=== PATIENT | female | born 1950 | race Caucasian/White ===

== ENCOUNTER 2017-06-26 09:34 | Inpatient (IN) ==
[2017-06-26] MEDS ORDERED: Albuterol 2.5 MG/3 ML NEBULIZER ONE ×2 (10:16→11:44)
[2017-06-26] MEDS ORDERED: Albuterol 2.5 MG/3 ML NEBULIZER IH ONE (10:18)
--- NOTE | 2017-06-26 10:18 | Anesthesia Evaluation PreOp ---
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: Other (spine cancer, chronic back pain) Other Medical History: Bleeding (coughing up blood), Diabetes Type II (per chart but patient denies), Other (bladder cancer; depression/anxiety) Anesthesia History: No Prior Anesthetic Complications (denies personal and family h/o GA complications) : No Test: Negative Alcohol Use: none Drug use: none Medications and Allergies DiphenhydraMINE [Benadryl] 1 tab PO HS PRN #30 capsule 03/12/16 [Rx] Magic Mouthwash [Magic Mouthwash BLM] 10 ml PO QID PRN #240 ml 01/12/17 [Rx] Prochlorperazine Maleate [Compazine] 10 mg PO Q6HR PRN #60 tablet 02/23/17 [Rx] Morphine Sulfate [Arymo ER] 60 mg PO Q8H 03/23/17 [History] Omeprazole [PriLOSEC] 20 mg PO DAILY #30 capsule. 03/23/17 [Rx] Budesonide/Formoterol 80/4.5 [Symbicort 80/4.5] 1 puff IH BID #1 unit 03/30/17 [Rx] Cetirizine HCl [Zyrtec] 10 mg PO DAILY #30 tablet 03/30/17 [Rx] Albuterol Sulfate [Ventolin Hfa] 2 puff IH Q4H PRN 04/14/17 [History] Fluticasone Propionate Nasal [Flonase] 50 mcg NS DAILY PRN 04/14/17 [History] Oxycodone HCl [Roxicodone 30 MG Immed Release] 30 mg PO Q3H PRN 04/14/17 [ History] Oxygen 1 l NS HS 04/14/17 [History] Loratadine [Claritin] 10 mg PO DAILY #30 capsule 05/01/17 [Rx] Gabapentin [Neurontin] 300 mg PO BID #60 capsule 05/20/17 [Rx] LORazepam [Ativan] 1 mg PO AD PRN #6 tablet 06/10/17 [Rx] 3 Allergy/AdvReac Type Severity Reaction Status Date / Time Iodinated Contrast- Oral and Allergy Intermediate Hives Verified 06/08/17 11:40 IV Dye Nickel Allergy Mild Hives Verified 06/08/17 11:40 METALS Allergy Hives Uncoded 06/08/17 11:40 - Meds/Allergy Pre-op Review Medications Reviewed: Yes Allergies Reviewed: Yes Beta Blockers on Current Med List: No Anesthesia Exam O2 Sat Height 1.6 m Weight 67.132 kg O2 Sat by Pulse Oximetry 95 Vital Signs Temp Pulse Resp BP Pulse Ox 97.0 F L 111 16 129/92 95 06/26/17 09:45 06/26/17 09:45 06/26/17 09:45 06/26/17 09:45 06/26/17 09:45 NPO (# of Hours): >8hrs Pain Scale: 9 (baseline chronic pain score) Pain Scale Used: Numeric (1 - 10) - HEENT Pupil (Motor): Pupils equal Mallampati: II Teeth: Edentulous, Prosthesis Denture Type: Upper: Complete Oral Opening: Greater than 3 - BANKING REPRESENTATIVE LOC: Oriented BANKING REPRESENTATIVE Motor: Normal RUE, Normal LUE, Normal RLE, Normal LLE, Normal Face BANKING REPRESENTATIVE Sensory: Normal: RUE, LUE, RLE, LLE, Face - Cardiac Rhythm: Regular Murmur: None - Pulmonary Breath Sounds: bilateral Clear Respiratory Effort: Symmetrical Anesthesia Assess/Plan ASA Score: 3 Modified Loco Scale for Level of Consciousness: Cooperative, oriented, and tranquil Anesthetic Plan: General Autologous Blood: No Monitoring Plan: Standard Monitors Recovery Plan: PACU
[2017-06-26] MEDS: Ringers Solution, Lactated 1,000 ML IVC SCH (10:21)
[2017-06-26] MEDS ORDERED: Ipratropium Neb 0.5 MG NEBULIZER IH PRN (10:22)
[2017-06-26] MEDS ORDERED: Albuterol 2.5 MG/3 ML NEBULIZER IH PRN (10:22)
[2017-06-26] MEDS ORDERED: Racepinephrine Neb 0.5 ML VIAL IH PRN (10:22)
[2017-06-26] MEDS ORDERED: *HR* HYDROmorphone (PF) 1 MG/ML SYRINGE IVP PRN (10:22)
--- NOTE | 2017-06-26 10:45 | History & Physical Report ---
Date of Encounter: 06/26/17 Time of Encounter: 10:15 24 Hour HP Update - Instructions Instructions: If the History and Physical is less than 30 days old and was completed prior to A.M. admission and or procedure and has NOT been updated on calendar day of procedure please complete this update prior to performing procedure. - Update Patient reports changes in Medical Condition: No Changes in examination, assessment, or condition: No Changes in Medication: No Preop tests/diagnostics Reviewed: Yes Surgery Remains Indicated: Yes Consent for Planned Operative Procedure(s) Verified: Yes
[2017-06-26] MEDS ORDERED: *HR* EPINEPHrine 1 MG/10 ML SYRINGE ONE (11:50)
--- NOTE | 2017-06-26 14:14 | Anesthesia Evaluation Post Op ---
Date of Encounter: 06/26/17 Time of Encounter: 13:40 - Vital Signs Vital Signs: Last Vital Signs Temp 98.1 F 06/26/17 14:11 Pulse 77 06/26/17 14:11 Resp 17 06/26/17 14:11 BP 119/75 06/26/17 14:11 Pulse Ox 93 06/26/17 14:11 - Lungs Lungs: Rhonchi (particularly LLL) - Airway Airway: Non-obstructed - Cardiovascular Regular Rate - Mental Status Mental Status: Alert & Oriented, Answers Appropriately - Pain Pain Scale: 4 (sternal soreness) - Nausea Vomiting Nausea Vomiting: Not Present - Hydration Hydration: Tolerates oral liquids - Discharge PostOp Status: Transfer Patient to floor (Due to patient substernal chest pain aggravated by respiration and dyspnea with periodic desaturations, patient will be admitted.)
[2017-06-26 15:41] LABS: Appearance of Body Fluid Cloudy (Clear); Volume of Body Fluid 10 mL
[2017-06-26] MEDS ORDERED: Ondansetron 4 MG/2 ML VIAL IVP PRN (16:26)
[2017-06-26] MEDS ORDERED: Naloxone 0.4 MG/ML INJ IVP PRN (16:26)
[2017-06-26] MEDS ORDERED: Ipratropium/Albuterol Neb 3 ML IH PRN (16:30)
--- NOTE | 2017-06-26 16:44 | Internal Med History&Physical ---
Date of Encounter: 06/26/17 Time of Encounter: 15:00 Assessment and Plan (1) Cough with hemoptysis Current visit: Yes Status: Acute Acute hemoptysis w/cough. Pt. had bronchoscopy today due to hemoptysis for 2 weeks. Patient was seen by Dr. Welsh yesterday in pulmonary clinic and was scheduled for bronchoscopy and endobronchial ultrasound. Bronchoscopy showed hemoptysis with abnormal CXR and blood present in the superior segment of the left lower lobe. Bronchoalveolar lavage was performed. Blood was present throughout the tracheobronchial tree. A lesion was found in the superior segment of the left lower lobe. Coagulation using argon plasma coagulation (APC ) was performed. Endobronchial ultrasound was also performed. A transbronchial needle aspiration was performed. Pt. has bright, quarter-sized hemoptysis w/ cough on examination. Supplemental O2 w/titration and SpO2 monitoring. Continuous cardiac telemetry. Bilateral SCDs on LEs for DVT prophylaxis d/t current bleeding. Pt. seen by Dr. Silva today for consult. Continue pts. pain medications for pain mgmt. Continue to monitor pt. for bleeding. Pt. discussed w/Dr. Swan who agrees w/plan of care. Pt. is at high risk for further morbidity, respiratory distress, and continued bleeding d/t current sx and hx. Observation. (2) Metastatic bone cancer Current visit: Yes Status: Chronic Hx of metastatic bone cancer to the spine. F/u w/oncology on OP basis. (3) Bladder cancer metastasized to intrapelvic lymph nodes Current visit: Yes Status: Chronic Hx of bladder cancer w/metastasis to the intrapelvic lymph nodes. F/u w/ oncology on OP basis. (4) COPD (chronic obstructive pulmonary disease) Current visit: Yes Status: Chronic Hx of chronic COPD. Continue pts. Spiriva. Supplemental O2 w/titration and SpO2 monitoring. Qualifiers: COPD type: chronic bronchitis Qualified Code(s): J42 - Unspecified chronic bronchitis (5) GERD (gastroesophageal reflux disease) Current visit: Yes Status: Chronic Hx of chronic GERD. IVP Zofran 4 mg Q8 for N/V. IVP Protonix 40 mg daily. Qualifiers: Esophagitis presence: esophagitis presence not specified Qualified Code(s) : K21.9 - Gastro-esophageal reflux disease without esophagitis (6) Anxiety Current visit: Yes Status: Chronic Hx of chronic anxiety. Continue patient's Ativan. (7) DVT prophylaxis Current visit: Yes Status: Acute Bilateral SCDs on LEs for DVT prophylaxis d/t pts. current hemoptysis. Continue to monitor pt. for increased bleeding. Internal Medicine - H&P: HPI Chief complaint: Hemoptysis/SOB Admitted From: Direct Admit Plans for Post Hospital Care: Home History of present illness: Ms. Siddiqui is a 67 year old female with medical history of bladder cancer with metastases to the lung, spine, axillary lymph nodes and inguinal lymph nodes; arthritis, COPD, and oxygen dependency at home presents post- bronchoscopic procedure for observation and pain management. Pt. presented today for bronchoscopy due to hemoptysis with abnormal CXR, known lung cancer, and abnormal CT of the chest. Pt. reports SOB, dyspnea, cough w/hemoptysis, and burning in the chest post-procedure. Pt. also reports that she is coughing up quarter-sized bloody sputum when she coughs. Pt. denies recent illness, fever, chills, nausea, vomiting, changes in vision, headache, chest pain, palpitations , abdominal pain, diarrhea, constipation, numbness, tingling, dizziness, lightheadedness, pre-syncope, or syncope. Past Med Surg Social Fam HX - Past Medical History Source: patient, old records reviewed Medical history: arthritis, cancer (Metastatic cancer from bladder to lung to spine to lymph nodes and now two new spots on lung.), CHF, COPD, hyperlipidemia , hypertension, peripheral artery disease Psychiatric history: anxiety, depression, panic disorder - Past Surgical History Surgical History: cancer surgery - Social History Smoking Status: Current every day smoker Packs per day: 1/2-1 PPD Smokeless Tobacco Status: No Alcohol use: none Drug use: none Current living situation: Home Activity Level: Independent ambulation Recent Out of Country Travel Within the Last 8 Weeks: No Exposure or Possible Exposure to Illness During Travel: No - Family History Father Race: Family Member Ethnicity: Non- Living Status: Age at : 97 Cause of : Old age Hx Family Respiratory Disorders: Yes (COPD/Emphysema) Mother Race: Family Member Ethnicity: Non- Living Status: Age at : 89 Cause of : Lung cancer Hx Family Cardiac Disorders: Yes ([place], CAD) Hx Family Cancer: Yes (Lung) Brother Race: Family Member Ethnicity: Non- Living Status: Still Living Hx Family Respiratory Disorders: Yes (COPD) Hx Family Psychosocial Disorders: Yes (Bipolar disorder) Sister Race: Family Member Ethnicity: Non- Living Status: Age at : 52 Cause of : Melanoma w/metastases Hx Family Cancer: Yes (Melanoma w/metastases) Internal Medicine - H&P: Meds Prochlorperazine Maleate [Compazine] 10 mg PO Q6HR PRN #60 tablet 02/23/17 [Rx] Omeprazole [PriLOSEC] 20 mg PO DAILY #30 capsule. 03/23/17 [Rx] Albuterol Sulfate [Ventolin Hfa] 2 puff IH Q4H PRN 04/14/17 [History] Oxycodone HCl [Roxicodone 30 MG Immed Release] 30 mg PO Q4H PRN 04/14/17 [ History] Oxygen 1 l NS HS 04/14/17 [History] Loratadine [Claritin] 10 mg PO DAILY #30 capsule 05/01/17 [Rx] Gabapentin [Neurontin] 300 mg PO BID #60 capsule 05/20/17 [Rx] Budesonide/Formoterol 160/4.5 [Symbicort 160/4.5] 2 puff IH BIDR 06/26/17 [ History] LORazepam [Ativan] 0.5 mg PO Q6H PRN 06/26/17 [History] Morphine Sulfate SR (12 HR) [MS Contin] 1 tab PO Q8HR PRN 06/26/17 [History] Tiotropium [place] [Spiriva Respimat] 2 puff IH DAILY 06/26/17 [History] 3 Allergy/AdvReac Type Severity Reaction Status Date / Time Iodinated Contrast- Oral and Allergy Intermediate Hives Verified 06/08/17 11:40 IV Dye Nickel Allergy Mild Hives Verified 06/08/17 11:40 METALS Allergy Hives Uncoded 06/08/17 11:40 All Systems PM: A 10-system review of systems was performed and is negative for pertinent findings except as documented above in the HPI. - Constitutional Constitutional: no chills, no fever(s), no night sweats - EENT Eyes: no change in vision, no discharge, no pain, no photophobia Ears: no ear discharge, no ear pain, no tinnitus Nose, mouth and throat: no dysphagia, no nasal discharge, no neck pain, no sore throat - Breasts Breasts: as per HPI - Cardiovascular Cardiovascular ROS IM: as per HPI, dyspnea, dyspnea on exertion, no chest pain, no diaphoresis, no lightheadedness, no palpitations, no syncope - Respiratory Respiratory: as per HPI, cough, dyspnea, hemoptysis, dyspnea on exertion, pain with cough - Gastrointestinal Gastrointestinal: no abdominal pain, no diarrhea, no hematemesis, no hematochezia, no melena, no nausea, no vomiting - Genitourinary Genitourinary: no change in urinary stream, no dysuria, no flank pain, no hematuria Menstruation: as per HPI - Musculoskeletal Musculoskeletal ROS IM: no numbness, no tingling - Integumentary Integumentary IM: no rash, no unusual bruising - Neurological Neurological ROS: no confusion, no convulsions, no focal weakness, no numbness, no tingling, no tremor(s) - Psychiatric Psychiatric: as per HPI - Endocrine Endocrine IM: as per HPI - Hematologic/Lymphatic Hematologic/Lymphatic: as per HPI, easy bleeding (Hemoptysis) - Allergic/Immunologic Allergic/Immunologic: as per HPI - Constitutional Vitals: Temp Pulse Resp BP Pulse Ox 98.1 F 77 17 119/75 93 06/26/17 14:11 06/26/17 14:11 06/26/17 14:11 06/26/17 14:11 06/26/17 14:11 General appearance: Present: cooperative, mild distress, A&O X 3, pleasant, answers questions appropriately - Eye Eye exam: Present: PERRL, conjuntiva pink, sclera anicteric Pupils: Present: PERRL - ENT ENT exam: Present: normal exam, normal external ear exam - Neck Neck exam general surgery: Present: normal inspection, supple, trachea midline. Absent: lymphadenopathy - Respiratory Respiratory exam: Present: accessory muscle use, rhonchi - Cardiovascular Cardiovascular exam: Present: RRR, +S1, +S2. Absent: diastolic murmur, gallop, rubs, systolic murmur - GI/Abdominal GI/Abdominal exam: Present: normal bowel sounds, soft, no peritoneal signs. Absent: distended, tenderness - Rectal Rectal exam: Present: deferred - Additional comments: exam deferred. - Extremities Exam Extremities exam: Present: warm, radial pulses palpable and symmetrical. Absent : calf tenderness, cyanotic, pedal edema - Back Exam Back exam: Present: normal inspection - Neurological Exam Neurological exam: Present: CN II-XII intact, oriented X3, no focal deficits. Absent: pronater drift, facial droop, speech deficit - Psychiatric Psychiatric exam: Present: normal affect, normal mood - Skin Skin exam: Present: dry, intact Internal Med - H&P Results - Labs CBC & Chem 7: 06/26/17 16:36 06/26/17 16:36 - Impressions ITS Impressions Chest X-Ray 06/26/17 12:00 IMPRESSION: 1. Unchanged 2 cm right upper lobe pulmonary nodule. D/ / London Salguero MD / London Salguero MD Interpreting Provider: London Salguero MD - Diagnostic Studies Chest x-ray Additional comments: Impressions cc: Christiana Starkey; Shahnaz Welsh; ~ EXAMINATION: SINGLE VIEW OF THE CHEST 06/26/2017 12:21 pm COMPARISON: 10/01/2015 HISTORY: ORDERING SYSTEM PROVIDED HISTORY: post bronch Additional tech notes: [facility] 1 FINDINGS: No change in the 2.1 cm right upper lobe pulmonary nodule. The left mid lung scarring has contracted with associated volume loss. The lungs are hyperexpanded. The cardiac silhouette is stable. There is no pneumothorax or pleural effusion. The right port terminates in the mid SVC. XR/XR chest 1V portable
--- NOTE | 2017-06-26 16:53 | Pulmonology Consult Note ---
Date of Encounter: 06/26/17 Time of Encounter: 16:30 Assessment and Plan (1) Cough with hemoptysis Current Visit: Yes Status: Acute Patient has known history of lung cancer now with PET CT scan most likely recurrence now with 2 weeks of hemoptysis , Bronchsocopy showed oozing from Left lower lobe superior segment , coagulated with APC bleeding stopped now when i saw her she started to have some hemoptysis will give her cup to measure , if the hemoptysis is getting worsen will need bronchial artery embolization will need to pre-medicate for allergy to IVP, will start he ella methyprednsione . If oxygenation is worsening will shift her to ICU for closer monitoring . (2) Non-small cell lung cancer Current Visit: No Status: Chronic PET CT scan showed recurrence now with 2 weeks of hemoptysis Qualifiers: Laterality: left Qualified Code(s): C34.92 - Malignant neoplasm of unspecified part of left bronchus or lung (3) Hemoptysis Current Visit: Yes Status: Acute Coming from left lower lobe superior segment did coagulatio APC , and the blood oozing is stopped will montor v/q mismatch (4) COPD (chronic obstructive pulmonary disease) Current Visit: Yes Status: Chronic To continue the current regimen of bronchodilators , will continue steroids . Qualifiers: COPD type: chronic bronchitis Qualified Code(s): J41.1 - Mucopurulent chronic bronchitis History of Present Illness Consult date: 06/26/17 Requesting physician: Enrrique Pineda Reason for consult: other (HEMOPTYSIS ) Chief complaint: Coughing up blood History of present illness: 67 year old female lung cancer coming with 2 weeks of hemoptysis was getting worse seen by yesterday in pulmonary clinic , had a scheduled Bronchoscopy with Endobronchial ultrasound under GA airway exam showed quite bit oozing , Argon photo coagulation was done the bleeding stopped , was extubated was admitted to the hospital for observation for hemoptysis . I spoke with IR since the patient has allergy to IVP will need premedication with steroids if he needs bronchial artery embolization. Past Med Surg Social Fam HX - Past Medical History Medical history: arthritis, cancer, CHF, COPD, hyperlipidemia, hypertension, peripheral artery disease Psychiatric history: anxiety, depression, panic disorder - Past Surgical History Surgical History: cancer surgery - Social History Smoking Status: Current every day smoker Packs per day: 1/2-1 Smokeless Tobacco Status: No Alcohol use: none Drug use: none Medications and Allergies Prochlorperazine Maleate [Compazine] 10 mg PO Q6HR PRN #60 tablet 02/23/17 [Rx] Omeprazole [PriLOSEC] 20 mg PO DAILY #30 capsule. 03/23/17 [Rx] Albuterol Sulfate [Ventolin Hfa] 2 puff IH Q4H PRN 04/14/17 [History] Oxycodone HCl [Roxicodone 30 MG Immed Release] 30 mg PO Q4H PRN 04/14/17 [ History] Oxygen 1 l NS HS 04/14/17 [History] Loratadine [Claritin] 10 mg PO DAILY #30 capsule 05/01/17 [Rx] Gabapentin [Neurontin] 300 mg PO BID #60 capsule 05/20/17 [Rx] Budesonide/Formoterol 160/4.5 [Symbicort 160/4.5] 2 puff IH BIDR 06/26/17 [ History] LORazepam [Ativan] 0.5 mg PO Q6H PRN 06/26/17 [History] Morphine Sulfate SR (12 HR) [MS Contin] 1 tab PO Q8HR PRN 06/26/17 [History] Tiotropium [place] [Spiriva Respimat] 2 puff IH DAILY 06/26/17 [History] 3 Allergy/AdvReac Type Severity Reaction Status Date / Time Iodinated Contrast- Oral and Allergy Intermediate Hives Verified 06/08/17 11:40 IV Dye Nickel Allergy Mild Hives Verified 06/08/17 11:40 METALS Allergy Hives Uncoded 06/08/17 11:40 All Systems: A 10-system review of systems was performed and is negative for pertinent findings except as documented above in the HPI. Physical Examination Vital Signs: Vital Signs, Last 4 Hours Temp Pulse Resp BP Pulse Ox 06/26/17 14:11 98.1 F 77 17 119/75 93 06/26/17 12:55 75 16 146/96 98 Auscultation: bilateral: wheezes Results - Laboratory Findings CBC and BMP: 06/26/17 16:36 06/26/17 16:36 Abnormal lab findings: Abnormal lab results Fluid Appearance Cloudy (Clear) A 06/26/17 11:35 - Microbiology Findings Microbiology Findings: Microbiology, Last 48 Hours 06/26/17 11:35 Gram Stain - Final Left Lower Lobe Lung - Clinical Findings Intake & Output: Intake & Output 06/26/17 06/26/17 06/26/17 07:59 15:59 23:59 Weight 67.132 kg Consult Discharge Plan - Plan Referrals: Christiana Starkey MD [Primary Care Provider] - Martina Lopez [Family Provider] -
--- NOTE | 2017-06-26 17:04 | Event Note ---
Date of Encounter: 06/26/17 Time of Encounter: 16:45 Patient was staffed with Enrrique Pineda CNP. Agree with his note as written. Patient will need to be monitored post bronch. Has h/o lung cancer with mets. Been dealing with hemoptysis. Hemodynamically stable. Will check basic labs including H/H. consult pulm.
[2017-06-26 17:18] LABS: Basophils % 0.1 %; Eosinophils % 0.3 %; Hematocrit 38.2 % (35.3-44.9); Hemoglobin 12.7 g/dL (11.5-15.4); Immature Granulocytes % 0.4 % (0-4); Immature Platelets 1.6 % (1.1-6.1); Lymphocytes # 0.6 K/mcL (0.6-4.6); Lymphocytes % 5.3 %; Mean Corpuscular HGB Conc 33.2 g/dL (31.6-35.5); Mean Corpuscular Hemoglobin 30.5 pg (28.0-33.3); Mean Corpuscular Volume 91.6 fL (83.0-100.0); Mean Platelet Volume 8.5 fL (9.4-12.4); Monocytes # 0.8 K/mcL (0.0-1.3); Monocytes % 6.9 %; Neutrophils # 9.6 K/mcL (1.6-8.9); Platelet Count 201 K/mcL (140-400); Red Blood Count 4.17 M/mcL (3.82-4.97); Red Cell Distribution Width 13.2 % (11.5-14.5)
[2017-06-26] MEDS: *HR* Morphine Sulfate SR (12 HR) 60 MG TABLET.ER PO PRN (17:33)
[2017-06-26 17:41] LABS: Alanine Aminotransferase 4 Units/L (7-52); Albumin 3.6 g/dL (3.5-5.7); Albumin/Globulin Ratio 1.6 (1.1-2.2); Alkaline Phosphatase 66 Units/L (34-104); Aspartate Amino Transferase 12 Units/L (13-39); BUN/Creatinine Ratio 23 (6-26); Bilirubin,Total 0.3 mg/dL (0.3-1.0); Blood Urea Nitrogen 13 mg/dL (8-23); Calcium 8.8 mg/dL (8.6-10.3); Carbon Dioxide 25 mEq/L (23-29); Chloride 108 mEq/L (98-107); Globulin 2.2 g/dL (2.4-3.5); Glucose 103 mg/dL (70-105); Osmolality,Calculated 284 (280-300); Potassium 4.1 mEq/L (3.5-5.1); Sodium 137 mEq/L (136-145); Total Protein 5.8 g/dL (6.4-8.9); eGFR For African Americans > 60 (> 60); eGFR For Non-African Americans > 60 (> 60)
--- NOTE | 2017-06-26 18:29 | Oncology Inp Consult Note ---
Date of Encounter: 06/26/17 Time of Encounter: 17:00 Assessment and Plan (1) Cough with hemoptysis Status: Acute Assessment and plan: Patient with hemoptysis with metastatic lung cancer with progressive disease in the lungs, history of urothelial malignancy, treated with no wall Alina status post a bronchoscopy and laser coagulation for hemostasis. Bleeding had patient is hospitalized for continued observation. She denies any pain or shortness of breath. Lab works reviewed stable hemoglobin hematocrit. Ct to monitor labs, posssible d/c once stable Outpatient f/u for change in chemotherapy per her oncologist recommendations ( alimta) at later date Patient is agreeable to above plan - Data of Consult Requesting Physician: Zhang Rees Primary Care Provider: Christiana Strickland Provider: Angelita Provider - Consult Narrative Reason for consult: Patient with bladder cancer and the lung cancer, bony metastatic disease History of present illness: Ms. Siddiqui is a 67 year old female medical history significant for bladder cancer status post transurethral resection in February 2018, completed definitive chemoradiation therapy, pulmonary adenocarcinoma with mediastinal lymph node recurrence after SBR T, patient underwent chemoradiation therapy to mediastinal disease, bony metastatic disease that was confirmed by needle biopsy patient underwent palliative radiation, started on the immunotherapy a CT scan in July 2016 showed progressive disease, currently maintained on nivolumab immunotherapy, patient is hospitalized after bronchoscopy procedure due to findings and concern for hemoptysis, bleeding. A bronchoscopy procedure performed today showed fresh blood. A segment of the left lower lobe medium-sized partially obstructing erythematous edema to his lesion noted 5 cm from bifurcation in the left lower lobe. Patient continues to have bloodstained phlegm on coughing. She denies any pain she denies any dizziness she is able to ambulate around the room without difficulty. Past Med Surg Social Fam HX - Past Medical History Medical history: arthritis, cancer (Metastatic cancer from bladder to lung to spine to lymph nodes and now two new spots on lung.), CHF, COPD, hyperlipidemia , hypertension, peripheral artery disease Psychiatric history: anxiety, depression, panic disorder - Past Surgical History Surgical History: cancer surgery - Social History Smoking Status: Current every day smoker Packs per day: 1/2-1 PPD Smokeless Tobacco Status: No Alcohol use: none Drug use: none - Family History Father Race: Family Member Ethnicity: Non- Living Status: Age at : 97 Cause of : Old age Hx Family Respiratory Disorders: Yes (COPD/Emphysema) Mother Race: Family Member Ethnicity: Non- Living Status: Age at : 89 Cause of : Lung cancer Hx Family Cardiac Disorders: Yes (PR, CAD) Hx Family Cancer: Yes (Lung) Brother Race: Family Member Ethnicity: Non- Living Status: Still Living Hx Family Respiratory Disorders: Yes (COPD) Hx Family Psychosocial Disorders: Yes (Bipolar disorder) Sister Race: Family Member Ethnicity: Non- Living Status: Age at : 52 Cause of : Melanoma w/metastases Hx Family Cancer: Yes (Melanoma w/metastases) Medications and Allergies Prochlorperazine Maleate [Compazine] 10 mg PO Q6HR PRN #60 tablet 02/23/17 [Rx] Omeprazole [PriLOSEC] 20 mg PO DAILY #30 capsule. 03/23/17 [Rx] Albuterol Sulfate [Ventolin Hfa] 2 puff IH Q4H PRN 04/14/17 [History] Oxycodone HCl [Roxicodone 30 MG Immed Release] 30 mg PO Q4H PRN 04/14/17 [ History] Oxygen 1 l NS HS 04/14/17 [History] Loratadine [Claritin] 10 mg PO DAILY #30 capsule 05/01/17 [Rx] Gabapentin [Neurontin] 300 mg PO BID #60 capsule 05/20/17 [Rx] Budesonide/Formoterol 160/4.5 [Symbicort 160/4.5] 2 puff IH BIDR 06/26/17 [ History] LORazepam [Ativan] 0.5 mg PO Q6H PRN 06/26/17 [History] Morphine Sulfate SR (12 HR) [MS Contin] 1 tab PO Q8HR PRN 06/26/17 [History] Tiotropium Grace [Spiriva Respimat] 2 puff IH DAILY 06/26/17 [History] 3 Allergy/AdvReac Type Severity Reaction Status Date / Time Iodinated Contrast- Oral and Allergy Intermediate Hives Verified 06/08/17 11:40 IV Dye Nickel Allergy Mild Hives Verified 06/08/17 11:40 METALS Allergy Hives Uncoded 06/08/17 11:40 Review of systems: as in HPI Oncology - Exam - Constitutional Vitals: Temp Pulse Resp BP Pulse Ox 98.2 F 77 18 139/75 96 06/26/17 17:00 06/26/17 17:00 06/26/17 17:00 06/26/17 17:00 06/26/17 17:00 General appearance: average body habitus - Head Head exam: Present: atraumatic, normal inspection - Eye Eye exam: Present: sclera anicteric - ENT ENT exam: Present: mucous membranes dry - Respiratory Respiratory exam: Present: CTAB, wheezes - Cardiovascular Cardiovascular exam: Present: +S1, +S2 - GI/Abdominal GI/Abdominal exam: Present: normal bowel sounds, soft - Extremities Exam Extremities exam: Present: normal inspection - Neurological Exam Neurological exam: Present: alert, CN II-XII intact, oriented X3, no focal deficits - Psychiatric Psychiatric exam: Present: normal mood Oncology - Results Labs: Short CBC 06/26/17 Range/Units 16:36 WBC 11.0 D (4.3-11.1) K/mcL Hgb 12.7 (11.5-15.4) g/dL Hct 38.2 (35.3-44.9) % Plt Count 201 (140-400) K/mcL Neutrophils # 9.6 H (1.6-8.9) K/mcL BMP 06/26/17 16:36 Sodium 137 Potassium 4.1 Chloride 108 H Carbon Dioxide 25 BUN 13 Creatinine 0.57 L Glucose 103 Calcium 8.8 Liver Function 06/26/17 Range/Units 16:36 Total Bilirubin 0.3 (0.3-1.0) mg/dL AST 12 L (13-39) Units/L ALT 4 L (7-52) Units/L Alkaline Phosphatase 66 (34-104) Units/L Albumin 3.6 (3.5-5.7) g/dL Consult Discharge Plan - Plan Referrals: Christiana Starkey MD [Primary Care Provider] - Martina Lopez [Family Provider] -
[2017-06-26] MEDS: MethylPREDNISolone 40 MG/ML VIAL IVP SCH (18:53)
[2017-06-26] MEDS: (Tiotropium Bromide [Spiriva Respimat] 2 PUFF) IH SCH (18:53)
[2017-06-26] MEDS: *HR* OxyCODONE Immed Rel 15 MG TABLET PO PRN ×2 (18:53→22:57)
[2017-06-26] MEDS: Pantoprazole 40 MG VIAL IVP SCH (18:53)
[2017-06-26] MEDS: Gabapentin 300 MG CAPSULE PO SCH (20:50)
[2017-06-26] MEDS: *HR* LORazepam 0.5 MG TABLET PO PRN (21:05)
[2017-06-26] MEDS: Budesonide/Formoterol 160/4.5 MDI IH SCH (21:33)
[2017-06-26] MEDS: Ipratropium/Albuterol Neb 3 ML IH SCH (21:33)
[2017-06-26 23:06] LABS: Hematocrit 39.8 % (35.3-44.9); Hemoglobin 13.3 g/dL (11.5-15.4)
[2017-06-27] MEDS: *HR* Morphine Sulfate SR (12 HR) 60 MG TABLET.ER PO PRN ×3 (01:08→23:01)
[2017-06-27] MEDS: *HR* OxyCODONE Immed Rel 15 MG TABLET PO PRN ×4 (02:27→19:22)
[2017-06-27] MEDS: MethylPREDNISolone 40 MG/ML VIAL IVP SCH ×2 (02:28→12:40)
[2017-06-27 03:22] LABS: Basophils % 0.1 %; Hematocrit 38.2 % (35.3-44.9); Hemoglobin 12.8 g/dL (11.5-15.4); Immature Granulocytes % 0.7 % (0-4); Lymphocytes # 0.4 K/mcL (0.6-4.6); Lymphocytes % 6.3 %; Mean Corpuscular HGB Conc 33.5 g/dL (31.6-35.5); Mean Corpuscular Hemoglobin 30.6 pg (28.0-33.3); Mean Corpuscular Volume 91.4 fL (83.0-100.0); Mean Platelet Volume 8.5 fL (9.4-12.4); Monocytes # 0.1 K/mcL (0.0-1.3); Monocytes % 1.6 %; Neutrophils # 6.4 K/mcL (1.6-8.9); Platelet Count 181 K/mcL (140-400); Red Blood Count 4.18 M/mcL (3.82-4.97); Red Cell Distribution Width 12.9 % (11.5-14.5); Segmented Neutrophils % 91.3 %
[2017-06-27 03:27] LABS: Prothrombin Time 10.9 Seconds (9.4-12.1)
[2017-06-27 03:30] LABS: Activated Partial Thrombo Time 27.4 Seconds (26.0-36.0)
[2017-06-27] MEDS: Ipratropium/Albuterol Neb 3 ML IH SCH ×4 (03:41→21:33)
[2017-06-27 03:42] LABS: Hemoglobin A1C 4.9 %
[2017-06-27 03:49] LABS: Alanine Aminotransferase 5 Units/L (7-52); Albumin 3.7 g/dL (3.5-5.7); Albumin/Globulin Ratio 1.5 (1.1-2.2); Alkaline Phosphatase 68 Units/L (34-104); Aspartate Amino Transferase 12 Units/L (13-39); BUN/Creatinine Ratio 19 (6-26); Bilirubin,Total 0.3 mg/dL (0.3-1.0); Blood Urea Nitrogen 12 mg/dL (8-23); Carbon Dioxide 23 mEq/L (23-29); Chloride 107 mEq/L (98-107); Chol/HDL Ratio 4.6 (0-4.9); Cholesterol 232 mg/dL (< 200); Globulin 2.4 g/dL (2.4-3.5); Glucose 161 mg/dL (70-105); HDL Cholesterol 50 mg/dL (40-59); LDL Cholesterol,Calculated 168 mg/dL (0-99); Magnesium 1.8 mg/dL (1.6-2.6); Osmolality,Calculated 285 (280-300); Potassium 4.3 mEq/L (3.5-5.1); Sodium 136 mEq/L (136-145); Total Protein 6.1 g/dL (6.4-8.9); Triglycerides 72 mg/dL (< 150); eGFR For African Americans > 60 (> 60); eGFR For Non-African Americans > 60 (> 60)
[2017-06-27] MEDS: Ringers Solution, Lactated 1,000 ML IVC SCH (06:10)
--- NOTE | 2017-06-27 06:49 | Pulmonology Progress Note ---
Date of Encounter: 06/27/17 Time of Encounter: 06:40 Assessment and Plan (1) Cough with hemoptysis Current Visit: Yes Status: Acute Patient hemoptysis is minimal overnight is way better what she had at home s/p Bronchoscopy with coagulation of the oozing area form the superior segment of left lower lobe . (2) Non-small cell lung cancer Current Visit: No Status: Chronic PET CT shows recurrence Qualifiers: Laterality: left Qualified Code(s): C34.92 - Malignant neoplasm of unspecified part of left bronchus or lung (3) Hemoptysis Current Visit: Yes Status: Acute Patient want to monitor for one more day gave option she can go home with instructions to come back to ER if the symptoms worsen if the symptoms worsen the next step will be bronchial artery embolization . (4) COPD (chronic obstructive pulmonary disease) Current Visit: Yes Status: Chronic To continue the current regimen of bronchodilators and will send home on 5 days of 40 mg PO prednisone. Qualifiers: COPD type: chronic bronchitis Qualified Code(s): J41.8 - Mixed simple and mucopurulent chronic bronchitis Subjective Principal diagnosis: hemoptysis Interval history: Patient hemoptysis over 16 hrs some 20-30 ml hemoptysis says the coughing of blood is lot better than what she had at home. Objective PUL Vital signs: Last Vital Signs Temp 97.9 F 06/27/17 04:07 Pulse 90 06/27/17 04:07 Resp 16 06/27/17 04:07 BP 101/61 06/27/17 04:07 Pulse Ox 92 06/27/17 04:07 Auscultation: bilateral: wheezes Results - Laboratory Findings CBC and BMP: 06/27/17 03:03 06/27/17 03:03 PT/INR, D-dimer PT 10.9 Seconds (9.4-12.1) 06/27/17 03:03 Abnormal lab findings: Abnormal lab results MPV 8.5 fL (9.4-12.4) L 06/27/17 03:03 Lymphocytes # 0.4 K/mcL (0.6-4.6) L 06/27/17 03:03 Glucose 161 mg/dL (70-105) H 06/27/17 03:03 AST 12 Units/L (13-39) L 06/27/17 03:03 ALT 5 Units/L (7-52) L 06/27/17 03:03 Serum Total Protein 6.1 g/dL (6.4-8.9) L 06/27/17 03:03 Cholesterol 232 mg/dL (< 200) H 06/27/17 03:03 LDL Cholesterol, Calc 168 mg/dL (0-99) H 06/27/17 03:03 Fluid Appearance Cloudy (Clear) A 06/26/17 11:35 - Microbiology Findings Microbiology Findings: Microbiology, Last 48 Hours 06/26/17 11:35 Gram Stain - Final Left Lower Lobe Lung - Clinical Findings Intake & Output: Intake & Output 06/26/17 06/26/17 06/27/17 15:59 23:59 07:59 Intake Total 300 / 300 250 / 250 Balance 300 / 300 250 / 250 Weight 67.132 kg 67.4 kg - VTE Documentation of Mechanical Device: Intermittent pneumatic compression device Consult Discharge Plan - Plan Referrals: Christiana Starkey MD [Primary Care Provider] - Martina Lopez [Family Provider] -
[2017-06-27] MEDS: Pantoprazole 40 MG VIAL IVP SCH ×2 (08:13→12:40)
[2017-06-27] MEDS: Loratadine 10 MG TABLET PO SCH ×2 (08:13→08:17)
[2017-06-27] MEDS: Gabapentin 300 MG CAPSULE PO SCH ×2 (08:13→20:19)
[2017-06-27] MEDS: (Tiotropium Bromide [Spiriva Respimat] 2 PUFF) IH SCH (08:14)
[2017-06-27] MEDS: Budesonide/Formoterol 160/4.5 MDI IH SCH ×2 (10:36→21:33)
--- NOTE | 2017-06-27 12:08 | Internal Med Progress Note ---
Date of Encounter: 06/27/17 Time of Encounter: 11:50 - Assessment and plan (1) Hemoptysis Current Visit: Yes Status: Acute Assessment and plan: Hemodynamically stable changes stable. Status post APC by pulmonary yesterday through bronchoscopy. We will keep an other day and monitor hemoptysis. Pulmonary is following. (2) Anxiety Current Visit: Yes Status: Chronic Assessment and plan: Continue patient's Ativan (3) Non-small cell lung cancer Current Visit: No Status: Chronic Assessment and plan: Follow-up with her oncologist outpatient for chemotherapy continuation. Qualifiers: Laterality: left Qualified Code(s): C34.92 - Malignant neoplasm of unspecified part of left bronchus or lung (4) COPD (chronic obstructive pulmonary disease) Current Visit: Yes Status: Chronic Assessment and plan: Not in exacerbation. Continue with nebulizers and inhalers. Qualifiers: COPD type: chronic bronchitis Qualified Code(s): J41.1 - Mucopurulent chronic bronchitis (5) DVT prophylaxis Current Visit: Yes Status: Acute Assessment and plan: SCDs - Subjective Interval history: Acute events. The patient still has some minimal hemoptysis develops fresh. She is hemodynamically stable. Denies any pain. - Constitutional Vitals: Temp Pulse Resp BP Pulse Ox 97.7 F 88 14 125/68 94 06/27/17 08:22 06/27/17 08:22 06/27/17 10:38 06/27/17 08:22 06/27/17 10:38 General appearance: Present: cooperative, mild distress, A&O X 3, pleasant, answers questions appropriately Exam: GEN: NAD CVS: RRR. S1, S2, No m/r/g RESP: CTAB ABD: Soft, NT, ND, +BS EXT: No edema. 2+ DP. No rashes NEURO: Nonfocal Internal Medicine: Result - Labs CBC & Chem 7: 06/27/17 03:03 06/27/17 03:03 Labs: Short CBC 06/26/17 06/26/17 06/27/17 Range/Units 16:36 22:47 03:03 WBC 11.0 D 7.0 (4.3-11.1) K/mcL Hgb 12.7 13.3 12.8 (11.5-15.4) g/dL Hct 38.2 39.8 38.2 (35.3-44.9) % Plt Count 201 181 (140-400) K/mcL Neutrophils # 9.6 H 6.4 (1.6-8.9) K/mcL BMP 06/26/17 06/27/17 16:36 03:03 Sodium 137 136 Potassium 4.1 4.3 Chloride 108 H 107 Carbon Dioxide 25 23 BUN 13 12 Creatinine 0.57 L 0.63 Glucose 103 161 H Calcium 8.8 9.0 Liver Function 06/26/17 06/27/17 Range/Units 16:36 03:03 Total Bilirubin 0.3 0.3 (0.3-1.0) mg/dL AST 12 L 12 L (13-39) Units/L ALT 4 L 5 L (7-52) Units/L Alkaline Phosphatase 66 68 (34-104) Units/L Albumin 3.6 3.7 (3.5-5.7) g/dL - ABG Interpretation ABG results: PT/INR, D-dimer PT 10.9 Seconds (9.4-12.1) 06/27/17 03:03 - Impressions Impressions Chest X-Ray 06/26/17 12:00 IMPRESSION: 1. Unchanged 2 cm right upper lobe pulmonary nodule. D/ / London Salguero MD / London Salguero MD Interpreting Provider: London Salguero MD - VTE Documentation of Mechanical Device: Intermittent pneumatic compression device Consult Discharge Plan - Plan Referrals: Christiana Starkey MD [Primary Care Provider] - Martina Lopez [Family Provider] -
[2017-06-27] MEDS: predniSONE 20 MG TABLET PO SCH (15:36)
[2017-06-27] MEDS ORDERED: MethylPREDNISolone 40 MG/ML VIAL IVP SCH (16:35)
[2017-06-27] MEDS ORDERED: Sennosides/Docusate Sodium TABLET PO PRN (21:02)
[2017-06-27] MEDS: *HR* LORazepam 0.5 MG TABLET PO PRN (23:01)
[2017-06-28] MEDS: *HR* LORazepam 0.5 MG TABLET PO PRN (02:08)
[2017-06-28] MEDS: Ipratropium/Albuterol Neb 3 ML IH SCH ×4 (03:43→21:59)
[2017-06-28 04:00] LABS: Basophils % 0.2 %; Hematocrit 36.5 % (35.3-44.9); Hemoglobin 12.2 g/dL (11.5-15.4); Lymphocytes # 0.4 K/mcL (0.6-4.6); Lymphocytes % 3.7 %; Mean Corpuscular HGB Conc 33.4 g/dL (31.6-35.5); Mean Corpuscular Hemoglobin 30.5 pg (28.0-33.3); Mean Corpuscular Volume 91.3 fL (83.0-100.0); Mean Platelet Volume 8.7 fL (9.4-12.4); Monocytes # 0.6 K/mcL (0.0-1.3); Monocytes % 5.5 %; Neutrophils # 10.5 K/mcL (1.6-8.9); Platelet Count 181 K/mcL (140-400); Red Cell Distribution Width 13.1 % (11.5-14.5); Segmented Neutrophils % 89.6 %
[2017-06-28 04:18] LABS: Alanine Aminotransferase 5 Units/L (7-52); Albumin 3.5 g/dL (3.5-5.7); Albumin/Globulin Ratio 1.5 (1.1-2.2); Alkaline Phosphatase 59 Units/L (34-104); Aspartate Amino Transferase 10 Units/L (13-39); BUN/Creatinine Ratio 23 (6-26); Bilirubin,Total 0.2 mg/dL (0.3-1.0); Blood Urea Nitrogen 16 mg/dL (8-23); Calcium 8.9 mg/dL (8.6-10.3); Carbon Dioxide 24 mEq/L (23-29); Chloride 108 mEq/L (98-107); Globulin 2.4 g/dL (2.4-3.5); Glucose 166 mg/dL (70-105); Osmolality,Calculated 291 (280-300); Potassium 4.4 mEq/L (3.5-5.1); Sodium 138 mEq/L (136-145); Total Protein 5.9 g/dL (6.4-8.9); eGFR For African Americans > 60 (> 60); eGFR For Non-African Americans > 60 (> 60)
[2017-06-28] MEDS: *HR* OxyCODONE Immed Rel 15 MG TABLET PO PRN ×4 (06:25→19:35)
[2017-06-28] MEDS: *HR* Morphine Sulfate SR (12 HR) 60 MG TABLET.ER PO PRN ×2 (09:59→18:55)
[2017-06-28] MEDS: predniSONE 20 MG TABLET PO SCH (09:59)
[2017-06-28] MEDS: (Tiotropium Bromide [Spiriva Respimat] 2 PUFF) IH SCH (09:59)
[2017-06-28] MEDS: Loratadine 10 MG TABLET PO SCH (09:59)
[2017-06-28] MEDS: Gabapentin 300 MG CAPSULE PO SCH ×2 (09:59→21:17)
[2017-06-28] MEDS: Budesonide/Formoterol 160/4.5 MDI IH SCH ×2 (10:58→21:59)
--- NOTE | 2017-06-28 12:43 | Pulmonology Progress Note ---
Date of Encounter: 06/28/17 Time of Encounter: 12:30 Assessment and Plan (1) Cough with hemoptysis Current Visit: Yes Status: Acute Patient hemoptysis is mild overnight is way better what she had at home s/p Bronchoscopy with coagulation of the oozing area form the superior segment of the left lower lobe. Because of a single clot she coughed up , she is anxious to go home today if tonight is well with not much coughing of blood she wanted to go home tomorrow . (2) Non-small cell lung cancer Current Visit: No Status: Chronic PET CT shows recurrence Qualifiers: Laterality: left Qualified Code(s): C34.92 - Malignant neoplasm of unspecified part of left bronchus or lung (3) Hemoptysis Current Visit: Yes Status: Acute Patient want to monitor for one more day gave option she can go home with instructions to come back to ER if the symptoms worsen, if the symptoms worsen the next step will be bronchial artery embolization by IR . (4) COPD (chronic obstructive pulmonary disease) Current Visit: Yes Status: Chronic To continue the current regimen of bronchodilators since the patient increased wheezing will treat as COPD exacerbation with steroids and antibiotics. Qualifiers: COPD type: chronic bronchitis Qualified Code(s): J41.8 - Mixed simple and mucopurulent chronic bronchitis Subjective Principal diagnosis: hemoptysis Interval history: Patient has mild amount of hemoptysis over 48 hrs , patient is concerned about the clot she coughed up today , has worsened wheezing today, denies any chest pain or tightness, patient says she is not back to baseline she is no ready to go home. Objective PUL Vital signs: Last Vital Signs Temp 98.4 F 06/28/17 11:27 Pulse 77 06/28/17 11:27 Resp 17 06/28/17 11:27 BP 126/74 06/28/17 11:27 Pulse Ox 94 06/28/17 11:27 Auscultation: bilateral: wheezes (scattered wheezes ) Results - Laboratory Findings CBC and BMP: 06/28/17 02:52 06/28/17 02:52 PT/INR, D-dimer PT 10.9 Seconds (9.4-12.1) 06/27/17 03:03 Abnormal lab findings: Abnormal lab results WBC 11.7 K/mcL (4.3-11.1) H D 06/28/17 02:52 MPV 8.7 fL (9.4-12.4) L 06/28/17 02:52 Neutrophils # 10.5 K/mcL (1.6-8.9) H 06/28/17 02:52 Lymphocytes # 0.4 K/mcL (0.6-4.6) L 06/28/17 02:52 Chloride 108 mEq/L (98-107) H 06/28/17 02:52 Glucose 166 mg/dL (70-105) H 06/28/17 02:52 Total Bilirubin 0.2 mg/dL (0.3-1.0) L 06/28/17 02:52 AST 10 Units/L (13-39) L 06/28/17 02:52 ALT 5 Units/L (7-52) L 06/28/17 02:52 Serum Total Protein 5.9 g/dL (6.4-8.9) L 06/28/17 02:52 Cholesterol 232 mg/dL (< 200) H 06/27/17 03:03 LDL Cholesterol, Calc 168 mg/dL (0-99) H 06/27/17 03:03 Fluid Appearance Cloudy (Clear) A 06/26/17 11:35 - Microbiology Findings Microbiology Findings: Microbiology, Last 48 Hours 06/26/17 11:35 Gram Stain - Final Left Lower Lobe Lung Respiratory Culture - Preliminary Normal upper respiratory tract jayesh. No apparent pathogens isolated. - Clinical Findings Intake & Output: Intake & Output 06/27/17 06/28/17 06/28/17 23:59 07:59 15:59 Intake Total 420 / 420 240 / 240 Output Total 0 / 0 Balance 420 / 420 240 / 240 Weight 74.2 kg - VTE Documentation of Mechanical Device: Intermittent pneumatic compression device Consult Discharge Plan - Plan Referrals: Christiana Starkey MD [Primary Care Provider] - Antonio Silva MD [Partnered Physician] - (1 week) Martina Lopez [Family Provider] -
--- NOTE | 2017-06-28 12:51 | Discharge Summary ---
Date of Encounter: 06/29/17 Time of Encounter: 12:55 - Discharge Diagnosis (1) Hemoptysis Priority: Primary Status: Acute (2) Anxiety Priority: Secondary Status: Chronic (3) Non-small cell lung cancer Priority: Secondary Status: Chronic Qualifiers: Laterality: left Qualified Code(s): C34.92 - Malignant neoplasm of unspecified part of left bronchus or lung (4) COPD (chronic obstructive pulmonary disease) Priority: Primary Status: Chronic Qualifiers: COPD type: COPD with acute exacerbation Qualified Code(s): J44.1 - Chronic obstructive pulmonary disease with (acute) exacerbation - Discharge Medications Prescriptions: levoFLOXacin [Levaquin] 750 mg PO DAILY #4 tablet predniSONE [PredniSONE] See Taper PO TAPER #39 tablet Home Medications: Prochlorperazine Maleate [Compazine] 10 mg PO Q6HR PRN #60 tablet 02/23/17 [Rx] Omeprazole [PriLOSEC] 20 mg PO DAILY #30 capsule. 03/23/17 [Rx] Albuterol Sulfate [Ventolin Hfa] 2 puff IH Q4H PRN 04/14/17 [History] Oxycodone HCl [Roxicodone 30 MG Immed Release] 30 mg PO Q4H PRN 04/14/17 [ History] Oxygen 1 l NS HS 04/14/17 [History] Gabapentin [Neurontin] 300 mg PO BID #60 capsule 05/20/17 [Rx] Budesonide/Formoterol 160/4.5 [Symbicort 160/4.5] 2 puff IH BIDR 06/26/17 [ History] LORazepam [Ativan] 0.5 mg PO Q6H PRN 06/26/17 [History] Morphine Sulfate SR (12 HR) [MS Contin] 1 tab PO Q8HR PRN 06/26/17 [History] Tiotropium [place] [Spiriva Respimat] 2 puff IH DAILY 06/26/17 [History] predniSONE [Prednisone] 50 mg PO DAILY #4 tablet 06/28/17 [Rx] levoFLOXacin [Levaquin] 750 mg PO DAILY #4 tablet 06/29/17 [Rx] predniSONE [PredniSONE] See Taper PO TAPER #39 tablet 06/29/17 [Rx] Allergies/Adverse Reactions: 3 Allergy/AdvReac Type Severity Reaction Status Date / Time Iodinated Contrast- Oral and Allergy Intermediate Hives Verified 06/08/17 11:40 IV Dye Nickel Allergy Mild Hives Verified 06/08/17 11:40 METALS Allergy Hives Uncoded 06/08/17 11:40 Date of admission: 06/26/17 13:39 Primary care physician: Christiana Starkey Consults: 06/26/17 16:28 Consult to Occupational Therapy [CONS] Routine Comment: Evaluate, develop and implement POC Reason for Consult: Patient reports leg weakness and pain when walking approximately 1 block or less. Please assess patient for ambulation strength, stability, safety, and possible home assistive needs for post-discharge planning. Consult to Assembling Inspector [CONS] Routine Reason for SW Consult: Please assess pt. for possible home needs for post- discharge planning. 06/26/17 16:29 Consult to Physical Therapy [CONS] Routine Comment: Evaluate, develop and implement POC Reason for Consult: Patient reports leg weakness and pain when walking approximately 1 block or less. Please assess patient for ambulation strength, stability, safety, and possible home assistive needs for post-discharge planning. 06/26/17 16:34 Consult to Pulmonology [CONS] Routine Consulting Provider: [facility] Reason for Consult: Post bronchoscopy. Call Completed: Yes - Patient Status Disposition: Home, Self-Care Condition: Fair Overall status at discharge: patient is progressing back to baseline - Discharge Instructions Instructions: Acute Hemoptysis (DC) Follow Up With: Christiana Starkey MD [Primary Care Provider] - (Please call to make follow up appointment ) Antonio Silva MD [Partnered Physician] - (1 week) Martina Lopez [Family Provider] - - Diet and Activity Activity: resume usual activities as tolerated Diet: regular diet Hospital course: Ms. Siddiqui is a 67 year old female with medical history of bladder cancer with metastases to the lung, spine, axillary lymph nodes and inguinal lymph nodes; arthritis, COPD, and oxygen dependency at home presented post- bronchoscopic procedure for observation and pain management. Patient has been dealing with hemoptysis and underwent a bronchoscopy by Dr. Welsh who performed APC to superior Segment of the left lower lobe. She was admitted to the hospitalist service after that. With consult to pulmonary and oncology. Oncology came by and said they will see the patient as outpatient. She continued to have minimal hemoptysis that looks fresh. Pulmonary was aware and they offered her bronchial artery embolization through IR if this continues. She was given the option of either staying to do that after the holidays or going home and if her symptoms worsen to come back. She elected to go home. She had hemoglobin remained stable. She was hemodynamically stable terms of vital signs and heart rate. She will follow-up with her oncologist as well as pulmonary. While hospitalized she was also treated for mild COPD exacerbation with oral steroids as well as Levaquin. Pulmonary recommended a taper as well as Levaquin at discharge. She was discharged on 06/29/2017 in a stable condition. Hemoglobin on day of discharge was 12.8 and the day prior to that was 12.2.. - Time Spent with Patient Total time spent providing and/or coordinating discharge services: Greater than 30 minutes - Constitutional Vitals: Temp Pulse Resp BP Pulse Ox 98.4 F 77 17 126/74 94 06/28/17 11:27 06/28/17 11:27 06/28/17 11:27 06/28/17 11:27 06/28/17 11:27 General appearance: Present: cooperative, mild distress, A&O X 3, pleasant, answers questions appropriately Exam: GEN: NAD CVS: RRR. S1, S2, No m/r/g RESP: Diminished. expiratory posterior wheezes ABD: Soft, NT, ND, +BS EXT: No edema. 2+ DP. No rashes NEURO: Nonfocal - VTE Documentation of Mechanical Device: Intermittent pneumatic compression device
--- NOTE | 2017-06-28 12:59 | Internal Med Progress Note ---
Date of Encounter: 06/28/17 Time of Encounter: 09:00 - Assessment and plan (1) Hemoptysis Current Visit: Yes Status: Acute Assessment and plan: Hemodynamically stable . Status post APC by pulmonary yesterday through bronchoscopy. Pulmonary was to keep her another day. Check labs in the morning. We will keep an other day and monitor hemoptysis. Pulmonary is following. (2) Anxiety Current Visit: Yes Status: Chronic Assessment and plan: Continue patient's Ativan (3) Non-small cell lung cancer Current Visit: No Status: Chronic Assessment and plan: Follow-up with her oncologist outpatient for chemotherapy continuation. Qualifiers: Laterality: left Qualified Code(s): C34.92 - Malignant neoplasm of unspecified part of left bronchus or lung (4) COPD (chronic obstructive pulmonary disease) Current Visit: Yes Status: Chronic Assessment and plan: Wheezing and seems to be in exacerbation. Ulnar started oral prednisone. Dr. Silav wants to switch this to IV. Continue with nebulizers and inhalers. Qualifiers: COPD type: chronic bronchitis Qualified Code(s): J41.8 - Mixed simple and mucopurulent chronic bronchitis (5) DVT prophylaxis Current Visit: Yes Status: Acute Assessment and plan: SCDs - Subjective Interval history: Still having some minimal hemoptysis. She threw up a clot this morning. On room air. Has been afebrile. - Constitutional Vitals: Temp Pulse Resp BP Pulse Ox 98.4 F 77 17 126/74 94 06/28/17 11:27 06/28/17 11:27 06/28/17 11:27 06/28/17 11:27 06/28/17 11:27 General appearance: Present: cooperative, mild distress, A&O X 3, pleasant, answers questions appropriately Exam: GEN: NAD CVS: RRR. S1, S2, No m/r/g RESP: diminished with expiratory wheezes ABD: Soft, NT, ND, +BS EXT: No edema. 2+ DP. No rashes NEURO: Nonfocal Internal Medicine: Result - Labs CBC & Chem 7: 06/28/17 02:52 06/28/17 02:52 Labs: Short CBC 06/28/17 Range/Units 02:52 WBC 11.7 H D (4.3-11.1) K/mcL Hgb 12.2 (11.5-15.4) g/dL Hct 36.5 (35.3-44.9) % Plt Count 181 (140-400) K/mcL Neutrophils # 10.5 H (1.6-8.9) K/mcL BMP 06/28/17 02:52 Sodium 138 Potassium 4.4 Chloride 108 H Carbon Dioxide 24 BUN 16 Creatinine 0.69 Glucose 166 H Calcium 8.9 Liver Function 06/28/17 Range/Units 02:52 Total Bilirubin 0.2 L (0.3-1.0) mg/dL AST 10 L (13-39) Units/L ALT 5 L (7-52) Units/L Alkaline Phosphatase 59 (34-104) Units/L Albumin 3.5 (3.5-5.7) g/dL - ABG Interpretation ABG results: PT/INR, D-dimer PT 10.9 Seconds (9.4-12.1) 06/27/17 03:03 - VTE Reasons for not Prescribing Prophylaxis: Medical contraindication Documentation of Mechanical Device: Intermittent pneumatic compression device Consult Discharge Plan - Plan Referrals: Christiana Starkey MD [Primary Care Provider] - Antonio Silva MD [Partnered Physician] - (1 week) Martina Lopez [Family Provider] - Prescriptions: predniSONE [Prednisone] 50 mg PO DAILY #4 tablet
[2017-06-28] MEDS ORDERED: MethylPREDNISolone 40 MG/ML VIAL IVP SCH (16:00)
[2017-06-28] MEDS ORDERED: methylPREDNISolone 125 MG/2 ML VIAL IVP SCH (18:00)
[2017-06-28] MEDS: levoFLOXacin 750 MG TABLET PO SCH (18:55)
[2017-06-29] MEDS: *HR* OxyCODONE Immed Rel 15 MG TABLET PO PRN ×3 (00:09→09:00)
[2017-06-29] MEDS: *HR* Morphine Sulfate SR (12 HR) 60 MG TABLET.ER PO PRN (03:10)
[2017-06-29] MEDS: Ipratropium/Albuterol Neb 3 ML IH SCH (03:52)
[2017-06-29 04:50] LABS: Basophils % 0.4 %; Hematocrit 38.4 % (35.3-44.9); Hemoglobin 12.8 g/dL (11.5-15.4); Immature Granulocytes % 1.4 % (0-4); Lymphocytes # 0.6 K/mcL (0.6-4.6); Lymphocytes % 6.1 %; Mean Corpuscular HGB Conc 33.3 g/dL (31.6-35.5); Mean Corpuscular Hemoglobin 30.8 pg (28.0-33.3); Mean Corpuscular Volume 92.3 fL (83.0-100.0); Mean Platelet Volume 8.6 fL (9.4-12.4); Monocytes % 11.1 %; Neutrophils # 7.6 K/mcL (1.6-8.9); Platelet Count 200 K/mcL (140-400); Red Blood Count 4.16 M/mcL (3.82-4.97); Red Cell Distribution Width 13.2 % (11.5-14.5)
[2017-06-29 05:09] LABS: Alanine Aminotransferase 5 Units/L (7-52); Albumin 3.6 g/dL (3.5-5.7); Albumin/Globulin Ratio 1.6 (1.1-2.2); Alkaline Phosphatase 54 Units/L (34-104); Aspartate Amino Transferase 10 Units/L (13-39); BUN/Creatinine Ratio 22 (6-26); Bilirubin,Total 0.2 mg/dL (0.3-1.0); Blood Urea Nitrogen 17 mg/dL (8-23); Carbon Dioxide 25 mEq/L (23-29); Chloride 106 mEq/L (98-107); Globulin 2.3 g/dL (2.4-3.5); Glucose 100 mg/dL (70-105); Osmolality,Calculated 286 (280-300); Potassium 4.1 mEq/L (3.5-5.1); Sodium 137 mEq/L (136-145); Total Protein 5.9 g/dL (6.4-8.9); eGFR For African Americans > 60 (> 60); eGFR For Non-African Americans > 60 (> 60)
[2017-06-29 06:45] VITALS: BP 113/68
[2017-06-29] MEDS: (Tiotropium Bromide [Spiriva Respimat] 2 PUFF) IH SCH (07:53)
[2017-06-29] MEDS: levoFLOXacin 750 MG TABLET PO SCH (08:02)
[2017-06-29] MEDS: Gabapentin 300 MG CAPSULE PO SCH (08:02)
[2017-06-29] MEDS: Loratadine 10 MG TABLET PO SCH (08:02)
[2017-06-29] MEDS ORDERED: predniSONE 20 MG TABLET PO SCH ×2 (09:00)
--- NOTE | 2017-06-29 09:22 | Pulmonology Progress Note ---
Date of Encounter: 06/29/17 Time of Encounter: 08:45 Assessment and Plan (1) Cough with hemoptysis Current Visit: Yes Status: Acute Overall there is improvement and patient's hemoglobin staying stable. I have explained to the patient at this time the main treatment would be monitoring and offered her discharged home on taper steroid and empiric antibiotic and if her symptoms worsen then she needs to come to emergency room versus continue monitoring can the hospital and this was done in the presence of the attending physician. Patient deferred to go home and follow-up as outpatient with the oncologist as well as our office as needed. If symptoms worsen she understand the intervention needs to be done his by interventional radiologist with attempting bronchial artery embolization. (2) Non-small cell lung cancer Current Visit: No Status: Chronic Patient to follow-up with oncologist. Qualifiers: Laterality: left Qualified Code(s): C34.92 - Malignant neoplasm of unspecified part of left bronchus or lung (3) COPD (chronic obstructive pulmonary disease) Current Visit: Yes Status: Chronic Continue bronchodilators and avoid smoking tobacco. Qualifiers: COPD type: COPD with acute exacerbation Qualified Code(s): J44.1 - Chronic obstructive pulmonary disease with (acute) exacerbation Subjective Principal diagnosis: hemoptysis Interval history: There is some improvement in the hemoptysis, but not completely resolved Objective PUL Vital signs: Last Vital Signs Temp 98.4 F 06/29/17 06:43 Pulse 85 06/29/17 06:43 Resp 16 06/29/17 06:43 BP 113/68 06/29/17 06:43 Pulse Ox 94 06/29/17 06:43 General appearance: no acute distress Eyes: nonicteric ENT: oropharynx moist Neck: supple Effort: normal Auscultation: bilateral: wheezes Percussion: bilateral: not dull Cardiovascular: regular rate and rhythm Gastrointestinal: normoactive bowel sounds, non-distended Extremities: no cyanosis normal mental status, non-focal exam depressed Results - Laboratory Findings CBC and BMP: 06/29/17 04:27 06/29/17 04:27 PT/INR, D-dimer PT 10.9 Seconds (9.4-12.1) 06/27/17 03:03 Abnormal lab findings: Abnormal lab results MPV 8.6 fL (9.4-12.4) L 06/29/17 04:27 Total Bilirubin 0.2 mg/dL (0.3-1.0) L 06/29/17 04:27 AST 10 Units/L (13-39) L 06/29/17 04:27 ALT 5 Units/L (7-52) L 06/29/17 04:27 Serum Total Protein 5.9 g/dL (6.4-8.9) L 06/29/17 04:27 Globulin 2.3 g/dL (2.4-3.5) L 06/29/17 04:27 Cholesterol 232 mg/dL (< 200) H 06/27/17 03:03 LDL Cholesterol, Calc 168 mg/dL (0-99) H 06/27/17 03:03 Fluid Appearance Cloudy (Clear) A 06/26/17 11:35 - Microbiology Findings Microbiology Findings: Microbiology, Last 48 Hours 06/26/17 11:35 Gram Stain - Final Left Lower Lobe Lung Respiratory Culture - Final Normal upper respiratory tract jayesh. No apparent pathogens isolated. - Clinical Findings Intake & Output: Intake & Output 06/28/17 06/29/17 06/29/17 23:59 07:59 15:59 Weight 68.152 kg - VTE Reasons for not Prescribing Prophylaxis: Medical contraindication Documentation of Mechanical Device: Intermittent pneumatic compression device Consult Discharge Plan - Plan Referrals: Christiana Starkey MD [Primary Care Provider] - Antonio Silva MD [Partnered Physician] - (1 week) Martina Lopez [Family Provider] - Prescriptions: levoFLOXacin [Levaquin] 750 mg PO DAILY #4 tablet predniSONE [PredniSONE] See Taper PO TAPER #39 tablet
== END 2017-06-29 10:36 | disposition home or self-care (01) | DRG 181 ==
LOC: ENDPAV 09:34 → 2ANU 09:34 → ENDPAV 13:32
PROVIDERS: ADMIT Hospitalist; ATTEND Hospitalist

== ENCOUNTER 2017-09-10 11:23 | Inpatient (IN) ==
--- NOTE | 2017-09-10 12:28 | Emergency Department Note ---
Disposition Clinical Impression: Cough with hemoptysis, Metastatic bone cancer Primary lung adenocarcinoma Qualifiers: Laterality: left Qualified Code(s): C34.92 - Malignant neoplasm of unspecified part of left bronchus or lung Disposition: Admitted As Inpatient Condition: Fair General Adult HPI - General Chief complaint: ED Shortness of Breath/Dyspnea Stated complaint: coughing up blood Time Seen by Provider: 09/10/17 11:33 Source: patient Limitations: no limitations Nursing Notes Reviewed: Yes Vital Signs Reviewed: Yes - History of Present Illness HPI Narrative: 67-year-old female with past medical history CHF, COPD, PVD, bladder cancer, and stage 4 pulmonary adenocarcinoma with metastasis to the bone, presents the emergency department after seeing her flight engineer, Dr. Joaquin, with hemoptysis. Hemoptysis has been there for approximately 2-[address] Joaquin recommended she come to the emergency department for admission to the hospital, so that he can do a bronchoscopy on her in the morning. She reports that she has had to have 2 prior bronchoscopies for cauterization in the past. Per oncology chart review it appears that the patient is currently taking Nivolumab. She denies having any other symptoms or concerns. She denies fevers , chills, lightheadedness, syncope, dyspnea, chest pain, abdominal pain, nausea , vomiting, constipation, diarrhea, melena, hematochezia, dysuria, hematuria, or leg swelling. Pain Scale: 0 - Related Data Home Medications Medication Instructions Recorded Confirmed Albuterol Sulfate [Ventolin Hfa] 2 puff IH Q4H PRN 04/14/17 09/10/17 Oxycodone HCl [Roxicodone 30] 30 mg PO Q4H PRN 04/14/17 09/10/17 Oxygen 2 l NS HS 04/14/17 09/10/17 Budesonide/Formoterol 160/4.5 2 puff IH BIDR 06/26/17 09/10/17 [Symbicort 160/4.5] LORazepam [Ativan] 0.5 mg PO Q6H PRN 06/26/17 09/10/17 Tiotropium [place] [Spiriva 2 puff IH DAILY 06/26/17 09/10/17 Respimat] Morphine Sulfate SR (12 HR) [MS 100 mg PO Q8HR 08/18/17 09/10/17 Contin] Previous Rx's Medication Instructions Recorded Prochlorperazine Maleate 10 mg PO Q6HR PRN #60 tablet 02/23/17 [Compazine] Omeprazole [PriLOSEC] 20 mg PO DAILY #30 capsule. 03/23/17 BuPROPion SR (12 HR) [Wellbutrin 150 mg PO BID #60 tablet.er 07/21/17 SR] Gabapentin [Neurontin] 300 mg PO BID #60 capsule 09/04/17 predniSONE [Prednisone] 50 mg PO AD #3 tablet 09/07/17 Allergies Allergy/AdvReac Type Severity Reaction Status Date / Time Iodinated Contrast- Oral and Allergy Intermediate Hives Verified 09/07/17 14:03 IV Dye Nickel Allergy Mild Hives Verified 09/07/17 14:03 METALS Allergy Hives Uncoded 09/07/17 14:03 All systems ED: reviewed and negative except as stated. Review of Systems: As Per HPI Past Medical History - Past Medical History Attestation: Yes The following information was validated with the patient. Medical history: Reports: arthritis, cancer, CHF, COPD, peripheral artery disease Surgical history: Reports: cancer surgery Psychiatric history: Reports: anxiety, depression, panic disorder - Social History Smoking Status: Current every day smoker Smokeless Tobacco Status: No Alcohol use: Reports: none Drug use: Reports: none Physical Exam - General Limitations: no limitations General appearance: alert, in no apparent distress - Head Head exam: atraumatic, normocephalic, normal inspection - Eye Eye exam: Present: normal appearance, EOMI. Absent: scleral icterus, conjunctival injection - ENT ENT exam: mucous membranes moist - Chest Chest inspection: Present: symmetric chest wall rise - Respiratory Respiratory exam: Present: wheezes. Absent: respiratory distress, accessory muscle use - Expanded Respiratory Exam Location: wheezes: Left, Upper, Lower, decreased breath sounds: Right, Upper, Lower, Left - Cardiovascular Cardiovascular exam: Present: regular rate, normal rhythm, +S1, +S2 - Abdominal Exam Abdominal exam: Present: soft, Non-Tender, normal bowel sounds - Extremities Exam Extremities exam: Present: normal inspection, full ROM, normal capillary refill. Absent: tenderness, pedal edema, calf tenderness - Neurological Exam Neurological exam: Present: alert, oriented X3 - Skin Skin exam: Present: warm, dry, intact, normal color Course Vital Signs Temperature 98.3 F 09/10/17 11:25 Pulse Rate 90 09/10/17 11:25 Respiratory Rate 18 09/10/17 11:25 Blood Pressure 126/79 09/10/17 11:25 O2 Sat by Pulse Oximetry 96 09/10/17 11:25 Temperature 97.7 F 09/10/17 15:07 Pulse Rate 73 09/10/17 15:07 Respiratory Rate 17 09/10/17 15:07 Blood Pressure 135/70 09/10/17 15:07 O2 Sat by Pulse Oximetry 97 09/10/17 15:07 Oxygen Delivery Oxygen Delivery Room Air Medical Decision Making - MDM Narrative Medical decision making narrative: Patient is coming from pulmonology office for admission to the hospital for hemoptysis and bronchoscopy in the morning. She denies any acute concerns or symptoms at this time. Will order CBC, BMP, coags, and chest x-ray in preparation for admission and bronchoscopy tomorrow. Case was discussed with the admitting hospitalist Dr. Hastings, who accepts the patient for admission. - Lab Data Lab results reviewed: Yes I reviewed the patient's lab results. Result diagrams: 09/10/17 12:21 09/10/17 12:21 Lab Results 09/10/17 09/10/17 09/10/17 Range/Units 12:21 12:21 12:21 WBC 4.9 (4.3-11.1) K/mcL RBC 4.07 (3.82-4.97) M/mcL Hgb 12.3 (11.5-15.4) g/dL Hct 36.2 (35.3-44.9) % MCV 88.9 (83.0-100.0) fL MCH 30.2 (28.0-33.3) pg MCHC 34.0 (31.6-35.5) g/dL RDW 13.0 (11.5-14.5) % Plt Count 165 (140-400) K/mcL MPV 8.6 L (9.4-12.4) fL Immature Gran % 0.6 (0-4) % Seg Neutrophils % 76.0 % Lymphocytes % 9.0 % Monocytes % 13.8 % Eosinophils % 0.4 % Basophils % 0.2 % Neutrophils # 3.7 (1.6-8.9) K/mcL Lymphocytes # 0.4 L (0.6-4.6) K/mcL Monocytes # 0.7 (0.0-1.3) K/mcL Eosinophils # 0.0 (0.0-0.6) K/mcL Basophils # 0.0 (0.0-0.2) K/mcL PT 11.6 (9.4-12.1) Seconds INR 1.1 APTT 28.5 (26.0-36.0) Seconds Sodium 136 (136-145) mEq/L Potassium 3.9 (3.5-5.1) mEq/L Chloride 107 (98-107) mEq/L Carbon Dioxide 23 (23-29) mEq/L BUN 12 (8-23) mg/dL Creatinine 0.57 L (0.60-1.20) mg/dL Est GFR ( Amer) > 60 (> 60) Est GFR (Non-Af Amer) > 60 (> 60) BUN/Creatinine Ratio 21 (6-26) Glucose 104 (70-105) mg/dL Calculated Osmolality 282 (280-300) Calcium 8.7 (8.6-10.3) mg/dL - Radiology Data Radiology results reviewed: Yes I reviewed the patient's radiology results. Chest x-ray shows no changes from prior evaluations. Stable noncalcified nodule involving the right mid lung measuring 1.8 cm. Stable scarring and atelectasis involving the left parahilar region. Overall, no significant interval change compared to 07/01/2017. Attestation Statement - Attestation Attestation: I examined this patient and my medical decision-making was reviewed with the Resident Physician. I agree with the documented findings, disposition and treatment plan as described except to the extent set forth below. 67-year-old female with a history of adenocarcinoma of the lung with metastases to the bone. She had recent escalation of hemoptysis leading to an evaluation per Dr. Joaquin. He saw her in the office today and sent her to the emergency department for admission. She denies any new pain. Does have chronic chest discomfort. No vomiting no diarrhea. Patient is in no apparent distress. Oropharynx clear. Mucous membranes members moist. Neck supple. Chest is clear with diminished breath sounds symmetrically. No wheezes or rhonchi. Cardiac exam regular. Chest wall nontender. Abdomen soft and nontender. Extremities warm and dry without asymmetric edema. Case was discussed with the hospitalist for admission
[2017-09-10 13:08] LABS: Basophils % 0.2 %; Eosinophils % 0.4 %; Hematocrit 36.2 % (35.3-44.9); Hemoglobin 12.3 g/dL (11.5-15.4); Immature Granulocytes % 0.6 % (0-4); Lymphocytes # 0.4 K/mcL (0.6-4.6); Mean Corpuscular Hemoglobin 30.2 pg (28.0-33.3); Mean Corpuscular Volume 88.9 fL (83.0-100.0); Mean Platelet Volume 8.6 fL (9.4-12.4); Monocytes # 0.7 K/mcL (0.0-1.3); Monocytes % 13.8 %; Neutrophils # 3.7 K/mcL (1.6-8.9); Platelet Count 165 K/mcL (140-400); Red Blood Count 4.07 M/mcL (3.82-4.97)
[2017-09-10 13:10] LABS: INR 1.1; Prothrombin Time 11.6 Seconds (9.4-12.1)
[2017-09-10 13:13] LABS: Activated Partial Thrombo Time 28.5 Seconds (26.0-36.0)
[2017-09-10 13:27] LABS: BUN/Creatinine Ratio 21 (6-26); Blood Urea Nitrogen 12 mg/dL (8-23); Calcium 8.7 mg/dL (8.6-10.3); Carbon Dioxide 23 mEq/L (23-29); Chloride 107 mEq/L (98-107); Glucose 104 mg/dL (70-105); Osmolality,Calculated 282 (280-300); Potassium 3.9 mEq/L (3.5-5.1); Sodium 136 mEq/L (136-145); eGFR For African Americans > 60 (> 60); eGFR For Non-African Americans > 60 (> 60)
[2017-09-10] MEDS ORDERED: *HR* OxyCODONE/APAP 5/325 TABLET PO ONE (13:36)
[2017-09-10] MEDS ORDERED: *HR* Promethazine 25 MG/ML VIAL IVP PRN (15:27)
[2017-09-10] MEDS ORDERED: Ondansetron 4 MG/2 ML VIAL IVP PRN (15:27)
[2017-09-10] MEDS ORDERED: Naloxone 0.4 MG/ML INJ IVP PRN (15:27)
[2017-09-10] MEDS ORDERED: Acetaminophen 325 MG TABLET PO PRN (15:27)
[2017-09-10] MEDS ORDERED: *HR* HYDROcodone/Acet 5/325 mg TABLET PO PRN (15:27)
[2017-09-10] MEDS ORDERED: *HR* LORazepam 0.5 MG TABLET PO PRN (15:31)
--- NOTE | 2017-09-10 15:40 | Internal Med History&Physical ---
Date of Encounter: 09/10/17 Time of Encounter: 14:20 Assessment and Plan (1) Cough with hemoptysis Current visit: Yes Status: Acute Place the pt into Tele for observation Reviewed CXR by myself - no acute infiltrates , no pleural effusion noticed Reviewed CT of Chest from 09/01/17 showed Left hilar mass, Mediastinal adenopathy, metastatic disease to skeleton Talked to Dr. Joaquin, suggested to start her on prophylactic abx and IV steroids NPO after mid night placed her on Levaquin IV solumderol O2 PRN So far stable Hb cont close monitoring of Hb (2) COPD exacerbation Current visit: Yes Status: Acute (3) Acute bronchitis Current visit: No Status: Acute Qualifiers: Bronchitis organism: unspecified organism Qualified Code(s): J20.9 - Acute bronchitis, unspecified (4) Primary lung adenocarcinoma Current visit: Yes Status: Chronic With the mets to the bones resumed home narcotic doses Qualifiers: Laterality: left Qualified Code(s): C34.92 - Malignant neoplasm of unspecified part of left bronchus or lung (5) Bladder cancer metastasized to intrapelvic lymph nodes Current visit: No Status: Chronic (6) Anxiety Current visit: No Status: Chronic resumed home meds (7) Tobacco dependence Current visit: Yes Status: Acute Counseled to quit smoking placed on nicotine patch Internal Medicine - H&P: HPI Chief complaint: Hemoptysis Admitted From: Emergency Dept Plans for Post Hospital Care: Home History of present illness: Ms. Siddiqui is a 67 year old female with a known past medical history of Muscle invasive Bladder cancer, Lung adenocarcinoma with bone metastasis, chronic tobacco dependence, COPD not on home O2, recurrent hemoptysis currently going on active radiation therapy pt is following with Pathology Laboratory Aides Teacher Dr. Dolan who suggested to do bronchoscope . He referred her to go to ER for further evaluation and possible bronchoscope in AM. Pt denied any CP . She does have mild SOB and WU. Still coughing up blood. Past Med Surg Social Fam HX - Past Medical History Medical history: arthritis, cancer, CHF, COPD, peripheral artery disease Psychiatric history: anxiety, depression, panic disorder - Past Surgical History Surgical History: cancer surgery - Social History Smoking Status: Current every day smoker Smokeless Tobacco Status: No Alcohol use: none Drug use: none - Family History Father Family Member Ethnicity: Non- Living Status: Hx Family Respiratory Disorders: Yes (COPD/Emphysema) Mother Family Member Ethnicity: Non- Living Status: Hx Family Cardiac Disorders: Yes ([place], CAD) Hx Family Cancer: Yes (Lung) Brother Family Member Ethnicity: Non- Living Status: Still Living Hx Family Respiratory Disorders: Yes (COPD) Sister Family Member Ethnicity: Non- Living Status: Hx Family Cancer: Yes (Melanoma w/metastases) Internal Medicine - H&P: Meds Prochlorperazine Maleate [Compazine] 10 mg PO Q6HR PRN #60 tablet 02/23/17 [Rx] Omeprazole [PriLOSEC] 20 mg PO DAILY #30 capsule. 03/23/17 [Rx] Albuterol Sulfate [Ventolin Hfa] 2 puff IH Q4H PRN 04/14/17 [History] Oxycodone HCl [Roxicodone 30] 30 mg PO Q4H PRN 04/14/17 [History] Oxygen 2 l NS HS 04/14/17 [History] Budesonide/Formoterol 160/4.5 [Symbicort 160/4.5] 2 puff IH BIDR 06/26/17 [ History] LORazepam [Ativan] 0.5 mg PO Q6H PRN 06/26/17 [History] Tiotropium [place] [Spiriva Respimat] 2 puff IH DAILY 06/26/17 [History] BuPROPion SR (12 HR) [Wellbutrin SR] 150 mg PO BID #60 tablet.er 07/21/17 [Rx] Morphine Sulfate SR (12 HR) [MS Contin] 100 mg PO Q8HR 08/18/17 [History] Gabapentin [Neurontin] 300 mg PO BID #60 capsule 09/04/17 [Rx] predniSONE [Prednisone] 50 mg PO AD #3 tablet 09/07/17 [Rx] 3 Allergy/AdvReac Type Severity Reaction Status Date / Time Iodinated Contrast- Oral and Allergy Intermediate Hives Verified 09/07/17 14:03 IV Dye Nickel Allergy Mild Hives Verified 09/07/17 14:03 METALS Allergy Hives Uncoded 09/07/17 14:03 All Systems PM: A 10-system review of systems was performed and is negative for pertinent findings except as documented above in the HPI. Review of systems: All the systems are reviewed everything is benign except the systems and symptoms I mentioned in the history of present illness - Constitutional Vitals: Temp Pulse Resp BP Pulse Ox 97.7 F 73 17 135/70 97 09/10/17 15:07 09/10/17 15:07 09/10/17 15:07 09/10/17 15:07 09/10/17 15:07 General appearance: Present: cooperative, A&O X 3, answers questions appropriately - Head Head exam: Present: atraumatic, normal inspection - Neck Neck exam general surgery: Present: supple - Respiratory Respiratory exam: Present: decreased breath sounds, wheezes (moderate). Absent : rales, respiratory distress, rhonchi - Cardiovascular Cardiovascular exam: Present: RRR, +S1, +S2. Absent: tachycardia - GI/Abdominal GI/Abdominal exam: Present: normal bowel sounds, soft. Absent: rebound, rigid, tenderness - Extremities Exam Extremities exam: Absent: calf tenderness, pedal edema, tenderness - Back Exam Back exam: Absent: CVA tenderness (L), CVA tenderness (R) - Neurological Exam Neurological exam: Present: alert, oriented X3 - Psychiatric Psychiatric exam: Present: normal affect, normal mood Internal Med - H&P Results - Labs CBC & Chem 7: 09/10/17 12:21 09/10/17 12:21
[2017-09-10] MEDS ORDERED: PREDNISONE 50 MG PO SCH (15:45)
[2017-09-10] MEDS: MethylPREDNISolone 40 MG/ML VIAL IVP SCH (16:07)
[2017-09-10] MEDS: Levofloxacin 500 MG/100 ML 500 MG/100 ML BAG IVPB SCH (16:07)
[2017-09-10] MEDS: Nicotine 21 MG PATCH.TD24 TD SCH (16:14)
[2017-09-10] MEDS: *HR* Morphine Sulfate SR (12 HR) 100 MG TABLET.ER PO SCH (16:34)
--- NOTE | 2017-09-10 17:31 | Pulmonology Consult Note ---
Date of Encounter: 09/10/17 Time of Encounter: 16:30 Assessment and Plan (1) Hemoptysis Current Visit: Yes Status: Acute Most likely bleeding from tumour will keep her NPO for tomorrow's bronchoscopy. (2) Non-small cell cancer of left lung Current Visit: Yes Status: Acute (3) COPD exacerbation Current Visit: Yes Status: Acute Patient has mild COPD exacerbation will give a short course of steroids for 5 days and short course of antibiotics for 5 days unless there is bronchoscopic evidence of some infection will give a longer course History of Present Illness Consult date: 09/10/17 Requesting physician: Yvonne Hastings Reason for consult: cough (cough with hemoptysis ) Chief complaint: Coughing up blood History of present illness: 67 year old female with past medical history significant for Muscle invasive bladder cancer , recurrent adenocarcinoma of lung now on radiotherapy comes with recurrent hemoptysis during the previous admission she had the same presentation where she needed bronchoscopy which showed some oozing from left lower lobe. Now she presented with same symptoms with cough and some sputum production mostly blood mixed called he advised to get admitted in ER for tomorrow bronchoscopy , denies any fever or chills , denies any chest pain or tightness . Patient is here for bronchoscopy Past Med Surg Social Fam HX - Past Medical History Medical history: arthritis, cancer, CHF, COPD, peripheral artery disease Psychiatric history: anxiety, depression, panic disorder - Past Surgical History Surgical History: cancer surgery - Social History Smoking Status: Current every day smoker Smokeless Tobacco Status: No Alcohol use: none Drug use: none - Family History Father Family Member Ethnicity: Non- Living Status: Hx Family Respiratory Disorders: Yes (COPD/Emphysema) Mother Family Member Ethnicity: Non- Living Status: Hx Family Cardiac Disorders: Yes ([place], CAD) Hx Family Cancer: Yes (Lung) Brother Family Member Ethnicity: Non- Living Status: Still Living Hx Family Respiratory Disorders: Yes (COPD) Sister Family Member Ethnicity: Non- Living Status: Hx Family Cancer: Yes (Melanoma w/metastases) Medications and Allergies Prochlorperazine Maleate [Compazine] 10 mg PO Q6HR PRN #60 tablet 02/23/17 [Rx] Omeprazole [PriLOSEC] 20 mg PO DAILY #30 capsule. 03/23/17 [Rx] Albuterol Sulfate [Ventolin Hfa] 2 puff IH Q4H PRN 04/14/17 [History] Oxycodone HCl [Roxicodone 30] 30 mg PO Q4H PRN 04/14/17 [History] Oxygen 2 l NS HS 04/14/17 [History] Budesonide/Formoterol 160/4.5 [Symbicort 160/4.5] 2 puff IH BIDR 06/26/17 [ History] LORazepam [Ativan] 0.5 mg PO Q6H PRN 06/26/17 [History] Tiotropium [place] [Spiriva Respimat] 2 puff IH DAILY 06/26/17 [History] BuPROPion SR (12 HR) [Wellbutrin SR] 150 mg PO BID #60 tablet.er 07/21/17 [Rx] Morphine Sulfate SR (12 HR) [MS Contin] 100 mg PO Q8HR 08/18/17 [History] Gabapentin [Neurontin] 300 mg PO BID #60 capsule 09/04/17 [Rx] predniSONE [Prednisone] 50 mg PO AD #3 tablet 09/07/17 [Rx] 3 Allergy/AdvReac Type Severity Reaction Status Date / Time Iodinated Contrast- Oral and Allergy Intermediate Hives Verified 09/07/17 14:03 IV Dye Nickel Allergy Mild Hives Verified 09/07/17 14:03 METALS Allergy Hives Uncoded 09/07/17 14:03 All Systems: The remainder of the systems were reviewed and are negative Physical Examination Vital Signs: Vital Signs, Last 4 Hours Temp Pulse Resp BP Pulse Ox 09/10/17 15:07 97.7 F 73 17 135/70 97 09/10/17 14:40 16 141/101 Auscultation: bilateral: wheezes Results - Laboratory Findings CBC and BMP: 09/10/17 12:21 09/10/17 12:21 PT/INR, D-dimer PT 11.6 Seconds (9.4-12.1) 09/10/17 12:21 Abnormal lab findings: Abnormal lab results MPV 8.6 fL (9.4-12.4) L 09/10/17 12:21 Lymphocytes # 0.4 K/mcL (0.6-4.6) L 09/10/17 12:21 Creatinine 0.57 mg/dL (0.60-1.20) L 09/10/17 12:21 - Clinical Findings Intake & Output: Intake & Output 09/10/17 09/10/17 09/10/17 07:59 15:59 23:59 Output Total 0 / 0 Balance 0 / 0 Weight 30.708 kg Consult Discharge Plan - Plan Referrals: Christiana Starkey MD [Primary Care Provider] - Martina Lopez [Family Provider] -
[2017-09-10] MEDS: Budesonide/Formoterol 160/4.5 MDI IH SCH (20:01)
[2017-09-10] MEDS ORDERED: NON-FORMULARY MEDICATION 1 EACH EACH (Oxygen [Oxygen] 2 L) NS SCH (21:00)
[2017-09-10] MEDS: BuPROPion SR (12 HR) 150 MG TABLET PO SCH (22:28)
[2017-09-10] MEDS: Gabapentin 300 MG CAPSULE PO SCH (22:28)
[2017-09-10] MEDS: *HR* OxyCODONE Immed Rel 15 MG TABLET PO PRN (22:28)
[2017-09-11] MEDS: *HR* Morphine Sulfate SR (12 HR) 100 MG TABLET.ER PO SCH ×4 (01:16→23:46)
[2017-09-11] MEDS: MethylPREDNISolone 40 MG/ML VIAL IVP SCH ×4 (01:16→23:46)
[2017-09-11 01:38] LABS: Basophils % 0.4 %; Hematocrit 36.5 % (35.3-44.9); Hemoglobin 12.5 g/dL (11.5-15.4); Immature Granulocytes % 0.7 % (0-4); Lymphocytes # 0.3 K/mcL (0.6-4.6); Mean Corpuscular HGB Conc 34.2 g/dL (31.6-35.5); Mean Corpuscular Hemoglobin 30.4 pg (28.0-33.3); Mean Corpuscular Volume 88.8 fL (83.0-100.0); Mean Platelet Volume 8.7 fL (9.4-12.4); Monocytes # 0.2 K/mcL (0.0-1.3); Monocytes % 5.3 %; Neutrophils # 2.3 K/mcL (1.6-8.9); Platelet Count 185 K/mcL (140-400); Red Blood Count 4.11 M/mcL (3.82-4.97); Red Cell Distribution Width 13.1 % (11.5-14.5); Segmented Neutrophils % 82.6 %
[2017-09-11] MEDS: *HR* OxyCODONE Immed Rel 15 MG TABLET PO PRN ×3 (06:05→20:50)
[2017-09-11] MEDS: Gabapentin 300 MG CAPSULE PO SCH ×2 (09:08→20:50)
[2017-09-11] MEDS: BuPROPion SR (12 HR) 150 MG TABLET PO SCH ×2 (09:08→20:50)
[2017-09-11] MEDS: Budesonide/Formoterol 160/4.5 MDI IH SCH ×2 (10:03→21:48)
[2017-09-11] MEDS: Tiotropium 18 MCG inhalation IH SCH (10:04)
--- NOTE | 2017-09-11 11:15 | Internal Med Progress Note ---
<Cody Montgomery - Last Filed: 09/11/17 13:56> Date of Encounter: 09/11/17 Time of Encounter: 11:14 - Assessment and plan (1) Cough with hemoptysis Current Visit: Yes Status: Acute Assessment and plan: Patient has had hemoptysis likely secondary to her primary pulmonary adenocarcinoma. Pulmonology has been consult and feels like this is likely secondary to tumor Patient was to remain nothing by mouth and will have a bronchoscopy done today to evaluate hemoptysis. We will await the results of the bronchoscopy and pulmonology's recommendations. (2) Primary lung adenocarcinoma Current Visit: Yes Status: Chronic Assessment and plan: Patient has known history of primary pulmonary adenocarcinoma This could be the cause of the patient's hemoptysis Patient is scheduled for bronchoscopy today. Qualifiers: Laterality: left Qualified Code(s): C34.92 - Malignant neoplasm of unspecified part of left bronchus or lung (3) COPD exacerbation Current Visit: Yes Status: Acute Assessment and plan: Patient has mild COPD exacerbation patient will be started on steroids and antibiotics. Patient is scheduled to have a bronchoscopy today. (4) Tobacco dependence Current Visit: Yes Status: Acute (5) DVT prophylaxis Current Visit: No Status: Acute Assessment and plan: Patient has intermittent pneumatic compression (calf pumps) ordered for DVT prophylaxis. - Subjective Interval history: Patient states that she has been feeling better today and has had minimal hemoptysis. Patient has any chest pain, shortness of breath, abdominal pain or any other symptoms at this time. She was in understanding that pulmonology plans to do a bronchoscopy today to evaluate the patient's hemoptysis. - Constitutional Vitals: Temp Pulse Resp BP Pulse Ox 97.8 F 77 18 120/74 92 09/11/17 07:00 09/11/17 07:00 09/11/17 09:55 09/11/17 07:00 09/11/17 09:55 General appearance: Present: cooperative, A&O X 3, answers questions appropriately - Head Head exam: Present: atraumatic, normocephalic - Neck Neck exam general surgery: Present: full ROM, normal inspection, trachea midline - Respiratory Respiratory exam: Present: rhonchi (Bilaterally), wheezes (Bilaterally) - Cardiovascular Cardiovascular exam: Present: RRR, +S1, +S2. Absent: diastolic murmur, gallop, rubs, systolic murmur - GI/Abdominal GI/Abdominal exam: Present: normal bowel sounds, soft, no peritoneal signs. Absent: distended, tenderness - Extremities Exam Extremities exam: Present: warm. Absent: pedal edema, tenderness - Neurological Exam Neurological exam: Present: alert, oriented X3, no focal deficits. Absent: facial droop, speech deficit - Psychiatric Psychiatric exam: Present: normal affect, normal mood - Skin Skin exam: Present: dry, intact, warm Internal Medicine: Result - Labs CBC & Chem 7: 09/11/17 01:21 09/10/17 12:21 - ABG Interpretation ABG results: PT/INR, D-dimer PT 11.6 Seconds (9.4-12.1) 09/10/17 12:21 Consult Discharge Plan - Plan Referrals: Christiana Starkey MD [Primary Care Provider] - Martina Lopez [Family Provider] - <Terry Callahan - Last Filed: 09/11/17 19:03> Date of Encounter: 09/11/17 - Assessment and plan (1) COPD exacerbation Current Visit: Yes Status: Acute (2) Cough with hemoptysis Current Visit: Yes Status: Acute (3) Non-small cell cancer of left lung Current Visit: Yes Status: Chronic (4) Acute bronchitis Current Visit: No Status: Acute Qualifiers: Bronchitis organism: unspecified organism Qualified Code(s): J20.9 - Acute bronchitis, unspecified (5) Tobacco abuse Current Visit: Yes Status: Chronic - Constitutional Vitals: Temp Pulse Resp BP Pulse Ox 97.7 F 81 18 136/69 94 09/11/17 16:54 09/11/17 18:29 09/11/17 18:29 09/11/17 18:29 09/11/17 18:29 Internal Medicine: Result - Labs CBC & Chem 7: 09/11/17 01:21 09/10/17 12:21 - ABG Interpretation ABG results: PT/INR, D-dimer PT 11.6 Seconds (9.4-12.1) 09/10/17 12:21 - Attending Attestation I examined this patient and my medical decision-making was reviewed with the Resident Physician on 09/11/17. I agree with the documented findings, disposition and treatment plan as described except to the extent set forth below. Ms Siddiqui is currently admitted for acute hemoptysis and lung cancer. She is to have bronch. She remains moderate to high risk due to potential for worsening clinical status. Ms Siddiqui is done with bronch. She feels OK at this time. No fever. No further bleeding. No GI issues. Exam alert Comfortable Mucus membranes dry Heart reg Lungs diminished I/P 1. Hemoptysis 2. Lungs cancer Further diagnoses and plan as above.
[2017-09-11] MEDS ORDERED: *HR* Propofol 200 MG/20 ML VIAL IVP ONE (12:28)
[2017-09-11] MEDS ORDERED: *HR* FentaNYL (PF) 100 MCG/2 ML VIAL ONE (12:28)
[2017-09-11] MEDS ORDERED: Lidocaine -MPF 4% 5 ML AMPUL ONE (12:30)
--- NOTE | 2017-09-11 12:35 | Anesthesia Evaluation PreOp ---
Date of Encounter: 09/11/17 Time of Encounter: 12:33 - Past History Planned Operation: Bronchoscopy Cardiac History: Denies any Significant Hx (bronchoscopy, poss EBUS Cardiac History: Angina (stable angina), HTN (per chart but patient denies), Hyperlipidemia Pulmonary History: Smoker, Pack/yr (45 years), COPD (wears 2LPM O2 at night), Other (lung cancer) FASHION MODEL History: Other (spine cancer, chronic back pain) Other Medical History: Bleeding (coughing up blood), Diabetes Type II (per chart but patient denies), Other (bladder cancer; depression/anxiety) Anesthesia History: No Prior Anesthetic Complications (denies personal and family h/o GA complications) : No Test: Negative Alcohol Use: none Drug use: none), Angina (Stable), HTN, Hyperlipidemia Pulmonary History: Smoker, COPD, Other (Lung CA, coughing up blood) FASHION MODEL History: Other (Spinal CA, a/d) Other Medical History: Diabetes Type II, Other (Bladder CA) Anesthesia History: Past Anesthesia (Bronchoscopy) : No Alcohol Use: none Drug use: none Medications and Allergies Prochlorperazine Maleate [Compazine] 10 mg PO Q6HR PRN #60 tablet 02/23/17 [Rx] Omeprazole [PriLOSEC] 20 mg PO DAILY #30 capsule.dr 03/23/17 [Rx] Albuterol Sulfate [Ventolin Hfa] 2 puff IH Q4H PRN 04/14/17 [History] Oxycodone HCl [Roxicodone 30] 30 mg PO Q4H PRN 04/14/17 [History] Oxygen 2 l NS HS 04/14/17 [History] Budesonide/Formoterol 160/4.5 [Symbicort 160/4.5] 2 puff IH BIDR 06/26/17 [ History] LORazepam [Ativan] 0.5 mg PO Q6H PRN 06/26/17 [History] Tiotropium [place] [Spiriva Respimat] 2 puff IH DAILY 06/26/17 [History] BuPROPion SR (12 HR) [Wellbutrin SR] 150 mg PO BID #60 tablet.er 07/21/17 [Rx] Morphine Sulfate SR (12 HR) [MS Contin] 100 mg PO Q8HR 08/18/17 [History] Gabapentin [Neurontin] 300 mg PO BID #60 capsule 09/04/17 [Rx] predniSONE [Prednisone] 50 mg PO AD #3 tablet 09/07/17 [Rx] 3 Allergy/AdvReac Type Severity Reaction Status Date / Time Iodinated Contrast- Oral and Allergy Intermediate Hives Verified 09/07/17 14:03 IV Dye Nickel Allergy Mild Hives Verified 09/07/17 14:03 METALS Allergy Hives Uncoded 09/07/17 14:03 - Meds/Allergy Pre-op Review Medications Reviewed: Yes Allergies Reviewed: Yes Beta Blockers on Current Med List: No Anesthesia Results - Labs 09/11/17 01:21 09/10/17 12:21 - Imaging EKG: report reviewed (SR) Anesthesia Exam Vital Signs/O2 Sat, Most Current Temp Pulse Resp BP Pulse Ox 97.8 F 77 18 120/74 92 09/11/17 07:00 09/11/17 07:00 09/11/17 09:55 09/11/17 07:00 09/11/17 09:55 NPO (# of Hours): > 8 hrs - HEENT Pupil (Motor): Pupils equal, EOMI Mallampati: II Teeth: Edentulous Oral Opening: Greater than 3 - FASHION MODEL LOC: Oriented FASHION MODEL Motor: Normal RUE, Normal LUE, Normal RLE, Normal LLE, Normal Face FASHION MODEL Sensory: Normal: RUE, LUE, RLE, LLE, Face - Cardiac Rhythm: Regular Murmur: None JVD: No Carotid Bruit: No - Pulmonary Breath Sounds: bilateral Clear Respiratory Effort: Symmetrical Anesthesia Assess/Plan Modified [place] Scale for Level of Consciousness: Cooperative, oriented, and tranquil Anesthetic Plan: General Autologous Blood: Yes Monitoring Plan: Standard Monitors Recovery Plan: PACU
[2017-09-11] MEDS ORDERED: Ondansetron 4 MG/2 ML VIAL ONE (13:36)
[2017-09-11] MEDS ORDERED: Dexamethasone 4 MG/ML VIAL ONE (13:36)
[2017-09-11] MEDS ORDERED: *HR* EPINEPHrine 1 MG/10 ML SYRINGE INTRATRACH ONE (13:39)
[2017-09-11] MEDS ORDERED: *HR* EPINEPHrine 1 MG/10 ML SYRINGE ONE (13:44)
--- NOTE | 2017-09-11 14:02 | Anesthesia Evaluation Post Op ---
Date of Encounter: 09/11/17 Time of Encounter: 14:01 - Vital Signs Vital Signs: Vital Signs/O2 Sat, Most Current Temp Pulse Resp BP Pulse Ox 98.2 F 85 15 136/97 95 09/11/17 13:40 09/11/17 13:50 09/11/17 13:50 09/11/17 13:50 09/11/17 13:50 - Lungs Lungs: Clear Ascult./Percussion - Airway Airway: Non-obstructed - Cardiovascular Regular Rate - Mental Status Mental Status: Alert & Oriented, Answers Appropriately - Pain Pain Scale: 0 Pain Scale used: Numeric (1 - 10) - Nausea Vomiting Nausea Vomiting: Not Present - Hydration Hydration: NPO, Has not voided Notes: 09/11/17 14:02 pt resting comfortably without complaints - Discharge PostOp Status: Transfer Patient to floor
[2017-09-11] MEDS: Levofloxacin 500 MG/100 ML 500 MG/100 ML BAG IVPB SCH (15:51)
[2017-09-11] MEDS: Nicotine 21 MG PATCH.TD24 TD SCH (15:52)
[2017-09-11] MEDS: Ampicillin/Sulbactam 1,500 MG in 0.9 % Sodium Chloride Mini Bag 100 ML IVPB SCH ×2 (18:22→23:45)
--- NOTE | 2017-09-11 20:08 | Pulmonology Progress Note ---
Date of Encounter: 09/11/17 Time of Encounter: 14:00 Assessment and Plan (1) Hemoptysis Current Visit: Yes Status: Acute Patient has cough with hemoptysis bronchoscopy showed bleeding from superior segment of lingular lobe and also superior segment of left lower lobe , the bleeding lesion was cauterized with APC , bleeding was contained BAL was obtained which was sent to micro and cytology . Will monitor overnight for the amount of hemoptysis if it is minimal will send her home tomorrow morning (2) Non-small cell cancer of left lung Current Visit: Yes Status: Chronic Patient has recurrence undergoing radiation therapy . (3) COPD exacerbation Current Visit: Yes Status: Acute To send her home on her home bronchodilators will send her home on 5 days course of steroids and 5 days of antibiotics no obvious signs of infection in bronchoscopy Subjective Principal diagnosis: Non small cell Lung ca Interval history: 67 year old female with recurrent non small cell ca of the left lung comes with cough and hemoptysis , did bronchoscopy today patient is doing well after the bronchoscopy has some minimal hemoptysis , has cough and some sputum production , BAL was sent for micro and cytology . Objective PUL Vital signs: Last Vital Signs Temp 97.7 F 09/11/17 16:54 Pulse 81 09/11/17 18:29 Resp 18 09/11/17 18:29 BP 136/69 09/11/17 18:29 Pulse Ox 94 09/11/17 18:29 Auscultation: bilateral: wheezes Results - Laboratory Findings CBC and BMP: 09/11/17 01:21 09/10/17 12:21 PT/INR, D-dimer PT 11.6 Seconds (9.4-12.1) 09/10/17 12:21 Abnormal lab findings: Abnormal lab results WBC 2.8 K/mcL (4.3-11.1) L 09/11/17 01:21 MPV 8.7 fL (9.4-12.4) L 09/11/17 01:21 Lymphocytes # 0.3 K/mcL (0.6-4.6) L 09/11/17 01:21 Creatinine 0.57 mg/dL (0.60-1.20) L 09/10/17 12:21 - Clinical Findings Intake & Output: Intake & Output 09/11/17 09/11/17 09/11/17 07:59 15:59 23:59 Output Total 600 / 600 Balance -600 / -600 Consult Discharge Plan - Plan Referrals: Christiana Starkey MD [Primary Care Provider] - Martina Lopez [Family Provider] -
[2017-09-11 22:45] LABS: Appearance of Body Fluid Clear (Clear)
[2017-09-11 22:46] LABS: Volume of Body Fluid 15 mL
[2017-09-12 01:04] LABS: Basophils % 0.1 %; Hematocrit 36.9 % (35.3-44.9); Hemoglobin 12.3 g/dL (11.5-15.4); Immature Granulocytes % 0.9 % (0-4); Lymphocytes # 0.4 K/mcL (0.6-4.6); Lymphocytes % 2.9 %; Mean Corpuscular HGB Conc 33.3 g/dL (31.6-35.5); Mean Corpuscular Hemoglobin 29.9 pg (28.0-33.3); Mean Corpuscular Volume 89.8 fL (83.0-100.0); Mean Platelet Volume 8.8 fL (9.4-12.4); Monocytes # 0.6 K/mcL (0.0-1.3); Monocytes % 4.7 %; Neutrophils # 11.8 K/mcL (1.6-8.9); Platelet Count 213 K/mcL (140-400); Red Blood Count 4.11 M/mcL (3.82-4.97); Red Cell Distribution Width 13.2 % (11.5-14.5); Segmented Neutrophils % 91.4 %
[2017-09-12] MEDS: *HR* OxyCODONE Immed Rel 15 MG TABLET PO PRN (04:22)
[2017-09-12] MEDS: Ampicillin/Sulbactam 1,500 MG in 0.9 % Sodium Chloride Mini Bag 100 ML IVPB SCH (05:57)
[2017-09-12] MEDS: Budesonide/Formoterol 160/4.5 MDI IH SCH (08:14)
[2017-09-12] MEDS: Tiotropium 18 MCG inhalation IH SCH (08:14)
--- NOTE | 2017-09-12 08:42 | Discharge Summary ---
<Cody Montgomery - Last Filed: 09/12/17 08:39> - NOTES TO OUTPATIENT PROVIDER Notes to Outpatient Provider: Patient was admitted to the hospital for hemoptysis. This is found to be likely secondary to her lung cancer. There was a blood clot that was found in her airway which is successfully removed during bronchoscopy. BAL was performed and sent for pathology. There was some minimal bleeding on bronchoscopy and there are was argon plasma coagulation that was performed and the bleeding then stopped. Patient will be discharged home with a burst of steroids and antibiotics. Orders not resulted at time of discharge: Pending orders 09/11/17 13:26 Culture,Respiratory [RM] Routine Gram Stain [RM] Routine 09/11/17 13:42 Cytology [PTH] Routine Date of Encounter: 09/12/17 Time of Encounter: 08:39 - Discharge Diagnosis (1) Cough with hemoptysis Priority: Primary Status: Acute (2) Primary lung adenocarcinoma Priority: Secondary Status: Chronic Qualifiers: Laterality: left Qualified Code(s): C34.92 - Malignant neoplasm of unspecified part of left bronchus or lung (3) COPD exacerbation Priority: Primary Status: Acute (4) Tobacco dependence Priority: Secondary Status: Acute (5) DVT prophylaxis Priority: Primary Status: Acute Hospital course: Ms. Siddiqui is a 67 year old female is admitted to the hospital for hemoptysis. Patient has a known history of lung cancer. The patient was taken for a bronchoscopy which found that there is a small area of bleeding as well as a blood clot. Coagulation was performed and the bleeding has stopped. The blood clot was removed without issue. The patient states that she is feeling good at this time. Patient has had very minimal hemoptysis over the last 24 hours. The patient is stable and appropriate for discharge and we discharged home on a 5 day course of steroids and a seven-day course of Augmentin. The patient will be discharged home with recommendation to follow-up with her oncologist as well as pulmonology. Discharge discussed with: patient - Time Spent with Patient Total time spent providing and/or coordinating discharge services: Greater than 30 minutes (35) - Discharge Medications Prescriptions: Amoxicillin/Clavulanate [Augmentin] 875 mg PO BIDWM #14 tablet predniSONE [PredniSONE] 40 mg PO DAILY 5 Days #10 tablet Home Medications: Prochlorperazine Maleate [Compazine] 10 mg PO Q6HR PRN #60 tablet 02/23/17 [Rx] Omeprazole [PriLOSEC] 20 mg PO DAILY #30 capsule. 03/23/17 [Rx] Albuterol Sulfate [Ventolin Hfa] 2 puff IH Q4H PRN 04/14/17 [History] Oxycodone HCl [Roxicodone 30] 30 mg PO Q4H PRN 04/14/17 [History] Oxygen 2 l NS HS 04/14/17 [History] Budesonide/Formoterol 160/4.5 [Symbicort 160/4.5] 2 puff IH BIDR 06/26/17 [ History] LORazepam [Ativan] 0.5 mg PO Q6H PRN 06/26/17 [History] Tiotropium [facility] [Spiriva Respimat] 2 puff IH DAILY 06/26/17 [History] BuPROPion SR (12 HR) [Wellbutrin SR] 150 mg PO BID #60 tablet.er 07/21/17 [Rx] Morphine Sulfate SR (12 HR) [MS Contin] 100 mg PO Q8HR 08/18/17 [History] Gabapentin [Neurontin] 300 mg PO BID #60 capsule 09/04/17 [Rx] predniSONE [Prednisone] 50 mg PO AD #3 tablet 09/07/17 [Rx] Amoxicillin/Clavulanate [Augmentin] 875 mg PO BIDWM #14 tablet 09/12/17 [Rx] predniSONE [PredniSONE] 40 mg PO DAILY 5 Days #10 tablet 09/12/17 [Rx] Allergies/Adverse Reactions: 3 Allergy/AdvReac Type Severity Reaction Status Date / Time Iodinated Contrast- Oral and Allergy Intermediate Hives Verified 09/07/17 14:03 IV Dye Nickel Allergy Mild Hives Verified 09/07/17 14:03 METALS Allergy Hives Uncoded 09/07/17 14:03 Date of admission: 09/11/17 10:41 Primary care physician: Christiana Starkey Discharging clinician: Cody Montgomery Anticipated date of discharge: 09/12/17 - Constitutional Vitals: Temp Pulse Resp BP Pulse Ox 98.3 F 79 16 112/55 94 09/12/17 08:23 09/12/17 08:23 09/12/17 08:23 09/12/17 08:23 09/12/17 08:23 General appearance: Present: cooperative, A&O X 3, answers questions appropriately - Head Head exam: Present: atraumatic, normocephalic - Neck Neck exam general surgery: Present: full ROM, normal inspection, trachea midline - Respiratory Respiratory exam: Present: rhonchi (Bilaterally), wheezes (Bilaterally) - Cardiovascular Cardiovascular exam: Present: RRR, +S1, +S2. Absent: diastolic murmur, gallop, rubs, systolic murmur - GI/Abdominal GI/Abdominal exam: Present: normal bowel sounds, soft, no peritoneal signs. Absent: distended, tenderness - Extremities Exam Extremities exam: Present: warm. Absent: pedal edema, tenderness - Neurological Exam Neurological exam: Present: alert, oriented X3, no focal deficits. Absent: facial droop, speech deficit - Psychiatric Psychiatric exam: Present: normal affect, normal mood - Skin Skin exam: Present: dry, intact, warm - Patient Status Disposition: Home, Self-Care Condition: Fair Overall status at discharge: patient is progressing back to baseline - Discharge Instructions Follow Up With: Christiana Starkey MD [Primary Care Provider] - Martina Lopez [Family Provider] - [facility] [Provider Group] [facility] [Provider Group] Additional Instructions: Please follow up with her primary care provider at next available appointment Please follow up with pulmonology Please follow up with your oncologist regarding her lung cancer Please take all medications as prescribed Please contact your primary care provider or return to the emergency department if you have any worsening of your symptoms or any further concerns regarding your health. - Diet and Activity Activity: increase activity as tolerated Diet: advance to your usual diet <Terry Callahan - Last Filed: 09/12/17 12:13> Orders not resulted at time of discharge: Pending orders 09/11/17 13:26 Culture,Respiratory [RM] Routine Gram Stain [RM] Routine 09/11/17 13:42 Cytology [PTH] Routine Date of Encounter: 09/12/17 - Discharge Diagnosis (1) COPD exacerbation Status: Resolved (2) Cough with hemoptysis Status: Resolved (3) Non-small cell cancer of left lung Priority: Secondary Status: Chronic (4) Acute bronchitis Priority: Secondary Status: Resolved Qualifiers: Bronchitis organism: unspecified organism Qualified Code(s): J20.9 - Acute bronchitis, unspecified (5) Tobacco abuse Status: Chronic Hospital course: Ms. Siddiqui is a 67 year old female - Time Spent with Patient Total time spent providing and/or coordinating discharge services: 39min Date of admission: 09/11/17 10:41 Primary care physician: Christiana Starkey - Constitutional Vitals: Temp Pulse Resp BP Pulse Ox 98.3 F 85 16 123/66 93 09/12/17 11:54 09/12/17 11:54 09/12/17 11:54 09/12/17 11:54 09/12/17 11:54 - Attending Attestation I examined this patient and my medical decision-making was reviewed with the Resident Physician on 09/12/17. I agree with the documented findings, disposition and treatment plan as described except to the extent set forth below. Ms Siddiqui has been admitted for hemoptysis and lung cancer. She had bronchoscopy yesterday and studies are pending. She is feeling well this AM and hemoptysis has markedly decreased. No fever or chills. She feels ready for discharge home. Exam alert Comfortable Mucus membranes dry Heart reg Lungs diminished Abd soft Plan D/C home today.
[2017-09-12] MEDS: BuPROPion SR (12 HR) 150 MG TABLET PO SCH (10:01)
[2017-09-12] MEDS: *HR* Morphine Sulfate SR (12 HR) 100 MG TABLET.ER PO SCH (10:01)
[2017-09-12] MEDS: MethylPREDNISolone 40 MG/ML VIAL IVP SCH (10:01)
[2017-09-12] MEDS: Gabapentin 300 MG CAPSULE PO SCH (10:01)
--- NOTE | 2017-09-12 10:13 | Pulmonology Progress Note ---
Date of Encounter: 09/12/17 Time of Encounter: 09:30 Assessment and Plan (1) Hemoptysis Status: Acute Patient has cough with hemoptysis bronchoscopy showed bleeding from superior segment of lingular lobe and also superior segment of left lower lobe , the bleeding lesion was cauterized with APC , bleeding was contained BAL was obtained which was sent to micro and cytology . Will monitor overnight for the amount of hemoptysis if it is minimal will send her home tomorrow morning 3/10 Minimal hemoptysis counseled to call office if the symptoms worsens if it is too severe she can come to the ER. (2) Non-small cell cancer of left lung Status: Chronic Patient has recurrence undergoing radiation therapy . (3) COPD exacerbation Status: Resolved To send her home on her home bronchodilators will send her home on total 5 days course of steroids and 5 days of antibiotics no obvious signs of infection in bronchoscopy Subjective Principal diagnosis: Non small cell Lung ca Interval history: 67 year old female with recurrent non small cell ca of the left lung comes with cough and hemoptysis , did bronchoscopy today patient is doing well after the bronchoscopy has some minimal hemoptysis , has cough and some sputum production , BAL was sent for micro and cytology . 3/ Patient is coughing miminal amount of blood lot reduced , patient says she is ready to go home Objective PUL Vital signs: Last Vital Signs Temp 98.3 F 09/12/17 08:23 Pulse 79 09/12/17 08:23 Resp 16 09/12/17 08:23 BP 112/55 09/12/17 08:23 Pulse Ox 94 09/12/17 08:23 Auscultation: bilateral: wheezes Results - Laboratory Findings CBC and BMP: 09/12/17 00:42 09/10/17 12:21 PT/INR, D-dimer PT 11.6 Seconds (9.4-12.1) 09/10/17 12:21 Abnormal lab findings: Abnormal lab results WBC 12.9 K/mcL (4.3-11.1) H D 09/12/17 00:42 MPV 8.8 fL (9.4-12.4) L 09/12/17 00:42 Neutrophils # 11.8 K/mcL (1.6-8.9) H 09/12/17 00:42 Lymphocytes # 0.4 K/mcL (0.6-4.6) L 09/12/17 00:42 Creatinine 0.57 mg/dL (0.60-1.20) L 09/10/17 12:21 - Microbiology Findings Microbiology Findings: Microbiology, Last 48 Hours 09/11/17 13:26 Gram Stain - Preliminary Left Lower Lobe Lung - Clinical Findings Intake & Output: Intake & Output 09/11/17 09/12/17 09/12/17 23:59 07:59 15:59 Intake Total 100 / 100 100 / 100 240 / 240 Balance 100 / 100 100 / 100 240 / 240 Weight 70.1 kg Consult Discharge Plan - Plan Additional Instructions: Please follow up with her primary care provider at next available appointment Please follow up with pulmonology Please follow up with your oncologist regarding her lung cancer Please take all medications as prescribed Please contact your primary care provider or return to the emergency department if you have any worsening of your symptoms or any further concerns regarding your health. Referrals: [facility] [Provider Group] [facility] [Provider Group] Christiana Starkey MD [Primary Care Provider] - Martina Lopez [Family Provider] - Prescriptions: Amoxicillin/Clavulanate [Augmentin] 875 mg PO BIDWM #14 tablet predniSONE [PredniSONE] 40 mg PO DAILY 5 Days #10 tablet
[2017-09-12 11:57] VITALS: BP 123/66
== END 2017-09-12 12:45 | disposition home or self-care (01) | DRG 164 ==
LOC: 2NENU 11:23 → EMEROO 11:23 → SUATTDRO 14:29 → 2NENU 15:00
PROVIDERS: ADMIT Internal Medicine; ATTEND Internal Medicine
PROC: ENDOBRF (2017-09-11 13:00)

== ENCOUNTER 2017-10-08 21:00 | Inpatient (IN) ==
[2017-10-08] MEDS ORDERED: 0.9 % Sodium Chloride 1,000 ML IVC ONE (21:26)
[2017-10-08] MEDS ORDERED: Ipratropium/Albuterol Neb 3 ML IH ONE (21:27)
--- NOTE | 2017-10-08 21:30 | Emergency Department Note ---
Disposition Clinical Impression: Metastatic cancer to brain, Intraparenchymal hemorrhage of brain, Confusion Fall Qualifiers: Encounter type: initial encounter Qualified Code(s): W19.XXXA - Unspecified fall, initial encounter Contusion of upper limb, right Qualifiers: Encounter type: initial encounter Qualified Code(s): S40.021A - Contusion of right upper arm, initial encounter Skin tear of right forearm without complication Qualifiers: Encounter type: initial encounter Qualified Code(s): S51.811A - Laceration without foreign body of right forearm, initial encounter Disposition: Admitted As Inpatient Condition: Undetermined Time of Disposition: 06:45 Fall HPI - General Chief Complaint: ED Fall Stated Complaint: Fall Time Seen by Provider: 10/08/17 21:16 Source: patient, EMS Nursing Notes Reviewed: Yes Vital Signs Reviewed: Yes - History of Present Illness HPI Narrative: 67-year-old female brought in by EMS secondary to ground-level mechanical fall without loss of consciousness within the past hour. EMS states that patient was unable to give any information because of confusion. Patient received a right forearm skin tear and was bandaged by EMS. Patient does not complain of any pain. Patient complains of lightheadedness and dizziness and difficulty walking 3 weeks. EMS states the patient received MRI sometime today. - Related Data Home Medications Medication Instructions Recorded Confirmed Albuterol Sulfate [Ventolin Hfa] 2 puff IH Q4H PRN 04/14/17 09/28/17 Oxycodone HCl [Roxicodone 30] 30 mg PO Q4H PRN 04/14/17 09/28/17 Oxygen 2 l NS HS 04/14/17 09/28/17 Budesonide/Formoterol 160/4.5 2 puff IH BIDR 06/26/17 09/28/17 [Symbicort 160/4.5] LORazepam [Ativan] 0.5 mg PO Q6H PRN 06/26/17 09/28/17 Tiotropium [place] [Spiriva 2 puff IH DAILY 06/26/17 09/28/17 Respimat] Morphine Sulfate SR (12 HR) [MS 100 mg PO Q8HR 08/18/17 09/28/17 Contin] Previous Rx's Medication Instructions Recorded Prochlorperazine Maleate 10 mg PO Q6HR PRN #60 tablet 02/23/17 [Compazine] Omeprazole [PriLOSEC] 20 mg PO DAILY #30 capsule. 03/23/17 BuPROPion SR (12 HR) [Wellbutrin 150 mg PO BID #60 tablet.er 07/21/17 SR] Gabapentin [Neurontin] 300 mg PO BID #60 capsule 09/04/17 LORazepam [Ativan] 1 - 2 tab PO AD 3 Days #6 tablet 10/08/17 Allergies Allergy/AdvReac Type Severity Reaction Status Date / Time Iodinated Contrast- Oral and Allergy Intermediate Hives Verified 09/28/17 10:52 IV Dye Nickel Allergy Mild Hives Verified 09/28/17 10:52 METALS Allergy Hives Uncoded 09/28/17 10:52 All systems ED: reviewed and negative except as stated. Review of Systems: As Per HPI Constitutional: Denies: fever Fall PMH - Past Medical History Medical history: Reports: arthritis, cancer, CHF, COPD, peripheral artery disease Surgical history: Reports: cancer surgery Psychiatric history: Reports: anxiety, depression, panic disorder - Social History Smoking Status: Current every day smoker Alcohol use: Reports: none Drug use: Reports: none Physical Exam Vital Signs Temperature 98.0 F 10/08/17 21:05 Pulse Rate 107 10/08/17 21:05 Respiratory Rate 16 10/08/17 21:05 Blood Pressure 121/80 10/08/17 21:05 O2 Sat by Pulse Oximetry 95 10/08/17 21:05 Temperature 98.4 F 10/09/17 04:49 Pulse Rate 77 10/09/17 04:00 Respiratory Rate 20 10/09/17 04:00 Blood Pressure 124/70 10/09/17 04:00 O2 Sat by Pulse Oximetry 92 10/09/17 04:00 Oxygen Delivery Oxygen Delivery Room Air CONSTITUTIONAL: Well-appearing; well-nourished; A&O X 1 to herself, in no apparent distress. GCS 15, patient's NIH score of 12 HEAD: Normocephalic; atraumatic EYES: PERRL, no scleral icterus NOSE: The nose is normal in appearance without rhinorrhea NECK: No JVD or distended neck veins RESP: Normal chest excursion with respiration; breath sounds clear and equal bilaterally; no wheezes, rhonchi, or rales CARD: Regular rhythm, without murmurs, rub or gallop ABD: Non-distended; non-tender, soft, without rigidity, rebound or guarding,no pulsatile mass CHEST: No pain with palpation SKIN: Normal for age and race; warm and dry without diaphoresis ; no apparent lesions EXTREMITIES: Pulses are 2 plus and equal times 4 extremities, no peripheral edema or calf muscle pain. Patient has tenderness to palpation along complete right upper extremity from shoulder down to the wrist. There is skin tears along the lateral right forearm with large area of ecchymosis but not actively bleeding. Patient has ecchymosis to the right humerus and right shoulder. Pulses intact, function of right hand intact no loss of sensation. Patient's tenderness and bilateral hip with no signs of ecchymosis. NEUROLOGICAL: Cranial nerves III-XII are intact. Sensory and motor functions are intact. Strength is 5/5 for flexion and extension in bilateral upper extremities. . Finger to nose testing is unequal patient can perform with left upper extremity but not with right upper extremity. - General Limitations: no limitations General appearance: alert Course - Reevaluation(s) Reevaluation #1: Labs and advanced imaging ordered. Patient currently has no pain complaints. Time: 21:30 Reevaluation #2: Nurse notified me that patient who could previously state her name currently is now unable to remember what her name is. Time: 21:50 - Consultations Consultation #1: Dr. Garcia of radiology [place] [facility]: 5-6 foci of intraparenchymal hemorrhage within the left hemisphere as well as some concerns on cervical CT for which she Recommend F/u chest CT Time: 23:17 Consultation #2: Dr. Coley of oncology was updated on patient's current condition. Recommended starting patient on bolus of 20 mg IV Decadron followed by 8 mg Decadron 3 times a day. They will see the patient in consultation. Time: 23:40 Consultation #3: Dr. Shoemaker the hospitalist as accepted patient for admission. He did have some concerns about the patient's being placed here versus transfer elsewhere but discussed case with oncology and decided the patient needed to go to the ICU. Time: 23:50 Vital Signs Temperature 98.0 F 10/08/17 21:05 Pulse Rate 107 10/08/17 21:05 Respiratory Rate 16 10/08/17 21:05 Blood Pressure 121/80 10/08/17 21:05 O2 Sat by Pulse Oximetry 95 10/08/17 21:05 Temperature 98.4 F 10/09/17 04:49 Pulse Rate 77 10/09/17 04:00 Respiratory Rate 20 10/09/17 04:00 Blood Pressure 124/70 10/09/17 04:00 O2 Sat by Pulse Oximetry 92 10/09/17 04:00 Oxygen Delivery Oxygen Delivery Room Air Fall - MDM Narrative Medical decision making narrative: Patient is brought in for what seemed to be a mechanical fall without loss of consciousness, but patient was found to have neurologic deficits of severe right lower extremity weakness. MRI taken earlier shows: Per radiology MR/MR head/brain wo/w con IMPRESSION: Multiple new hemorrhagic intraparenchymal metastases probably involving the left cerebral hemisphere with surrounding vasogenic edema mildly narrowing the left lateral ventricle without midline shift or basal cistern effacement. CT head and cervical were taken to rule out fractures and acute intracranial hemorrhage. CT scans are negative for any new findings, but agree with previous findings on MRI. Patient's confusion is worsening. Most likely, this is due to increasing ICP secondary to multiple hemorrhagic intraparenchymal metastases. Oncology has been notified and recommend treatment with Decadron 20 mg bolus followed by 8 mg doses 3 times a day. Current plan is for the patient goes to ICU. Patient' s condition is very serious with currently very high mortality. Patient's has been notified. He states that there is no paperwork concerning patient's DNR status. They were in the process of getting things initiated today but was not able to complete. He states that the patient wished not to have any resuscitation efforts performed. Unable to verify his secondary to patient's mental status. Patient's labs were clinically unremarkable. No UTI on urinalysis. Patient is currently still awake and tries answers questions but most she is unable to answer because of poor recollection and difficulty enunciating. Patient's imaging of her extremities concerning the areas that were injured today showed no sign of fracture. Current plan is for patient to be admitted to the ICU and was accepted to the ICU by Dr. Villa the hospitalist. Patient's needed to go home but left contact information for Clarence Yantic: Follow him or [phone]. He states if he does not answer the phone to leave a message and he will return the call. - Medical Records Medical records reviewed: Yes I reviewed the patient's medical records. EXAMINATION: MRI OF THE BRAIN WITHOUT AND WITH CONTRAST 10/08/2017 6:57 pm TECHNIQUE: Multiplanar multisequence MRI of the head/brain was performed without and with the administration of intravenous contrast. COMPARISON: 09/18/2016 HISTORY: ORDERING SYSTEM PROVIDED HISTORY: CONFUSION Initial encounter. Acute illness. Sudden onset confusion. Multiple known primary malignancies including bladder, bone, and lung. FINDINGS: INTRACRANIAL STRUCTURES/VENTRICLES: There are multiple new heterogeneous enhancing lesions in the cerebral hemispheres with internal intrinsically T1 hyperintense blood products and hemosiderin staining. Largest lesion is in the left frontal lobe measuring 3.4 x 3.8 x 2.9 cm with surrounding vasogenic edema causing mild mass effect on the anterior horn left lateral ventricle and narrowing of overlying sulci. Left parieto-occipital lesion measures at 3.2 x 2.5 x 2.7 cm with surrounding vasogenic edema causing local sulcal effacement and narrowing of the occipital horn left lateral ventricle. High posterior paramedian left frontal lesion measures 1.1 x 1 x 0.8 cm with mild surrounding vasogenic edema. 5 mm paramedian parietal lesion measures 5 mm in diameter. Punctate lesion is noted in the peripheral right parietal lobe. Midline is maintained and the basal cisterns are patent. There is no hydrocephalus or extra-axial fluid collection. Major intracranial vascular flow voids are present. ORBITS: Orbital structures are normal. SINUSES: Right sphenoid sinus mucoperiosteal thickening is noted with frothy secretions. The maxillary sinuses are atelectatic. No mastoid effusion is seen. BONES/SOFT TISSUES: Marrow signal is within normal limits. MR/MR head/brain wo/w con IMPRESSION: Multiple new hemorrhagic intraparenchymal metastases probably involving the left cerebral hemisphere with surrounding vasogenic edema mildly narrowing the left lateral ventricle without midline shift or basal cistern effacement. Findings were discussed with Dr. Olea at 7:20 pm on 10/08/2017. D/ / Henry Smiley / Henry Smiley - Lab Data Lab results reviewed: Yes I reviewed the patient's lab results. Lab results narrative: Short CBC 10/09/17 10/08/17 Range/Units 03:54 21:26 WBC 6.0 7.1 (4.3-11.1) K/mcL Hgb 11.6 D 14.2 (11.5-15.4) g/dL Hct 34.6 L 40.9 (35.3-44.9) % Plt Count 196 205 (140-400) K/mcL Neutrophils # 5.4 5.8 (1.6-8.9) K/mcL BMP 10/09/17 10/08/17 Range/Units 03:54 21:26 Sodium 136 133 L (136-145) mEq/L Potassium 3.7 3.7 (3.5-5.1) mEq/L Chloride 107 100 (98-107) mEq/L Carbon Dioxide 23 22 L (23-29) mEq/L BUN 7 L 10 (8-23) mg/dL Creatinine 0.50 L 0.64 (0.60-1.20) mg/dL Glucose 115 H 95 (70-105) mg/dL Calcium 8.6 9.6 (8.6-10.3) mg/dL Cardiac Enzymes 10/08/17 Range/Units 21:26 Troponin I < 0.03 (< 0.04) ng/mL Liver Function 10/08/17 Range/Units 21:26 Total Bilirubin 0.7 (0.3-1.0) mg/dL AST 16 (13-39) Units/L ALT 4 L (7-52) Units/L Alkaline Phosphatase 82 (34-104) Units/L Albumin 4.3 (3.5-5.7) g/dL Urine 10/08/17 Range/Units 22:20 Urine Color Yellow (Yellow) Urine Clarity Clear (Clear) Urine pH 7.0 (5.0-8.0) pH Units Ur Specific [place] 1.010 (1.010-1.025) Urine Protein Negative (Neg-Trace) mg/dL Urine Glucose (UA) Normal (Normal) mg/dL Result diagrams: 10/09/17 03:54 10/09/17 03:54 Lab Results 10/08/17 10/08/17 10/08/17 Range/Units 21:26 21:26 21:26 WBC 7.1 (4.3-11.1) K/mcL RBC 4.64 (3.82-4.97) M/mcL Hgb 14.2 (11.5-15.4) g/dL Hct 40.9 (35.3-44.9) % MCV 88.1 (83.0-100.0) fL MCH 30.6 (28.0-33.3) pg MCHC 34.7 (31.6-35.5) g/dL RDW 13.4 (11.5-14.5) % Plt Count 205 (140-400) K/mcL MPV 8.8 L (9.4-12.4) fL Immature Gran % 0.3 (0-4) % Seg Neutrophils % 82.0 % Lymphocytes % 6.4 % Monocytes % 9.9 % Eosinophils % 1.1 % Basophils % 0.3 % Neutrophils # 5.8 (1.6-8.9) K/mcL Lymphocytes # 0.5 L (0.6-4.6) K/mcL Monocytes # 0.7 (0.0-1.3) K/mcL Eosinophils # 0.1 (0.0-0.6) K/mcL Basophils # 0.0 (0.0-0.2) K/mcL PT 12.5 H (9.4-12.1) Seconds INR 1.2 Sodium 133 L (136-145) mEq/L Potassium 3.7 (3.5-5.1) mEq/L Chloride 100 (98-107) mEq/L Carbon Dioxide 22 L (23-29) mEq/L BUN 10 (8-23) mg/dL Creatinine 0.64 (0.60-1.20) mg/dL Est GFR ( Amer) > 60 (> 60) Est GFR (Non-Af Amer) > 60 (> 60) BUN/Creatinine Ratio 16 (6-26) Glucose 95 (70-105) mg/dL Calculated Osmolality 275 L (280-300) Calcium 9.6 (8.6-10.3) mg/dL Magnesium 1.9 (1.6-2.6) mg/dL Total Bilirubin 0.7 (0.3-1.0) mg/dL AST 16 (13-39) Units/L ALT 4 L (7-52) Units/L Alkaline Phosphatase 82 (34-104) Units/L Troponin I < 0.03 (< 0.04) ng/mL Serum Total Protein 6.9 (6.4-8.9) g/dL Albumin 4.3 (3.5-5.7) g/dL Globulin 2.6 (2.4-3.5) g/dL Albumin/Globulin Ratio 1.7 (1.1-2.2) Urine Color (Yellow) Urine Clarity (Clear) Urine pH (5.0-8.0) pH Units Ur Specific [place] (1.010-1.025) Urine Protein (Neg-Trace) mg/dL Urine Glucose (UA) (Normal) mg/dL Urine Ketones (Negative) mg/dL Urine Blood (Negative) Urine Nitrite (Negative) Urine Bilirubin (Negative) Urine Urobilinogen (Normal) mg/dL Ur Leukocyte Esterase (Negative) Urine Microscopic RBC (0-3) per hpf Urine Microscopic WBC (0-3) per hpf Ur Squamous Epith Cells (None-Few) per lpf Urine Bacteria (None-Few) per hpf Blood Type Antibody Screen 10/08/17 10/08/17 Range/Units 21:28 22:20 WBC (4.3-11.1) K/mcL RBC (3.82-4.97) M/mcL Hgb (11.5-15.4) g/dL Hct (35.3-44.9) % MCV (83.0-100.0) fL MCH (28.0-33.3) pg MCHC (31.6-35.5) g/dL RDW (11.5-14.5) % Plt Count (140-400) K/mcL MPV (9.4-12.4) fL Immature Gran % (0-4) % Seg Neutrophils % % Lymphocytes % % Monocytes % % Eosinophils % % Basophils % % Neutrophils # (1.6-8.9) K/mcL Lymphocytes # (0.6-4.6) K/mcL Monocytes # (0.0-1.3) K/mcL Eosinophils # (0.0-0.6) K/mcL Basophils # (0.0-0.2) K/mcL PT (9.4-12.1) Seconds INR Sodium (136-145) mEq/L Potassium (3.5-5.1) mEq/L Chloride (98-107) mEq/L Carbon Dioxide (23-29) mEq/L BUN (8-23) mg/dL Creatinine (0.60-1.20) mg/dL Est GFR ( Amer) (> 60) Est GFR (Non-Af Amer) (> 60) BUN/Creatinine Ratio (6-26) Glucose (70-105) mg/dL Calculated Osmolality (280-300) Calcium (8.6-10.3) mg/dL Magnesium (1.6-2.6) mg/dL Total Bilirubin (0.3-1.0) mg/dL AST (13-39) Units/L ALT (7-52) Units/L Alkaline Phosphatase (34-104) Units/L Troponin I (< 0.04) ng/mL Serum Total Protein (6.4-8.9) g/dL Albumin (3.5-5.7) g/dL Globulin (2.4-3.5) g/dL Albumin/Globulin Ratio (1.1-2.2) Urine Color Yellow (Yellow) Urine Clarity Clear (Clear) Urine pH 7.0 (5.0-8.0) pH Units Ur Specific [place] 1.010 (1.010-1.025) Urine Protein Negative (Neg-Trace) mg/dL Urine Glucose (UA) Normal (Normal) mg/dL Urine Ketones Negative (Negative) mg/dL Urine Blood Large H (Negative) Urine Nitrite Negative (Negative) Urine Bilirubin Negative (Negative) Urine Urobilinogen Normal (Normal) mg/dL Ur Leukocyte Esterase Small H (Negative) Urine Microscopic RBC 0-3 (0-3) per hpf Urine Microscopic WBC 3-5 H (0-3) per hpf Ur Squamous Epith Cells Few (None-Few) per lpf Urine Bacteria Few (None-Few) per hpf Blood Type A NEGATIVE Antibody Screen NEGATIVE - Radiology Data Radiology results reviewed: Yes I reviewed the patient's radiology results. Chest X-Ray 10/08/17 21:23 IMPRESSION: Possible foreign bodies within the soft tissues of the right forearm and right wrist. Bilateral perihilar infiltrates with bandlike airspace opacity within the left mid lung. Also, thickening of the right peritracheal stripe which may reflect adenopathy. D/ / Forrest Rodriguez MD / Forrest Rodriguez MD Interpreting Provider: Forrest Rodriguez MD Cervical Spine CT 10/08/17 21:29 IMPRESSION: No acute abnormality of the cervical spine. Amorphous soft tissue attenuation within the right superior mediastinum, possibly adenopathy hematoma is not excluded given history of trauma. . Dedicated postcontrast CT of the chest is recommended. 6 mm hypodense right lobe thyroid nodule, not definitely changed since prior study given differences in technique. No follow-up is necessary as below. RECOMMENDATIONS: Managing Incidental Thyroid Nodule Detected at CT or MRI or US 1. Further evaluation by thyroid Ultrasound recommended for these incidental nodules: Patient Age 18 years or less - Any nodule. Patient Age 19-34 years old - Nodule 1 cm in size or greater Patient Age 35 years or more - Nodule 1.5 cm in size or greater 2. Follow up thyroid ultrasound also recommend in these scenarios -Solitary nodule with high risk imaging features (locally invasive nodule or suspicious lymph nodes) -Any nodule in a heterogeneous enlarged thyroid gland 3. NO further imaging is recommended in the following scenarios -No f/u imaging is recommended for ITNs not meeting the above criteria. -No US or f/u recommended for ITNs without high risk features in pts. with limited life expectancy or significant co-morbidities, unless clinically warranted. Note: These recommendations do not apply to pts. w/ increased risk for thyroid cancer or pts. with symptomatic thyroid disease. Recommendations for f/u of Incidental Thyroid Nodules (ITN) found on CT, MR, NM and Extrathyroidal US are based upon the ACR white paper and [place] 3-tiered system for managing ITNs: J Am Violette Radiol. 2015 Aug;12(2): 143-50 D/ / Sophie Meléndez Cha, MD / Sophie Meléndez Cha, MD Interpreting Provider: Sophie Meléndez Cha, MD Head CT 10/08/17 21:29 IMPRESSION: Several left hemispheric parenchymal hemorrhages with associated moderate white matter edema and mild 2-3 mm rightward midline shift. Although the findings could represent hemorrhagic contusions, parenchymal hemorrhage associated with neoplasm is also possible given history of brain cancer. MRI would be helpful to further evaluate. Findings were called to the ordering service at 11:06 pm on 10/08/2017. D/ / Sophie Meléndez Cha, MD / Sophie Meléndez Cha, MD Interpreting Provider: Sophie Meléndez Cha, MD Forearm X-Ray 10/08/17 21:30 IMPRESSION: Possible foreign bodies within the soft tissues of the right forearm and right wrist. Bilateral perihilar infiltrates with bandlike airspace opacity within the left mid lung. Also, thickening of the right peritracheal stripe which may reflect adenopathy. D/ / Forrest Rodriguez MD / Forrest Rodriguez MD Interpreting Provider: Forrest Rodriguez MD Shoulder X-Ray 10/08/17 22:00 IMPRESSION: Possible foreign bodies within the soft tissues of the right forearm and right wrist. Bilateral perihilar infiltrates with bandlike airspace opacity within the left mid lung. Also, thickening of the right peritracheal stripe which may reflect adenopathy. D/ / Forrest Rodriguez MD / Forrest Rodriguez MD Interpreting Provider: Forrest Rodriguez MD Wrist X-Ray 10/08/17 22:01 IMPRESSION: Possible foreign bodies within the soft tissues of the right forearm and right wrist. Bilateral perihilar infiltrates with bandlike airspace opacity within the left mid lung. Also, thickening of the right peritracheal stripe which may reflect adenopathy. D/ / Forrest Rodriguez MD / Forrest Rodriguez MD Interpreting Provider: Forrest Rdoriguez MD Elbow X-Ray 10/08/17 22:02 IMPRESSION: Possible foreign bodies within the soft tissues of the right forearm and right wrist. Bilateral perihilar infiltrates with bandlike airspace opacity within the left mid lung. Also, thickening of the right peritracheal stripe which may reflect adenopathy. D/ / Forrest Rodriguez MD / Forrest Rodriguez MD Interpreting Provider: Forrest Rodriguez MD - EKG Data EKG attestation: Yes I reviewed and interpreted this EKG. EKG results narrative: EKG taken 10/08/2017 at 2141 hrs. shows sinus rhythm at a rate of 95 bpm with no acute ST elevations or depressions any leads, no QRS widening or QT prolongation no change from previous EKG taken 07/01/2017. NIH Stroke Scale - Level of Consciousness LOC: Alert - LOC Questions LOC Questions: Answers one correctly - LOC Commands LOC Commands: Performs one correctly - Best Gaze Best Gaze: Normal - Visual Visual: No visual loss - Facial Palsy Facial Palsy: Normal - Motor Arms Motor Arm-Left: No drift for 10 seconds Motor Arm-Right: No drift for 10 seconds - Motor Legs Motor Leg-Left: No movement Motor Leg-Right: No movement - Limb Ataxia Limb Ataxia: Present in TWO limbs - Sensory Sensory: Normal - Best Language Best Language: No aphasia - Dysarthria Dysarthria: Normal - Extinction and Inattention Extinction and Inattention: Normal - NIHSS Total Score NIHSS Total Score: 12
[2017-10-08 21:37] LABS: Basophils % 0.3 %; Eosinophils # 0.1 K/mcL (0.0-0.6); Eosinophils % 1.1 %; Hematocrit 40.9 % (35.3-44.9); Hemoglobin 14.2 g/dL (11.5-15.4); Immature Granulocytes % 0.3 % (0-4); Lymphocytes # 0.5 K/mcL (0.6-4.6); Lymphocytes % 6.4 %; Mean Corpuscular HGB Conc 34.7 g/dL (31.6-35.5); Mean Corpuscular Hemoglobin 30.6 pg (28.0-33.3); Mean Corpuscular Volume 88.1 fL (83.0-100.0); Mean Platelet Volume 8.8 fL (9.4-12.4); Monocytes # 0.7 K/mcL (0.0-1.3); Monocytes % 9.9 %; Neutrophils # 5.8 K/mcL (1.6-8.9); Platelet Count 205 K/mcL (140-400); Red Blood Count 4.64 M/mcL (3.82-4.97); Red Cell Distribution Width 13.4 % (11.5-14.5)
[2017-10-08 21:48] LABS: INR 1.2; Prothrombin Time 12.5 Seconds (9.4-12.1)
--- NOTE | 2017-10-08 21:58 | Emergency Department Note ---
Disposition Clinical Impression: Fall Qualifiers: Encounter type: initial encounter Qualified Code(s): W19.XXXA - Unspecified fall, initial encounter Disposition: Admitted As Inpatient Condition: Fair General Adult HPI - General Chief complaint: ED Fall Stated complaint: Fall Time Seen by Provider: 10/08/17 21:16 Source: patient, EMS Limitations: no limitations Nursing Notes Reviewed: Yes Vital Signs Reviewed: Yes - History of Present Illness Pain Scale: 0 - Related Data Home Medications Medication Instructions Recorded Confirmed Albuterol Sulfate [Ventolin Hfa] 2 puff IH Q4H PRN 04/14/17 09/28/17 Oxycodone HCl [Roxicodone 30] 30 mg PO Q4H PRN 04/14/17 09/28/17 Oxygen 2 l NS HS 04/14/17 09/28/17 Budesonide/Formoterol 160/4.5 2 puff IH BIDR 06/26/17 09/28/17 [Symbicort 160/4.5] LORazepam [Ativan] 0.5 mg PO Q6H PRN 06/26/17 09/28/17 Tiotropium [place] [Spiriva 2 puff IH DAILY 06/26/17 09/28/17 Respimat] Morphine Sulfate SR (12 HR) [MS 100 mg PO Q8HR 08/18/17 09/28/17 Contin] Previous Rx's Medication Instructions Recorded Prochlorperazine Maleate 10 mg PO Q6HR PRN #60 tablet 02/23/17 [Compazine] Omeprazole [PriLOSEC] 20 mg PO DAILY #30 capsule. 03/23/17 BuPROPion SR (12 HR) [Wellbutrin 150 mg PO BID #60 tablet.er 07/21/17 SR] Gabapentin [Neurontin] 300 mg PO BID #60 capsule 09/04/17 LORazepam [Ativan] 1 - 2 tab PO AD 3 Days #6 tablet 10/08/17 Allergies Allergy/AdvReac Type Severity Reaction Status Date / Time Iodinated Contrast- Oral and Allergy Intermediate Hives Verified 09/28/17 10:52 IV Dye Nickel Allergy Mild Hives Verified 09/28/17 10:52 METALS Allergy Hives Uncoded 09/28/17 10:52 Past Medical History - Past Medical History Medical history: Reports: arthritis, cancer, CHF, COPD, peripheral artery disease Surgical history: Reports: cancer surgery Psychiatric history: Reports: anxiety, depression, panic disorder - Social History Smoking Status: Current every day smoker Smokeless Tobacco Status: No Alcohol use: Reports: none Drug use: Reports: none Physical Exam - General Limitations: no limitations General appearance: alert Course - Reevaluation(s) Reevaluation #1: Saw patient with Dr. Yegaer. This is a 67 year-old female with history of COPD, CHF, and metastatic lung cancer who presented to the ED after falling in her driveway. She sustained a skin tear and pain to the right upper extremity. Patient is disoriented, but states that her mental status is unchanged since the fall. Patient has been dizzy lately, and a brain MRI ordered by her oncologist and performed earlier this evening showed hemorrhagic metastases. On my exam, patient is mildly tachycardic, alert but disoriented. Patient has extremity weakness, but this is not clearly focal on my exam. Plan CT head & neck, XR right shoulder. We will discuss the case with oncology for likely admit. Time: 21:53 Vital Signs Temperature 98.0 F 10/08/17 21:05 Pulse Rate 107 10/08/17 21:05 Respiratory Rate 16 10/08/17 21:05 Blood Pressure 121/80 10/08/17 21:05 O2 Sat by Pulse Oximetry 95 10/08/17 21:05 Temperature 98.4 F 10/09/17 04:49 Pulse Rate 77 10/09/17 04:00 Respiratory Rate 20 10/09/17 04:00 Blood Pressure 124/70 10/09/17 04:00 O2 Sat by Pulse Oximetry 92 10/09/17 04:00 Oxygen Delivery Oxygen Delivery Room Air Medical Decision Making - Lab Data Lab results reviewed: Yes I reviewed the patient's lab results. Result diagrams: 10/09/17 03:54 10/09/17 03:54 Lab Results 10/08/17 10/08/17 10/08/17 Range/Units 21:26 21:26 21:26 WBC 7.1 (4.3-11.1) K/mcL RBC 4.64 (3.82-4.97) M/mcL Hgb 14.2 (11.5-15.4) g/dL Hct 40.9 (35.3-44.9) % MCV 88.1 (83.0-100.0) fL MCH 30.6 (28.0-33.3) pg MCHC 34.7 (31.6-35.5) g/dL RDW 13.4 (11.5-14.5) % Plt Count 205 (140-400) K/mcL MPV 8.8 L (9.4-12.4) fL Immature Gran % 0.3 (0-4) % Seg Neutrophils % 82.0 % Lymphocytes % 6.4 % Monocytes % 9.9 % Eosinophils % 1.1 % Basophils % 0.3 % Neutrophils # 5.8 (1.6-8.9) K/mcL Lymphocytes # 0.5 L (0.6-4.6) K/mcL Monocytes # 0.7 (0.0-1.3) K/mcL Eosinophils # 0.1 (0.0-0.6) K/mcL Basophils # 0.0 (0.0-0.2) K/mcL PT 12.5 H (9.4-12.1) Seconds INR 1.2 Sodium 133 L (136-145) mEq/L Potassium 3.7 (3.5-5.1) mEq/L Chloride 100 (98-107) mEq/L Carbon Dioxide 22 L (23-29) mEq/L BUN 10 (8-23) mg/dL Creatinine 0.64 (0.60-1.20) mg/dL Est GFR ( Amer) > 60 (> 60) Est GFR (Non-Af Amer) > 60 (> 60) BUN/Creatinine Ratio 16 (6-26) Glucose 95 (70-105) mg/dL Calculated Osmolality 275 L (280-300) Calcium 9.6 (8.6-10.3) mg/dL Magnesium 1.9 (1.6-2.6) mg/dL Total Bilirubin 0.7 (0.3-1.0) mg/dL AST 16 (13-39) Units/L ALT 4 L (7-52) Units/L Alkaline Phosphatase 82 (34-104) Units/L Troponin I < 0.03 (< 0.04) ng/mL Serum Total Protein 6.9 (6.4-8.9) g/dL Albumin 4.3 (3.5-5.7) g/dL Globulin 2.6 (2.4-3.5) g/dL Albumin/Globulin Ratio 1.7 (1.1-2.2) Urine Color (Yellow) Urine Clarity (Clear) Urine pH (5.0-8.0) pH Units Ur Specific [place] (1.010-1.025) Urine Protein (Neg-Trace) mg/dL Urine Glucose (UA) (Normal) mg/dL Urine Ketones (Negative) mg/dL Urine Blood (Negative) Urine Nitrite (Negative) Urine Bilirubin (Negative) Urine Urobilinogen (Normal) mg/dL Ur Leukocyte Esterase (Negative) Urine Microscopic RBC (0-3) per hpf Urine Microscopic WBC (0-3) per hpf Ur Squamous Epith Cells (None-Few) per lpf Urine Bacteria (None-Few) per hpf Blood Type Antibody Screen 10/08/17 10/08/17 Range/Units 21:28 22:20 WBC (4.3-11.1) K/mcL RBC (3.82-4.97) M/mcL Hgb (11.5-15.4) g/dL Hct (35.3-44.9) % MCV (83.0-100.0) fL MCH (28.0-33.3) pg MCHC (31.6-35.5) g/dL RDW (11.5-14.5) % Plt Count (140-400) K/mcL MPV (9.4-12.4) fL Immature Gran % (0-4) % Seg Neutrophils % % Lymphocytes % % Monocytes % % Eosinophils % % Basophils % % Neutrophils # (1.6-8.9) K/mcL Lymphocytes # (0.6-4.6) K/mcL Monocytes # (0.0-1.3) K/mcL Eosinophils # (0.0-0.6) K/mcL Basophils # (0.0-0.2) K/mcL PT (9.4-12.1) Seconds INR Sodium (136-145) mEq/L Potassium (3.5-5.1) mEq/L Chloride (98-107) mEq/L Carbon Dioxide (23-29) mEq/L BUN (8-23) mg/dL Creatinine (0.60-1.20) mg/dL Est GFR ( Amer) (> 60) Est GFR (Non-Af Amer) (> 60) BUN/Creatinine Ratio (6-26) Glucose (70-105) mg/dL Calculated Osmolality (280-300) Calcium (8.6-10.3) mg/dL Magnesium (1.6-2.6) mg/dL Total Bilirubin (0.3-1.0) mg/dL AST (13-39) Units/L ALT (7-52) Units/L Alkaline Phosphatase (34-104) Units/L Troponin I (< 0.04) ng/mL Serum Total Protein (6.4-8.9) g/dL Albumin (3.5-5.7) g/dL Globulin (2.4-3.5) g/dL Albumin/Globulin Ratio (1.1-2.2) Urine Color Yellow (Yellow) Urine Clarity Clear (Clear) Urine pH 7.0 (5.0-8.0) pH Units Ur Specific [place] 1.010 (1.010-1.025) Urine Protein Negative (Neg-Trace) mg/dL Urine Glucose (UA) Normal (Normal) mg/dL Urine Ketones Negative (Negative) mg/dL Urine Blood Large H (Negative) Urine Nitrite Negative (Negative) Urine Bilirubin Negative (Negative) Urine Urobilinogen Normal (Normal) mg/dL Ur Leukocyte Esterase Small H (Negative) Urine Microscopic RBC 0-3 (0-3) per hpf Urine Microscopic WBC 3-5 H (0-3) per hpf Ur Squamous Epith Cells Few (None-Few) per lpf Urine Bacteria Few (None-Few) per hpf Blood Type A NEGATIVE Antibody Screen NEGATIVE
[2017-10-08 22:05] LABS: BUN/Creatinine Ratio 16 (6-26); Blood Urea Nitrogen 10 mg/dL (8-23); Carbon Dioxide 22 mEq/L (23-29); Chloride 100 mEq/L (98-107); Potassium 3.7 mEq/L (3.5-5.1); Sodium 133 mEq/L (136-145); Troponin I < 0.03 ng/mL (< 0.04)
[2017-10-08 22:06] LABS: Alanine Aminotransferase 4 Units/L (7-52); Albumin 4.3 g/dL (3.5-5.7); Albumin/Globulin Ratio 1.7 (1.1-2.2); Alkaline Phosphatase 82 Units/L (34-104); Aspartate Amino Transferase 16 Units/L (13-39); Bilirubin,Total 0.7 mg/dL (0.3-1.0); Calcium 9.6 mg/dL (8.6-10.3); Globulin 2.6 g/dL (2.4-3.5); Glucose 95 mg/dL (70-105); Magnesium 1.9 mg/dL (1.6-2.6); Osmolality,Calculated 275 (280-300); Total Protein 6.9 g/dL (6.4-8.9); eGFR For African Americans > 60 (> 60); eGFR For Non-African Americans > 60 (> 60)
[2017-10-08 22:32] LABS: Bilirubin,Urine Negative (Negative); Blood,Urine Large (Negative); Clarity,Urine Clear (Clear); Color,Urine Yellow (Yellow); Glucose,Urine (UA) Normal (Normal); Ketones,Urine Negative (Negative); Leukocyte Esterase,Urine Small (Negative); Nitrite,Urine Negative (Negative); Protein,Urine Negative (Neg-Trace); Urobilinogen,Urine Normal (Normal)
[2017-10-08 22:46] LABS: Bacteria,Urine Few per hpf (None-Few); RBC,Urine 0-3 per hpf (0-3); Squamous Epithelial Cell,Urine Few per lpf (None-Few)
[2017-10-08] MEDS ORDERED: Dexamethasone 10 MG/ML VIAL IVP SCH (23:45)
[2017-10-09] MEDS ORDERED: Naloxone 0.4 MG/ML INJ IVP PRN ×2 (00:47→11:30)
--- NOTE | 2017-10-09 00:47 | Internal Med History&Physical ---
<Ray Clark - Last Filed: 10/09/17 01:26> Date of Encounter: 10/09/17 Time of Encounter: 00:46 Assessment and Plan (1) Brain metastasis Current visit: Yes Status: Acute - Evidence of brain metastasis from known lung and or bladder cancer - MRI performed 10/08/17 does demonstrate this in the left cerebral hemisphere with surrounding vasogenic edema - CT scan performed at emergency room also demonstrated metastatic disease with evidence of 2-3 mm midline shift - She follows with [facility], Dr. Ann and . 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 (see most recent oncology note for full list.) - Oncology consulted in ED Plan - Did discuss with patient and that [facility] would likely not perform invasive procedures given poor prognosis and they requested to be admitted here - Oncology suggested Decadron 20 mg IV followed by 4mg q4 hours for increased cerebral pressures - Oncology will follow, appreciate recommendations - Palliative consult. (2) Goals of care, counseling/discussion Current visit: Yes Status: Acute - Palliative care consulted for metastatic disease as above - Family and patient aware of poor prognosis, however they are waiting for life insurance policy to take effect and would like FULL CODE status at this time. 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 - Most recent cystoscopy on 05/05/16 showed bladder wall thickening without lesions suggesting malignancy - Supportive care, oncology consult. (4) Primary lung adenocarcinoma Current visit: Yes Status: Chronic - s/p radiation, chemotherapy with most recent radiation on 10/01/16 - Metastasis to axillary LN, Lumbar spine, likely source of brain mets - Oncology as above. Supportive care. Qualifiers: Laterality: left Qualified Code(s): C34.92 - Malignant neoplasm of unspecified part of left bronchus or lung (5) Anxiety Current visit: Yes Status: Chronic - Regarding chronic medical problems as above - Continue home Ativan PRN (6) COPD (chronic obstructive pulmonary disease) Current visit: No Status: Chronic No active exacerbation - Continue home inhalers. Qualifiers: COPD type: COPD with acute exacerbation Qualified Code(s): J44.1 - Chronic obstructive pulmonary disease with (acute) exacerbation (7) Cancer related pain Current visit: Yes Status: Chronic - Significant cancer related pain related to bony mets as well as primary cancers - Continue home regimen - Oral morphine for mcc pain control with oxycodone 30mg PRN breakthrough pain - Palliative consulted. (8) Fall Current visit: Yes Status: Acute - Pt reports tripping however also likely related to her dizziness which is likely related to her brain mets. - Xrays and CT scans negative for acute pathology aside from known cancers. No evidence of fracture Plan - Supportive treatment with pain control, compezine, antivert Qualifiers: Encounter type: initial encounter Qualified Code(s): W19.XXXA - Unspecified fall, initial encounter (9) GERD (gastroesophageal reflux disease) Current visit: Yes Status: Chronic - Continue home meds. Qualifiers: Esophagitis presence: esophagitis presence not specified Qualified Code(s) : K21.9 - Gastro-esophageal reflux disease without esophagitis (10) Tobacco abuse Current visit: Yes Status: Chronic Encouraged smoking cessation (11) DVT prophylaxis Current visit: Yes Status: Acute Lovenox 40 mg subcutaneous daily Internal Medicine - H&P: HPI Chief complaint: fall Admitted From: Home History of present illness: Ms. Siddiqui is a 67 year old female with a past medical history of hypertension , COPD, CHF, known lung adenocarcinoma with mets to spine, axillary LN, urothelial cell carcinoma, DMII presented to ED after sustaining fall as afternoon. Patient states that she tripped over something and is also experiencing intermittent dizziness. She does follow with [facility] and has been getting palliative radiation. Most recent treatment 10/01/16. She did have a recent MRI today which showed evidence of metastatic disease to the brain. Patient does admit to pain in her right arm secondary to the fall. Emergency room did obtain chest x-ray, head CT and cervical spine CT, x-rays of forearm, shoulder, wrist, elbow, hip/pelvis. These findings were significant for head CT showing several left hemispheric parenchymal hemorrhages with moderate edema and mild 2-3 mm rightward midline shift. Chest x-ray did show bilateral perihilar infiltrates with bandlike airspace opacity in the left lung. Vital signs on presentation significant for mild tachycardia at 107, otherwise within normal limits. Lab results significant for sodium of 133 was unremarkable. Oncology was consult in the emergency room who recommended echo drawn 20 mg IV push followed by 4 mg every 4 hours for increased cerebral pressure. We did discuss patient's poor prognosis given her metastatic cancer and evidence of increased intracranial pressure with patient and her . We informed them that [facility] does have capabilities of neurosurgery, however given patient's poor prognosis and advanced age that they would likely not perform any additional treatments. We did have a discussion regarding patient's CODE STATUS and explains that a recent change in life insurance policy does not take in effect until November 06. The do request a full CODE STATUS at this time. Past Med Surg Social Fam HX - Past Medical History Medical history: arthritis, cancer, CHF, COPD, peripheral artery disease Psychiatric history: anxiety, depression, panic disorder - Past Surgical History Surgical History: cancer surgery - Social History Smoking Status: Current every day smoker Smokeless Tobacco Status: No Alcohol use: none Drug use: none - Family History Father Family Member Ethnicity: Non- Living Status: Hx Family Respiratory Disorders: Yes (COPD/Emphysema) Mother Family Member Ethnicity: Non- Living Status: Hx Family Cardiac Disorders: Yes (HI, CAD) Hx Family Cancer: Yes (Lung) Brother Family Member Ethnicity: Non- Living Status: Still Living Hx Family Respiratory Disorders: Yes (COPD) Sister Family Member Ethnicity: Non- Living Status: Hx Family Cancer: Yes (Melanoma w/metastases) Internal Medicine - H&P: Meds Prochlorperazine Maleate [Compazine] 10 mg PO Q6HR PRN #60 tablet 02/23/17 [Rx] Omeprazole [PriLOSEC] 20 mg PO DAILY #30 capsule. 03/23/17 [Rx] Albuterol Sulfate [Ventolin Hfa] 2 puff IH Q4H PRN 04/14/17 [History] Oxycodone HCl [Roxicodone 30] 30 mg PO Q4H PRN 04/14/17 [History] Oxygen 2 l NS HS 04/14/17 [History] Budesonide/Formoterol 160/4.5 [Symbicort 160/4.5] 2 puff IH BIDR 06/26/17 [ History] LORazepam [Ativan] 0.5 mg PO Q6H PRN 06/26/17 [History] Tiotropium [place] [Spiriva Respimat] 2 puff IH DAILY 06/26/17 [History] BuPROPion SR (12 HR) [Wellbutrin SR] 150 mg PO BID #60 tablet.er 07/21/17 [Rx] Morphine Sulfate SR (12 HR) [MS Contin] 100 mg PO Q8HR 08/18/17 [History] Gabapentin [Neurontin] 300 mg PO BID #60 capsule 09/04/17 [Rx] LORazepam [Ativan] 1 - 2 tab PO AD 3 Days #6 tablet 10/08/17 [Rx] 3 Allergy/AdvReac Type Severity Reaction Status Date / Time Iodinated Contrast- Oral and Allergy Intermediate Hives Verified 09/28/17 10:52 IV Dye Nickel Allergy Mild Hives Verified 09/28/17 10:52 METALS Allergy Hives Uncoded 09/28/17 10:52 All Systems PM: A 10-system review of systems was performed and is negative for pertinent findings except as documented above in the HPI. Review of systems: - Constitutional: Denies fevers, chills, weight loss, generalized fatigue - Head/Neck: Denies GONZALEZ, neck stiffness - CVS: Denies chest pain, palpitations, WU, orthopnea, edema, PND, - Pulm: Denies SOB, cough, sputum, wheezing - GI: Denies abdominal pain, anorexia, nausea, vomiting, diarrhea, constipation , melena - : Denies dysuria, increased frequency, urgency, hematuria, - Skin: Admits to skin tear on right forearm secondary to fall. Denies rashes, ulcers, color changes, - Neuro: Admits to dizziness. Denies GONZALEZ, paresthesias, focal deficits, ataxia, numbness, tingling. - Constitutional Vitals: Temp Pulse Resp BP Pulse Ox 98.0 F 94 18 123/75 98 10/08/17 21:05 10/09/17 00:28 10/09/17 00:28 10/09/17 00:28 10/09/17 00:28 Exam: Gen.: Vitals noted. No acute distress. AAOx1. Answers questions after encouragement HEENT: PERRL/EOMI, oropharynx clear, Normocephalic Cardiac: RRR, no murmur, +S1/S2 Pulmonary: CTA bilaterally, no wheezes, rales or rhonchi, equal chest expansion Abdomen: soft, nontender, BS noted, no guarding Skin: Skin tear on right forearm, not actively bleeding. Extremities: no BLE edema, nontender calf, no cyanosis or clubbing MSK: Diffuse weakness without focal deficit. Neuro: A&Ox1, moves all extremities, no focal deficits appreciated. Psych: Blunted range of emotions. Quiet and reserved. Internal Med - H&P Results - Labs CBC & Chem 7: 10/08/17 21:26 10/08/17 21:26 Labs: Short CBC 10/08/17 Range/Units 21:26 WBC 7.1 (4.3-11.1) K/mcL Hgb 14.2 (11.5-15.4) g/dL Hct 40.9 (35.3-44.9) % Plt Count 205 (140-400) K/mcL Neutrophils # 5.8 (1.6-8.9) K/mcL BMP 10/08/17 21:26 Sodium 133 L Potassium 3.7 Chloride 100 Carbon Dioxide 22 L BUN 10 Creatinine 0.64 Glucose 95 Calcium 9.6 Cardiac Enzymes 10/08/17 Range/Units 21:26 Troponin I < 0.03 (< 0.04) ng/mL Liver Function 10/08/17 Range/Units 21:26 Total Bilirubin 0.7 (0.3-1.0) mg/dL AST 16 (13-39) Units/L ALT 4 L (7-52) Units/L Alkaline Phosphatase 82 (34-104) Units/L Albumin 4.3 (3.5-5.7) g/dL Urine 10/08/17 Range/Units 22:20 Urine Color Yellow (Yellow) Urine Clarity Clear (Clear) Urine pH 7.0 (5.0-8.0) pH Units Ur Specific [place] 1.010 (1.010-1.025) Urine Protein Negative (Neg-Trace) mg/dL Urine Glucose (UA) Normal (Normal) mg/dL - Impressions ITS Impressions Chest X-Ray 10/08/17 21:23 IMPRESSION: Possible foreign bodies within the soft tissues of the right forearm and right wrist. Bilateral perihilar infiltrates with bandlike airspace opacity within the left mid lung. Also, thickening of the right peritracheal stripe which may reflect adenopathy. D/ / Forrest Rodriguez MD / Forrest Rodriguez MD Interpreting Provider: Forrest Rodriguez MD Cervical Spine CT 10/08/17 21:29 IMPRESSION: No acute abnormality of the cervical spine. Amorphous soft tissue attenuation within the right superior mediastinum, possibly adenopathy hematoma is not excluded given history of trauma. . Dedicated postcontrast CT of the chest is recommended. 6 mm hypodense right lobe thyroid nodule, not definitely changed since prior study given differences in technique. No follow-up is necessary as below. RECOMMENDATIONS: Managing Incidental Thyroid Nodule Detected at CT or MRI or US 1. Further evaluation by thyroid Ultrasound recommended for these incidental nodules: Patient Age 18 years or less - Any nodule. Patient Age 19-34 years old - Nodule 1 cm in size or greater Patient Age 35 years or more - Nodule 1.5 cm in size or greater 2. Follow up thyroid ultrasound also recommend in these scenarios -Solitary nodule with high risk imaging features (locally invasive nodule or suspicious lymph nodes) -Any nodule in a heterogeneous enlarged thyroid gland 3. NO further imaging is recommended in the following scenarios -No f/u imaging is recommended for ITNs not meeting the above criteria. -No US or f/u recommended for ITNs without high risk features in pts. with limited life expectancy or significant co-morbidities, unless clinically warranted. Note: These recommendations do not apply to pts. w/ increased risk for thyroid cancer or pts. with symptomatic thyroid disease. Recommendations for f/u of Incidental Thyroid Nodules (ITN) found on CT, MR, NM and Extrathyroidal US are based upon the ACR white paper and [place] 3-tiered system for managing ITNs: J Am Violette Radiol. 2015 Aug;12(2): 143-50 D/ / Sophie Meléndez Cha, MD / Sophie Meléndez Cha, MD Interpreting Provider: Sophie Meléndez Cha, MD Head CT 10/08/17 21:29 IMPRESSION: Several left hemispheric parenchymal hemorrhages with associated moderate white matter edema and mild 2-3 mm rightward midline shift. Although the findings could represent hemorrhagic contusions, parenchymal hemorrhage associated with neoplasm is also possible given history of brain cancer. MRI would be helpful to further evaluate. Findings were called to the ordering service at 11:06 pm on 10/08/2017. D/ / Sophie Meléndez Cha, MD / Sophie Meléndez Cha, MD Interpreting Provider: Sophie Meléndez Cha, MD Forearm X-Ray 10/08/17 21:30 IMPRESSION: Possible foreign bodies within the soft tissues of the right forearm and right wrist. Bilateral perihilar infiltrates with bandlike airspace opacity within the left mid lung. Also, thickening of the right peritracheal stripe which may reflect adenopathy. D/ / Forrest Rodriguez MD / Forrest Rodriguez MD Interpreting Provider: Forrest Rodriguez MD Shoulder X-Ray 10/08/17 22:00 IMPRESSION: Possible foreign bodies within the soft tissues of the right forearm and right wrist. Bilateral perihilar infiltrates with bandlike airspace opacity within the left mid lung. Also, thickening of the right peritracheal stripe which may reflect adenopathy. D/ / Forrest Rodriguez MD / Forrest Rodriguez MD Interpreting Provider: oFrrest Rodriguez MD Wrist X-Ray 10/08/17 22:01 IMPRESSION: Possible foreign bodies within the soft tissues of the right forearm and right wrist. Bilateral perihilar infiltrates with bandlike airspace opacity within the left mid lung. Also, thickening of the right peritracheal stripe which may reflect adenopathy. D/ / Forrest Rodriguez MD / Forrest Rodriguez MD Interpreting Provider: Forrest Rodriguez MD Elbow X-Ray 10/08/17 22:02 IMPRESSION: Possible foreign bodies within the soft tissues of the right forearm and right wrist. Bilateral perihilar infiltrates with bandlike airspace opacity within the left mid lung. Also, thickening of the right peritracheal stripe which may reflect adenopathy. D/ / Forrest Rodriguez MD / Forrest Rodriguez MD Interpreting Provider: Forrest Rodriguez MD Hip/Pelvis X-Ray 10/08/17 23:30 IMPRESSION: No acute bony abnormality. D/ / Sophie Meléndez Cha, MD / Sophie Meléndez Cha, MD Interpreting Provider: Sophie Meléndez Cha, MD <Yvonne Hastings - Last Filed: 10/09/17 04:43> Date of Encounter: 10/09/17 Internal Medicine - H&P: HPI History of present illness: Ms. Siddiqui is a 67 year old female All Systems PM: A 10-system review of systems was performed and is negative for pertinent findings except as documented above in the HPI. - Constitutional Vitals: Temp Pulse Resp BP Pulse Ox 98.1 F 80 20 119/65 93 10/09/17 02:00 10/09/17 03:00 10/09/17 03:00 10/09/17 03:00 10/09/17 03:00 Internal Med - H&P Results - Labs CBC & Chem 7: 10/08/17 21:26 10/08/17 21:26 - Attending Attestation I examined this patient and my medical decision-making was reviewed with the Resident Physician . I agree with the documented findings, disposition and treatment plan as described except to the extent set forth below. Ms. Siddiqui is a 67 year old female with a past medical history of hypertension , COPD, CHF, known lung adenocarcinoma with mets to spine, axillary LN, urothelial cell carcinoma, DMII presented to ED after sustaining fall this afternoon. Pt had an MRI done this after as an out pt through Heme Onc office since there was concern for mets in the brain. Her MRI of Brain showed multiple new hemorrhagic intra parenchymal lesions involving left cerebral hemisphere with surrounding vasogenic edema. Pt is alert, awake and disoriented, not oriented to self. Gen: A, A, O x 0 Chest: Diminsihed BS b/l Heart: S1S2+ RRR No murmurs Neur: Confused, disoriented.. Not following any commands a/p 1. Acute delirium - Due to Metastatic brain lesions 2. Acute hemorrhagic intra parenchymal lesions 3. cerebral edema 4. Lung cancer 5. Urothelial bladder cancer Talked to Heme Onc Dr. Ramos who suggested to start her on aggressive IV steroid therapy Also Heme Onc going to talk to pt's about over all poor prognosis, and possible palliative care treatment options Talked to pt's at bed side, who requested for full code. However he would like to talk to Heme Onc and Palliative care team in AM So will admit the pt into ICU cont close monitoring strict fall precautions
[2017-10-09] MEDS ORDERED: *HR* OxyCODONE Immed Rel 15 MG TABLET PO PRN (01:23)
[2017-10-09] MEDS ORDERED: *HR* LORazepam 0.5 MG TABLET PO PRN ×2 (01:23→11:30)
[2017-10-09 04:34] LABS: Basophils % 0.2 %; Eosinophils % 0.2 %; Hematocrit 34.6 % (35.3-44.9); Immature Granulocytes % 0.7 % (0-4); Lymphocytes # 0.3 K/mcL (0.6-4.6); Lymphocytes % 4.4 %; Mean Corpuscular HGB Conc 33.5 g/dL (31.6-35.5); Mean Corpuscular Volume 89.4 fL (83.0-100.0); Mean Platelet Volume 8.8 fL (9.4-12.4); Monocytes # 0.3 K/mcL (0.0-1.3); Monocytes % 4.7 %; Neutrophils # 5.4 K/mcL (1.6-8.9); Platelet Count 196 K/mcL (140-400); Red Blood Count 3.87 M/mcL (3.82-4.97); Red Cell Distribution Width 13.2 % (11.5-14.5); Segmented Neutrophils % 89.8 %
[2017-10-09 04:41] LABS: Hemoglobin 11.6 g/dL (11.5-15.4)
[2017-10-09] MEDS: Dexamethasone 4 MG/ML VIAL IVP SCH ×5 (04:41→21:31)
[2017-10-09 04:58] LABS: BUN/Creatinine Ratio 14 (6-26); Blood Urea Nitrogen 7 mg/dL (8-23); Calcium 8.6 mg/dL (8.6-10.3); Carbon Dioxide 23 mEq/L (23-29); Chloride 107 mEq/L (98-107); Glucose 115 mg/dL (70-105); Osmolality,Calculated 281 (280-300); Potassium 3.7 mEq/L (3.5-5.1); Sodium 136 mEq/L (136-145); eGFR For African Americans > 60 (> 60); eGFR For Non-African Americans > 60 (> 60)
[2017-10-09] MEDS ORDERED: *HR* Morphine Sulfate SR (12 HR) 100 MG TABLET.ER PO SCH (06:00)
[2017-10-09] MEDS ORDERED: *HR* Enoxaparin 40 MG/0.4 ML SYRINGE SQ SCH (06:00)
[2017-10-09] MEDS ORDERED: Gabapentin 300 MG CAPSULE PO SCH (09:00)
[2017-10-09] MEDS ORDERED: BuPROPion SR (12 HR) 150 MG TABLET PO SCH (09:00)
[2017-10-09] MEDS ORDERED: Tiotropium 18 MCG inhalation IH SCH (09:00)
[2017-10-09] MEDS ORDERED: Budesonide/Formoterol 160/4.5 MDI IH SCH (10:00)
[2017-10-09] MEDS ORDERED: Ondansetron 4 MG/2 ML VIAL IVP PRN (11:33)
--- NOTE | 2017-10-09 11:40 | Palliative - Consult Note ---
Date of Encounter: 10/09/17 Time of Encounter: 11:25 - Assessment and Plan (1) Cancer related pain Current Visit: Yes Status: Chronic Assessment and plan: Patient continues with home pain regimen - shakes head yes that she is currently comfortable. S/O states most pain is usually r/t spine lesions. Receiving MS Contin 100mg every 8 hours as well as Oxycodone 30mg for breakthrough pain. Does not appear she was on a bowel regimen prior to admission. Will D/W significant other and add if needed. Continue and monitor (2) Goals of care, counseling/discussion Current Visit: Yes Status: Acute Assessment and plan: Long discussion with pt significant other (Clarence) at bedside. Patient is unable to stay awake long for conversation. Patient had appt today at [facility] to for advanced care planning/POA discussions. Clarence states they have been togther 171/2 yrs, but not . She has 4 children that "only come around every couple of years". He states that last night he desired full code r /t the fact that pt insurance does not include coverage unless she has been enrolled for 2 years, which will be the first week of November. Clarence states her desire was to live until the first of November to ensure the financial burden of her burial would be taken care of. He states however, that patient had expressed to him many times that she did not want heroic measures or sustained on life support machine if her disease progressed. He stated that he hope she is able to make it another month, but very realistic that this may not happen. States "I told her cats that she may not be coming home this time". Clarence was tearfull and emotional. Informed Clarence that although no POA in place, we should abide by pt previously known wishes, and that performing heroic measure with her terminal progressing cancer, would most likely extend her dying process and cause suffering. Clarence verbalized understanding, and states "she doesn't want on any kind of life support". Based on her previous known wishes, code status transitioned to DNR/DNI. Hopefully with continue treatment of cerebral edema, her mental status can improve and advanced directives could be completed. Will f/u in am. (3) Brain metastasis Current Visit: Yes Status: Acute Assessment and plan: Radiation oncology to see today at [facility]. (4) Fall Current Visit: Yes Status: Acute Qualifiers: Encounter type: initial encounter Qualified Code(s): W19.XXXA - Unspecified fall, initial encounter (5) Intraparenchymal hemorrhage of brain Current Visit: Yes Status: Acute (6) Primary lung adenocarcinoma Current Visit: Yes Status: Chronic Qualifiers: Laterality: left Qualified Code(s): C34.92 - Malignant neoplasm of unspecified part of left bronchus or lung (7) Bladder cancer metastasized to intrapelvic lymph nodes Current Visit: Yes Status: Chronic Palliative-CN HPI - Data of Consult Consult date: 10/09/17 Requesting Physician: Branden Ramos Primary Care Provider: PCP LAVINIA Family Provider: ZConversion Provider - Consult Narrative History of present illness: Ms. Siddiqui is a 67 year old female with a history of invasive bladder cancer ( 2012) and Left lung primary pulmonary adenacarcinoma with bony metastasis. She has had multiple rounds of chemotherapy and most recently had several months of immunotherapy with nivolumab. Other medical conditions include COPD, Diabetes, HTN, AL, Arthritis. Presented to ER after fell at home and was complaining of intermittent dizziness. Boyfriend at bedside states she has had some periods of confusion and lethargy, and they attributed this to medications and she refused to go to physician. She had MRI yesterday which revealed multiple area of metastasis and hemorrhagic lesions involving the left hemisphere with vasogenic edema. She was given bolus of dexamethasone upon admission, and currently 4mg every 4 hours. Her mental status has improved since admission, although she remains somewhat confused, and does not answer all questions appropriately. [facility] providers have already seen her this am, and she will be taken to radiation oncology early this afternoon. Dr. Anderson in and pt will stepdown out of ICU. Upon my visit, she awakens with name calling. Can tell me her name and date of , but not her location. Answers some questions inappropriately still. Follows simple commands. Emesis x 1 while I was in room. Boyfriend Clarence at bedside. CC: Branden Ramos Past Med Surg Social Fam HX - Past Medical History Medical history: arthritis, cancer, CHF, COPD, peripheral artery disease Psychiatric history: anxiety, depression, panic disorder - Past Surgical History Surgical History: cancer surgery - Social History Smoking Status: Current every day smoker Smokeless Tobacco Status: No Alcohol use: none Drug use: none - Family History Father Family Member Ethnicity: Non- Living Status: Hx Family Respiratory Disorders: Yes (COPD/Emphysema) Mother Family Member Ethnicity: Non- Living Status: Hx Family Cardiac Disorders: Yes (AL, CAD) Hx Family Cancer: Yes (Lung) Brother Family Member Ethnicity: Non- Living Status: Still Living Hx Family Respiratory Disorders: Yes (COPD) Sister Family Member Ethnicity: Non- Living Status: Hx Family Cancer: Yes (Melanoma w/metastases) Medications and Allergies Prochlorperazine Maleate [Compazine] 10 mg PO Q6HR PRN #60 tablet 02/23/17 [Rx] Omeprazole [PriLOSEC] 20 mg PO DAILY #30 capsule.dr 03/23/17 [Rx] Albuterol Sulfate [Ventolin Hfa] 2 puff IH Q4H PRN 04/14/17 [History] Oxycodone HCl [Roxicodone 30] 30 mg PO Q4H PRN 04/14/17 [History] Oxygen 2 l NS HS 04/14/17 [History] Budesonide/Formoterol 160/4.5 [Symbicort 160/4.5] 2 puff IH BIDR 06/26/17 [ History] LORazepam [Ativan] 0.5 mg PO Q6H PRN 06/26/17 [History] Tiotropium [place] [Spiriva Respimat] 2 puff IH DAILY 06/26/17 [History] BuPROPion SR (12 HR) [Wellbutrin SR] 150 mg PO BID #60 tablet.er 07/21/17 [Rx] Morphine Sulfate SR (12 HR) [MS Contin] 100 mg PO Q8HR 08/18/17 [History] Gabapentin [Neurontin] 300 mg PO BID #60 capsule 10/09/17 [Rx] 3 Allergy/AdvReac Type Severity Reaction Status Date / Time Iodinated Contrast- Oral and Allergy Intermediate Hives Verified 09/28/17 10:52 IV Dye Nickel Allergy Mild Hives Verified 09/28/17 10:52 METALS Allergy Hives Uncoded 09/28/17 10:52 ROS unobtainable: due to mental status Palliative Care-Exam - Constitutional Vitals: Temp Pulse Resp BP Pulse Ox 98.0 F 64 20 154/83 94 10/09/17 08:00 10/09/17 11:00 10/09/17 11:00 10/09/17 11:00 10/09/17 11:00 General appearance: Present: no acute distress - Head Head Exam: Present: normal inspection, normocephalic - Respiratory Additional comments: Rales noted to anterior chest. - Cardiovascular Cardiovascular exam: Present: +S1, +S2 - GI/Abdominal Exam GI/Abdominal exam: Present: distended, normal bowel sounds, soft - Catheter Type: Urethral ([place]) Additional comments: Urine clear yellow - Extremities Exam Extremities exam: Present: normal capillary refill, normal inspection - Neurological Exam Neurological exam: Present: alert Additional comments: Patient is alert and oriented to name and can give me date of , but cannot tell me where she is. Is able to tell me she lives with Clarence, boyfriend and tell me she has 4 children, cannot tell me their names at this time. Can follow simple one step commands - Psychiatric Psychiatric exam: Present: normal affect - Skin Skin exam: Present: dry, pallor, warm Internal Medicine - CN: Reslt - Labs CBC & Chem 7: 10/09/17 03:54 10/09/17 03:54 Labs: Short CBC 10/09/17 Range/Units 03:54 WBC 6.0 (4.3-11.1) K/mcL Hgb 11.6 D (11.5-15.4) g/dL Hct 34.6 L (35.3-44.9) % Plt Count 196 (140-400) K/mcL Neutrophils # 5.4 (1.6-8.9) K/mcL BMP 10/09/17 03:54 Sodium 136 Potassium 3.7 Chloride 107 Carbon Dioxide 23 BUN 7 L Creatinine 0.50 L Glucose 115 H Calcium 8.6 - ABG Interpretation ABG results: PT/INR, D-dimer PT 12.5 Seconds (9.4-12.1) H 10/08/17 21:26 Consult Discharge Plan - Plan Referrals: NONE,PCP [Primary Care Provider] - Martina Lopez [Family Provider] - Palliative Quality Palliative Quality: Screen for Code Status: Yes, Screen for Goals of Care: Yes, Screen for Pain: Yes, If Pain Regimen Started, Initiate Bowel Regimen: Yes, Screen for Nausea/Vomitting: Yes Code Status: 10/09/17 11:37 DNR [Resuscitation Status: Active] [RES] Routine Comment: Resuscitation Status: [id number]
--- NOTE | 2017-10-09 13:20 | Oncology Inp Consult Note ---
Date of Encounter: 10/09/17 Time of Encounter: 13:16 Assessment and Plan (1) Brain metastasis Status: Acute Assessment and plan: Multiple hemorrhagic brain metastasis left side of the brain with 2-3 mm midline shift decreased level of consciousness. Diagnosis 10/08/2017. She also has some generalized weakness Currently on Decadron 4 mg every 6 hours and will continue that. We will start taper after 2-3 days She is meeting with Dr. Mackay today and the plan is to do whole brain radiation starting 10/12/2017 Given multiple brain metastasis she is not a neurosurgical candidate Discussed with her significant other in detail. Overall prognosis guarded to poor. But short-term I do expect some meaningful recovery from her brain metastasis symptoms We will hold further nivolumab till she gets better Discussed home visiting nurses versus hospice. We will continue to discuss these options as an outpatient. Will give her some time to see how much recovery she will have from the current episode Her significant other understands the poor prognosis Avoid any anticoagulation or aspirin Follow-up note patient in about a week or so - Data of Consult Consult date: 10/09/17 Requesting Physician: Branden Ramos Primary Care Provider: BRIAN KATE Family Provider: MargaretConversion Provider - Consult Narrative Reason for consult: Hemorrhagic brain metastasis History of present illness: Ms. Siddiqui is a 67 year old female admitted with confusion and altered mental status lower extremity weakness and fall. MRI brain History of present illness MRI 10/08/2017 showed hemorrhagic multiple brain metastases mostly on the left side. Largest left frontal area about 3 cm another one left occipital area about 2-2.5 cm in few small ones. Mild midline shift 3 mm Increased level of consciousness Cervical spine x-ray x-ray of the hip and wrist negative for fractures She is unconscious admitted to ICU. She does respond to verbal commands. She does have some generalized weakness Oncological history Please refer to my office notes 09/28/2017 for details Metastatic adenocarcinoma from lung. Also muscle invasive bladder cancer A PET scan on 06/10/2017 showed metabolic activity SUV 17.6 at the left hilar area size 1.9 x 1.7 cm Also small lymph nodes per I esophageal 1.3 x 1.2 cm SUV 8.1 and right paratracheal lymph node 1.5 x 1.1 cm SUV 8.3 and some activity right supraclavicular area. Some of this lymph nodes has shown slight increase. No uptake in the bones. No uptake in abdomen There is a hypodense mass right medial thigh 3 x 3 cm increased from 2.5 x 2.7 cm in 2015. SUV borderline at 2.9 She had multiple chemotherapy treatments and also palliative radiation to the lumbar spine, left axilla and mediastinum and left chest. She had recurrent hemoptysis and had APC through bronchoscopy twice. Hemoptysis stable now. Her hemoglobin has been stable She continued to smoke She has been on nivolumab 240 mg IV since 09/03/2015. She had an excellent response to immunotherapy but had slow progression lately. Past Med Surg Social Fam HX - Past Medical History Medical history: arthritis, cancer, CHF, COPD, peripheral artery disease Psychiatric history: anxiety, depression, panic disorder - Past Surgical History Surgical History: cancer surgery - Social History Smoking Status: Current every day smoker Smokeless Tobacco Status: No Alcohol use: none Drug use: none - Family History Father Family Member Ethnicity: Non- Living Status: Hx Family Respiratory Disorders: Yes (COPD/Emphysema) Mother Family Member Ethnicity: Non- Living Status: Hx Family Cardiac Disorders: Yes (SD, CAD) Hx Family Cancer: Yes (Lung) Brother Family Member Ethnicity: Non- Living Status: Still Living Hx Family Respiratory Disorders: Yes (COPD) Sister Family Member Ethnicity: Non- Living Status: Hx Family Cancer: Yes (Melanoma w/metastases) Medications and Allergies Prochlorperazine Maleate [Compazine] 10 mg PO Q6HR PRN #60 tablet 02/23/17 [Rx] Omeprazole [PriLOSEC] 20 mg PO DAILY #30 capsule. 03/23/17 [Rx] Albuterol Sulfate [Ventolin Hfa] 2 puff IH Q4H PRN 04/14/17 [History] Oxycodone HCl [Roxicodone 30] 30 mg PO Q4H PRN 04/14/17 [History] Oxygen 2 l NS HS 04/14/17 [History] Budesonide/Formoterol 160/4.5 [Symbicort 160/4.5] 2 puff IH BIDR 06/26/17 [ History] LORazepam [Ativan] 0.5 mg PO Q6H PRN 06/26/17 [History] Tiotropium [place] [Spiriva Respimat] 2 puff IH DAILY 06/26/17 [History] BuPROPion SR (12 HR) [Wellbutrin SR] 150 mg PO BID #60 tablet.er 07/21/17 [Rx] Morphine Sulfate SR (12 HR) [MS Contin] 100 mg PO Q8HR 08/18/17 [History] Gabapentin [Neurontin] 300 mg PO BID #60 capsule 10/09/17 [Rx] 3 Allergy/AdvReac Type Severity Reaction Status Date / Time Iodinated Contrast- Oral and Allergy Intermediate Hives Verified 09/28/17 10:52 IV Dye Nickel Allergy Mild Hives Verified 09/28/17 10:52 METALS Allergy Hives Uncoded 09/28/17 10:52 Review of systems: Patient has decreased level of consciousness and cannot obtain review of systems Oncology - Exam - Constitutional Vitals: Temp Pulse Resp BP Pulse Ox 98.0 F 66 18 158/85 94 10/09/17 08:00 10/09/17 12:00 10/09/17 12:00 10/09/17 12:00 10/09/17 12:00 Oncology - Results Labs: Short CBC 10/09/17 Range/Units 03:54 WBC 6.0 (4.3-11.1) K/mcL Hgb 11.6 D (11.5-15.4) g/dL Hct 34.6 L (35.3-44.9) % Plt Count 196 (140-400) K/mcL Neutrophils # 5.4 (1.6-8.9) K/mcL BMP 10/09/17 03:54 Sodium 136 Potassium 3.7 Chloride 107 Carbon Dioxide 23 BUN 7 L Creatinine 0.50 L Glucose 115 H Calcium 8.6 Consult Discharge Plan - Plan Referrals: NONE,PCP [Primary Care Provider] - Martina Lopez [Family Provider] -
--- NOTE | 2017-10-09 13:29 | Event Note ---
Date of Encounter: 10/09/17 Time of Encounter: 13:28 Patient is awake and alert. Disoriented but answering questions appropriately. Denies any headache. No nausea or vomiting. No focal weakness. No seizure- like activity. Stable to be transferred out of ICU at this time to 2N/2NE. As patient has not had any seizures, no indication for antiepileptic medications. Oncology input and palliative care consult appreciated. We will follow recommendations
[2017-10-09] MEDS: *HR* Morphine Sulfate SR (12 HR) 100 MG TABLET.ER PO SCH ×2 (14:14→21:30)
--- NOTE | 2017-10-09 14:15 | Rad Onc Dictation ---
Radiation Oncology Dictation Date of Service: 10/09/17 - Oncology History Comments: 1. Urothelial cell carcinoma, [id number] multiple superficial recurrences 2. Adenocarcinoma left upper lobe, [id number] with subsequent mediastinal/hilar relapse followed by metastatic recurrence with bony and left axillary metastases and now 10/08/17 MRI of the brain shows multiple brain metastases Previous Treatment: 02/21/2013: TURBT 03/15/2013 - 05/27/2013: Cisplatin/gemcitabine x4 cycles 08/08/2013: Right obturator node dissection (aborted radical cystectomy) 09/30/2013: Stereotactic body radiotherapy to left upper lobe 6000 cGy in 3 fractions 11/23/13 Chemoradiation for muscle invasive bladder cancer, 6600 cGy in 33 fractions with weekly cisplatin 08/17/2014: Intercostal nerve block for intercostal neuritis 08/22/2014: TURBT 11/01/2014: TURBT 12/21/2014: Fluoroscopic guided left T4, T5, T6 intercostal nerve block. 12/26/2014: Bronchoscopy and Endobronchial ultrasound 01/16/2015 - 03/08/2015: Radiation therapy to mediastinum and left hilum, 6000 cGy in 30 fractions with weekly carbotaxol stopped due to thrombocytopenia 08/21/2015-09/03/2015: Palliative Radiotherapy L4-S1, 3000 cGy in 10 fractions 09/03/2015 - present: Nivolumab 09/25/2016 - 10/01/2016: Palliative radiotherapy to the left axilla, 2000 cGy in 5 fractions - Procedure Note Comments: CT Simulation and Treatment Planning Note Ms. Siddiqui was brought into the CT Simulation suite and placed in the supine position. A thermoplastic head-only mask was created. 3D CT Simulation was required secondary to irregular shape of the target volume , close proximity to critical normal structures Critical normal structures adjacent to the target volume include the following: optic and facial structures. [employer] TumorLOC software will be utilized to place an isocenter for treatment planning. This will be transferred to the lasers in the treatment room and will be used to tanya the patient for daily positioning. A 3DCRT plan will be utilized to deliver 3000 cGy in 10 fractions of 300 cGy each. This patient will require weekly monitoring in the form of on-treatment visits to assess for progression through treatment, ability to tolerate further treatment, and to assess for treatment-related side effects in order to manage them. Consent will be deferred until Thursday at time of treatment. Patient may become more lucid on steroids. We are also looking into her next of kin information should contact with them be necessary. Thank you again for allowing us to participate in the care of this pleasant patient. Sincerely, Rigo Mackay MD Radiation Oncologist [facility] [address] [facility] [address] [place] [address]
--- NOTE | 2017-10-09 14:24 | Rad Onc Consult Note ---
Radiation Oncology HPI - Oncology history Comments: 1. Urothelial cell carcinoma, [id number] multiple superficial recurrences 2. Adenocarcinoma left upper lobe, [id number] with subsequent mediastinal/hilar relapse followed by metastatic recurrence with bony and left axillary metastases and now 10/08/17 MRI of the brain shows multiple brain metastases Previous Treatment: 02/21/2013: TURBT 03/15/2013 - 05/27/2013: Cisplatin/gemcitabine x4 cycles 08/08/2013: Right obturator node dissection (aborted radical cystectomy) 09/30/2013: Stereotactic body radiotherapy to left upper lobe 6000 cGy in 3 fractions 11/23/13 Chemoradiation for muscle invasive bladder cancer, 6600 cGy in 33 fractions with weekly cisplatin 08/17/2014: Intercostal nerve block for intercostal neuritis 08/22/2014: TURBT 11/01/2014: TURBT 12/21/2014: Fluoroscopic guided left T4, T5, T6 intercostal nerve block. 12/26/2014: Bronchoscopy and Endobronchial ultrasound 01/16/2015 - 03/08/2015: Radiation therapy to mediastinum and left hilum, 6000 cGy in 30 fractions with weekly carbotaxol stopped due to thrombocytopenia 08/21/2015-09/03/2015: Palliative Radiotherapy L4-S1, 3000 cGy in 10 fractions 09/03/2015 - present: Nivolumab 09/25/2016 - 10/01/2016: Palliative radiotherapy to the left axilla, 2000 cGy in 5 fractions Date: 10/09/17 Primary Care Provider: PCP NONE History of present illness: Ms. Siddiqui presented to the ER after fall with oncologic history as above. She was subsequently found to have hemorrhage and multiple brain metastases on CT and this was confirmed with MRI scanning of the brain. She has now been placed on IV steroids on which she has mild clinical improvement. She is alert with verbal stimulation, but is not oriented. She is conversant. She reports that she is "sore all over" after her fall. X-rays have been negative for fracture. History is predominantly given by her partner. Past Medical History: arthritis, COPD, diabetes, hyperlipidemia, hypertension, malignancy, myocardial infarction Other History: chronic pain d/t cancer Surgical History: Adenoidectomy, Tonsillectomy, other Hospitalization facilities, dates and reasons: Surgery. 07/23- Coughing up blood. Pt. states was in ER all weekend Smoking Status: Current every day smoker Smokeless Tobacco Status: No Alcohol use: none Drug use: none Family History -Oncology: cancer Oncology - Medications Prochlorperazine Maleate [Compazine] 10 mg PO Q6HR PRN #60 tablet 02/23/17 [Rx] Omeprazole [PriLOSEC] 20 mg PO DAILY #30 capsule. 03/23/17 [Rx] Albuterol Sulfate [Ventolin Hfa] 2 puff IH Q4H PRN 04/14/17 [History] Oxycodone HCl [Roxicodone 30] 30 mg PO Q4H PRN 04/14/17 [History] Oxygen 2 l NS HS 04/14/17 [History] Budesonide/Formoterol 160/4.5 [Symbicort 160/4.5] 2 puff IH BIDR 06/26/17 [ History] LORazepam [Ativan] 0.5 mg PO Q6H PRN 06/26/17 [History] Tiotropium [place] [Spiriva Respimat] 2 puff IH DAILY 06/26/17 [History] BuPROPion SR (12 HR) [Wellbutrin SR] 150 mg PO BID #60 tablet.er 07/21/17 [Rx] Morphine Sulfate SR (12 HR) [MS Contin] 100 mg PO Q8HR 08/18/17 [History] Gabapentin [Neurontin] 300 mg PO BID #60 capsule 10/09/17 [Rx] 3 Allergy/AdvReac Type Severity Reaction Status Date / Time Iodinated Contrast- Oral and Allergy Intermediate Hives Verified 09/28/17 10:52 IV Dye Nickel Allergy Mild Hives Verified 09/28/17 10:52 METALS Allergy Hives Uncoded 09/28/17 10:52 Review of Systems Provider Comments: A 12 point review of systems was performed. Pertinent positives and negatives are listed below and in the history of present illness. All other systems negative. Musculoskeletal: Joint Pain/Swelling, Muscle Pain/Weakness, Bone Pain, Difficulty Walking Neurological/Emotional: Headaches, Confusion Physical Exam - Vitals Vital Signs: Last Vital Signs Temp 98.0 F 10/09/17 08:00 Pulse 73 10/09/17 14:05 Resp 18 10/09/17 14:05 BP 147/97 10/09/17 14:05 Pulse Ox 92 10/09/17 14:05 Height: 1.57 m Weight: 63.503 kg ECO - Consciousness/Orientation Level Of Consciousness: Awake, Alert, Appropriate, Follows Commands Patient Orientation: Person Physical Exam: General: Alert, confused as to place, time. Mental Status: Affect appropriate for circumstances HEENT: Sclerae anicteric. No mucositis or thrush. No other oral lesions or erythema. Skin: No rashes or petechiae. Lymph nodes: No cervical, supraclavicular, axillary, or inguinal adenopathy. Abdomen: Soft, nontender; no organomegaly or masses palpable. Extremities: No edema. No calf swelling or tenderness. No joint deformity. Neurologic: Alert, cranial nerves II-XII intact; strength not assessed secondary to soreness of patient. Oncology- Results - Labs Labs: Short CBC 10/09/17 Range/Units 03:54 WBC 6.0 (4.3-11.1) K/mcL Hgb 11.6 D (11.5-15.4) g/dL Hct 34.6 L (35.3-44.9) % Plt Count 196 (140-400) K/mcL Neutrophils # 5.4 (1.6-8.9) K/mcL BMP 10/09/17 03:54 Sodium 136 Potassium 3.7 Chloride 107 Carbon Dioxide 23 BUN 7 L Creatinine 0.50 L Glucose 115 H Calcium 8.6 - Diagnostic Studies MRI of the brain and CT of the head images were personally reviewed. - Assessment Assessment: Ms. Siddiqui presents with brain metastases, hemorrhagic. She is improving on steroids slowly. She requires whole brain radiotherapy due to the size, distribution, and hemorrhagic nature of these metastases. Radiotherapy simulation will occur today. Consent cannot be performed with patient in her current mental state. We will await steroid treatment to see if this improves her mentation to the point of being consentable over the next few days. Hold any blood thinners and continue steroids. Steroids will address any edema from the hemorrhagic reaction as well as edema from the brain metastases, which is significant on MRI brain. Radiotherapy to the brain will be better tolerated once the swelling is under control. We will plan her whole brain radiotherapy for commencement on Thursday. We will plan 3000 cGy in 10 fractions. Patient is accompanied by her partner who is not her healthcare power of admitted attorneys. If patient not lucid on Thursday, we will contact her next of kin for consent. Thank you for allowing me to participate in the care of this delightful lady. Case was discussed with her primary radiation oncologist, Dr. Hank Ann. Sincerely, Rigo Mackay MD Radiation Oncology [facility] - Patient Problem List (1) Brain metastasis Status: Acute Code(s): C79.31 - Secondary malignant neoplasm of brain SNOMED Code(s): 05221329 (2) Primary lung adenocarcinoma Status: Chronic Code(s): C34.90 - Malignant neoplasm of unspecified part of unspecified bronchus or lung Qualifiers: Laterality: left Qualified Code(s): C34.92 - Malignant neoplasm of unspecified part of left bronchus or lung SNOMED Code(s): 758309031 (3) Bladder cancer metastasized to intrapelvic lymph nodes Status: Chronic Code(s): C67.9 - Malignant neoplasm of bladder, unspecified; C77.5 - Secondary and unspecified malignant neoplasm of intrapelvic lymph nodes SNOMED Code(s): 81407626
[2017-10-09] MEDS: *HR* OxyCODONE Immed Rel 15 MG TABLET PO PRN (18:20)
[2017-10-09] MEDS: Gabapentin 300 MG CAPSULE PO SCH (21:29)
[2017-10-09] MEDS: BuPROPion SR (12 HR) 150 MG TABLET PO SCH (21:30)
[2017-10-09] MEDS: Budesonide/Formoterol 160/4.5 MDI IH SCH (22:19)
[2017-10-10] MEDS: Dexamethasone 4 MG/ML VIAL IVP SCH ×6 (00:11→22:04)
[2017-10-10] MEDS: *HR* Morphine Sulfate SR (12 HR) 100 MG TABLET.ER PO SCH ×2 (04:36→15:24)
[2017-10-10] MEDS: BuPROPion SR (12 HR) 150 MG TABLET PO SCH ×2 (08:08→22:05)
[2017-10-10] MEDS: Gabapentin 300 MG CAPSULE PO SCH ×2 (08:09→22:05)
--- NOTE | 2017-10-10 08:13 | Palliative Progress Note ---
Date of Encounter: 10/10/17 Time of Encounter: 07:30 - Assessment and plan (1) Constipation by delayed colonic transit Current Visit: Yes Status: Acute Assessment and plan: Patient states her bowels are not running correctly, going to start a bowel regimen and watch. (2) Anxiety Current Visit: Yes Status: Chronic Assessment and plan: Under control at this time, continue to watch no changes to meds anticipated today. (3) Cancer related pain Current Visit: Yes Status: Chronic Assessment and plan: Under control at this time no changes. (4) COPD exacerbation Current Visit: No Status: Resolved Assessment and plan: Breathing is better, no changes. (5) Goals of care, counseling/discussion Current Visit: Yes Status: Acute Assessment and plan: CODE STATUS DNR CCA DNI. On the Héctor had a tendency to talk with patient yesterday about CODE STATUS. 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 But she does wish to have full aggressive therapy at least through the end of the month due to insurance purposes. The day she is able to speak for herself and she says the above conversation. He does not wish to be on machines, and when I discussed with her about the fact that her to be resuscitated after a cardiac arrest will be on machines she fully endorse DNR CCA DNI status. He does however, to continue full aggressive care or at least of the end of the month again for insurance purposes. Therefore at this time hospice is not a consideration for her. Obviously, hospice is available to her whenever she wishes. - Time Spent With Patient Total time spent is greater than 50% in coordination of care (as documented) at patient's floor/unit and/or counseling patient: - Subjective Interval history: Patient is awake and alert this morning able to converse with me and tell me that she has having no pain, breathing is fine, brain still feels a little bit foggy. Bits that compared to yesterday she is doing much better but overall she does not feel that she is a lot better. She is happy to be have a conversation. Please see the assessment and plan for full details. - Constitutional Vitals: Abnormal lab results Hct 34.6 % (35.3-44.9) L 10/09/17 03:54 MPV 8.8 fL (9.4-12.4) L 10/09/17 03:54 Lymphocytes # 0.3 K/mcL (0.6-4.6) L 10/09/17 03:54 PT 12.5 Seconds (9.4-12.1) H 10/08/17 21:26 BUN 7 mg/dL (8-23) L 10/09/17 03:54 Creatinine 0.50 mg/dL (0.60-1.20) L 10/09/17 03:54 Glucose 115 mg/dL (70-105) H 10/09/17 03:54 POC Glucose 112 mg/dL (70-99) H 10/09/17 01:31 ALT 4 Units/L (7-52) L 10/08/17 21:26 Urine Blood Large (Negative) H 10/08/17 22:20 Ur Leukocyte Esterase Small (Negative) H 10/08/17 22:20 Urine Microscopic WBC 3-5 per hpf (0-3) H 10/08/17 22:20 General appearance: Present: no acute distress - Eye Eye exam: Present: normal appearance - Respiratory Respiratory exam: Present: decreased breath sounds - Cardiovascular Cardiovascular exam: Present: RRR - GI/Abdominal GI/Abdominal exam: Present: normal bowel sounds, soft. Absent: tenderness - Extremities Exam Extremities exam: Absent: pedal edema, tenderness - Neurological Exam Neurological exam: Present: alert, oriented X3 - Psychiatric Psychiatric exam: Absent: agitated, anxious - Skin Skin exam: Present: dry, warm Palliative Quality Palliative Quality: Screen for Code Status: Yes, Screen for Goals of Care: Yes, Screen for Pain: Yes, If Pain Regimen Started, Initiate Bowel Regimen: Yes, Screen for Nausea/Vomitting: Yes Code Status: 10/09/17 11:37 DNR [Resuscitation Status: Active] [RES] Routine Comment: Resuscitation Status: [id number] - Labs CBC & Chem 7: 10/09/17 03:54 10/09/17 03:54 - ABG Interpretation ABG results: PT/INR, D-dimer PT 12.5 Seconds (9.4-12.1) H 10/08/17 21:26 Consult Discharge Plan - Plan Referrals: NONE,PCP [Primary Care Provider] - Martina Lopez [Family Provider] -
[2017-10-10] MEDS: Sennosides/Docusate Sodium TABLET PO SCH ×2 (08:19→22:04)
[2017-10-10] MEDS: Budesonide/Formoterol 160/4.5 MDI IH SCH ×2 (09:30→21:18)
[2017-10-10] MEDS: Tiotropium 18 MCG inhalation IH SCH (09:30)
--- NOTE | 2017-10-10 13:11 | Electrocardiograph Report ---
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
--- NOTE | 2017-10-10 14:10 | Internal Med Progress Note ---
Date of Encounter: 10/10/17 Time of Encounter: 14:08 - Assessment and plan (1) Fall Current Visit: Yes Status: Acute Assessment and plan: Likely related to brain metastasis. We will consult physical therapy for evaluation. Fall precautions. Qualifiers: Encounter type: initial encounter Qualified Code(s): W19.XXXA - Unspecified fall, initial encounter (2) Brain metastasis Current Visit: Yes Status: Acute Assessment and plan: Oncology following. Radiation oncology recommends radiation treatment on Thursday. Currently receiving Decadron. Will continue. (3) Bladder cancer metastasized to intrapelvic lymph nodes Current Visit: Yes Status: Chronic Assessment and plan: Follow-up with oncology. Consult appreciated. (4) Anxiety Current Visit: Yes Status: Chronic Assessment and plan: Continue Ativan as needed. (5) Cancer related pain Current Visit: Yes Status: Chronic Assessment and plan: On oxycodone. Well-controlled at this time (6) COPD (chronic obstructive pulmonary disease) Current Visit: Yes Status: Chronic Assessment and plan: Not in acute exacerbation. We will use bronchodilators as needed. Qualifiers: COPD type: COPD with acute exacerbation Qualified Code(s): J44.1 - Chronic obstructive pulmonary disease with (acute) exacerbation (7) DVT prophylaxis Current Visit: Yes Status: Acute Assessment and plan: With SCDs alone given patient's hemorrhagic metastatic lesions in the brain. (8) GERD (gastroesophageal reflux disease) Current Visit: Yes Status: Chronic Assessment and plan: On omeprazole Qualifiers: Esophagitis presence: esophagitis presence not specified Qualified Code(s) : K21.9 - Gastro-esophageal reflux disease without esophagitis (9) Primary lung adenocarcinoma Current Visit: Yes Status: Chronic Assessment and plan: Follow-up with oncology. Qualifiers: Laterality: left Qualified Code(s): C34.92 - Malignant neoplasm of unspecified part of left bronchus or lung (10) Tobacco abuse Current Visit: Yes Status: Chronic - Time Spent With Patient Total time spent is greater than 50% in coordination of care (as documented) at patient's floor/unit and/or counseling patient: - Subjective Interval history: Patient is sitting up in chair. Feeling better overall. Denies any headaches at this time. Breathing well. No vision changes. No nausea or vomiting. - Constitutional Vitals: Temp Pulse Resp BP Pulse Ox 98.4 F 93 14 126/74 96 10/10/17 11:03 10/10/17 13:00 10/10/17 13:00 10/10/17 13:00 10/10/17 13:00 General appearance: Present: cooperative, A&O X 3, pleasant, answers questions appropriately - Neck Neck exam general surgery: Present: supple, trachea midline. Absent: lymphadenopathy - Respiratory Respiratory exam: Present: CTAB. Absent: accessory muscle use, rales, rhonchi, wheezes - Cardiovascular Cardiovascular exam: Present: RRR, +S1, +S2. Absent: diastolic murmur, gallop, rubs, systolic murmur - GI/Abdominal GI/Abdominal exam: Present: normal bowel sounds, soft, no peritoneal signs. Absent: distended, tenderness - Extremities Exam Extremities exam: Present: warm, radial pulses palpable and symmetrical. Absent : calf tenderness, cyanotic, pedal edema - Neurological Exam Neurological exam: Present: alert, no focal deficits. Absent: facial droop, speech deficit - Skin Skin exam: Present: dry, intact Internal Medicine: Result - Labs CBC & Chem 7: 10/09/17 03:54 10/09/17 03:54 - ABG Interpretation ABG results: PT/INR, D-dimer PT 12.5 Seconds (9.4-12.1) H 10/08/17 21:26 Consult Discharge Plan - Plan Referrals: NONE,PCP [Primary Care Provider] - Martina Lopez [Family Provider] -
[2017-10-11] MEDS: *HR* Morphine Sulfate SR (12 HR) 100 MG TABLET.ER PO SCH ×4 (00:03→23:42)
[2017-10-11] MEDS: Dexamethasone 4 MG/ML VIAL IVP SCH ×7 (01:01→23:42)
[2017-10-11] MEDS: Budesonide/Formoterol 160/4.5 MDI IH SCH ×2 (07:19→22:05)
[2017-10-11] MEDS: Tiotropium 18 MCG inhalation IH SCH (07:20)
--- NOTE | 2017-10-11 07:38 | Palliative Progress Note ---
Date of Encounter: 10/11/17 Time of Encounter: 07:15 - Assessment and plan (1) Constipation by delayed colonic transit Current Visit: Yes Status: Acute Assessment and plan: Patient states her bowels are not moving yet, continue bowel regimen patient discussed started on this yesterday. There is a bowel movement now recorded, she may be confused. Change in bowel regimen. (2) Anxiety Current Visit: Yes Status: Chronic Assessment and plan: Under control at this time, continue to watch no changes to meds anticipated today. (3) Cancer related pain Current Visit: Yes Status: Chronic Assessment and plan: Under control at this time no changes. Changes today. She continues to endorse that the medications are working well. (4) Goals of care, counseling/discussion Current Visit: Yes Status: Acute Assessment and plan: CODE STATUS DNR CCA DNI. I was able to reconfirm the discussion that the patient had had with the family day before yesterday. Yesterday the patient stated she would not want to be on machines. She endorses DNR CCA DNI, insurance issues still are a great concern to her and therefore she wishes to have aggressive care at least through the end of the month. However if she arrests, does not wish to be maintained. Low she may be having some confusion today she states her brain is still a little bit foggy although better than yesterday I believe that this is assisted with her previously known intent, her current wishes. Since the patient does wish to have aggressive care for the end of the month hospice is still not an option, it will be once the patient's goals are met. (5) Nausea Current Visit: Yes Status: Acute Assessment and plan: I have encouraged patient to use her Zofran. It was only used a before yesterday. She did state that yesterday she had some nausea, and dry heaves but no actual vomiting. I have assured her that we have medication written for that. Encouraged her to ask for it. Continue to watch - Time Spent With Patient Total time spent is greater than 50% in coordination of care (as documented) at patient's floor/unit and/or counseling patient: - Subjective Interval history: Patient is awake and alert this morning able to converse with me and tell me that she has having no pain, breathing is fine, brain is a little bit less foggy than yesterday. She does report having had some nausea yesterday with dry heaves. No actual vomiting. - Constitutional Vitals: Abnormal lab results Hct 34.6 % (35.3-44.9) L 10/09/17 03:54 MPV 8.8 fL (9.4-12.4) L 10/09/17 03:54 Lymphocytes # 0.3 K/mcL (0.6-4.6) L 10/09/17 03:54 PT 12.5 Seconds (9.4-12.1) H 10/08/17 21:26 BUN 7 mg/dL (8-23) L 10/09/17 03:54 Creatinine 0.50 mg/dL (0.60-1.20) L 10/09/17 03:54 Glucose 115 mg/dL (70-105) H 10/09/17 03:54 POC Glucose 167 mg/dL (70-99) H 10/10/17 15:21 ALT 4 Units/L (7-52) L 10/08/17 21:26 Urine Blood Large (Negative) H 10/08/17 22:20 Ur Leukocyte Esterase Small (Negative) H 10/08/17 22:20 Urine Microscopic WBC 3-5 per hpf (0-3) H 10/08/17 22:20 General appearance: Present: no acute distress - Respiratory Respiratory exam: Present: decreased breath sounds, wheezes - Cardiovascular Cardiovascular exam: Present: RRR - GI/Abdominal GI/Abdominal exam: Present: normal bowel sounds, soft. Absent: tenderness - Extremities Exam Extremities exam: Absent: pedal edema, tenderness - Neurological Exam Neurological exam: Present: alert - Psychiatric Psychiatric exam: Absent: agitated, anxious - Skin Skin exam: Present: dry, warm Palliative Quality Palliative Quality: Screen for Code Status: Yes, Screen for Goals of Care: Yes, Screen for Pain: Yes, If Pain Regimen Started, Initiate Bowel Regimen: Yes, Screen for Nausea/Vomitting: Yes Code Status: 10/09/17 11:37 DNR [Resuscitation Status: Active] [RES] Routine Comment: Resuscitation Status: [id number] - Labs CBC & Chem 7: 10/09/17 03:54 10/09/17 03:54 Labs: Laboratory Results - last 24 hr 10/10/17 10/10/17 11:25 15:21 POC Glucose 154 H 167 H - ABG Interpretation ABG results: PT/INR, D-dimer PT 12.5 Seconds (9.4-12.1) H 10/08/17 21:26 Consult Discharge Plan - Plan Referrals: NONE,PCP [Primary Care Provider] - Martina Lopez [Family Provider] -
[2017-10-11] MEDS: Gabapentin 300 MG CAPSULE PO SCH ×2 (08:35→20:00)
[2017-10-11] MEDS: BuPROPion SR (12 HR) 150 MG TABLET PO SCH ×2 (08:35→20:00)
[2017-10-11] MEDS: Sennosides/Docusate Sodium TABLET PO SCH ×2 (08:35→20:00)
--- NOTE | 2017-10-11 10:05 | Internal Med Progress Note ---
Date of Encounter: 10/11/17 Time of Encounter: 09:15 - Assessment and plan (1) Fall Current Visit: Yes Status: Acute Assessment and plan: Due to metastatic lesions in the brain. Doing better overall. Continue fall precautions. Consulted physical therapy for evaluation. Qualifiers: Encounter type: initial encounter Qualified Code(s): W19.XXXA - Unspecified fall, initial encounter (2) Brain metastasis Current Visit: Yes Status: Acute Assessment and plan: Hemorrhagic metastatic lesions. On Decadron. Plan for radiation therapy tomorrow. (3) Bladder cancer metastasized to intrapelvic lymph nodes Current Visit: Yes Status: Chronic Assessment and plan: Follow-up with oncology for further management (4) Anxiety Current Visit: Yes Status: Chronic (5) Cancer related pain Current Visit: Yes Status: Chronic Assessment and plan: Palliative care following and managing pain. Well controlled at this time (6) COPD (chronic obstructive pulmonary disease) Current Visit: Yes Status: Chronic Assessment and plan: Not in acute exacerbation. On bronchodilators as needed Qualifiers: COPD type: COPD with acute exacerbation Qualified Code(s): J44.1 - Chronic obstructive pulmonary disease with (acute) exacerbation (7) DVT prophylaxis Current Visit: Yes Status: Acute (8) GERD (gastroesophageal reflux disease) Current Visit: Yes Status: Chronic Assessment and plan: Continue Prilosec. Qualifiers: Esophagitis presence: esophagitis presence not specified Qualified Code(s) : K21.9 - Gastro-esophageal reflux disease without esophagitis (9) Primary lung adenocarcinoma Current Visit: Yes Status: Chronic Assessment and plan: Follow-up with oncology Qualifiers: Laterality: left Qualified Code(s): C34.92 - Malignant neoplasm of unspecified part of left bronchus or lung (10) Tobacco abuse Current Visit: Yes Status: Chronic - Time Spent With Patient Total time spent is greater than 50% in coordination of care (as documented) at patient's floor/unit and/or counseling patient: - Subjective Interval history: Patient continues to do well. Denies any headaches at this time. Remains somewhat disoriented and continues to have some memory issues. Denies any chest pain, no shortness of breath. Does have nausea which is responding to Zofran. - Constitutional Vitals: Temp Pulse Resp BP Pulse Ox 97.7 F 78 15 105/57 92 10/11/17 09:48 10/11/17 09:48 04/08/18 09:48 10/11/17 09:48 10/11/17 09:48 General appearance: Present: cooperative, A&O X 3, pleasant, answers questions appropriately - Neck Neck exam general surgery: Present: supple, trachea midline. Absent: lymphadenopathy - Respiratory Respiratory exam: Present: CTAB. Absent: accessory muscle use, rales, rhonchi, wheezes - Cardiovascular Cardiovascular exam: Present: RRR, +S1, +S2. Absent: diastolic murmur, gallop, rubs, systolic murmur - GI/Abdominal GI/Abdominal exam: Present: normal bowel sounds, soft, no peritoneal signs. Absent: distended, tenderness - Extremities Exam Extremities exam: Present: warm, radial pulses palpable and symmetrical. Absent : calf tenderness, cyanotic, pedal edema - Neurological Exam Neurological exam: Present: alert, no focal deficits. Absent: facial droop, speech deficit Internal Medicine: Result - Labs CBC & Chem 7: 10/09/17 03:54 10/09/17 03:54 - ABG Interpretation ABG results: PT/INR, D-dimer PT 12.5 Seconds (9.4-12.1) H 10/08/17 21:26 Consult Discharge Plan - Plan Referrals: NONE,PCP [Primary Care Provider] - Martina Lopez [Family Provider] -
--- NOTE | 2017-10-11 10:39 | Oncology Inp Progress Note ---
Date of Encounter: 10/11/17 Time of Encounter: 10:25 (1) Brain metastasis Current Visit: Yes Status: Acute Assessment and plan: Clinically stable. Continue on decadron at current dosing. Radiation to start Thursday. (2) Primary lung adenocarcinoma Current Visit: Yes Status: Chronic Assessment and plan: CT imaging in August essentially stable. Will continue with Dr. Starkey as an outpatient. No urgent need for change in systemic therapy. Qualifiers: Laterality: left Qualified Code(s): C34.92 - Malignant neoplasm of unspecified part of left bronchus or lung Oncology: Subj Interval history: No acute events overnight. Still has pain about her right knee secondary to her fall. She remains confused. She cannot recall where she is or the month or year. However, her aches and pains have improved. She is eating better. She states she still has constipation although nursing has recorded bowel movement. Radiation planned to start on Thursday. - Constitutional Vitals: Vital Signs Temp Pulse Resp BP Pulse Ox 10/11/17 09:48 97.7 F 78 15 105/57 92 10/11/17 07:20 16 97 10/11/17 06:37 98.0 F 69 15 105/57 92 10/11/17 04:14 98.1 F 63 16 117/67 92 10/10/17 23:20 98.7 F 102 19 112/63 94 10/10/17 22:10 94 10/10/17 21:20 18 94 10/10/17 18:53 97.8 F 87 16 141/85 94 10/10/17 17:00 92 14 150/78 96 10/10/17 15:25 98.0 F 10/10/17 15:00 85 14 117/80 96 10/10/17 13:00 93 14 126/74 96 10/10/17 12:00 101 14 127/93 96 10/10/17 11:03 98.4 F Intake and Output 10/11/17 10/11/17 10/11/17 00:59 08:59 16:59 Intake Total 240 / 240 Output Total 600 / 600 1400 / 1400 Balance -600 / -600 -1400 / -1400 240 / 240 Intake: Oral 240 / 240 Output: Straight Cath 600 / 600 Catheter 600 / 600 800 / 800 Other: Meal Breakfast Percent of Meal Consumed 100% Stool Size Moderate Stool Consistency soft Weight 68.4 kg Blood Glucose* 134 148 135 General appearance: average body habitus, cooperative, no acute distress - Head Head exam: Present: atraumatic, normal inspection, normocephalic - Eye Eye exam: Present: normal appearance, conjuntiva pink, sclera anicteric - ENT ENT exam: Present: mucous membranes moist, normal external ear exam, normal oropharynx - Neck Neck exam: Present: full ROM, normal inspection - Respiratory Respiratory exam: Present: CTAB - Cardiovascular Cardiovascular exam: Present: RRR - GI/Abdominal GI/Abdominal exam: Present: normal bowel sounds, soft - Extremities Exam Extremities exam: Present: normal inspection - Neurological Exam Neurological exam: Present: alert, altered, no focal deficits Oncology: Obj Data - Labs CBC & Chem 7: 10/09/17 03:54 10/09/17 03:54 Labs: Laboratory Results - last 24 hr 10/10/17 10/10/17 11:25 15:21 POC Glucose 154 H 167 H - ABG Interpretation ABG results: PT/INR, D-dimer PT 12.5 Seconds (9.4-12.1) H 10/08/17 21:26 Consult Discharge Plan - Plan Referrals: NONE,PCP [Primary Care Provider] - Martina Lopez [Family Provider] -
[2017-10-12 05:17] LABS: Basophils % 0.3 %; Hematocrit 37.3 % (35.3-44.9); Hemoglobin 12.6 g/dL (11.5-15.4); Immature Granulocytes % 1.8 % (0-4); Lymphocytes # 0.3 K/mcL (0.6-4.6); Lymphocytes % 2.6 %; Mean Corpuscular HGB Conc 33.8 g/dL (31.6-35.5); Mean Corpuscular Hemoglobin 30.1 pg (28.0-33.3); Mean Corpuscular Volume 89.2 fL (83.0-100.0); Mean Platelet Volume 8.7 fL (9.4-12.4); Monocytes # 0.8 K/mcL (0.0-1.3); Monocytes % 6.9 %; Neutrophils # 10.5 K/mcL (1.6-8.9); Platelet Count 199 K/mcL (140-400); Red Blood Count 4.18 M/mcL (3.82-4.97); Red Cell Distribution Width 13.3 % (11.5-14.5); Segmented Neutrophils % 88.4 %
[2017-10-12 05:32] LABS: BUN/Creatinine Ratio 30 (6-26); Blood Urea Nitrogen 18 mg/dL (8-23); Calcium 8.7 mg/dL (8.6-10.3); Carbon Dioxide 26 mEq/L (23-29); Chloride 105 mEq/L (98-107); Glucose 178 mg/dL (70-105); Osmolality,Calculated 284 (280-300); Potassium 3.9 mEq/L (3.5-5.1); Sodium 134 mEq/L (136-145); eGFR For African Americans > 60 (> 60); eGFR For Non-African Americans > 60 (> 60)
[2017-10-12] MEDS: Dexamethasone 4 MG/ML VIAL IVP SCH ×5 (05:47→21:23)
[2017-10-12] MEDS: Tiotropium 18 MCG inhalation IH SCH (07:24)
[2017-10-12] MEDS: Budesonide/Formoterol 160/4.5 MDI IH SCH ×2 (07:25→19:23)
[2017-10-12] MEDS: *HR* Morphine Sulfate SR (12 HR) 100 MG TABLET.ER PO SCH ×2 (08:13→17:43)
[2017-10-12] MEDS: BuPROPion SR (12 HR) 150 MG TABLET PO SCH ×2 (08:13→21:22)
[2017-10-12] MEDS: Sennosides/Docusate Sodium TABLET PO SCH ×2 (08:13→21:22)
[2017-10-12] MEDS: Gabapentin 300 MG CAPSULE PO SCH ×2 (08:13→21:22)
--- NOTE | 2017-10-12 09:35 | Palliative Progress Note ---
Date of Encounter: 10/12/17 Time of Encounter: 09:25 - Assessment and plan (1) Cancer related pain Current Visit: Yes Status: Chronic Assessment and plan: Continues with scheduled MS Jc and Oxycodone for breakthrough pain. She has not received any Oxycodonen for breakthrough pain since Thursday. Patient is anxious for this and wants to know when it will be started. Educated that it is available, but she needs to ask for it. D/W Primary nurse Rox who will administer to pt. MOnitor (2) Goals of care, counseling/discussion Current Visit: Yes Status: Acute Assessment and plan: Patient with no visitors at present. Discussed completion of power of sales representative meats as she has significant other of over 17 years but they are not . She has 3 children as well. Discussed with pt who she would want to make medical decisions for her if she were unable to make them for herself, and she stated that she would want Clarence to make decisions. Discussed that POA needs completed to ensure legally her wishes are followed. States she does not think she wants to do paperwork today as she is focused on radiation. Will Re- discuss once Clarence arrives. Code status remains DNR/DNI. D/W Vikash Oneil human services worker. I suspect she will likely need rehab. PT/OT have already been ordered. (3) Brain metastasis Current Visit: Yes Status: Acute Assessment and plan: To begin brain radiation this afternoon. 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 Oriented to name/place/situation, still having difficulty with speech at times, tearful at times. Anxious and asking for boyfriend Clarence. C/o increased pain "sharp and shooting" in right arm and right leg. States nausea/vomiting have resolved. Had good BM. No visitors present. - Constitutional Vitals: Abnormal lab results WBC 11.9 K/mcL (4.3-11.1) H D 10/12/17 05:02 MPV 8.7 fL (9.4-12.4) L 10/12/17 05:02 Neutrophils # 10.5 K/mcL (1.6-8.9) H 10/12/17 05:02 Lymphocytes # 0.3 K/mcL (0.6-4.6) L 10/12/17 05:02 PT 12.5 Seconds (9.4-12.1) H 10/08/17 21:26 Sodium 134 mEq/L (136-145) L 10/12/17 05:02 BUN/Creatinine Ratio 30 (6-26) H 10/12/17 05:02 Glucose 178 mg/dL (70-105) H 10/12/17 05:02 POC Glucose 135 mg/dL (70-99) H 10/11/17 09:53 ALT 4 Units/L (7-52) L 10/08/17 21:26 Urine Blood Large (Negative) H 10/08/17 22:20 Ur Leukocyte Esterase Small (Negative) H 10/08/17 22:20 Urine Microscopic WBC 3-5 per hpf (0-3) H 10/08/17 22:20 General appearance: Present: no acute distress - Respiratory Respiratory exam: Present: decreased breath sounds, CTAB - Cardiovascular Cardiovascular exam: Present: +S1, +S2 - GI/Abdominal GI/Abdominal exam: Present: normal bowel sounds, soft - Extremities Exam Extremities exam: Present: normal capillary refill, normal inspection - Neurological Exam Additional comments: Patient alert and oriented x3 and to situation, however, does have some noticeable expressive aphasia. Right arm and right leg weakness noted, leg is weaker than arm. Follows all commands. - Psychiatric Psychiatric exam: Present: anxious - Skin Skin exam: Present: dry, pallor, warm Palliative Quality Palliative Quality: Screen for Code Status: Yes, Screen for Goals of Care: Yes, Screen for Pain: Yes, If Pain Regimen Started, Initiate Bowel Regimen: Yes, Screen for Nausea/Vomitting: Yes Code Status: 10/09/17 11:37 DNR [Resuscitation Status: Active] [RES] Routine Comment: Resuscitation Status: [id number] - Labs CBC & Chem 7: 10/12/17 05:02 10/12/17 05:02 Labs: Laboratory Results - last 24 hr 10/10/17 10/10/17 10/11/17 18:47 21:10 06:40 WBC RBC Hgb Hct MCV MCH MCHC RDW Plt Count MPV Immature Gran % Seg Neutrophils % Lymphocytes % Monocytes % Eosinophils % Basophils % Neutrophils # Lymphocytes # Monocytes # Eosinophils # Basophils # Sodium Potassium Chloride Carbon Dioxide BUN Creatinine Est GFR ( Amer) Est GFR (Non-Af Amer) BUN/Creatinine Ratio Glucose POC Glucose 151 H 143 H 148 H Calculated Osmolality Calcium 10/11/17 10/12/17 10/12/17 09:53 05:02 05:02 WBC 11.9 H D RBC 4.18 Hgb 12.6 Hct 37.3 MCV 89.2 MCH 30.1 MCHC 33.8 RDW 13.3 Plt Count 199 MPV 8.7 L Immature Gran % 1.8 Seg Neutrophils % 88.4 Lymphocytes % 2.6 Monocytes % 6.9 Eosinophils % 0.0 Basophils % 0.3 Neutrophils # 10.5 H Lymphocytes # 0.3 L Monocytes # 0.8 Eosinophils # 0.0 Basophils # 0.0 Sodium 134 L Potassium 3.9 Chloride 105 Carbon Dioxide 26 BUN 18 Creatinine 0.61 Est GFR ( Amer) > 60 Est GFR (Non-Af Amer) > 60 BUN/Creatinine Ratio 30 H Glucose 178 H POC Glucose 135 H Calculated Osmolality 284 Calcium 8.7 - ABG Interpretation ABG results: PT/INR, D-dimer PT 12.5 Seconds (9.4-12.1) H 10/08/17 21:26 Consult Discharge Plan - Plan Referrals: NONE,PCP [Primary Care Provider] - Martina Lopez [Family Provider] -
[2017-10-12] MEDS: *HR* OxyCODONE Immed Rel 15 MG TABLET PO PRN (09:42)
--- NOTE | 2017-10-12 10:02 | Internal Med Progress Note ---
Date of Encounter: 10/12/17 Time of Encounter: 09:35 - Assessment and plan (1) Fall Current Visit: Yes Status: Acute Assessment and plan: With generalized weakness. Pending evaluation by physical therapy today. We will follow recommendations. high worker consult for discharge planning. Qualifiers: Encounter type: initial encounter Qualified Code(s): W19.XXXA - Unspecified fall, initial encounter (2) Brain metastasis Current Visit: Yes Status: Acute Assessment and plan: On Decadron. Radiation therapy today. Oncology following. 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 Palliative care following in helping manage this. (6) COPD (chronic obstructive pulmonary disease) Current Visit: Yes Status: Chronic Assessment and plan: On bronchodilators as needed. Qualifiers: COPD type: COPD with acute exacerbation Qualified Code(s): J44.1 - Chronic obstructive pulmonary disease with (acute) exacerbation (7) DVT prophylaxis Current Visit: Yes Status: Acute Assessment and plan: With SCDs alone due to hemorrhagic metastasis to the brain. (8) GERD (gastroesophageal reflux disease) Current Visit: Yes Status: Chronic Assessment and plan: On omeprazole Qualifiers: Esophagitis presence: esophagitis presence not specified Qualified Code(s) : K21.9 - Gastro-esophageal reflux disease without esophagitis (9) Primary lung adenocarcinoma Current Visit: Yes Status: Chronic Assessment and plan: Follow-up with cancer Center after discharge. Qualifiers: Laterality: left Qualified Code(s): C34.92 - Malignant neoplasm of unspecified part of left bronchus or lung (10) Tobacco abuse Current Visit: Yes Status: Chronic - Time Spent With Patient Total time spent is greater than 50% in coordination of care (as documented) at patient's floor/unit and/or counseling patient: - Subjective Interval history: Patient is awake and alert. Sitting up in bed. Denies any headaches or blurred vision. Does complain of some pain and weakness in her right leg and knee. Remains disoriented and continues to have memory issues. No nausea or vomiting. Awaiting radiation therapy today. - Constitutional Vitals: Temp Pulse Resp BP Pulse Ox 97.7 F 70 16 146/86 94 10/12/17 06:13 10/12/17 06:13 10/12/17 07:26 10/12/17 06:13 10/12/17 07:26 General appearance: Present: cooperative, A&O X 2, pleasant, answers questions appropriately - Neck Neck exam general surgery: Present: supple, trachea midline. Absent: lymphadenopathy - Respiratory Respiratory exam: Present: prolonged expiratory phase, wheezes. Absent: accessory muscle use, rales, rhonchi - Cardiovascular Cardiovascular exam: Present: RRR, +S1, +S2. Absent: diastolic murmur, gallop, rubs, systolic murmur - GI/Abdominal GI/Abdominal exam: Present: normal bowel sounds, soft, no peritoneal signs. Absent: distended, tenderness - Extremities Exam Extremities exam: Present: warm, radial pulses palpable and symmetrical. Absent : calf tenderness, cyanotic, pedal edema - Neurological Exam Neurological exam: Present: CN II-XII intact, oriented X3, no focal deficits, strengths equal and symetr throughout. Absent: facial droop, speech deficit Internal Medicine: Result - Labs CBC & Chem 7: 10/12/17 05:02 10/12/17 05:02 Labs: Short CBC 10/12/17 Range/Units 05:02 WBC 11.9 H D (4.3-11.1) K/mcL Hgb 12.6 (11.5-15.4) g/dL Hct 37.3 (35.3-44.9) % Plt Count 199 (140-400) K/mcL Neutrophils # 10.5 H (1.6-8.9) K/mcL BMP 10/12/17 05:02 Sodium 134 L Potassium 3.9 Chloride 105 Carbon Dioxide 26 BUN 18 Creatinine 0.61 Glucose 178 H Calcium 8.7 - ABG Interpretation ABG results: PT/INR, D-dimer PT 12.5 Seconds (9.4-12.1) H 10/08/17 21:26 - VTE Documentation of Mechanical Device: Intermittent pneumatic compression device Consult Discharge Plan - Plan Referrals: NONE,PCP [Primary Care Provider] - Martina Lopez [Family Provider] -
--- NOTE | 2017-10-12 12:39 | Oncology Inp Progress Note ---
Date of Encounter: 10/12/17 Time of Encounter: 12:39 (1) Brain metastasis Current Visit: Yes Status: Acute Assessment and plan: Mentation has improved since assessment 3 days ago. She is alert and oriented to person, place and time, although the extent to which she understands instruction/abstract thinking is questionable. She continues to experience expressive dysphasia (she had difficulty stating her year of , but knew she was not giving me the correct year, this took time for her to state correctly.) Continue Decadron. She is planned to begin brain radiotherapy today. She is planned to receive radiotherapy in 10 fractions of 300 cGy each. Consent is to be obtained today prior to stating therapy, if not obtained by patient her next of kin is to be contacted. Hold/do not administer blood thinners. She will have a follow up arranged with Dr. Starkey, treating oncologist, on an outpatient basis to continue to discuss systemic chemotherapy options following radiation therapy. She is now experiencing right sided hemiparesis with associated numbness/ tingling and sharp shooting pain. Oxycodone given just a few hours ago helped to relieve her pain. Palliative care working to schedule pain medication as patient takes on a regular basis at home and her mentation is not clear enough to understand to press call light to ask for pain medication. She is working with palliative care team to establish POA. Oncology: Subj Interval history: Ms. Siddiqui is sitting up in bed, eating lunch, Her boyfriend, Claernce, is at bedside. She reports she has started having sharp, shooting pain down her right upper and lower extremity for which she just took oxycodone for. The oxycodone has helped to relieve her pain. She is planned for [facility]. She is requesting ativan prior to her transport. - Constitutional Vitals: Vital Signs Temp Pulse Resp BP Pulse Ox 10/12/17 10:43 97.8 F 79 15 135/95 93 10/12/17 07:26 16 94 10/12/17 06:13 97.7 F 70 15 146/86 95 10/12/17 04:40 98.1 F 76 19 129/9 95 10/11/17 22:07 18 95 10/11/17 20:05 95 10/11/17 19:45 98.6 F 73 19 143/80 95 10/11/17 14:35 97.7 F 85 15 124/71 97 Intake and Output 10/11/17 10/12/17 10/12/17 23:59 07:59 15:59 Intake Total 240 / 240 240 / 240 Output Total 400 / 400 500 / 500 300 / 300 Balance -160 / -160 -500 / -500 -60 / -60 Intake: Oral 240 / 240 240 / 240 Output: Urine 300 / 300 Catheter 400 / 400 200 / 200 300 / 300 Other: Meal Dinner Breakfast Percent of Meal Consumed 70% 20% Stool Size Copious Stool Consistency soft Stool Color Brown Blood Glucose* 145 121 142 General appearance: cooperative, no acute distress, no febrile - Head Head exam: Present: atraumatic - ENT ENT exam: Present: mucous membranes moist - Respiratory Respiratory exam: Present: wheezes. Absent: respiratory distress - Cardiovascular Cardiovascular exam: Present: RRR, +S1, +S2 - GI/Abdominal GI/Abdominal exam: Present: normal bowel sounds, soft. Absent: tenderness - Extremities Exam Extremities exam: Absent: calf tenderness Additional comments: RLE weakness - Neurological Exam Neurological exam: Present: alert, oriented X3 Additional comments: RUE and RLE weakness. Expressive aphasia. Inattentive at times. - Psychiatric Psychiatric exam: Present: anxious - Skin Skin exam: Present: dry, intact, pallor, warm Oncology: Obj Data - Labs CBC & Chem 7: 10/12/17 05:02 10/12/17 05:02 Labs: Laboratory Results - last 24 hr 10/12/17 10/12/17 05:02 05:02 WBC 11.9 H D RBC 4.18 Hgb 12.6 Hct 37.3 MCV 89.2 MCH 30.1 MCHC 33.8 RDW 13.3 Plt Count 199 MPV 8.7 L Immature Gran % 1.8 Seg Neutrophils % 88.4 Lymphocytes % 2.6 Monocytes % 6.9 Eosinophils % 0.0 Basophils % 0.3 Neutrophils # 10.5 H Lymphocytes # 0.3 L Monocytes # 0.8 Eosinophils # 0.0 Basophils # 0.0 Sodium 134 L Potassium 3.9 Chloride 105 Carbon Dioxide 26 BUN 18 Creatinine 0.61 Est GFR ( Amer) > 60 Est GFR (Non-Af Amer) > 60 BUN/Creatinine Ratio 30 H Glucose 178 H Calculated Osmolality 284 Calcium 8.7 - ABG Interpretation ABG results: PT/INR, D-dimer PT 12.5 Seconds (9.4-12.1) H 10/08/17 21:26 Consult Discharge Plan - Plan Referrals: NONE,PCP [Primary Care Provider] - Martina Lopez [Family Provider] -
--- NOTE | 2017-10-12 14:41 | Event Note ---
Date of Encounter: 10/12/17 Time of Encounter: 14:30 balancing machine set up worker and I met with pt and significant other. She is agitated and anxious at this time. Did not have radiation today. She is refusing to complete power of immigration attorney today prior to speaking with her daughter Renuka. Attempted to call Renuka, had to leave message on voicemail. Patient is upset that she is not getting "enough Oxycodone". Clarence at bedside states she takes the Oxycodone 30mg around the clock at home. She has only had one dose this am , and prior to that last Thursday evening was last dose. She also is a smoker and is open to Nicotine patch. Will make these adjustments today and re- evaluate tomorrow am.
--- NOTE | 2017-10-12 14:43 | Rad Onc Dictation ---
Radiation Oncology Dictation Date of Service: 10/12/17 - Oncology History Comments: 1. Urothelial cell carcinoma, [id number]+, multiple superficial recurrences 2. Adenocarcinoma left upper lobe, [id number] with subsequent mediastinal/hilar relapse followed by metastatic recurrence with bony and left axillary metastases and now 10/08/17 MRI of the brain shows multiple brain metastases Previous Treatment: 02/21/2013: TURBT 03/15/2013 - 05/27/2013: Cisplatin/gemcitabine x4 cycles 08/08/2013: Right obturator node dissection (aborted radical cystectomy) 09/30/2013: Stereotactic body radiotherapy to left upper lobe 6000 cGy in 3 fractions 11/23/13 Chemoradiation for muscle invasive bladder cancer, 6600 cGy in 33 fractions with weekly cisplatin 08/17/2014: Intercostal nerve block for intercostal neuritis 08/22/2014: TURBT 11/01/2014: TURBT 12/21/2014: Fluoroscopic guided left T4, T5, T6 intercostal nerve block. 12/26/2014: Bronchoscopy and Endobronchial ultrasound 01/16/2015 - 03/08/2015: Radiation therapy to mediastinum and left hilum, 6000 cGy in 30 fractions with weekly carbotaxol stopped due to thrombocytopenia 08/21/2015-09/03/2015: Palliative Radiotherapy L4-S1, 3000 cGy in 10 fractions 09/03/2015 - present: Nivolumab 09/25/2016 - 10/01/2016: Palliative radiotherapy to the left axilla, 2000 cGy in 5 fractions - Progress Note Comments: Aurora was seen in her hospital room today. She remains conversational with confusion and word finding difficulties. We discussed the need for consent for whole brain radiotherapy in order to proceed. She has an awareness to report that she does not understand the treatment nor the options at this point. We did discuss that next of kin would need to be contacted which she has okayed. I was given contact information for her daughter Renuka at [phone]. My initial phone call was met with voicemail. Apparently she works until 5-6 PM. We will work to contact her regarding consent. Hold off on whole brain radiotherapy for now. Hank Ann MD This report was generated using [employer].
[2017-10-12] MEDS: Nicotine 21 MG PATCH.TD24 TD SCH (15:01)
[2017-10-12] MEDS: *HR* OxyCODONE Immed Rel 15 MG TABLET PO SCH ×2 (17:43→21:22)
[2017-10-13] MEDS: *HR* Morphine Sulfate SR (12 HR) 100 MG TABLET.ER PO SCH ×3 (00:29→16:37)
[2017-10-13] MEDS: Dexamethasone 4 MG/ML VIAL IVP SCH ×6 (00:29→21:20)
[2017-10-13] MEDS: *HR* OxyCODONE Immed Rel 15 MG TABLET PO SCH ×6 (00:30→21:20)
[2017-10-13] MEDS: Nicotine 21 MG PATCH.TD24 TD SCH (08:11)
[2017-10-13] MEDS: Sennosides/Docusate Sodium TABLET PO SCH ×2 (08:14→21:19)
[2017-10-13] MEDS: BuPROPion SR (12 HR) 150 MG TABLET PO SCH ×2 (08:14→21:20)
[2017-10-13] MEDS: Gabapentin 300 MG CAPSULE PO SCH ×2 (08:14→21:20)
--- NOTE | 2017-10-13 09:47 | Palliative Progress Note ---
Date of Encounter: 10/13/17 Time of Encounter: 09:45 - Assessment and plan (1) Cancer related pain Current Visit: Yes Status: Chronic Assessment and plan: States pain is better. Continue with MS Jc and Oxycodone every 4 hours as she takes at home. (2) Goals of care, counseling/discussion Current Visit: Yes Status: Acute Assessment and plan: No visitors in room - pt becomes increasingly anxious when plan of care/goals of care are discussed without her significant other here. She is still asking for daughter Renuka - I did speak with Renuka by phone - she is in [facility] and may not be able to visit until Thursday, but does plan on calling and speaking with her mother after Clarence arrives and speaking with Dr. Ann today. Patient needs to complete POA, but has not been willing/able to understand this process and the importance of designating a surrogate healthcare decision maker. Continue to follow closely and visit again today after Clarence arrives. 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 No visitors at bedside. States "having bad day", but cannot provide details. States pain well controlled at present. Concerned that Clarence has not yet arrived. + BM's. Assisted her to fill out menu - Constitutional Vitals: Abnormal lab results WBC 11.9 K/mcL (4.3-11.1) H D 10/12/17 05:02 MPV 8.7 fL (9.4-12.4) L 10/12/17 05:02 Neutrophils # 10.5 K/mcL (1.6-8.9) H 10/12/17 05:02 Lymphocytes # 0.3 K/mcL (0.6-4.6) L 10/12/17 05:02 PT 12.5 Seconds (9.4-12.1) H 10/08/17 21:26 Sodium 134 mEq/L (136-145) L 10/12/17 05:02 BUN/Creatinine Ratio 30 (6-26) H 10/12/17 05:02 Glucose 178 mg/dL (70-105) H 10/12/17 05:02 POC Glucose 142 mg/dL (70-99) H 10/12/17 10:44 ALT 4 Units/L (7-52) L 10/08/17 21:26 Urine Blood Large (Negative) H 10/08/17 22:20 Ur Leukocyte Esterase Small (Negative) H 10/08/17 22:20 Urine Microscopic WBC 3-5 per hpf (0-3) H 10/08/17 22:20 General appearance: Present: mild distress - Respiratory Respiratory exam: Present: decreased breath sounds, CTAB - Cardiovascular Cardiovascular exam: Present: +S1, +S2 - GI/Abdominal GI/Abdominal exam: Present: normal bowel sounds, soft - Extremities Exam Extremities exam: Present: normal capillary refill, normal inspection - Neurological Exam Neurological exam: Present: alert Additional comments: Oriented to name and place. Still occasional expressive aphasia. Follow commands. RLE weakness noted. Right arm slightly weaker than left - Psychiatric Psychiatric exam: Present: anxious - Skin Skin exam: Present: dry, warm Palliative Quality Palliative Quality: Screen for Code Status: Yes, Screen for Goals of Care: Yes, Screen for Pain: Yes, If Pain Regimen Started, Initiate Bowel Regimen: Yes, Screen for Nausea/Vomitting: Yes Code Status: 10/09/17 11:37 DNR [Resuscitation Status: Active] [RES] Routine Comment: Resuscitation Status: [id number] - Labs CBC & Chem 7: 10/12/17 05:02 10/12/17 05:02 Labs: Laboratory Results - last 24 hr 10/11/17 10/11/17 10/12/17 16:10 20:05 06:18 POC Glucose 176 H 145 H 121 H 10/12/17 10:44 POC Glucose 142 H - ABG Interpretation ABG results: PT/INR, D-dimer PT 12.5 Seconds (9.4-12.1) H 10/08/17 21:26 Consult Discharge Plan - Plan Referrals: NONE,PCP [Primary Care Provider] - Martina Lopez [Family Provider] -
--- NOTE | 2017-10-13 09:54 | Internal Med Progress Note ---
Date of Encounter: 10/13/17 Time of Encounter: 09:54 - Assessment and plan (1) Brain metastasis Current Visit: Yes Status: Acute Assessment and plan: Pt with multiple hemorrhagic mets in brain. Awaiting start of radiation when arranged. Continue Decadron at this time. Supportive care (2) Intraparenchymal hemorrhage of brain Current Visit: Yes Status: Acute Assessment and plan: See above. (3) Bladder cancer metastasized to intrapelvic lymph nodes Current Visit: Yes Status: Chronic Assessment and plan: Chronic issue. (4) Primary lung adenocarcinoma Current Visit: Yes Status: Chronic Assessment and plan: Chronic issue. Qualifiers: Laterality: left Qualified Code(s): C34.92 - Malignant neoplasm of unspecified part of left bronchus or lung (5) COPD (chronic obstructive pulmonary disease) Current Visit: Yes Status: Chronic Assessment and plan: Seems to be doing better. No wheeze heard at this time. Continue oxygen and supportive care for now. Qualifiers: COPD type: COPD with acute exacerbation Qualified Code(s): J44.1 - Chronic obstructive pulmonary disease with (acute) exacerbation (6) DVT prophylaxis Current Visit: Yes Status: Acute (7) GERD (gastroesophageal reflux disease) Current Visit: Yes Status: Chronic Assessment and plan: Chronic issue. Qualifiers: Esophagitis presence: esophagitis presence not specified Qualified Code(s) : K21.9 - Gastro-esophageal reflux disease without esophagitis (8) Anxiety Current Visit: Yes Status: Chronic Assessment and plan: Pt is very anxious and is worse due to difficulty conveying her wishes. (9) Cancer related pain Current Visit: Yes Status: Chronic Assessment and plan: Per palliative. (10) Tobacco abuse Current Visit: Yes Status: Chronic Assessment and plan: Chronic issue. Cessation counselling. (11) Fall Current Visit: Yes Status: Acute Assessment and plan: No issues at this time. Qualifiers: Encounter type: subsequent encounter Qualified Code(s): W19.XXXD - Unspecified fall, subsequent encounter - Time Spent With Patient Total time spent is greater than 50% in coordination of care (as documented) at patient's floor/unit and/or counseling patient: - Subjective Interval history: Ms Siddiqui is currently admitted for multiple hemorrhagic cerebral mets. She remains moderate to high risk due to potential for worsening clinical and neuro status. Ms Siddiqui is frustrated. She is having a lot of difficulty conveying her words. No fever. No CP or SOB. Awaiting start of radiation. - Constitutional Vitals: Temp Pulse Resp BP Pulse Ox 97.8 F 73 15 128/71 95 10/13/17 06:17 10/13/17 06:17 10/13/17 06:17 10/13/17 06:17 10/13/17 06:17 General appearance: Present: cooperative, A&O X 2, pleasant - Head Head exam: Present: normocephalic - Eye Eye exam: Present: conjuntiva pink - ENT ENT exam: Present: mucous membranes moist - Respiratory Respiratory exam: Present: CTAB. Absent: rales, rhonchi, wheezes - Cardiovascular Cardiovascular exam: Present: RRR. Absent: tachycardia - GI/Abdominal GI/Abdominal exam: Present: soft. Absent: tenderness - Extremities Exam Extremities exam: Present: warm. Absent: tenderness - Neurological Exam Neurological exam: Present: alert, speech deficit - Skin Skin exam: Present: dry, warm Internal Medicine: Result - Labs CBC & Chem 7: 10/12/17 05:02 10/12/17 05:02 - ABG Interpretation ABG results: PT/INR, D-dimer PT 12.5 Seconds (9.4-12.1) H 10/08/17 21:26 - VTE Documentation of Mechanical Device: Intermittent pneumatic compression device Consult Discharge Plan - Plan Referrals: NONE,PCP [Primary Care Provider] - Martina Lopez [Family Provider] -
[2017-10-13] MEDS: Budesonide/Formoterol 160/4.5 MDI IH SCH ×2 (10:40→22:15)
[2017-10-13] MEDS: Tiotropium 18 MCG inhalation IH SCH (10:41)
[2017-10-13] MEDS: *HR* LORazepam 1 MG TABLET PO PRN (12:36)
--- NOTE | 2017-10-13 12:55 | Rad Onc Dictation ---
Radiation Oncology Dictation Date of Service: 10/13/17 - Oncology History Comments: 1. Urothelial cell carcinoma, [id number]+, multiple superficial recurrences 2. Adenocarcinoma left upper lobe, [id number] with subsequent mediastinal/hilar relapse followed by metastatic recurrence with bony and left axillary metastases and now 10/08/17 MRI of the brain shows multiple brain metastases Previous Treatment: 02/21/2013: TURBT 03/15/2013 - 05/27/2013: Cisplatin/gemcitabine x4 cycles 08/08/2013: Right obturator node dissection (aborted radical cystectomy) 09/30/2013: Stereotactic body radiotherapy to left upper lobe 6000 cGy in 3 fractions 11/23/13 Chemoradiation for muscle invasive bladder cancer, 6600 cGy in 33 fractions with weekly cisplatin 08/17/2014: Intercostal nerve block for intercostal neuritis 08/22/2014: TURBT 11/01/2014: TURBT 12/21/2014: Fluoroscopic guided left T4, T5, T6 intercostal nerve block. 12/26/2014: Bronchoscopy and Endobronchial ultrasound 01/16/2015 - 03/08/2015: Radiation therapy to mediastinum and left hilum, 6000 cGy in 30 fractions with weekly carbotaxol stopped due to thrombocytopenia 08/21/2015-09/03/2015: Palliative Radiotherapy L4-S1, 3000 cGy in 10 fractions 09/03/2015 - present: Nivolumab 09/25/2016 - 10/01/2016: Palliative radiotherapy to the left axilla, 2000 cGy in 5 fractions - Progress Note Comments: Aurora is less anxious today. She seems to be a little bit more clear with her mentation. She continues to have expressive aphasia. I did have the opportunity to speak with her daughter Renuka last night. We discussed the recommendation for whole brain radiotherapy. She was in agreement that she thought Aurora would like to proceed with this treatment. However, she wanted to speak with her sister before making a final decision. She had planned to speak with her last night. We had arranged to speak this morning. I have called her 3 times today and left to voicemails. I have not yet been able to speak with her directly today for confirmation of consent for whole brain radiotherapy. As such, I have canceled transportation of the patient to the cancer center for treatment this afternoon. We will try again tomorrow. Hank Ann MD This report was generated using [employer]
[2017-10-14] MEDS: Dexamethasone 4 MG/ML VIAL IVP SCH ×3 (00:28→08:10)
[2017-10-14] MEDS: *HR* OxyCODONE Immed Rel 15 MG TABLET PO SCH ×7 (00:29→23:28)
[2017-10-14] MEDS: *HR* Morphine Sulfate SR (12 HR) 100 MG TABLET.ER PO SCH ×4 (00:29→23:30)
[2017-10-14] MEDS: Sennosides/Docusate Sodium TABLET PO SCH ×2 (08:04→21:02)
[2017-10-14] MEDS: BuPROPion SR (12 HR) 150 MG TABLET PO SCH ×2 (08:04→21:02)
[2017-10-14] MEDS: Gabapentin 300 MG CAPSULE PO SCH ×2 (08:04→21:01)
[2017-10-14] MEDS: Nicotine 21 MG PATCH.TD24 TD SCH (08:05)
[2017-10-14] MEDS: *HR* LORazepam 1 MG TABLET PO PRN ×2 (08:15→17:01)
--- NOTE | 2017-10-14 09:47 | Rad Onc Dictation ---
Radiation Oncology Dictation Date of Service: 10/14/17 - Oncology History Comments: 1. Urothelial cell carcinoma, [id number]+, multiple superficial recurrences 2. Adenocarcinoma left upper lobe, [id number] with subsequent mediastinal/hilar relapse followed by metastatic recurrence with bony and left axillary metastases and now 10/08/17 MRI of the brain shows multiple brain metastases Previous Treatment: 02/21/2013: TURBT 03/15/2013 - 05/27/2013: Cisplatin/gemcitabine x4 cycles 08/08/2013: Right obturator node dissection (aborted radical cystectomy) 09/30/2013: Stereotactic body radiotherapy to left upper lobe 6000 cGy in 3 fractions 11/23/13 Chemoradiation for muscle invasive bladder cancer, 6600 cGy in 33 fractions with weekly cisplatin 08/17/2014: Intercostal nerve block for intercostal neuritis 08/22/2014: TURBT 11/01/2014: TURBT 12/21/2014: Fluoroscopic guided left T4, T5, T6 intercostal nerve block. 12/26/2014: Bronchoscopy and Endobronchial ultrasound 01/16/2015 - 03/08/2015: Radiation therapy to mediastinum and left hilum, 6000 cGy in 30 fractions with weekly carbotaxol stopped due to thrombocytopenia 08/21/2015-09/03/2015: Palliative Radiotherapy L4-S1, 3000 cGy in 10 fractions 09/03/2015 - present: Nivolumab 09/25/2016 - 10/01/2016: Palliative radiotherapy to the left axilla, 2000 cGy in 5 fractions - Procedure Note Comments: Aurora tolerated first fraction of whole brain radiotherapy well. Plan for 10 fractions in total. Can be done as inpatient or outpatient. Hank Ann MD Radiation Oncology Department [id number]
[2017-10-14] MEDS: Budesonide/Formoterol 160/4.5 MDI IH SCH ×2 (10:28→22:02)
[2017-10-14] MEDS: Tiotropium 18 MCG inhalation IH SCH (10:30)
--- NOTE | 2017-10-14 10:31 | Palliative Progress Note ---
Date of Encounter: 10/14/17 Time of Encounter: 10:00 - Assessment and plan (1) Cancer related pain Current Visit: Yes Status: Chronic Assessment and plan: Continue current regimen. She appears comfortable at rest. (2) Goals of care, counseling/discussion Current Visit: Yes Status: Acute Assessment and plan: Significant other not present. Most likely d/c to short term rehabilitation within 1-2 days. Will D/W ANTONELLA Irizarry. (3) Brain metastasis Current Visit: Yes Status: Acute Assessment and plan: D/W Dr. Callahan. She will be changing decadron to po and beginning taper. (4) Fall Current Visit: Yes Status: Acute Assessment and plan: Continues with PT/OT. Qualifiers: Encounter type: subsequent encounter Qualified Code(s): W19.XXXD - Unspecified fall, subsequent encounter (5) Intraparenchymal hemorrhage of brain Current Visit: Yes Status: Acute (6) Primary lung adenocarcinoma Current Visit: Yes Status: Chronic Assessment and plan: Has started palliative brain radiation. Qualifiers: Laterality: left Qualified Code(s): C34.92 - Malignant neoplasm of unspecified part of left bronchus or lung (7) Bladder cancer metastasized to intrapelvic lymph nodes Current Visit: Yes Status: Chronic - Time Spent With Patient Total time spent is greater than 50% in coordination of care (as documented) at patient's floor/unit and/or counseling patient: - Subjective Interval history: Patient returned from radiation treatment, drinking coffee, does state radiation went "fine" when asked. She remains anxious and easily agitated. Kept repeating statement, "I'm done for today, nothing else today". Would not answer questions related to her symptoms today. No visitors present. - Constitutional Vitals: Abnormal lab results WBC 11.9 K/mcL (4.3-11.1) H D 10/12/17 05:02 MPV 8.7 fL (9.4-12.4) L 10/12/17 05:02 Neutrophils # 10.5 K/mcL (1.6-8.9) H 10/12/17 05:02 Lymphocytes # 0.3 K/mcL (0.6-4.6) L 10/12/17 05:02 PT 12.5 Seconds (9.4-12.1) H 10/08/17 21:26 Sodium 134 mEq/L (136-145) L 10/12/17 05:02 BUN/Creatinine Ratio 30 (6-26) H 10/12/17 05:02 Glucose 178 mg/dL (70-105) H 10/12/17 05:02 POC Glucose 157 mg/dL (70-99) H 10/14/17 06:38 ALT 4 Units/L (7-52) L 10/08/17 21:26 Urine Blood Large (Negative) H 10/08/17 22:20 Ur Leukocyte Esterase Small (Negative) H 10/08/17 22:20 Urine Microscopic WBC 3-5 per hpf (0-3) H 10/08/17 22:20 General appearance: Present: no acute distress - Respiratory Respiratory exam: Present: decreased breath sounds, CTAB - Cardiovascular Cardiovascular exam: Present: +S1, +S2 - GI/Abdominal GI/Abdominal exam: Present: normal bowel sounds, soft - Extremities Exam Additional comments: Right lower extremity weakness continues. Abrasion to knee - Neurological Exam Additional comments: Patient is agitated, moving all extremities. Refusing to answer some questions. Still with expressive aphasia. - Psychiatric Psychiatric exam: Present: agitated, anxious Palliative Quality Palliative Quality: Screen for Code Status: Yes, Screen for Goals of Care: Yes, Screen for Pain: Yes, If Pain Regimen Started, Initiate Bowel Regimen: Yes, Screen for Nausea/Vomitting: Yes Code Status: 10/09/17 11:37 DNR [Resuscitation Status: Active] [RES] Routine Comment: Resuscitation Status: [id number] - Labs CBC & Chem 7: 10/12/17 05:02 10/12/17 05:02 Labs: Laboratory Results - last 24 hr 10/12/17 10/12/17 10/13/17 16:05 19:41 06:23 POC Glucose 97 111 H 132 H 10/13/17 10/13/17 10/13/17 09:59 16:23 19:25 POC Glucose 146 H 112 H 124 H 10/14/17 06:38 POC Glucose 157 H - ABG Interpretation ABG results: PT/INR, D-dimer PT 12.5 Seconds (9.4-12.1) H 10/08/17 21:26 Consult Discharge Plan - Plan Referrals: NONE,PCP [Primary Care Provider] - Martina Lopez [Family Provider] -
--- NOTE | 2017-10-14 10:59 | Internal Med Progress Note ---
Date of Encounter: 10/14/17 Time of Encounter: 10:30 - Assessment and plan (1) Brain metastasis Current Visit: Yes Status: Acute Assessment and plan: Began radiation today. Will begin to taper Decadron. Working on d/c to SNF Will ask speech therapy to eval regarding speech deficit. (2) Intraparenchymal hemorrhage of brain Current Visit: Yes Status: Acute Assessment and plan: As above (3) Bladder cancer metastasized to intrapelvic lymph nodes Current Visit: Yes Status: Chronic Assessment and plan: Continuing treatment. Has begun radiation treatment. (4) Primary lung adenocarcinoma Current Visit: Yes Status: Chronic Assessment and plan: No new acute issues at this time. Qualifiers: Laterality: left Qualified Code(s): C34.92 - Malignant neoplasm of unspecified part of left bronchus or lung (5) COPD (chronic obstructive pulmonary disease) Current Visit: Yes Status: Chronic Assessment and plan: Improving. No wheezing at this time. Qualifiers: COPD type: COPD with acute exacerbation Qualified Code(s): J44.1 - Chronic obstructive pulmonary disease with (acute) exacerbation (6) GERD (gastroesophageal reflux disease) Current Visit: Yes Status: Chronic Assessment and plan: Chronic issue. No symptoms at this time. Qualifiers: Esophagitis presence: esophagitis presence not specified Qualified Code(s) : K21.9 - Gastro-esophageal reflux disease without esophagitis (7) Anxiety Current Visit: Yes Status: Chronic Assessment and plan: PRN meds. (8) Cancer related pain Current Visit: Yes Status: Chronic Assessment and plan: Per palliative (9) Tobacco abuse Current Visit: Yes Status: Chronic Assessment and plan: Cessation counselling. (10) Fall Current Visit: Yes Status: Acute Assessment and plan: SNF being arranged at discharge. Qualifiers: Encounter type: subsequent encounter Qualified Code(s): W19.XXXD - Unspecified fall, subsequent encounter (11) DVT prophylaxis Current Visit: Yes Status: Acute - Time Spent With Patient Total time spent is greater than 50% in coordination of care (as documented) at patient's floor/unit and/or counseling patient: - Subjective Interval history: Ms Siddiqui is currently admitted for multiple hemorrhagic cerebral mets. She remains moderate to high risk due to potential for worsening clinical and neuro status. Ms Siddiqui just returned from radiation therapy. No fever or chills. Appears to be agitated and frustrated over her speech. No GI issues. No CP or SOB. - Constitutional Vitals: Temp Pulse Resp BP Pulse Ox 97.9 F 81 16 147/88 90 10/14/17 10:47 10/14/17 10:47 10/14/17 10:47 10/14/17 10:47 10/14/17 10:47 General appearance: Present: cooperative, A&O X 3, pleasant Exam: Difficulty with speech - Head Head exam: Present: normocephalic - Eye Eye exam: Present: conjuntiva pink - ENT ENT exam: Present: mucous membranes moist - Respiratory Respiratory exam: Present: rhonchi. Absent: rales, wheezes - Cardiovascular Cardiovascular exam: Present: RRR. Absent: tachycardia - GI/Abdominal GI/Abdominal exam: Present: soft. Absent: tenderness - Extremities Exam Extremities exam: Present: warm. Absent: pedal edema, tenderness - Neurological Exam Neurological exam: Present: alert, speech deficit - Skin Skin exam: Present: dry, warm Internal Medicine: Result - Labs CBC & Chem 7: 10/12/17 05:02 10/12/17 05:02 - ABG Interpretation ABG results: PT/INR, D-dimer PT 12.5 Seconds (9.4-12.1) H 10/08/17 21:26 - VTE Documentation of Mechanical Device: Intermittent pneumatic compression device Consult Discharge Plan - Plan Referrals: NONE,PCP [Primary Care Provider] - Martina Lopez [Family Provider] -
[2017-10-15] MEDS: *HR* OxyCODONE Immed Rel 15 MG TABLET PO SCH ×2 (03:08→07:59)
[2017-10-15 06:30] VITALS: BP 148/77
[2017-10-15] MEDS: Tiotropium 18 MCG inhalation IH SCH (07:47)
[2017-10-15] MEDS: Budesonide/Formoterol 160/4.5 MDI IH SCH (07:48)
[2017-10-15] MEDS: Nicotine 21 MG PATCH.TD24 TD SCH (07:58)
[2017-10-15] MEDS: Sennosides/Docusate Sodium TABLET PO SCH (07:59)
[2017-10-15] MEDS: *HR* Morphine Sulfate SR (12 HR) 100 MG TABLET.ER PO SCH (07:59)
[2017-10-15] MEDS: BuPROPion SR (12 HR) 150 MG TABLET PO SCH (07:59)
[2017-10-15] MEDS: Gabapentin 300 MG CAPSULE PO SCH (07:59)
[2017-10-15] MEDS: *HR* LORazepam 1 MG TABLET PO PRN (09:13)
--- NOTE | 2017-10-15 09:37 | Discharge Summary ---
- NOTES TO OUTPATIENT PROVIDER Notes to Outpatient Provider: Pt has multiple cerebral mets. Has started radiation and going to rehab. Date of Encounter: 10/15/17 Time of Encounter: 09:15 - Discharge Diagnosis (1) Brain metastasis Priority: Primary Status: Acute (2) Intraparenchymal hemorrhage of brain Priority: Primary Status: Acute (3) Bladder cancer metastasized to intrapelvic lymph nodes Priority: Secondary Status: Chronic (4) Primary lung adenocarcinoma Priority: Secondary Status: Chronic Qualifiers: Laterality: left Qualified Code(s): C34.92 - Malignant neoplasm of unspecified part of left bronchus or lung (5) COPD (chronic obstructive pulmonary disease) Priority: Secondary Status: Chronic Qualifiers: COPD type: chronic bronchitis Chronic bronchitis type: simple Qualified Code(s): J41.0 - Simple chronic bronchitis (6) GERD (gastroesophageal reflux disease) Priority: Secondary Status: Chronic Qualifiers: Esophagitis presence: esophagitis presence not specified Qualified Code(s) : K21.9 - Gastro-esophageal reflux disease without esophagitis (7) Anxiety Priority: Secondary Status: Chronic (8) Cancer related pain Priority: Secondary Status: Chronic (9) Tobacco abuse Priority: Secondary Status: Chronic (10) Fall Priority: Secondary Status: Resolved Qualifiers: Encounter type: subsequent encounter Qualified Code(s): W19.XXXD - Unspecified fall, subsequent encounter Hospital course: Ms. Siddiqui is a 67 year old female with hx of urothelial cancer and lung cancer presented to ED after a fall. CT found multiple cerebral mets and she was admitted for further treatment. Ms Siddiqui was admitted to [facility]. She was started on IV Decadron and seen by oncology and radiation oncology. She was seen by palliative and pain medications were adjusted. Decision was made for radiation but patient unable to give consent. Ultimately daughter reached and radiation was begun. Today she is doing a little better. Her speech has improved. She is afebrile and ready for discharge to SNF and complete radiation. Decadron to be tapered. Discharge discussed with: patient - Time Spent with Patient Total time spent providing and/or coordinating discharge services:40min - Discharge Medications Prescriptions: Morphine Sulfate SR (12 HR) [MS Contin] 1 tab PO Q8HR 7 Days #21 tab LORazepam [Lorazepam] 1 mg PO BID PRN 7 Days #14 tablet PRN Reason: Anxiety OxyCODONE Immed Rel [Roxicodone 15 MG] 30 mg PO Q4H 7 Days #42 tablet Home Medications: Prochlorperazine Maleate [Compazine] 10 mg PO Q6HR PRN #60 tablet 02/23/17 [Rx] Omeprazole [PriLOSEC] 20 mg PO DAILY #30 capsule. 03/23/17 [Rx] Albuterol Sulfate [Ventolin Hfa] 2 puff IH Q4H PRN 04/14/17 [History] Oxycodone HCl [Roxicodone 30] 30 mg PO Q4H PRN 04/14/17 [History] Oxygen 2 l NS HS 04/14/17 [History] Budesonide/Formoterol 160/4.5 [Symbicort 160/4.5] 2 puff IH BIDR 06/26/17 [ History] LORazepam [Ativan] 0.5 mg PO Q6H PRN 06/26/17 [History] Tiotropium Moore [Spiriva Respimat] 2 puff IH DAILY 06/26/17 [History] BuPROPion SR (12 HR) [Wellbutrin SR] 150 mg PO BID #60 tablet.er 07/21/17 [Rx] Morphine Sulfate SR (12 HR) [MS Contin] 100 mg PO Q8HR 08/18/17 [History] Gabapentin [Neurontin] 300 mg PO BID #60 capsule 10/09/17 [Rx] Dexamethasone [Decadron] 4 mg PO Q6H tablet 10/15/17 [Rx] LORazepam [Lorazepam] 1 mg PO BID PRN 7 Days #14 tablet 10/15/17 [Rx] Morphine Sulfate SR (12 HR) [MS Contin] 1 tab PO Q8HR 7 Days #21 tab 10/15/17 [ Rx] Nicotine Patch [Nicoderm] 21 mg TD DAILY patch.[id number] 10/15/17 [Rx] OxyCODONE Immed Rel [Roxicodone 15 MG] 30 mg PO Q4H 7 Days #42 tablet 10/15/17 [ Rx] Sennosides/Docusate Sodium [Senna Plus] 2 each PO BID tablet 10/15/17 [Rx] Allergies/Adverse Reactions: 3 Allergy/AdvReac Type Severity Reaction Status Date / Time Iodinated Contrast- Oral and Allergy Intermediate Hives Verified 09/28/17 10:52 IV Dye Nickel Allergy Mild Hives Verified 09/28/17 10:52 METALS Allergy Hives Uncoded 09/28/17 10:52 Date of admission: 10/09/17 01:00 Primary care physician: PCP NONE Consults: 10/09/17 01:26 Consult to Palliative Care [CONS] Routine Comment: Consulting Provider: Palliative Care Eads Reason for Consult: Metastatic cancer Call Completed: No 10/09/17 10:10 Consult to Oncology Radiation [CONS] Routine Consulting Provider: Oncology Radiation Lilo Reason for Consult: brain mets Time Notified: 10:12 Call Completed: Yes 10/10/17 14:12 Consult to Occupational Therapy [CONS] Routine Comment: Evaluate, develop and implement POC Reason for Consult: Falls at home Does patient have active BEDREST order?: No Is patient medically & hemodynamically stable?: Yes Consult to Physical Therapy [CONS] Routine Comment: Evaluate, develop and implement POC Reason for Consult: Falls at home Does patient have active BEDREST order?: No Is patient medically & hemodynamically stable?: Yes 10/14/17 12:31 Consult to Speech Therapy [CONS] Routine Comment: Evaluate, develop and implement POC Reason for Consult: Brain mets. Speech deficit Call Completed: No Discharging clinician: Terry Callahan Anticipated date of discharge: 10/15/17 - Constitutional Vitals: Temp Pulse Resp BP Pulse Ox 98.1 F 84 18 148/77 96 10/15/17 06:31 10/15/17 06:27 10/15/17 07:50 10/15/17 06:27 10/15/17 08:03 General appearance: Present: cooperative, A&O X 3, pleasant - Head Head exam: Present: normocephalic - Eye Eye exam: Present: conjuntiva pink - ENT ENT exam: Present: mucous membranes dry - Respiratory Respiratory exam: Present: decreased breath sounds. Absent: rales, rhonchi, wheezes - Cardiovascular Cardiovascular exam: Present: RRR. Absent: tachycardia - GI/Abdominal GI/Abdominal exam: Present: soft. Absent: tenderness - Extremities Exam Extremities exam: Present: warm. Absent: tenderness - Neurological Exam Neurological exam: Present: alert, speech deficit - Skin Skin exam: Present: dry, warm - Patient Status Disposition: Transfer SNF Condition: Fair Functional capacity at discharge: independent ambulation Overall status at discharge: patient is progressing back to baseline - Discharge Instructions Follow Up With: NONE,PCP [Primary Care Provider] - Martina Lopez [Family Provider] - Additional Instructions: Decadron taper: 4mg PO q6h through 10/15 then 4mg PO q8h through 10/17 then 4mg PO q12h through 10/19 then 4mg PO daily through 10/21 then stop - Diet and Activity Activity: as per physical therapy, increase activity as tolerated Diet: regular diet - VTE Documentation of Mechanical Device: Intermittent pneumatic compression device
--- NOTE | 2017-10-15 09:41 | Physician Discharge Referral ---
ExtendedCare Referral Info Transfer To: [place] Provider in Charge after Transfer: PCP Institutional Level of Care: Skilled - Diagnosis (1) Brain metastasis Priority: Primary Status: Acute (2) Intraparenchymal hemorrhage of brain Priority: Primary Status: Acute (3) Bladder cancer metastasized to intrapelvic lymph nodes Priority: Secondary Status: Chronic (4) Primary lung adenocarcinoma Priority: Secondary Status: Chronic (5) COPD (chronic obstructive pulmonary disease) Priority: Secondary Status: Chronic (6) GERD (gastroesophageal reflux disease) Priority: Secondary Status: Chronic (7) Anxiety Priority: Secondary Status: Chronic (8) Cancer related pain Priority: Secondary Status: Chronic (9) Tobacco abuse Priority: Secondary Status: Chronic (10) Fall Priority: Secondary Status: Resolved Expected Duration of Placement: Less than 30 days Prognosis: Fair Aware of Diagnosis: Patient, Family Aware of Prognosis: Patient, Family - Transfer Medications Prescriptions: Morphine Sulfate SR (12 HR) [MS Contin] 1 tab PO Q8HR 7 Days #21 tab LORazepam [Lorazepam] 1 mg PO BID PRN 7 Days #14 tablet PRN Reason: Anxiety OxyCODONE Immed Rel [Roxicodone 15 MG] 30 mg PO Q4H 7 Days #42 tablet Home Medications: Prochlorperazine Maleate [Compazine] 10 mg PO Q6HR PRN #60 tablet 02/23/17 [Rx] Omeprazole [PriLOSEC] 20 mg PO DAILY #30 capsule. 03/23/17 [Rx] Albuterol Sulfate [Ventolin Hfa] 2 puff IH Q4H PRN 04/14/17 [History] Oxycodone HCl [Roxicodone 30] 30 mg PO Q4H PRN 04/14/17 [History] Oxygen 2 l NS HS 04/14/17 [History] Budesonide/Formoterol 160/4.5 [Symbicort 160/4.5] 2 puff IH BIDR 06/26/17 [ History] LORazepam [Ativan] 0.5 mg PO Q6H PRN 06/26/17 [History] Tiotropium [facility] [Spiriva Respimat] 2 puff IH DAILY 06/26/17 [History] BuPROPion SR (12 HR) [Wellbutrin SR] 150 mg PO BID #60 tablet.er 07/21/17 [Rx] Morphine Sulfate SR (12 HR) [MS Contin] 100 mg PO Q8HR 08/18/17 [History] Gabapentin [Neurontin] 300 mg PO BID #60 capsule 10/09/17 [Rx] Dexamethasone [Decadron] 4 mg PO Q6H tablet 10/15/17 [Rx] LORazepam [Lorazepam] 1 mg PO BID PRN 7 Days #14 tablet 10/15/17 [Rx] Morphine Sulfate SR (12 HR) [MS Contin] 1 tab PO Q8HR 7 Days #21 tab 10/15/17 [ Rx] Nicotine Patch [Nicoderm] 21 mg TD DAILY patch.td24 10/15/17 [Rx] OxyCODONE Immed Rel [Roxicodone 15 MG] 30 mg PO Q4H 7 Days #42 tablet 10/15/17 [ Rx] Sennosides/Docusate Sodium [Senna Plus] 2 each PO BID tablet 10/15/17 [Rx] Allergies/Adverse Reactions: 3 Allergy/AdvReac Type Severity Reaction Status Date / Time Iodinated Contrast- Oral and Allergy Intermediate Hives Verified 09/28/17 10:52 IV Dye Nickel Allergy Mild Hives Verified 09/28/17 10:52 METALS Allergy Hives Uncoded 09/28/17 10:52 - Respiratory Orders Oxygen / L per min (3.5 liters or maintain saturation greater than 90%) Smoking Cessation: Smoking cessation has been advised. For more information, call the [place] Tobacco Quit Line at 1-886-MCTQ-NOW. - Lab Orders Lab Orders: 2 Step Mantoux Test per State regulation - Ancillary Orders May use pressure relief devices daily prn, May consult with Dentist, Gravity Flow Irrigator, Shaft Sinker PRN - Advance Directives Code Status: DNR-Arrest/Don't Intubate - History and Physical History/Physical reviewed & approved w/add comments: More alert and speech improving - Mobility Orders Ambulate - Rehabiliation Orders Rehab Potential: Fair Rehab Orders: Evaluation for Physical Therapy, Evaluation for Occupational Therapy, Evaluation for Speech Therapy Other: Radiation treatments as per schedule - Treatments Skin tear care topically daily PRN per policy, May check for fecal impaction rectally daily PRN, Fleet enema rectally every other day PRN cleansing purposes - Diet Orders Regular CERTIFICATION: I certify that the transfer of the above named patient to an Extended Care Facility is necessary for the continuing treatment of the diagnosis listed. The above information is true and accurate reflection of patient's current condition. Confidential - Redisclosure prohibited without a patient's written consent.
--- NOTE | 2017-10-15 09:47 | Palliative Progress Note ---
Date of Encounter: 10/15/17 Time of Encounter: 09:45 - Assessment and plan (1) Cancer related pain Current Visit: Yes Status: Chronic Assessment and plan: Continues with current regimen of MS Contin and Oxycodone. (2) Goals of care, counseling/discussion Current Visit: Yes Status: Acute Assessment and plan: To go to radiation this am and then will be discharged to [facility] for rehabilitation. (3) Brain metastasis Current Visit: Yes Status: Acute (4) Fall Current Visit: Yes Status: Resolved Qualifiers: Encounter type: subsequent encounter Qualified Code(s): W19.XXXD - Unspecified fall, subsequent encounter (5) Intraparenchymal hemorrhage of brain Current Visit: Yes Status: Acute (6) Primary lung adenocarcinoma Current Visit: Yes Status: Chronic Qualifiers: Laterality: left Qualified Code(s): C34.92 - Malignant neoplasm of unspecified part of left bronchus or lung (7) Bladder cancer metastasized to intrapelvic lymph nodes Current Visit: Yes Status: Chronic - Time Spent With Patient Total time spent is greater than 50% in coordination of care (as documented) at patient's floor/unit and/or counseling patient: - Subjective Interval history: Patient awake and alert, still with expressive aphasia, does appear more calm than yesterday, but does not like to be questioned. She is being discharged this am and going to radiation. From there will go to [facility] for short term rehab. - Constitutional Vitals: Abnormal lab results WBC 11.9 K/mcL (4.3-11.1) H D 10/12/17 05:02 MPV 8.7 fL (9.4-12.4) L 10/12/17 05:02 Neutrophils # 10.5 K/mcL (1.6-8.9) H 10/12/17 05:02 Lymphocytes # 0.3 K/mcL (0.6-4.6) L 10/12/17 05:02 PT 12.5 Seconds (9.4-12.1) H 10/08/17 21:26 Sodium 134 mEq/L (136-145) L 10/12/17 05:02 BUN/Creatinine Ratio 30 (6-26) H 10/12/17 05:02 Glucose 178 mg/dL (70-105) H 10/12/17 05:02 POC Glucose 176 mg/dL (70-99) H 10/15/17 06:29 ALT 4 Units/L (7-52) L 10/08/17 21:26 Urine Blood Large (Negative) H 10/08/17 22:20 Ur Leukocyte Esterase Small (Negative) H 10/08/17 22:20 Urine Microscopic WBC 3-5 per hpf (0-3) H 10/08/17 22:20 General appearance: Present: no acute distress - Respiratory Respiratory exam: Present: decreased breath sounds, CTAB - Cardiovascular Cardiovascular exam: Present: +S1, +S2 - GI/Abdominal GI/Abdominal exam: Present: normal bowel sounds, soft - Extremities Exam Extremities exam: Present: normal capillary refill, normal inspection - Neurological Exam Neurological exam: Present: alert (Oriented to name and place. Remains agitated with expressive aphasia. LABOY ) - Skin Skin exam: Present: dry, pallor, warm Palliative Quality Palliative Quality: Screen for Code Status: Yes, Screen for Goals of Care: Yes, Screen for Pain: Yes, If Pain Regimen Started, Initiate Bowel Regimen: Yes, Screen for Nausea/Vomitting: Yes Code Status: 10/09/17 11:37 DNR [Resuscitation Status: Active] [RES] Routine Comment: Resuscitation Status: [id number] - Labs CBC & Chem 7: 10/12/17 05:02 10/12/17 05:02 Labs: Laboratory Results - last 24 hr 10/14/17 10/14/17 10/14/17 10:52 16:10 19:05 POC Glucose 166 H 120 H 118 H 10/15/17 06:29 POC Glucose 176 H - ABG Interpretation ABG results: PT/INR, D-dimer PT 12.5 Seconds (9.4-12.1) H 10/08/17 21:26 Consult Discharge Plan - Plan Additional Instructions: Decadron taper: 4mg PO q6h through 10/15 then 4mg PO q8h through 10/17 then 4mg PO q12h through 10/19 then 4mg PO daily through 10/21 then stop Referrals: NONE,PCP [Primary Care Provider] - Martina Lopez [Family Provider] - Prescriptions: Morphine Sulfate SR (12 HR) [MS Contin] 1 tab PO Q8HR 7 Days #21 tab LORazepam [Lorazepam] 1 mg PO BID PRN 7 Days #14 tablet PRN Reason: Anxiety OxyCODONE Immed Rel [Roxicodone 15 MG] 30 mg PO Q4H 7 Days #42 tablet
== END 2017-10-15 10:03 | DRG 25 ==
LOC: EMEROO 21:00 → ICNU 10-09 01:00 → SUATTDRO 10-09 01:00 → ICNU 10-09 01:29 → 2NENU 10-10 18:28
PROVIDERS: ADMIT Family Medicine; ATTEND Internal Medicine

== ENCOUNTER 2017-12-15 04:16 | Inpatient (IN) ==
[2017-12-15] MEDS ORDERED: Pantoprazole 80 MG in 0.9 % Sodium Chloride 50 ML IVPB ONE (04:20)
[2017-12-15] MEDS ORDERED: 0.9 % Sodium Chloride 1,000 ML IVC ONE (04:20)
[2017-12-15 05:39] LABS: Basophils % 0.2 %; Eosinophils % 0.2 %; Hematocrit 27.7 % (35.3-44.9); Immature Granulocytes % 1.6 % (0-4); Lymphocytes # 0.4 K/mcL (0.6-4.6); Lymphocytes % 4.1 %; Mean Corpuscular HGB Conc 32.5 g/dL (31.6-35.5); Mean Corpuscular Hemoglobin 28.1 pg (28.0-33.3); Mean Corpuscular Volume 86.6 fL (83.0-100.0); Mean Platelet Volume 8.7 fL (9.4-12.4); Monocytes # 0.7 K/mcL (0.0-1.3); Monocytes % 7.8 %; Neutrophils # 7.5 K/mcL (1.6-8.9); Platelet Count 172 K/mcL (140-400); Red Cell Distribution Width 15.9 % (11.5-14.5); Segmented Neutrophils % 86.1 %
--- NOTE | 2017-12-15 05:48 | Emergency Department Note ---
START Narrative - START START: I have personally performed a face to face evaluation on this patient. I have reviewed and agree with the care plan. History and Exam by me shows: Findings consistent with anemia and possible hematemesis as well as hemoptysis. We will obtain a CT scan of the chest as well as her Protonix. It is possible this is related to recent chemotherapeutic use. Patient be admitted for further management and evaluation of anemia in the setting of bleeding from bladder, lung, stomach
[2017-12-15 05:49] LABS: INR 1.1; Prothrombin Time 12.2 Seconds (9.4-12.1)
[2017-12-15 05:59] LABS: Troponin I < 0.03 ng/mL (< 0.04)
--- NOTE | 2017-12-15 06:00 | Emergency Department Note ---
Disposition Clinical Impression: Hemoptysis Hematemesis Qualifiers: Nausea presence: with nausea Qualified Code(s): K92.0 - Hematemesis Disposition: Still a Patient Condition: Undetermined Referrals: Christiana Starkey MD [Primary Care Provider] - Martina Lopez [Family Provider] - GI Bleed HPI - General Chief complaint: ED Nausea/Vomiting/Diarrhea Stated complaint: vomiting blood, urinating blood Time Seen by Provider: 12/15/17 04:20 Source: patient, family, EMS Mode of arrival: EMS Limitations: no limitations Nursing Notes Reviewed: Yes Vital Signs Reviewed: Yes - History of Present Illness Pt Subjective Complaint: blood streaked emesis, other (also coughing up blood and urinating blood, but the hematemesis is worse today c/w previous.) Onset (ago): day(s) Consistency: constant, Worsening Severity: mild Improves with: nothing Worsens with: nothing Context: history of GI bleed, other (Metastatic bladder CA - lung, bone) Associated symptoms: Reports: nausea, vomiting, malaise. Denies: abdominal pain , epistaxis, fever, chills, headaches, loss of appetite, easy bruising, rash, syncope/near-syncope, weakness - Related Data Home Medications Medication Instructions Recorded Confirmed Oxycodone HCl [Roxicodone 30] 30 mg PO Q4H PRN 04/14/17 11/09/17 Oxygen 2 l NS HS 04/14/17 10/20/17 Tiotropium [place] [Spiriva 2 puff IH DAILY 06/26/17 10/20/17 Respimat] Morphine Sulfate SR (12 HR) [MS 100 mg PO Q8HR 08/18/17 11/09/17 Contin] Dexamethasone [Decadron] 4 mg PO DAILY 10/20/17 10/20/17 Previous Rx's Medication Instructions Recorded Omeprazole [PriLOSEC] 20 mg PO DAILY #30 capsule. 03/23/17 LORazepam [Lorazepam] 1 mg PO BID PRN 7 Days #14 tablet 10/15/17 Nicotine Patch [Nicoderm] 21 mg TD DAILY patch.td24 10/15/17 Dexamethasone [Decadron] 4 mg PO BID #40 tab 10/21/17 Albuterol Sulfate [Ventolin Hfa] 2 puff IH Q4H PRN #1 hfa.aer.ad 11/09/17 BuPROPion SR (12 HR) [Wellbutrin 150 mg PO BID #60 tablet.er 11/09/17 SR] Budesonide/Formoterol 160/4.5 2 puff IH BIDR #1 inhaler 11/09/17 [Symbicort 160/4.5] Commode - Three In One [THREE IN 1 each .ROUTE PRN #1 each 11/09/17 ONE COMMODE] Diaper,Brief,Adult, Disposable 1 each MC TID #90 each 11/09/17 [Depend Fit-Flex] Ipratropium/Albuterol Neb [Duoneb] 3 ml IH Q4HR PRN #30 vial.neb 11/09/17 Oxygen 1 each .ROUTE AD #1 each 11/09/17 Prochlorperazine Maleate 10 mg PO Q6HR PRN #60 tablet 11/09/17 [Compazine] Sennosides/Docusate Sodium [Senna 2 each PO DAILY #60 tablet 11/09/17 Plus] Tiotropium [place] [Spiriva 2 puff IH DAILY #1 mist.inhal 11/09/17 Respimat] Gabapentin [Neurontin] 300 mg PO BID #60 capsule 11/16/17 Allergies Allergy/AdvReac Type Severity Reaction Status Date / Time Iodinated Contrast- Oral and Allergy Intermediate Hives Verified 11/09/17 11:40 IV Dye Nickel Allergy Mild Hives Verified 11/09/17 11:40 METALS Allergy Hives Uncoded 11/09/17 11:40 All systems ED: reviewed and negative except as stated. Review of Systems: As Per HPI Constitutional: Reports: weakness. Denies: fever, chills Eyes: Denies: eye pain, eye discharge, vision change ENT ED: Denies: ear pain, throat pain, congestion, dysphagia Cardiovascular: Reports: dyspnea on exertion. Denies: chest pain, palpitations , orthopnea, syncope, paroxysmal nocturnal dyspnea Respiratory: Reports: cough, hemoptysis. Denies: dyspnea, wheezes, stridor Gastrointestinal: Reports: nausea. Denies: abdominal pain, vomiting, diarrhea, constipation, hematemesis, melena, hematochezia Genitourinary: Reports: hematuria. Denies: urgency, dysuria, frequency Musculoskeletal: Denies: back pain, neck pain, joint swelling, arthralgia, myalgia Integumentary: Denies: rash Neurological: Denies: headache, weakness, numbness, paresthesias Hematological/Lymphatic: Denies: easy bleeding, easy bruising Past Medical History - Past Medical History Attestation: Yes The following information was validated with the patient. Source: patient, old records reviewed, obtained from family Medical history: Reports: arthritis, cancer, CHF, COPD, peripheral artery disease Surgical history: Reports: cancer surgery Psychiatric history: Reports: anxiety, depression, panic disorder - Social History Smoking Status: Current every day smoker Smokeless Tobacco Status: No Alcohol use: Reports: none Drug use: Reports: none Physical Exam - General Limitations: no limitations General appearance: alert, in no apparent distress, cachectic - Head Head exam: atraumatic, normocephalic, normal inspection - Eye Eye exam: Present: normal appearance, PERRL. Absent: scleral icterus, conjunctival injection, periorbital swelling - ENT ENT exam: mucous membranes dry - Neck Neck exam: Present: normal inspection, full ROM, trachea midline. Absent: tenderness, meningismus, lymphadenopathy - Chest Chest inspection: Present: normal inspection, symmetric chest wall rise - Respiratory Respiratory exam: Absent: respiratory distress, wheezes, stridor, accessory muscle use - Expanded Respiratory Exam Location: wheezes: Left, Right, Upper (mild), rales: Left, Right, Lower - Cardiovascular Cardiovascular exam: Present: regular rate, normal rhythm - Abdominal Exam Abdominal exam: Present: soft, Non-Tender, normal bowel sounds. Absent: distention, guarding, rebound, rigidity, mass - Extremities Exam Extremities exam: Present: full ROM, normal capillary refill. Absent: pedal edema - Back Exam Back exam: Present: normal inspection, full ROM. Absent: tenderness, CVA tenderness (R), CVA tenderness (L) - Neurological Exam Neurological exam: Present: alert, oriented X3, CN II-XII intact, normal gait - Psychiatric Psychiatric exam: Present: normal affect, normal mood - Skin Skin exam: Present: warm, dry, intact, pallor Course Course Narrative: +Patient with hx of metastatic bladder CA and intermittent hemoptysis, hematuria and hematemesis presents from home for evaluation of worsening hematemesis. She denies fever / chills/ diarrhea, dyspnea, chest pain, syncope. She had chemotherapy last week. She sees [facility] oncologists. Patient was mildly tachycardic on arrival. Remainder of vitals are normal. EKG is essentially normal - unchanged. Concern for DIC, med reaction, bleeding lesion. Labs and CT (Non-con due to allergy) ordered. Case discussed with Dr. Pimentel. He has seen the patient and added some labs. Care of this patient is being transferred to Norman Clement CNP at shift change. Vital Signs Temperature 98.5 F 12/15/17 04:22 Pulse Rate 108 12/15/17 04:22 Respiratory Rate 16 12/15/17 04:22 Blood Pressure 143/89 12/15/17 04:22 O2 Sat by Pulse Oximetry 96 12/15/17 04:22 Temperature 98.5 F 12/15/17 04:22 Pulse Rate 94 12/15/17 05:12 Respiratory Rate 18 12/15/17 05:12 Blood Pressure 121/81 12/15/17 05:12 O2 Sat by Pulse Oximetry 97 12/15/17 05:12 Oxygen Delivery Oxygen Delivery Room Air GI Bleed - Lab Data Result diagrams: 12/15/17 05:17 Lab Results 12/15/17 12/15/17 12/15/17 Range/Units 05:17 05:17 05:17 WBC 8.7 (4.3-11.1) K/mcL RBC 3.20 L (3.82-4.97) M/mcL Hgb 9.0 L (11.5-15.4) g/dL Hct 27.7 L (35.3-44.9) % MCV 86.6 (83.0-100.0) fL MCH 28.1 (28.0-33.3) pg MCHC 32.5 (31.6-35.5) g/dL RDW 15.9 H (11.5-14.5) % Plt Count 172 (140-400) K/mcL MPV 8.7 L (9.4-12.4) fL Immature Gran % 1.6 (0-4) % Seg Neutrophils % 86.1 % Lymphocytes % 4.1 % Monocytes % 7.8 % Eosinophils % 0.2 % Basophils % 0.2 % Neutrophils # 7.5 (1.6-8.9) K/mcL Lymphocytes # 0.4 L (0.6-4.6) K/mcL Monocytes # 0.7 (0.0-1.3) K/mcL Eosinophils # 0.0 (0.0-0.6) K/mcL Basophils # 0.0 (0.0-0.2) K/mcL PT 12.2 H (9.4-12.1) Seconds INR 1.1 APTT 29.0 (26.0-36.0) Seconds Fibrinogen 348 (169-393) mg/dL D-Dimer 5663 H (0-500) ng/mLFEU Lactic Acid 1.1 (0.5-2.2) mmol/L
[2017-12-15 06:01] LABS: Alanine Aminotransferase 4 Units/L (7-52); Albumin 2.6 g/dL (3.5-5.7); Alkaline Phosphatase 171 Units/L (34-104); Aspartate Amino Transferase 13 Units/L (13-39); BUN/Creatinine Ratio 18 (6-26); Bilirubin,Total 0.5 mg/dL (0.3-1.0); Blood Urea Nitrogen 9 mg/dL (8-23); Calcium 8.4 mg/dL (8.6-10.3); Carbon Dioxide 26 mEq/L (23-29); Chloride 100 mEq/L (98-107); Globulin 2.7 g/dL (2.4-3.5); Glucose 117 mg/dL (70-105); Lipase < 3 Units/L (11-82); Magnesium 1.9 mg/dL (1.6-2.6); Osmolality,Calculated 280 (280-300); Potassium 2.9 mEq/L (3.5-5.1); Sodium 135 mEq/L (136-145); Total Protein 5.3 g/dL (6.4-8.9); eGFR For African Americans > 60 (> 60); eGFR For Non-African Americans > 60 (> 60)
--- NOTE | 2017-12-15 06:33 | Emergency Department Note ---
Disposition Clinical Impression: Hemoptysis, Postobstructive pneumonia Hematemesis Qualifiers: Nausea presence: with nausea Qualified Code(s): K92.0 - Hematemesis Hematuria Qualifiers: Hematuria type: unspecified type Qualified Code(s): R31.9 - Hematuria, unspecified Disposition: Admitted As Inpatient Condition: Undetermined Referrals: Christiana Starkey MD [Primary Care Provider] - Martina Lopez [Family Provider] - Forms: ED Satisfaction Letter Time of Disposition: 07:43 GI Bleed HPI - General Chief complaint: ED Nausea/Vomiting/Diarrhea Stated complaint: vomiting blood, urinating blood Time Seen by Provider: 12/15/17 04:20 Source: patient, family, EMS Mode of arrival: EMS Limitations: no limitations - History of Present Illness Pt Subjective Complaint: blood streaked emesis, other (also coughing up blood and urinating blood, but the hematemesis is worse today c/w previous.) Improves with: nothing Worsens with: nothing Context: history of GI bleed, other (Metastatic bladder CA - lung, bone) Associated symptoms: Reports: nausea, vomiting, malaise. Denies: abdominal pain , epistaxis, fever, chills, headaches, loss of appetite, easy bruising, rash, syncope/near-syncope, weakness - Related Data Home Medications Medication Instructions Recorded Confirmed Oxycodone HCl [Roxicodone 30] 30 mg PO Q4H PRN 04/14/17 12/15/17 Oxygen 1 l NS HS 04/14/17 12/15/17 Morphine Sulfate SR (12 HR) [MS 100 mg PO Q8HR 08/18/17 12/15/17 Contin] Previous Rx's Medication Instructions Recorded Omeprazole [PriLOSEC] 20 mg PO DAILY #30 capsule. 03/23/17 LORazepam [Lorazepam] 1 mg PO BID PRN 7 Days #14 tablet 10/15/17 Nicotine Patch [Nicoderm] 21 mg TD DAILY patch.td24 10/15/17 Albuterol Sulfate [Ventolin Hfa] 2 puff IH Q4H PRN #1 hfa.aer.ad 11/09/17 BuPROPion SR (12 HR) [Wellbutrin 150 mg PO BID #60 tablet.er 11/09/17 SR] Budesonide/Formoterol 160/4.5 2 puff IH BIDR #1 inhaler 11/09/17 [Symbicort 160/4.5] Ipratropium/Albuterol Neb [Duoneb] 3 ml IH Q4HR PRN #30 vial.neb 11/09/17 Prochlorperazine Maleate 10 mg PO Q6HR PRN #60 tablet 11/09/17 [Compazine] Tiotropium [place] [Spiriva 2 puff IH DAILY #1 mist.inhal 11/09/17 Respimat] Gabapentin [Neurontin] 300 mg PO BID #60 capsule 11/16/17 Allergies Allergy/AdvReac Type Severity Reaction Status Date / Time Iodinated Contrast- Oral and Allergy Intermediate Hives Verified 11/09/17 11:40 IV Dye Nickel Allergy Mild Hives Verified 11/09/17 11:40 METALS Allergy Hives Uncoded 11/09/17 11:40 Constitutional: Reports: weakness. Denies: fever, chills Eyes: Denies: eye pain, eye discharge, vision change ENT ED: Denies: ear pain, throat pain, congestion, dysphagia Cardiovascular: Reports: dyspnea on exertion. Denies: chest pain, palpitations , orthopnea, syncope, paroxysmal nocturnal dyspnea Respiratory: Reports: cough, hemoptysis. Denies: dyspnea, wheezes, stridor Gastrointestinal: Reports: nausea. Denies: abdominal pain, vomiting, diarrhea, constipation, hematemesis, melena, hematochezia Genitourinary: Reports: hematuria. Denies: urgency, dysuria, frequency Musculoskeletal: Denies: back pain, neck pain, joint swelling, arthralgia, myalgia Integumentary: Denies: rash Neurological: Denies: headache, weakness, numbness, paresthesias Hematological/Lymphatic: Denies: easy bleeding, easy bruising Past Medical History - Past Medical History Medical history: Reports: arthritis, cancer, CHF, COPD, peripheral artery disease Surgical history: Reports: cancer surgery Psychiatric history: Reports: anxiety, depression, panic disorder - Social History Smoking Status: Current every day smoker Smokeless Tobacco Status: No Alcohol use: Reports: none Drug use: Reports: none Physical Exam - General Limitations: no limitations General appearance: alert, in no apparent distress, cachectic Course Course Narrative: 0600: I have assumed care of this patient from Dalia Deshpande, PA-C due to mid- level shift change. Please see Dalia's documentation for care performed prior to my arrival. Briefly, this 67-year-old alert and oriented female presents for evaluation of hematemesis, hematuria, hemoptysis. She has a history of metastatic bladder cancer with metastases to the brain, lung, and plan. Laboratory and CT workup pending at this time. This case has been discussed with Dr. Pimentel, ED attending. Dr. Pimentel has had a [id number] evaluation with patient as well. 0730: I spoke with Dr. Gallegos, hospitalist lubrication worker who has agreed to accept the patient for admission. He is in agreement with the administration of vancomycin, Levaquin, and Zosyn, due to CT findings of a postobstructive opacity in the lungs. I have informed Dr. Gallegos of the patient's elevated d- dimer level and our inability to obtain a CTA of the chest due to the patient's allergy to IV dye. I have also discussed today's hemoglobin findings of a level of 9.0. This is significantly decreased from the patient's baseline when labs are trended. H&H will be trended in-house. The patient has requested that I inform her oncologist, Dr. Starkey of her impending hospitalization. 0748: I spoke with Dr. Olea, oncologist lubrication worker. I have informed him of the patient's presentation, CT results, and hemoglobin levels. He is in agreement with hemoglobin and hematocrit trending. He states that he will be more than willing to consult should the hospitalist group require it. Vital Signs Temperature 98.5 F 12/15/17 04:22 Pulse Rate 108 12/15/17 04:22 Respiratory Rate 16 12/15/17 04:22 Blood Pressure 143/89 12/15/17 04:22 O2 Sat by Pulse Oximetry 96 12/15/17 04:22 Temperature 98.5 F 12/15/17 04:22 Pulse Rate 89 12/15/17 07:23 Respiratory Rate 12 12/15/17 07:23 Blood Pressure 127/83 12/15/17 07:23 O2 Sat by Pulse Oximetry 98 12/15/17 07:23 Oxygen Delivery Oxygen Delivery Nasal Cannula GI Bleed - Medical Records Medical records reviewed: Yes I reviewed the patient's medical records. - Lab Data Lab results reviewed: Yes I reviewed the patient's lab results. Lab results narrative: Laboratory Last Values WBC 8.7 K/mcL (4.3-11.1) 12/15/17 05:17 RBC 3.20 M/mcL (3.82-4.97) L 12/15/17 05:17 Hgb 9.0 g/dL (11.5-15.4) L 12/15/17 05:17 Hct 27.7 % (35.3-44.9) L 12/15/17 05:17 MCV 86.6 fL (83.0-100.0) 12/15/17 05:17 MCH 28.1 pg (28.0-33.3) 12/15/17 05:17 MCHC 32.5 g/dL (31.6-35.5) 12/15/17 05:17 RDW 15.9 % (11.5-14.5) H 12/15/17 05:17 Plt Count 172 K/mcL (140-400) 12/15/17 05:17 MPV 8.7 fL (9.4-12.4) L 12/15/17 05:17 Immature Gran % 1.6 % (0-4) 12/15/17 05:17 Seg Neutrophils % 86.1 % 12/15/17 05:17 Lymphocytes % 4.1 % 12/15/17 05:17 Monocytes % 7.8 % 12/15/17 05:17 Eosinophils % 0.2 % 12/15/17 05:17 Basophils % 0.2 % 12/15/17 05:17 Neutrophils # 7.5 K/mcL (1.6-8.9) 12/15/17 05:17 Lymphocytes # 0.4 K/mcL (0.6-4.6) L 12/15/17 05:17 Monocytes # 0.7 K/mcL (0.0-1.3) 12/15/17 05:17 Eosinophils # 0.0 K/mcL (0.0-0.6) 12/15/17 05:17 Basophils # 0.0 K/mcL (0.0-0.2) 12/15/17 05:17 PT 12.2 Seconds (9.4-12.1) H 12/15/17 05:17 INR 1.1 12/15/17 05:17 APTT 29.0 Seconds (26.0-36.0) 12/15/17 05:17 Fibrinogen 348 mg/dL (169-393) 12/15/17 05:17 D-Dimer 5663 ng/mLFEU (0-500) H 12/15/17 05:17 Sodium 135 mEq/L (136-145) L 12/15/17 05:17 Potassium 2.9 mEq/L (3.5-5.1) L 12/15/17 05:17 Chloride 100 mEq/L (98-107) 12/15/17 05:17 Carbon Dioxide 26 mEq/L (23-29) 12/15/17 05:17 BUN 9 mg/dL (8-23) 12/15/17 05:17 Creatinine 0.51 mg/dL (0.60-1.20) L 12/15/17 05:17 Est GFR ( Amer) > 60 (> 60) 12/15/17 05:17 Est GFR (Non-Af Amer) > 60 (> 60) 12/15/17 05:17 BUN/Creatinine Ratio 18 (6-26) 12/15/17 05:17 Glucose 117 mg/dL (70-105) H 12/15/17 05:17 Calculated Osmolality 280 (280-300) 12/15/17 05:17 Lactic Acid 1.1 mmol/L (0.5-2.2) 12/15/17 05:17 Calcium 8.4 mg/dL (8.6-10.3) L 12/15/17 05:17 Magnesium 1.9 mg/dL (1.6-2.6) 12/15/17 05:17 Total Bilirubin 0.5 mg/dL (0.3-1.0) 12/15/17 05:17 AST 13 Units/L (13-39) 12/15/17 05:17 ALT 4 Units/L (7-52) L 12/15/17 05:17 Alkaline Phosphatase 171 Units/L (34-104) H 12/15/17 05:17 Troponin I < 0.03 ng/mL (< 0.04) 12/15/17 05:17 Serum Total Protein 5.3 g/dL (6.4-8.9) L 12/15/17 05:17 Albumin 2.6 g/dL (3.5-5.7) L 12/15/17 05:17 Globulin 2.7 g/dL (2.4-3.5) 12/15/17 05:17 Albumin/Globulin Ratio 1.0 (1.1-2.2) L 12/15/17 05:17 Lipase < 3 Units/L (11-82) L 12/15/17 05:17 Ur Specimen Adequacy See below A 12/15/17 06:15 Urine Color Red (Yellow) A 12/15/17 06:15 Urine Clarity TNP 12/15/17 06:15 Urine pH TNP 12/15/17 06:15 Ur Specific [place] TNP 12/15/17 06:15 Urine Protein TNP 12/15/17 06:15 Urine Glucose (UA) TNP 12/15/17 06:15 Urine Ketones TNP 12/15/17 06:15 Urine Blood TNP 12/15/17 06:15 Urine Nitrite TNP 12/15/17 06:15 Urine Bilirubin TNP 12/15/17 06:15 Urine Urobilinogen TNP 12/15/17 06:15 Ur Leukocyte Esterase TNP 12/15/17 06:15 Ur Culture Indicated? NO (NO) 12/15/17 06:15 Blood Type A NEGATIVE 12/15/17 05:17 Antibody Screen NEGATIVE 12/15/17 05:17 Result diagrams: 12/15/17 05:17 12/15/17 05:17 Lab Results 12/15/17 12/15/17 12/15/17 Range/Units 05:17 05:17 05:17 WBC 8.7 (4.3-11.1) K/mcL RBC 3.20 L (3.82-4.97) M/mcL Hgb 9.0 L (11.5-15.4) g/dL Hct 27.7 L (35.3-44.9) % MCV 86.6 (83.0-100.0) fL MCH 28.1 (28.0-33.3) pg MCHC 32.5 (31.6-35.5) g/dL RDW 15.9 H (11.5-14.5) % Plt Count 172 (140-400) K/mcL MPV 8.7 L (9.4-12.4) fL Immature Gran % 1.6 (0-4) % Seg Neutrophils % 86.1 % Lymphocytes % 4.1 % Monocytes % 7.8 % Eosinophils % 0.2 % Basophils % 0.2 % Neutrophils # 7.5 (1.6-8.9) K/mcL Lymphocytes # 0.4 L (0.6-4.6) K/mcL Monocytes # 0.7 (0.0-1.3) K/mcL Eosinophils # 0.0 (0.0-0.6) K/mcL Basophils # 0.0 (0.0-0.2) K/mcL PT 12.2 H (9.4-12.1) Seconds INR 1.1 APTT 29.0 (26.0-36.0) Seconds Fibrinogen 348 (169-393) mg/dL D-Dimer 5663 H (0-500) ng/mLFEU Sodium 135 L (136-145) mEq/L Potassium 2.9 L (3.5-5.1) mEq/L Chloride 100 (98-107) mEq/L Carbon Dioxide 26 (23-29) mEq/L BUN 9 (8-23) mg/dL Creatinine 0.51 L (0.60-1.20) mg/dL Est GFR ( Amer) > 60 (> 60) Est GFR (Non-Af Amer) > 60 (> 60) BUN/Creatinine Ratio 18 (6-26) Glucose 117 H (70-105) mg/dL Calculated Osmolality 280 (280-300) Lactic Acid (0.5-2.2) mmol/L Calcium 8.4 L (8.6-10.3) mg/dL Magnesium 1.9 (1.6-2.6) mg/dL Total Bilirubin 0.5 (0.3-1.0) mg/dL AST 13 (13-39) Units/L ALT 4 L (7-52) Units/L Alkaline Phosphatase 171 H (34-104) Units/L Troponin I < 0.03 (< 0.04) ng/mL Serum Total Protein 5.3 L (6.4-8.9) g/dL Albumin 2.6 L (3.5-5.7) g/dL Globulin 2.7 (2.4-3.5) g/dL Albumin/Globulin Ratio 1.0 L (1.1-2.2) Lipase < 3 L (11-82) Units/L Ur Specimen Adequacy Urine Color (Yellow) Urine Clarity Urine pH Ur Specific [place] Urine Protein Urine Glucose (UA) Urine Ketones Urine Blood Urine Nitrite Urine Bilirubin Urine Urobilinogen Ur Leukocyte Esterase Ur Culture Indicated? (NO) Blood Type Antibody Screen 12/15/17 12/15/17 12/15/17 Range/Units 05:17 05:17 06:15 WBC (4.3-11.1) K/mcL RBC (3.82-4.97) M/mcL Hgb (11.5-15.4) g/dL Hct (35.3-44.9) % MCV (83.0-100.0) fL MCH (28.0-33.3) pg MCHC (31.6-35.5) g/dL RDW (11.5-14.5) % Plt Count (140-400) K/mcL MPV (9.4-12.4) fL Immature Gran % (0-4) % Seg Neutrophils % % Lymphocytes % % Monocytes % % Eosinophils % % Basophils % % Neutrophils # (1.6-8.9) K/mcL Lymphocytes # (0.6-4.6) K/mcL Monocytes # (0.0-1.3) K/mcL Eosinophils # (0.0-0.6) K/mcL Basophils # (0.0-0.2) K/mcL PT (9.4-12.1) Seconds INR APTT (26.0-36.0) Seconds Fibrinogen (169-393) mg/dL D-Dimer (0-500) ng/mLFEU Sodium (136-145) mEq/L Potassium (3.5-5.1) mEq/L Chloride (98-107) mEq/L Carbon Dioxide (23-29) mEq/L BUN (8-23) mg/dL Creatinine (0.60-1.20) mg/dL Est GFR ( Amer) (> 60) Est GFR (Non-Af Amer) (> 60) BUN/Creatinine Ratio (6-26) Glucose (70-105) mg/dL Calculated Osmolality (280-300) Lactic Acid 1.1 (0.5-2.2) mmol/L Calcium (8.6-10.3) mg/dL Magnesium (1.6-2.6) mg/dL Total Bilirubin (0.3-1.0) mg/dL AST (13-39) Units/L ALT (7-52) Units/L Alkaline Phosphatase (34-104) Units/L Troponin I (< 0.04) ng/mL Serum Total Protein (6.4-8.9) g/dL Albumin (3.5-5.7) g/dL Globulin (2.4-3.5) g/dL Albumin/Globulin Ratio (1.1-2.2) Lipase (11-82) Units/L Ur Specimen Adequacy See below A Urine Color Red A (Yellow) Urine Clarity TNP Urine pH TNP Ur Specific [place] TNP Urine Protein TNP Urine Glucose (UA) TNP Urine Ketones TNP Urine Blood TNP Urine Nitrite TNP Urine Bilirubin TNP Urine Urobilinogen TNP Ur Leukocyte Esterase TNP Ur Culture Indicated? NO (NO) Blood Type A NEGATIVE Antibody Screen NEGATIVE - Radiology Data Radiology results reviewed: Yes I reviewed the patient's radiology results. Abdomen/Pelvis CT 12/15/17 04:22 IMPRESSION: 1. No acute finding to account for patient's abdominal pain. 2. Multiple metastasis seen in the liver, axial skeleton, and bladder. The bladder mass may account for patient's reported hematuria. 3. Transverse colon containing anterior abdominal wall hernia with no evidence of obstruction or inflammation. D/ / Adalid Saldana MD / Adalid Saldana MD Interpreting Provider: Adalid Saldana MD Chest CT 12/15/17 04:23 IMPRESSION: Enlarging mediastinal metastatic adenopathy. Confluent left perihilar mass partially obstructs and invades bronchus intermedius and lower lobe bronchi. D/ / Jm Solorio MD / Jm Solorio MD Interpreting Provider: Jm Solorio MD
[2017-12-15 06:36] LABS: Color,Urine Red (Yellow)
[2017-12-15] MEDS ORDERED: Levofloxacin 750 MG/150 ML 750 MG/150 ML BAG IVPB ONE (07:39)
[2017-12-15] MEDS ORDERED: Piperacillin/Tazobactam 3.375 GM in 0.9 % Sodium Chloride Mini Bag 100 ML IVPB ONE (07:39)
[2017-12-15] MEDS ORDERED: Ipratropium/Albuterol Neb 3 ML IH PRN (09:19)
[2017-12-15] MEDS ORDERED: *HR* LORazepam 1 MG TABLET PO PRN (09:19)
[2017-12-15] MEDS ORDERED: Albuterol 2.5 MG/3 ML NEBULIZER IH PRN (09:21)
[2017-12-15] MEDS ORDERED: Naloxone 0.4 MG/ML INJ IVP PRN (09:38)
[2017-12-15] MEDS ORDERED: Aminoglycoside Consult 1 EACH MC ONE (09:59)
[2017-12-15] MEDS: 0.9 % Sodium Chloride 1,000 ML IVC SCH (11:44)
[2017-12-15] MEDS: Nicotine 21 MG PATCH.TD24 TD SCH (11:46)
[2017-12-15] MEDS ORDERED: 0.9 % Sodium Chloride 250 ML ONE ×2 (11:51→16:21)
[2017-12-15] MEDS: Gabapentin 300 MG CAPSULE PO SCH ×2 (11:53→20:15)
--- NOTE | 2017-12-15 13:19 | Internal Med History&Physical ---
Date of Encounter: 12/15/17 Time of Encounter: 08:27 Internal Medicine - H&P: HPI Chief complaint: "Coughing up blood" Admitted From: Emergency Dept Plans for Post Hospital Care: Home History of present illness: Ms. Siddiqui is a 67 year old female who presented to ED this morning for "coughing up blood." Patient states that she started noticing larger than usual streaks of blood in her sputum. She states that she has intermittent hemoptysis. She also noticed some worsening hematuria, although she has chronic hematuria due to metastatic bladder cancer. She has known metastases to brain, lung, and bones. She states that she also had some abdominal pain earlier. She had chemotherapy last week. At the time of my interview, she denies fever, chills, chest pain, SOB, abdominal pain, nausea, vomiting, hematochezia, or melena. She still is having some streaks of blood in her sputum, but less than earlier in the day. She states that her urine is still dark red. In the ED, hemoglobin was 9.0, with normal platelet count. INR was 1.1. D- dimer was elevated at 5663. Potassium was low at 2.9. CT abdomen/pelvis was unremarkable except for multiple metastases. CT chest showed unchanged left perihilar mass with post-obstructive pneumonia. CTA chest could not be performed due to allergy to contrast. Patient received IV NS bolus, IV vancomycin, IV zosyn, and IV levaquin in the ED. Past Med Surg Social Fam HX - Past Medical History Attestation: Yes The following information was validated with the patient. Source: patient Medical history: arthritis, cancer (Metastatic Bladder Cancer), CHF, COPD, peripheral artery disease Additional medical history: Lung cancer Psychiatric history: anxiety, depression, panic disorder - Past Surgical History Surgical History: cancer surgery Additional surgical history: lymphectomy, bladder procedure-scraping, port implated - Social History Smoking Status: Current every day smoker Smokeless Tobacco Status: No Alcohol use: none Drug use: none - Family History Father Family Member Ethnicity: Non- Living Status: Hx Family Respiratory Disorders: Yes (COPD/Emphysema) Mother Family Member Ethnicity: Non- Living Status: Hx Family Cardiac Disorders: Yes (NE, CAD) Hx Family Cancer: Yes (Lung) Brother Family Member Ethnicity: Non- Living Status: Still Living Hx Family Respiratory Disorders: Yes (COPD) Sister Name: Merna Madsen Age: 45 Family Member Ethnicity: Non- Living Status: Still Living Hx Family Cancer: Yes (Melanoma w/metastases) - Additional Family History Additional family history: Family history reviewed with patient. Internal Medicine - H&P: Meds Omeprazole [PriLOSEC] 20 mg PO DAILY #30 capsule.dr 03/23/17 [Rx] Oxycodone HCl [Roxicodone 30] 30 mg PO Q4H PRN 04/14/17 [History] Oxygen 1 l NS HS 04/14/17 [History] Morphine Sulfate SR (12 HR) [MS Contin] 100 mg PO Q8HR 08/18/17 [History] LORazepam [Lorazepam] 1 mg PO BID PRN 7 Days #14 tablet 10/15/17 [Rx] Nicotine Patch [Nicoderm] 21 mg TD DAILY patch.td24 10/15/17 [Rx] Albuterol Sulfate [Ventolin Hfa] 2 puff IH Q4H PRN #1 hfa.aer.ad 11/09/17 [Rx] BuPROPion SR (12 HR) [Wellbutrin SR] 150 mg PO BID #60 tablet.er 11/09/17 [Rx] Budesonide/Formoterol 160/4.5 [Symbicort 160/4.5] 2 puff IH BIDR #1 inhaler 01/20 [Rx] Ipratropium/Albuterol Neb [Duoneb] 3 ml IH Q4HR PRN #30 vial.neb 11/09/17 [Rx] Prochlorperazine [place] [Compazine] 10 mg PO Q6HR PRN #60 tablet 11/09/17 [Rx] Tiotropium [place] [Spiriva Respimat] 2 puff IH DAILY #1 mist.inhal 11/09/17 [Rx ] Gabapentin [Neurontin] 300 mg PO BID #60 capsule 11/16/17 [Rx] 3 Allergy/AdvReac Type Severity Reaction Status Date / Time Iodinated Contrast- Oral and Allergy Intermediate Hives Verified 11/09/17 11:40 IV Dye Nickel Allergy Mild Hives Verified 11/09/17 11:40 METALS Allergy Hives Uncoded 11/09/17 11:40 All Systems PM: A 10-system review of systems was performed and is negative for pertinent findings except as documented above in the HPI. - Constitutional Vitals: Temp Pulse Resp BP Pulse Ox 97.6 F 91 16 125/66 100 12/15/17 11:59 12/15/17 11:59 12/15/17 11:59 12/15/17 11:59 12/15/17 11:59 General appearance: Present: cooperative, A&O X 3, pleasant, no acute distress, answers questions appropriately - Head Head exam: Present: atraumatic, normal inspection, normocephalic - Eye Eye exam: Present: EOMI, PERRL. Absent: conjunctival injection, nystagmus, scleral icterus - ENT ENT exam: Present: mucous membranes moist, normal external ear exam, normal oropharynx - Neck Neck exam general surgery: Present: supple, trachea midline. Absent: lymphadenopathy, tenderness, thyromegaly - Respiratory Respiratory exam: Present: CTAB. Absent: accessory muscle use, rales, rhonchi, wheezes Additional comments: Normal WOB - Cardiovascular Cardiovascular exam: Present: RRR, +S1, +S2. Absent: diastolic murmur, gallop, rubs, systolic murmur Additional comments: No BLE edema - GI/Abdominal GI/Abdominal exam: Present: normal bowel sounds, soft. Absent: distended, hepatomegaly, mass, splenomegaly, tenderness - Neurological Exam Neurological exam: Present: alert, CN II-XII intact, oriented X3, no focal deficits, strengths equal and symetr throughout. Absent: motor sensory deficit , facial droop, speech deficit - Psychiatric Psychiatric exam: Present: normal affect, normal mood. Absent: agitated, anxious, depressed - Skin Skin exam: Present: dry, intact, warm. Absent: cyanosis, rash Internal Med - H&P Results - Labs CBC & Chem 7: 12/15/17 05:17 12/15/17 05:17 - Impressions ITS Impressions Pulmonary Perfusion Imaging 12/15/17 09:41 IMPRESSION: 1. Findings consistent with extensive left upper lobe age-indeterminate hypoperfusion which may relate to high probability for acute thromboembolic disease versus possible acute versus chronic malignant vascular stenosis. 2. Evidence of COPD. Critical results were called by Dr. Kashif Brewster MD to Richard Gallegos on 12/15/2017 at 12:15. D/ / 12/15/2017 12:31:47 Kashif Brewster MD / Laurie Carroll Interpreting Provider: Kashif Brewster MD Chest X-Ray 12/15/17 10:09 IMPRESSION: 1. No significant interval change in irregular thickening in the left hilum and left midlung opacity. There is also a stable 1.6 cm right pulmonary nodule. 2. No other acute cardiopulmonary findings. 3. Age-indeterminate right lateral 8th rib fracture. An underlying pathologic fracture is suspected given CT and PET-CT findings. D/ / 12/15/2017 11:11:48 Chitra Jorge MD / [facility] Interpreting Provider: Chitra Jorge MD - VTE Reasons for not Prescribing Prophylaxis: Medical contraindication (Anemia, Hemoptysis, Hematuria) Documentation of Mechanical Device: Intermittent pneumatic compression device - Assessment and plan (1) Postobstructive pneumonia Current Visit: Yes Status: Acute Assessment and plan: Admit inpatient with telemetry. Continue gentle IVF. Continue IV vancomycin, IV zosyn, and IV levaquin. Continue supplemental O2 and nebs PRN. (2) Hemoptysis Current Visit: Yes Status: Acute Assessment and plan: Chronic with possible acute worsening. Monitor serial H/H. Recheck CBC in AM. Transfuse if hemoglobin < 7.0 or symptomatic. Will consult heme/onc as this is likely related to metastatic disease to the lungs. V/Q scan pending as per below. Will add guaifenesin to aid with cough. (3) Hematuria Current Visit: Yes Status: Acute Assessment and plan: Chronic. Likely related to bladder cancer. Heme/onc consulted as per above. Monitor serial H/H. Repeat CBC in AM. Will obtain UA. Qualifiers: Hematuria type: gross Qualified Code(s): R31.0 - Gross hematuria (4) Hematemesis Current Visit: Yes Status: Acute Assessment and plan: Questionable. No abdominal pain at this time. No vomiting at this time. Given IV protonix 80 mg in ED. Will continue PO omeprazole. Monitor serial H/ H. Repeat CBC in AM. IV zofran PRN nausea/vomiting. Qualifiers: Nausea presence: unspecified Qualified Code(s): K92.0 - Hematemesis (5) Anemia Current Visit: Yes Status: Acute Assessment and plan: Monitor serial H/H as per above. Repeat CBC in AM. Transfuse for hemoglobin < 7.0 or symptomatic. Qualifiers: Anemia type: unspecified type Qualified Code(s): D64.9 - Anemia, unspecified (6) Hypokalemia Current Visit: Yes Status: Acute Assessment and plan: Give KCl 40 mEq PO once. Recheck BMP and magnesium in AM. (7) Elevated d-dimer Current Visit: Yes Status: Acute Assessment and plan: Obtain V/Q scan to rule out pulmonary embolism. Will defer anticoagulation due to anemia and active bleeding. (8) Tobacco dependence Current Visit: No Status: Acute Assessment and plan: Continue nicotine transdermal. (9) Bladder cancer metastasized to intrapelvic lymph nodes Current Visit: No Status: Chronic Assessment and plan: Heme/onc consulted; appreciate input. (10) COPD (chronic obstructive pulmonary disease) Current Visit: No Status: Chronic Assessment and plan: Continue home medications. Duonebs and albuterol nebs PRN. Qualifiers: COPD type: chronic bronchitis Chronic bronchitis type: simple Qualified Code(s): J41.0 - Simple chronic bronchitis (11) GERD (gastroesophageal reflux disease) Current Visit: No Status: Chronic Assessment and plan: Omeprazole PO as per above. Qualifiers: Esophagitis presence: esophagitis presence not specified Qualified Code(s) : K21.9 - Gastro-esophageal reflux disease without esophagitis (12) DVT prophylaxis Current Visit: No Status: Acute Assessment and plan: Start SCDs. Will defer anticoagulation at this time due to anemia and active bleeding. - Time Spent With Patient Total time spent is greater than 50% in coordination of care (as documented) at patient's floor/unit and/or counseling patient: less than 15 minutes
--- NOTE | 2017-12-15 15:30 | Palliative - Consult Note ---
Date of Encounter: 12/15/17 Time of Encounter: 14:30 - Assessment and Plan (1) Cancer related pain Current Visit: No Status: Chronic Assessment and plan: Her home regiment of MS Contin 100mg/Oxycodone 30 for breakthrough pain ,and Gabapentin 600 daily are ordered. Patient feels her pain is well controlled at this point. Will monitor daily and titrate if needed. (2) Anxiety Current Visit: No Status: Chronic Assessment and plan: Continue Lorazepam PRN and monitor (3) Goals of care, counseling/discussion Current Visit: No Status: Acute Assessment and plan: Long discussion with pt re: goals of care. Patient does not have family involved, and has 2 friends for social support. No advanced directives in place. States she is still fairly independent with ADL's, does pay a friend to do laundry, and has another friend that shops for her and takes to appointments. She is aware that cancer is progressing, and treatment no longer helpful. Discussed her care needs, she already has multiple DME in place ( oxygen/[employer], bed, BSC, Walker,Wheelchair) - she wants to stay in her home as long as possible - interested in getting passport services set up. (4) Hemoptysis Current Visit: Yes Status: Acute (5) Non-small cell cancer of left lung Current Visit: No Status: Chronic Assessment and plan: Oncology saw in ER today. Cancer is progressing despite immunotherapy. Treatments most likely will be discontinued. 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 Siddiqui is a 67 year old female who presented to Emergency Department with complaint of "coughing up blood." States that this has been ongoing for some time at home, but progressively worse this am. Patient also states "my nervousness had the best of me". P She states that she has intermittent hemoptysis. She also noticed some worsening hematuria, although she has chronic hematuria due to metastatic bladder cancer. She has known metastases to brain, lung, and bones. She has been under the care of the [facility], since 2012 when diagnosed with bladder cancer, and 2013 diagnosed with pulmonary adenocarcinoma. Hemoglobin was 9.0, with normal platelet count. INR was 1.1. D-dimer was elevated at 5663. Potassium was low at 2.9. CT abdomen/pelvis was unremarkable except for multiple metastases. CT chest showed unchanged left perihilar mass with post-obstructive pneumonia. CTA chest could not be performed due to allergy to contrast. Patient received IV NS bolus, IV vancomycin, IV zosyn, and IV levaquin in the ED. Upon my visit, she has finished eating and is resting quietly in bed. No visitors present. States she is feeling a little better, and has only coughed up blood once since arriving to hospital. C/o some back pain - states related to her positioning. Currently receiving a unit of RBC's. CC: Richard Gallegos Past Med Surg Social Fam HX - Past Medical History Medical history: arthritis, cancer (Metastatic Bladder Cancer), CHF, COPD, peripheral artery disease Additional medical history: Lung cancer Psychiatric history: anxiety, depression, panic disorder - Past Surgical History Surgical History: cancer surgery Additional surgical history: lymphectomy, bladder procedure-scraping, port implated - Social History Smoking Status: Current every day smoker Smokeless Tobacco Status: No Alcohol use: none Drug use: none - Family History Father Family Member Ethnicity: Non- Living Status: Hx Family Respiratory Disorders: Yes (COPD/Emphysema) Mother Family Member Ethnicity: Non- Living Status: Hx Family Cardiac Disorders: Yes (NH, CAD) Hx Family Cancer: Yes (Lung) Brother Family Member Ethnicity: Non- Living Status: Still Living Hx Family Respiratory Disorders: Yes (COPD) Sister Name: Merna Madsen Age: 45 Family Member Ethnicity: Non- Living Status: Still Living Hx Family Cancer: Yes (Melanoma w/metastases) Medications and Allergies Omeprazole [PriLOSEC] 20 mg PO DAILY #30 capsule. 03/23/17 [Rx] Oxycodone HCl [Roxicodone 30] 30 mg PO Q4H PRN 04/14/17 [History] Oxygen 1 l NS HS 04/14/17 [History] Morphine Sulfate SR (12 HR) [MS Contin] 100 mg PO Q8HR 08/18/17 [History] LORazepam [Lorazepam] 1 mg PO BID PRN 7 Days #14 tablet 10/15/17 [Rx] Nicotine Patch [Nicoderm] 21 mg TD DAILY patch.td24 10/15/17 [Rx] Albuterol Sulfate [Ventolin Hfa] 2 puff IH Q4H PRN #1 hfa.aer.ad 11/09/17 [Rx] BuPROPion SR (12 HR) [Wellbutrin SR] 150 mg PO BID #60 tablet.er 11/09/17 [Rx] Budesonide/Formoterol 160/4.5 [Symbicort 160/4.5] 2 puff IH BIDR #1 inhaler 01/20 [Rx] Ipratropium/Albuterol Neb [Duoneb] 3 ml IH Q4HR PRN #30 vial.neb 11/09/17 [Rx] Prochlorperazine Maleate [Compazine] 10 mg PO Q6HR PRN #60 tablet 11/09/17 [Rx] Tiotropium [place] [Spiriva Respimat] 2 puff IH DAILY #1 mist.inhal 11/09/17 [Rx ] Gabapentin [Neurontin] 300 mg PO BID #60 capsule 11/16/17 [Rx] 3 Allergy/AdvReac Type Severity Reaction Status Date / Time Iodinated Contrast- Oral and Allergy Intermediate Hives Verified 11/09/17 11:40 IV Dye Nickel Allergy Mild Hives Verified 11/09/17 11:40 METALS Allergy Hives Uncoded 11/09/17 11:40 All systems: reviewed and no additional remarkable complaints except as stated ( intermittent abd/back pain, weakness, hemoptysis, shortness of breath with exertion,) Palliative Care-Exam - Constitutional Vitals: Temp Pulse Resp BP Pulse Ox 97.6 F 87 16 119/76 100 12/15/17 14:57 12/15/17 14:57 12/15/17 14:57 12/15/17 14:57 12/15/17 14:57 General appearance: Present: no acute distress - Head Head Exam: Present: normal inspection, normocephalic - Eye Eye exam: Present: normal appearance, PERRL - Respiratory Additional comments: Lung sounds with scattered rhonchi and faint expiratory wheezes. - Cardiovascular Cardiovascular exam: Present: +S1, +S2 - GI/Abdominal Exam GI/Abdominal exam: Present: normal bowel sounds, soft - Extremities Exam Extremities exam: Present: normal capillary refill, normal inspection - Neurological Exam Neurological exam: Present: alert, oriented X3, strengths equal and symetr throughout - Skin Skin exam: Present: dry, pallor, warm Internal Medicine - CN: Reslt - Labs CBC & Chem 7: 12/15/17 05:17 12/15/17 05:17 - ABG Interpretation ABG results: PT/INR, D-dimer PT 12.2 Seconds (9.4-12.1) H 12/15/17 05:17 D-Dimer 5663 ng/mLFEU (0-500) H 12/15/17 05:17 - Impressions Impressions Pulmonary Perfusion Imaging 12/15/17 09:41 IMPRESSION: 1. Findings consistent with extensive left upper lobe age-indeterminate hypoperfusion which may relate to high probability for acute thromboembolic disease versus possible acute versus chronic malignant vascular occlusion. 2. Evidence of COPD. Critical results were called by Dr. Kashif Brewster MD to Richard Gallegos on 12/15/2017 at 12:15. D/ / 12/15/2017 12:31:47 Kashif Brewster MD / [facility] Interpreting Provider: Kashif Brewster MD Chest X-Ray 12/15/17 10:09 IMPRESSION: 1. No significant interval change in irregular thickening in the left hilum and left midlung opacity. There is also a stable 1.6 cm right pulmonary nodule. 2. No other acute cardiopulmonary findings. 3. Age-indeterminate right lateral 8th rib fracture. An underlying pathologic fracture is suspected given CT and PET-CT findings. D/ / 12/15/2017 11:11:48 Chitra Jorge MD / [facility] Interpreting Provider: Chitra Jorge MD Consult Discharge Plan - Plan Referrals: Christiana Starkey MD [Primary Care Provider] - Martina Lopez [Family Provider] - Palliative Quality Palliative Quality: Screen for Code Status: Yes, Screen for Goals of Care: Yes, Screen for Pain: Yes, If Pain Regimen Started, Initiate Bowel Regimen: Yes (Pt c /o loose stools), Screen for Nausea/Vomitting: Yes Code Status: 12/15/17 09:38 Resuscitation Status: Active [RES] Routine Comment: I had discussion with patient today. Resuscitation Status: [id number]
[2017-12-15] MEDS ORDERED: Piperacillin/Tazobactam 3.375 GM in 0.9 % Sodium Chloride Mini Bag 100 ML IVPB SCH (16:00)
--- NOTE | 2017-12-15 17:16 | Oncology Inp Consult Note ---
<Lupe Fisher L - Last Filed: 12/16/17 10:21> Date of Encounter: 12/15/17 Time of Encounter: 13:00 Assessment and Plan (1) Primary lung adenocarcinoma Status: Chronic Assessment and plan: PET images as detailed in HPI concerning for marked disease progression along with CT abdomen/pelvis revealing soft tissue mass along the left posterolateral wall of the urinary bladder measures 2.4 x 2.3 cm, consistent with her worsening hematuria, concerning for recurrent bladder, metastatic disease or new primary. Dr. Coley has reviewed most recent imaging and treatment history. Patient has progressed on immunotherapy with Nivolumab, other treatment options remain very limited. Dr. Coley discussed most recent imaging with patient at bedside today along with limited treatment options available. Following discussion, patient amendable to palliative care consult for hospice discussion. Palliative care consulted for further discussion and recommendations, appreciate assistance from team. Patient is hoping to return home with hospice care. Please refer to Dr. Coley's attestation below for additional details. Qualifiers: Laterality: left Qualified Code(s): C34.92 - Malignant neoplasm of unspecified part of left bronchus or lung - Data of Consult Patient: known to practice within the last 3 years Consult date: 12/15/17 Requesting Physician: Richard Gallegos Primary Care Provider: Christiana Starkey Family Provider: Angelita Provider - Consult Narrative Reason for consult: Stage IV lung adenocarcinoma History of present illness: Ms. Siddiqui is a 67 year old female with oncologic history significant for muscle invasive Bladder cancer: Localized to bladder, cystoscopy 05/05/2016 negative , Lung cancer with bone metastasis, Stage IV, She had persistent hemoptysis and active disease in the left hilum by biopsy, recurrent hemoptysis s/p multiple bronchoscopy's with APC, severe iodine contrast allergy,Brain MRI 10/08/17 showed Multiple new hemorrhagic intraparenchymal metastases probably involving the left cerebral hemisphere with surrounding vasogenic edema which was treated with whole brain radiotherapy 10/16-10/27 (presently off steroids). Current treatment includes Denosumab for supportive treatmetn for bone metastases and Nivolumab. She was planned for PET scan and potential continuation of Nivolumab by changing to monthly or changing treatment to carboplatin/Alimta. PET scan on 11/18/17 reveals marked disease progression with increased size and uptake of a left lower lobe mass possibly confluent with left hilar lymphadenopathy and increased mediastinal lymphadenopathy. Additionally, there are new subcutaneous, retroperitoneal, muscular, skeletal, hepatic, and thyroid metastases, and there may be a new metastatic right cervical lymph node. Ms. Siddiqui presented to [facility] ER with report of incrased hemoptysis, hematuria and hematemesis. Hemoglobin 9.0 on admission, platelet count normal, INR 1.1, D-dimer elevated at 5663, Potassium low at 2.9, WBC normal. CT abdomen/pelvis was unremarkable for acute process, reveals multiple metastasis seen in the liver, axial skeleton , and bladder. The bladder mass may account for patient's reported hematuria.. CT chest showed unchanged left perihilar mass with post-obstructive pneumonia. CTA chest could not be performed due to allergy to contrast. Past Med Surg Social Fam HX - Past Medical History Medical history: arthritis, cancer (Metastatic Bladder Cancer), CHF, COPD, peripheral artery disease Additional medical history: Lung cancer Psychiatric history: anxiety, depression, panic disorder - Past Surgical History Surgical History: cancer surgery Additional surgical history: lymphectomy, bladder procedure-scraping, port implated - Social History Smoking Status: Current every day smoker Smokeless Tobacco Status: No Alcohol use: none Drug use: none - Family History Father Family Member Ethnicity: Non- Living Status: Hx Family Respiratory Disorders: Yes (COPD/Emphysema) Mother Family Member Ethnicity: Non- Living Status: Hx Family Cardiac Disorders: Yes ([place], CAD) Hx Family Cancer: Yes (Lung) Brother Family Member Ethnicity: Non- Living Status: Still Living Hx Family Respiratory Disorders: Yes (COPD) Sister Name: Merna Madsen Age: 45 Family Member Ethnicity: Non- Living Status: Still Living Hx Family Cancer: Yes (Melanoma w/metastases) Medications and Allergies Omeprazole [PriLOSEC] 20 mg PO DAILY #30 capsule. 03/23/17 [Rx] Oxycodone HCl [Roxicodone 30] 30 mg PO Q4H PRN 04/14/17 [History] Oxygen 1 l NS HS 04/14/17 [History] Morphine Sulfate SR (12 HR) [MS Contin] 100 mg PO Q8HR 08/18/17 [History] LORazepam [Lorazepam] 1 mg PO BID PRN 7 Days #14 tablet 10/15/17 [Rx] Nicotine Patch [Nicoderm] 21 mg TD DAILY patch.td24 10/15/17 [Rx] Albuterol Sulfate [Ventolin Hfa] 2 puff IH Q4H PRN #1 hfa.aer.ad 11/09/17 [Rx] BuPROPion SR (12 HR) [Wellbutrin SR] 150 mg PO BID #60 tablet.er 11/09/17 [Rx] Budesonide/Formoterol 160/4.5 [Symbicort 160/4.5] 2 puff IH BIDR #1 inhaler 01/20 [Rx] Ipratropium/Albuterol Neb [Duoneb] 3 ml IH Q4HR PRN #30 vial.neb 11/09/17 [Rx] Prochlorperazine Maleate [Compazine] 10 mg PO Q6HR PRN #60 tablet 11/09/17 [Rx] Tiotropium [place] [Spiriva Respimat] 2 puff IH DAILY #1 mist.inhal 11/09/17 [Rx ] Gabapentin [Neurontin] 300 mg PO BID #60 capsule 11/16/17 [Rx] 3 Allergy/AdvReac Type Severity Reaction Status Date / Time Iodinated Contrast- Oral and Allergy Intermediate Hives Verified 11/09/17 11:40 IV Dye Nickel Allergy Mild Hives Verified 11/09/17 11:40 METALS Allergy Hives Uncoded 11/09/17 11:40 Constitutional: Present: anorexia, fatigue, weakness, weight loss. Absent: chills, fever(s), frequent falls Eyes: Absent: change in vision Nose, mouth and throat: Absent: dysphagia Cardiovascular: Absent: chest pain Respiratory: Present: cough, dyspnea, hemoptysis Gastrointestinal: Present: as per HPI, abdominal pain, hematemesis, nausea, vomiting. Absent: hematochezia, melena Genitourinary: Present: as per HPI, hematuria. Absent: dysuria Musculoskeletal: Present: muscle weakness Integumentary: Absent: rash, wounds Neurological: Absent: focal weakness, frequent falls Hematologic/Lymphatic: Present: as per HPI Oncology - Exam - Constitutional Vitals: Temp Pulse Resp BP Pulse Ox 98.2 F 85 18 113/80 100 12/15/17 16:31 12/15/17 16:31 12/15/17 16:31 12/15/17 16:31 12/15/17 16:31 General appearance: cooperative, no acute distress, no febrile - Head Head exam: Present: atraumatic - ENT ENT exam: Present: mucous membranes moist - Respiratory Respiratory exam: Present: decreased breath sounds. Absent: respiratory distress - Cardiovascular Cardiovascular exam: Present: RRR, +S1, +S2 - GI/Abdominal GI/Abdominal exam: Present: normal bowel sounds, soft. Absent: guarding, rebound, tenderness - Extremities Exam Extremities exam: Present: normal inspection. Absent: calf tenderness - Neurological Exam Neurological exam: Present: alert, oriented X3, no focal deficits, strengths equal and symetr throughout - Psychiatric Psychiatric exam: Present: normal affect, normal mood - Skin Skin exam: Present: dry, intact, normal color, warm Consult Discharge Plan - Plan Referrals: Christiana Starkey MD [Primary Care Provider] - Martina Lopez [Family Provider] - <BrijeshAbhilash john - Last Filed: 12/16/17 10:33> Date of Encounter: 12/15/17 - Data of Consult Requesting Physician: Penny Mota MD Primary Care Provider: Christiana Starkey Family Provider: Angelita Provider - Consult Narrative History of present illness: Ms. Siddiqui is a 67 year old female Oncology - Exam - Constitutional Vitals: Temp Pulse Resp BP Pulse Ox 99.0 F 73 16 111/74 95 12/16/17 07:26 12/16/17 07:26 12/16/17 07:26 12/16/17 07:26 12/16/17 07:26 Oncology - Results Labs: 3 12/16/17 12/16/17 12/16/17 07:39 07:39 07:39 WBC RBC Hgb Hct MCV MCH MCHC RDW Plt Count MPV Immature Gran % Seg Neutrophils % Lymphocytes % Monocytes % Eosinophils % Basophils % Neutrophils # Lymphocytes # Monocytes # Eosinophils # Basophils # Sodium 135 L Potassium 3.6 Chloride 106 Carbon Dioxide 23 BUN 6 L Creatinine 0.35 L Est GFR ( Amer) > 60 Est GFR (Non-Af Amer) > 60 BUN/Creatinine Ratio 17 Glucose 93 Calculated Osmolality 277 L Calcium 8.1 L Magnesium 1.8 Vancomycin Trough < 2 L 3 12/16/17 12/15/17 07:39 20:26 WBC 8.0 RBC 3.98 Hgb 11.3 L 11.8 D Hct 34.7 L 34.9 L MCV 87.2 MCH 28.4 MCHC 32.6 RDW 15.8 H Plt Count 146 MPV 8.6 L Immature Gran % 2.0 Seg Neutrophils % 78.2 Lymphocytes % 7.2 Monocytes % 11.2 Eosinophils % 0.9 Basophils % 0.5 Neutrophils # 6.3 Lymphocytes # 0.6 Monocytes # 0.9 Eosinophils # 0.1 Basophils # 0.0 Sodium Potassium Chloride Carbon Dioxide BUN Creatinine Est GFR ( Amer) Est GFR (Non-Af Amer) BUN/Creatinine Ratio Glucose Calculated Osmolality Calcium Magnesium Vancomycin Trough - Attending Attestation Seen and examined patient and agree with assessment and plan. Patient has had significant progression of her disease such that she is haveing worsening hemoptysis and hematuria from a new bladder mass also. Her L lung is almost completely ryu out. We had a long discussion regarding prognosis and the feasibility of benefit of more treatment. We discussed that hospice would be a reasonable option and she is amenable. Therefore, we will plan to consult palliative care to see what can be done as she does live alone. Continue with supportive and comfort measures meanwhile.
[2017-12-15] MEDS: *HR* Morphine Sulfate SR (12 HR) 100 MG TABLET.ER PO SCH (17:31)
[2017-12-15] MEDS: BuPROPion SR (12 HR) 150 MG TABLET PO SCH ×2 (17:31→20:15)
[2017-12-15] MEDS: Tiotropium 18 MCG inhalation IH SCH (17:31)
[2017-12-15] MEDS: Budesonide/Formoterol 160/4.5 MDI IH SCH ×2 (17:53→20:32)
[2017-12-15 20:56] LABS: Hematocrit 34.9 % (35.3-44.9)
[2017-12-15 21:01] LABS: Hemoglobin 11.8 g/dL (11.5-15.4)
--- NOTE | 2017-12-15 22:05 | Electrocardiograph Report ---
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
[2017-12-16] MEDS: 0.9 % Sodium Chloride 1,000 ML IVC SCH ×2 (01:40→16:09)
[2017-12-16] MEDS: *HR* Morphine Sulfate SR (12 HR) 100 MG TABLET.ER PO SCH ×3 (01:40→16:10)
[2017-12-16 08:07] LABS: Basophils % 0.5 %; Eosinophils # 0.1 K/mcL (0.0-0.6); Eosinophils % 0.9 %; Hematocrit 34.7 % (35.3-44.9); Hemoglobin 11.3 g/dL (11.5-15.4); Lymphocytes # 0.6 K/mcL (0.6-4.6); Lymphocytes % 7.2 %; Mean Corpuscular HGB Conc 32.6 g/dL (31.6-35.5); Mean Corpuscular Hemoglobin 28.4 pg (28.0-33.3); Mean Corpuscular Volume 87.2 fL (83.0-100.0); Mean Platelet Volume 8.6 fL (9.4-12.4); Monocytes # 0.9 K/mcL (0.0-1.3); Monocytes % 11.2 %; Neutrophils # 6.3 K/mcL (1.6-8.9); Platelet Count 146 K/mcL (140-400); Red Blood Count 3.98 M/mcL (3.82-4.97); Red Cell Distribution Width 15.8 % (11.5-14.5); Segmented Neutrophils % 78.2 %
[2017-12-16 08:30] LABS: BUN/Creatinine Ratio 17 (6-26); Blood Urea Nitrogen 6 mg/dL (8-23); Calcium 8.1 mg/dL (8.6-10.3); Carbon Dioxide 23 mEq/L (23-29); Chloride 106 mEq/L (98-107); Glucose 93 mg/dL (70-105); Osmolality,Calculated 277 (280-300); Potassium 3.6 mEq/L (3.5-5.1); Sodium 135 mEq/L (136-145); eGFR For African Americans > 60 (> 60); eGFR For Non-African Americans > 60 (> 60)
[2017-12-16] MEDS ORDERED: Levofloxacin 750 MG/150 ML 750 MG/150 ML BAG IVPB SCH (09:00)
[2017-12-16] MEDS: BuPROPion SR (12 HR) 150 MG TABLET PO SCH ×2 (09:42→20:04)
[2017-12-16] MEDS: levoFLOXacin 500 MG TABLET PO SCH (09:42)
[2017-12-16] MEDS: Gabapentin 300 MG CAPSULE PO SCH ×2 (09:42→20:04)
[2017-12-16] MEDS: Nicotine 21 MG PATCH.TD24 TD SCH (09:43)
[2017-12-16] MEDS: *HR* OxyCODONE Immed Rel 15 MG TABLET PO PRN ×2 (09:48→17:49)
--- NOTE | 2017-12-16 09:49 | Palliative Progress Note ---
Date of Encounter: 12/16/17 Time of Encounter: 09:30 - Assessment and plan (1) Cancer related pain Current Visit: No Status: Chronic Assessment and plan: Continues with scheduled MS Hosea. She has not had any breakthrough Oxycodone since admission and pain is at an 8. Upon discussion, pt did not realized that this was ordered and she needed to ask for it. She verbalized understanding. Spoke with primary nurse Angela who was going to administer Oxycodone. Instructed patient to ensure (2) Anxiety Current Visit: No Status: Chronic Assessment and plan: Continue Lorazepam PRN (3) Goals of care, counseling/discussion Current Visit: No Status: Acute Assessment and plan: Rediscussed goals of care with pt this am. She has some confusion regarding plans for further immunotherapy/chemo - she does remember oncology visit yesterday and is aware cancer has progressed, but desires to hear Dr. Starkey opinion regarding further treatment. Spoke with Lupe Cruz, oncology ULTRASOUND TECH, and she will verify with oncology team and I asked someone from the team communicate back with me. Patient is ok with hospice if no further treatment is recommended, she just desires Dr. Starkey to weigh in on her case. I told her once I heard back from oncology, I would revisit and discuss options. general warehouse worker, Vikash Oneil will also be visiting today to discuss getting POA in place, as she is not in communication with any blood relatives. Will f/u later today. (4) Hemoptysis Current Visit: Yes Status: Acute (5) Non-small cell cancer of left lung Current Visit: No Status: Chronic (6) Bladder cancer metastasized to intrapelvic lymph nodes Current Visit: No Status: Chronic - Time Spent With Patient Total time spent is greater than 50% in coordination of care (as documented) at patient's floor/unit and/or counseling patient: 25 - 35 minutes - Subjective Interval history: Patient awake and alert - PT has been in and she is up in wheelchair. No further hemoptysis, moist cough. Pain level 8/10 this am - she has not had any breakthrough Oxycodone since admission. Labs stable. - Constitutional Vitals: Abnormal lab results Hgb 11.3 g/dL (11.5-15.4) L 12/16/17 07:39 Hct 34.7 % (35.3-44.9) L 12/16/17 07:39 RDW 15.8 % (11.5-14.5) H 12/16/17 07:39 MPV 8.6 fL (9.4-12.4) L 12/16/17 07:39 PT 12.2 Seconds (9.4-12.1) H 12/15/17 05:17 D-Dimer 5663 ng/mLFEU (0-500) H 12/15/17 05:17 Sodium 135 mEq/L (136-145) L 12/16/17 07:39 BUN 6 mg/dL (8-23) L 12/16/17 07:39 Creatinine 0.35 mg/dL (0.60-1.20) L 12/16/17 07:39 Calculated Osmolality 277 (280-300) L 12/16/17 07:39 Calcium 8.1 mg/dL (8.6-10.3) L 12/16/17 07:39 ALT 4 Units/L (7-52) L 12/15/17 05:17 Alkaline Phosphatase 171 Units/L (34-104) H 12/15/17 05:17 Serum Total Protein 5.3 g/dL (6.4-8.9) L 12/15/17 05:17 Albumin 2.6 g/dL (3.5-5.7) L 12/15/17 05:17 Albumin/Globulin Ratio 1.0 (1.1-2.2) L 12/15/17 05:17 Lipase < 3 Units/L (11-82) L 12/15/17 05:17 Ur Specimen Adequacy See below A 12/15/17 06:15 Urine Color Red (Yellow) A 12/15/17 06:15 Vancomycin Trough < 2 mcg/mL (5-10) L 12/16/17 07:39 General appearance: Present: no acute distress - Respiratory Additional comments: Rhonchi and wheezes throughout posterior lung valdes. - Cardiovascular Cardiovascular exam: Present: +S1, +S2 - GI/Abdominal GI/Abdominal exam: Present: normal bowel sounds, soft - Extremities Exam Extremities exam: Present: normal capillary refill, normal inspection - Neurological Exam Neurological exam: Present: alert, oriented X3, strengths equal and symetr throughout Additional comments: Generalized weakness - Skin Skin exam: Present: dry, pallor, warm Palliative Quality Palliative Quality: Screen for Code Status: Yes, Screen for Goals of Care: Yes, Screen for Pain: Yes, If Pain Regimen Started, Initiate Bowel Regimen: Yes (Pt c /o loose stools), Screen for Nausea/Vomitting: Yes - Labs CBC & Chem 7: 12/16/17 07:39 12/16/17 07:39 Labs: Laboratory Results - last 24 hr 12/15/17 12/16/17 12/16/17 20:26 07:39 07:39 WBC 8.0 RBC 3.98 Hgb 11.8 D 11.3 L Hct 34.9 L 34.7 L MCV 87.2 MCH 28.4 MCHC 32.6 RDW 15.8 H Plt Count 146 MPV 8.6 L Immature Gran % 2.0 Seg Neutrophils % 78.2 Lymphocytes % 7.2 Monocytes % 11.2 Eosinophils % 0.9 Basophils % 0.5 Neutrophils # 6.3 Lymphocytes # 0.6 Monocytes # 0.9 Eosinophils # 0.1 Basophils # 0.0 Sodium 135 L Potassium 3.6 Chloride 106 Carbon Dioxide 23 BUN 6 L Creatinine 0.35 L Est GFR ( Amer) > 60 Est GFR (Non-Af Amer) > 60 BUN/Creatinine Ratio 17 Glucose 93 Calculated Osmolality 277 L Calcium 8.1 L Magnesium Vancomycin Trough 12/16/17 12/16/17 07:39 07:39 WBC RBC Hgb Hct MCV MCH MCHC RDW Plt Count MPV Immature Gran % Seg Neutrophils % Lymphocytes % Monocytes % Eosinophils % Basophils % Neutrophils # Lymphocytes # Monocytes # Eosinophils # Basophils # Sodium Potassium Chloride Carbon Dioxide BUN Creatinine Est GFR ( Amer) Est GFR (Non-Af Amer) BUN/Creatinine Ratio Glucose Calculated Osmolality Calcium Magnesium 1.8 Vancomycin Trough < 2 L - ABG Interpretation ABG results: PT/INR, D-dimer PT 12.2 Seconds (9.4-12.1) H 12/15/17 05:17 D-Dimer 5663 ng/mLFEU (0-500) H 12/15/17 05:17 Consult Discharge Plan - Plan Referrals: Christiana Starkey MD [Primary Care Provider] - Martina Lopez [Family Provider] -
[2017-12-16] MEDS: Budesonide/Formoterol 160/4.5 MDI IH SCH ×2 (11:18→19:38)
[2017-12-16] MEDS: Tiotropium 18 MCG inhalation IH SCH (11:18)
[2017-12-16] MEDS: Albuterol 2.5 MG/3 ML NEBULIZER IH PRN ×2 (11:21→19:39)
--- NOTE | 2017-12-16 16:34 | Internal Med Progress Note ---
Date of Encounter: 12/16/17 Time of Encounter: 09:10 - Assessment and plan (1) Bladder cancer metastasized to intrapelvic lymph nodes Current Visit: Yes Status: Chronic Assessment and plan: Patient has known history of metastatic bladder cancer, follows with oncology as outpatient. Case discussed with oncology, patient will follow-up with Dr. Starkey on as an outpatient regarding further treatment options. Current hematuria and hemoptysis are related to cancer. Continue to monitor hemoglobin, stable at this time. Palliative care on board, patient is not willing to consider hospice care at this time. CODE STATUS is DNR comfort care arrest/DNI. Physical and occupational therapy evaluation recommended ECF placement. coordinator of library services on board. (2) COPD (chronic obstructive pulmonary disease) Current Visit: Yes Status: Chronic Assessment and plan: Not in acute exacerbation. Continue when necessary breathing treatments and supplemental oxygen. Patient does have home oxygen. Qualifiers: COPD type: chronic bronchitis Chronic bronchitis type: simple Qualified Code(s): J41.0 - Simple chronic bronchitis (3) DVT prophylaxis Current Visit: Yes Status: Acute Assessment and plan: Start SCDs. Will defer anticoagulation at this time due to anemia and active bleeding. (4) GERD (gastroesophageal reflux disease) Current Visit: Yes Status: Chronic Qualifiers: Esophagitis presence: esophagitis presence not specified Qualified Code(s) : K21.9 - Gastro-esophageal reflux disease without esophagitis (5) Hemoptysis Current Visit: Yes Status: Resolved Assessment and plan: improved; (6) Hematuria Current Visit: Yes Status: Acute Qualifiers: Hematuria type: gross Qualified Code(s): R31.0 - Gross hematuria (7) Postobstructive pneumonia Current Visit: Yes Status: Acute Assessment and plan: Patient is not septic at this point, she has been started on oral Levaquin, continue for now. Follow-up blood cultures. Supportive care and supplemental oxygen. (8) Elevated d-dimer Current Visit: Yes Status: Acute Assessment and plan: Elevated d-dimer noted along with abnormal ventilation perfusion lung scan. These abnormalities are most likely related to her underlying metastatic lung cancer rather than new pulmonary embolism. Continue supportive care. (9) Hypokalemia Current Visit: Yes Status: Resolved (10) Anemia Current Visit: Yes Status: Chronic Qualifiers: Anemia type: unspecified type Qualified Code(s): D64.9 - Anemia, unspecified - Time Spent With Patient Total time spent is greater than 50% in coordination of care (as documented) at patient's floor/unit and/or counseling patient: - Subjective Interval history: Reports feeling better. Continues to have dry cough, improved hemoptysis. Continues to have hematuria. No nausea, vomiting, abdominal pain. - Constitutional Vitals: Temp Pulse Resp BP Pulse Ox 99.0 F 73 16 111/74 95 12/16/17 07:26 12/16/17 07:26 12/16/17 11:18 12/16/17 07:26 12/16/17 11:18 General appearance: Present: A&O X 3, answers questions appropriately - Respiratory Respiratory exam: Present: CTAB (coarse breath sounds B/L). Absent: accessory muscle use, rales, rhonchi, wheezes - Cardiovascular Cardiovascular exam: Present: RRR, +S1, +S2. Absent: diastolic murmur, gallop, rubs, systolic murmur - GI/Abdominal GI/Abdominal exam: Present: normal bowel sounds, soft, no peritoneal signs. Absent: distended, tenderness - Extremities Exam Extremities exam: Present: full ROM, pedal edema (trace), warm, radial pulses palpable and symmetrical. Absent: calf tenderness, cyanotic - Neurological Exam Neurological exam: Present: CN II-XII intact, oriented X3, no focal deficits. Absent: pronater drift, facial droop, speech deficit Internal Medicine: Result - Labs CBC & Chem 7: 12/16/17 07:39 12/16/17 07:39 Labs: Short CBC 12/15/17 12/16/17 Range/Units 20:26 07:39 WBC 8.0 (4.3-11.1) K/mcL Hgb 11.8 D 11.3 L (11.5-15.4) g/dL Hct 34.9 L 34.7 L (35.3-44.9) % Plt Count 146 (140-400) K/mcL Neutrophils # 6.3 (1.6-8.9) K/mcL BMP 12/16/17 07:39 Sodium 135 L Potassium 3.6 Chloride 106 Carbon Dioxide 23 BUN 6 L Creatinine 0.35 L Glucose 93 Calcium 8.1 L - ABG Interpretation ABG results: PT/INR, D-dimer PT 12.2 Seconds (9.4-12.1) H 12/15/17 05:17 D-Dimer 5663 ng/mLFEU (0-500) H 12/15/17 05:17 - VTE Reasons for not Prescribing Prophylaxis: Medical contraindication (Anemia, Hemoptysis, Hematuria) Documentation of Mechanical Device: Intermittent pneumatic compression device Consult Discharge Plan - Plan Referrals: Christiana Starkey MD [Primary Care Provider] - Martina Lopez [Family Provider] -
[2017-12-16] MEDS ORDERED: Acetaminophen 325 MG TABLET PO PRN (20:17)
[2017-12-17] MEDS: *HR* Morphine Sulfate SR (12 HR) 100 MG TABLET.ER PO SCH ×4 (01:33→23:41)
[2017-12-17] MEDS: 0.9 % Sodium Chloride 1,000 ML IVC SCH ×2 (04:23→17:24)
[2017-12-17] MEDS: *HR* OxyCODONE Immed Rel 15 MG TABLET PO PRN ×2 (06:25→10:22)
[2017-12-17] MEDS: Gabapentin 300 MG CAPSULE PO SCH ×2 (07:36→22:37)
[2017-12-17] MEDS: levoFLOXacin 500 MG TABLET PO SCH (07:36)
[2017-12-17] MEDS: BuPROPion SR (12 HR) 150 MG TABLET PO SCH ×2 (07:36→22:37)
[2017-12-17] MEDS: Nicotine 21 MG PATCH.TD24 TD SCH (07:36)
[2017-12-17] MEDS: Tiotropium 18 MCG inhalation IH SCH (07:48)
[2017-12-17] MEDS: Budesonide/Formoterol 160/4.5 MDI IH SCH ×2 (07:48→19:40)
[2017-12-17] MEDS: Albuterol 2.5 MG/3 ML NEBULIZER IH PRN ×2 (11:06→15:53)
[2017-12-17 11:19] LABS: Bilirubin,Urine Negative (Negative); Blood,Urine Large (Negative); Clarity,Urine Cloudy (Clear); Color,Urine Red (Yellow); Glucose,Urine (UA) Normal (Normal); Ketones,Urine Negative (Negative); Leukocyte Esterase,Urine Trace (Negative); Nitrite,Urine Negative (Negative); PH,Urine 6.5 pH Units (5.0-8.0); Protein,Urine 100 mg/dL (Neg-Trace); Specific Gravity,Urine 1.011 (1.010-1.025); Urobilinogen,Urine Normal (Normal)
--- NOTE | 2017-12-17 16:58 | Internal Med Progress Note ---
Date of Encounter: 12/17/17 Time of Encounter: 12:50 - Assessment and plan (1) Localized swelling, mass and lump, neck Current Visit: Yes Status: Acute Assessment and plan: ?Inflamed sebaceous cyst versus lipoma. Check x-rays soft tissue neck. Supportive care and pain control. (2) Bladder cancer metastasized to intrapelvic lymph nodes Current Visit: Yes Status: Chronic Assessment and plan: Patient has known history of metastatic bladder cancer, follows with oncology as outpatient. Case discussed with oncology, patient will follow-up with Dr. Starkey on as an outpatient regarding further treatment options. Current hematuria and hemoptysis are related to cancer. Continue to monitor hemoglobin; Palliative care on board, patient is not willing to consider hospice care at this time. CODE STATUS is DNR comfort care arrest/DNI. Physical and occupational therapy evaluation recommended ECF placement. payroll services analyst on board, however patient declined placement. Plan to discharge home with home health services.. (3) COPD (chronic obstructive pulmonary disease) Current Visit: Yes Status: Chronic Assessment and plan: Not in acute exacerbation. Continue when necessary breathing treatments and supplemental oxygen. Patient does have home oxygen. Qualifiers: COPD type: chronic bronchitis Chronic bronchitis type: simple Qualified Code(s): J41.0 - Simple chronic bronchitis (4) DVT prophylaxis Current Visit: Yes Status: Acute (5) GERD (gastroesophageal reflux disease) Current Visit: Yes Status: Chronic Qualifiers: Esophagitis presence: esophagitis presence not specified Qualified Code(s) : K21.9 - Gastro-esophageal reflux disease without esophagitis (6) Hemoptysis Current Visit: Yes Status: Resolved (7) Hematuria Current Visit: Yes Status: Acute Qualifiers: Hematuria type: gross Qualified Code(s): R31.0 - Gross hematuria (8) Postobstructive pneumonia Current Visit: Yes Status: Acute Assessment and plan: Patient is not septic at this point, she has been started on oral Levaquin, continue for now. Blood cultures negative. Supportive care and supplemental oxygen. (9) Elevated d-dimer Current Visit: Yes Status: Acute (10) Hypokalemia Current Visit: Yes Status: Resolved (11) Anemia Current Visit: Yes Status: Chronic Qualifiers: Anemia type: unspecified type Qualified Code(s): D64.9 - Anemia, unspecified - Time Spent With Patient Total time spent is greater than 50% in coordination of care (as documented) at patient's floor/unit and/or counseling patient: - Subjective Interval history: Continues to have dry cough, improved hemoptysis. Continues to have hematuria. No nausea, vomiting, abdominal pain. Patient reports painful swelling on the back of her neck, worse over the last 2 days. - Constitutional Vitals: Temp Pulse Resp BP Pulse Ox 98.8 F 95 16 103/68 95 12/17/17 15:26 12/17/17 15:26 12/17/17 15:53 12/17/17 15:26 12/17/17 15:53 General appearance: Present: A&O X 3, answers questions appropriately - Neck Neck exam general surgery: Present: tenderness (2*4cm firm tender swelling over nape of her neck) - Respiratory Respiratory exam: Present: CTAB (coarse breath sounds B/L), rhonchi. Absent: accessory muscle use, rales, wheezes - Cardiovascular Cardiovascular exam: Present: RRR, +S1, +S2. Absent: diastolic murmur, gallop, rubs, systolic murmur Internal Medicine: Result - Labs CBC & Chem 7: 12/16/17 07:39 12/16/17 07:39 Labs: Urine 12/17/17 Range/Units 11:00 Urine Color Red A (Yellow) Urine Clarity Cloudy A (Clear) Urine pH 6.5 (5.0-8.0) pH Units Ur Specific [place] 1.011 (1.010-1.025) Urine Protein 100 H (Neg-Trace) mg/dL Urine Glucose (UA) Normal (Normal) mg/dL - ABG Interpretation ABG results: PT/INR, D-dimer PT 12.2 Seconds (9.4-12.1) H 12/15/17 05:17 D-Dimer 5663 ng/mLFEU (0-500) H 12/15/17 05:17 - VTE Reasons for not Prescribing Prophylaxis: Medical contraindication (Anemia, Hemoptysis, Hematuria) Documentation of Mechanical Device: Intermittent pneumatic compression device Consult Discharge Plan - Plan Referrals: Christiana Starkey MD [Primary Care Provider] - Martina Lopez [Family Provider] -
[2017-12-17] MEDS: Ondansetron 4 MG/2 ML VIAL IVP PRN (20:47)
[2017-12-18] MEDS: Ondansetron 4 MG/2 ML VIAL IVP PRN (01:29)
[2017-12-18 03:38] LABS: Basophils % 0.3 %; Eosinophils % 0.2 %; Hematocrit 31.3 % (35.3-44.9); Hemoglobin 10.2 g/dL (11.5-15.4); Immature Granulocytes % 1.5 % (0-4); Lymphocytes # 0.7 K/mcL (0.6-4.6); Lymphocytes % 7.8 %; Mean Corpuscular HGB Conc 32.6 g/dL (31.6-35.5); Mean Corpuscular Hemoglobin 28.5 pg (28.0-33.3); Mean Corpuscular Volume 87.4 fL (83.0-100.0); Mean Platelet Volume 8.6 fL (9.4-12.4); Monocytes # 0.7 K/mcL (0.0-1.3); Monocytes % 8.4 %; Neutrophils # 7.2 K/mcL (1.6-8.9); Platelet Count 108 K/mcL (140-400); Red Blood Count 3.58 M/mcL (3.82-4.97); Red Cell Distribution Width 15.7 % (11.5-14.5); Segmented Neutrophils % 81.8 %
[2017-12-18] MEDS: 0.9 % Sodium Chloride 1,000 ML IVC SCH (05:13)
[2017-12-18] MEDS: Pantoprazole 40 MG in 0.9 % Sodium Chloride Mini Bag 100 ML IVC SCH ×2 (05:17→10:03)
--- NOTE | 2017-12-18 06:57 | Event Note ---
Date of Encounter: 12/18/17 Time of Encounter: 02:00 Nurse reported patient vomited at 8 PM which was non-bloody then vomited up blood around 2 AM. Patient's nurse estimated hememesis to be about 100 mL. Hemoglobin 10.2 right after episode, previously 11.3 12/15. Patient was started on Protonix drip. Nurse did not report any more bloody emesis after phenergan was given. Vitals remained stable throughout.
[2017-12-18] MEDS: Nicotine 21 MG PATCH.TD24 TD SCH (07:39)
[2017-12-18] MEDS: Tiotropium 18 MCG inhalation IH SCH (07:43)
[2017-12-18] MEDS: Budesonide/Formoterol 160/4.5 MDI IH SCH ×2 (07:44→23:30)
[2017-12-18] MEDS: BuPROPion SR (12 HR) 150 MG TABLET PO SCH ×2 (07:46→20:47)
[2017-12-18] MEDS: Gabapentin 300 MG CAPSULE PO SCH ×2 (07:46→20:47)
[2017-12-18] MEDS: levoFLOXacin 500 MG TABLET PO SCH (07:46)
[2017-12-18] MEDS: *HR* Morphine Sulfate SR (12 HR) 100 MG TABLET.ER PO SCH ×2 (07:46→15:13)
[2017-12-18] MEDS: Albuterol 2.5 MG/3 ML NEBULIZER IH PRN (07:53)
[2017-12-18] MEDS: *HR* OxyCODONE Immed Rel 15 MG TABLET PO SCH ×4 (09:38→20:47)
--- NOTE | 2017-12-18 13:22 | Palliative Progress Note ---
Date of Encounter: 12/18/17 Time of Encounter: 12:00 - Assessment and plan (1) Cancer related pain Current Visit: No Status: Chronic Assessment and plan: Her pain has not been that well controlled, but in review of medication record, she is not getting much breakthrough medication (2 last 24 hours). Spoke with pt - will change from PRN to scheduled to ensure she is being offered this every 4 hours. Monitor. Continue MS Contin 100 every 8 hours (2) Anxiety Current Visit: No Status: Chronic Assessment and plan: Continue Lorazepam PRN. (3) Goals of care, counseling/discussion Current Visit: No Status: Acute Assessment and plan: Spoke with Lupe Fisher NP Oncology. Dr. Starkey will be by this evening to see pt after clinic. Dr. Mota aware. [facility] already has pt info for referral. After oncology visit - if she desires hospice, they are aware and can do admission this weekend. If she desires home health, this will be [place] as well. call or contact centre team leader clinical social work therapist aware, and home care aware she may discharge this weekend. (4) Hemoptysis Current Visit: Yes Status: Resolved (5) Non-small cell cancer of left lung Current Visit: No Status: Chronic (6) Bladder cancer metastasized to intrapelvic lymph nodes Current Visit: Yes Status: Chronic - Time Spent With Patient Total time spent is greater than 50% in coordination of care (as documented) at patient's floor/unit and/or counseling patient: - Subjective Interval history: Patient awake and alert. Some vomiting last night, improved this am. Did tolerate some breakfast. She is having increased discomfort in lower neck/ shoulder mass - X-ray completed last pm. Continues with hematuria. - Constitutional Vitals: Abnormal lab results RBC 3.58 M/mcL (3.82-4.97) L 12/18/17 03:09 Hgb 10.2 g/dL (11.5-15.4) L 12/18/17 03:09 Hct 31.3 % (35.3-44.9) L 12/18/17 03:09 RDW 15.7 % (11.5-14.5) H 12/18/17 03:09 Plt Count 108 K/mcL (140-400) L 12/18/17 03:09 MPV 8.6 fL (9.4-12.4) L 12/18/17 03:09 PT 12.2 Seconds (9.4-12.1) H 12/15/17 05:17 D-Dimer 5663 ng/mLFEU (0-500) H 12/15/17 05:17 Sodium 135 mEq/L (136-145) L 12/16/17 07:39 BUN 6 mg/dL (8-23) L 12/16/17 07:39 Creatinine 0.35 mg/dL (0.60-1.20) L 12/16/17 07:39 Calculated Osmolality 277 (280-300) L 12/16/17 07:39 Calcium 8.1 mg/dL (8.6-10.3) L 12/16/17 07:39 ALT 4 Units/L (7-52) L 12/15/17 05:17 Alkaline Phosphatase 171 Units/L (34-104) H 12/15/17 05:17 Serum Total Protein 5.3 g/dL (6.4-8.9) L 12/15/17 05:17 Albumin 2.6 g/dL (3.5-5.7) L 12/15/17 05:17 Albumin/Globulin Ratio 1.0 (1.1-2.2) L 12/15/17 05:17 Lipase < 3 Units/L (11-82) L 12/15/17 05:17 Ur Specimen Adequacy See below A 12/17/17 11:00 Urine Color Red (Yellow) A 12/17/17 11:00 Urine Clarity Cloudy (Clear) A 12/17/17 11:00 Urine Protein 100 mg/dL (Neg-Trace) H 12/17/17 11:00 Urine Blood Large (Negative) H 12/17/17 11:00 Ur Leukocyte Esterase Trace (Negative) H 12/17/17 11:00 Ur Culture Indicated? YES (NO) A 12/17/17 11:00 Vancomycin Trough < 2 mcg/mL (5-10) L 12/16/17 07:39 General appearance: Present: no acute distress - Respiratory Additional comments: Breath sounds course with occasional wheezes. - Cardiovascular Cardiovascular exam: Present: +S1, +S2 - GI/Abdominal GI/Abdominal exam: Present: diminished bowel sounds, soft - Extremities Exam Extremities exam: Present: normal capillary refill, normal inspection - Neurological Exam Neurological exam: Present: alert, oriented X3, strengths equal and symetr throughout - Psychiatric Psychiatric exam: Present: normal affect, normal mood - Skin Skin exam: Present: dry (Mass left of left shoulder/lower neck area), pallor, warm Palliative Quality Palliative Quality: Screen for Code Status: Yes, Screen for Goals of Care: Yes, Screen for Pain: Yes, If Pain Regimen Started, Initiate Bowel Regimen: Yes (Pt c /o loose stools), Screen for Nausea/Vomitting: Yes - Labs CBC & Chem 7: 12/18/17 03:09 12/16/17 07:39 Labs: Laboratory Results - last 24 hr 12/18/17 03:09 WBC 8.8 RBC 3.58 L Hgb 10.2 L Hct 31.3 L MCV 87.4 MCH 28.5 MCHC 32.6 RDW 15.7 H Plt Count 108 L MPV 8.6 L Immature Gran % 1.5 Seg Neutrophils % 81.8 Lymphocytes % 7.8 Monocytes % 8.4 Eosinophils % 0.2 Basophils % 0.3 Neutrophils # 7.2 Lymphocytes # 0.7 Monocytes # 0.7 Eosinophils # 0.0 Basophils # 0.0 - Impressions Impressions Soft Tissue Neck X-Ray 12/17/17 14:20 IMPRESSION: Soft tissue prominence along the posterior aspect of the lower neck. No gas or radiopaque foreign body is identified in that region. If there is concern for a mass, fluid collections, or abscesses, consider further evaluation with CT with contrast. D/ / Shady Luz MD / Shady Luz MD Interpreting Provider: Shady Luz MD - ABG Interpretation ABG results: PT/INR, D-dimer PT 12.2 Seconds (9.4-12.1) H 12/15/17 05:17 D-Dimer 5663 ng/mLFEU (0-500) H 12/15/17 05:17 Consult Discharge Plan - Plan Referrals: Christiana Starkey MD [Primary Care Provider] - Martina Lopez [Family Provider] -
[2017-12-18] MEDS: GuaiFENesin Liq 200 MG/10 ML UDC PO PRN (15:13)
[2017-12-18] MEDS: Pantoprazole 40 MG VIAL IVP SCH (16:48)
--- NOTE | 2017-12-18 17:14 | Internal Med Progress Note ---
Date of Encounter: 12/18/17 Time of Encounter: 11:45 - Assessment and plan (1) Localized swelling, mass and lump, neck Current Visit: Yes Status: Acute Assessment and plan: ?Inflamed sebaceous cyst versus lipoma. XRay shows Soft tissue prominence along the posterior aspect of the lower neck. Recommend CT neck with IV contrast but she is allergic to IV contrast; Supportive care and pain control. Awaiting oncology follow-up with ; Anticipate discharge in a.m. after final decision regarding goals of care. Home health services set up. Discussed with palliative care, may be switched to home hospice if patient is agreeable. (2) Bladder cancer metastasized to intrapelvic lymph nodes Current Visit: Yes Status: Chronic Assessment and plan: Patient has known history of metastatic bladder cancer, follows with oncology as outpatient. Case discussed with oncology, patient will follow-up with Dr. Starkey. Current hematuria and hemoptysis are related to cancer. Continue to monitor hemoglobin; Palliative care on board, patient is not willing to consider hospice care at this time. CODE STATUS is DNR comfort care arrest/DNI. Physical and occupational therapy evaluation recommended ECF placement. special services coordinator on board, however patient declined placement. Plan to discharge home with home health services.. (3) COPD (chronic obstructive pulmonary disease) Current Visit: Yes Status: Chronic Qualifiers: COPD type: chronic bronchitis Chronic bronchitis type: simple Qualified Code(s): J41.0 - Simple chronic bronchitis (4) DVT prophylaxis Current Visit: Yes Status: Acute (5) GERD (gastroesophageal reflux disease) Current Visit: Yes Status: Chronic Qualifiers: Esophagitis presence: esophagitis presence not specified Qualified Code(s) : K21.9 - Gastro-esophageal reflux disease without esophagitis (6) Hemoptysis Current Visit: Yes Status: Resolved (7) Hematuria Current Visit: Yes Status: Acute Qualifiers: Hematuria type: gross Qualified Code(s): R31.0 - Gross hematuria (8) Postobstructive pneumonia Current Visit: Yes Status: Acute (9) Elevated d-dimer Current Visit: Yes Status: Acute (10) Hypokalemia Current Visit: Yes Status: Resolved (11) Anemia Current Visit: Yes Status: Chronic Qualifiers: Anemia type: unspecified type Qualified Code(s): D64.9 - Anemia, unspecified - Time Spent With Patient Total time spent is greater than 50% in coordination of care (as documented) at patient's floor/unit and/or counseling patient: - Subjective Interval history: Continues to have painful small neck swelling, not increased in size. Also had 2-3 episodes of vomiting last night, some of them bloody. Feeling better today. No fever/chills, chest pain, shortness of breath. Continues to have dry cough. - Constitutional Vitals: Temp Pulse Resp BP Pulse Ox 98.2 F 84 16 109/70 96 12/18/17 15:38 12/18/17 15:38 12/18/17 15:38 12/18/17 15:38 12/18/17 15:38 General appearance: Present: A&O X 3, answers questions appropriately - Respiratory Respiratory exam: Present: CTAB (coarse rhonchurous breath sounds B/L), rhonchi. Absent: accessory muscle use, rales, wheezes - Cardiovascular Cardiovascular exam: Present: RRR, +S1, +S2. Absent: diastolic murmur, gallop, rubs, systolic murmur Internal Medicine: Result - Labs CBC & Chem 7: 12/18/17 03:09 12/16/17 07:39 Labs: Short CBC 12/18/17 Range/Units 03:09 WBC 8.8 (4.3-11.1) K/mcL Hgb 10.2 L (11.5-15.4) g/dL Hct 31.3 L (35.3-44.9) % Plt Count 108 L (140-400) K/mcL Neutrophils # 7.2 (1.6-8.9) K/mcL - ABG Interpretation ABG results: PT/INR, D-dimer PT 12.2 Seconds (9.4-12.1) H 12/15/17 05:17 D-Dimer 5663 ng/mLFEU (0-500) H 12/15/17 05:17 - Impressions Impressions Soft Tissue Neck X-Ray 12/17/17 14:20 IMPRESSION: Soft tissue prominence along the posterior aspect of the lower neck. No gas or radiopaque foreign body is identified in that region. If there is concern for a mass, fluid collections, or abscesses, consider further evaluation with CT with contrast. D/ / Shady Luz MD / Shady Luz MD Interpreting Provider: Shady Luz MD - VTE Reasons for not Prescribing Prophylaxis: Medical contraindication (Anemia, Hemoptysis, Hematuria) Documentation of Mechanical Device: Intermittent pneumatic compression device Consult Discharge Plan - Plan Referrals: Christiana Starkey MD [Primary Care Provider] - Martina Lopez [Family Provider] -
--- NOTE | 2017-12-18 18:29 | Oncology Inp Progress Note ---
<Lupe Fisher Adri - Last Filed: 12/20/17 09:31> Date of Encounter: 12/18/17 Time of Encounter: 17:30 (1) Primary lung adenocarcinoma Current Visit: No Status: Chronic Assessment and plan: Continue supportive treatment. Following discussion with Dr. Starkey, patient wishes to return home with home healthcare. Will arrange appointment with rad onc for consideration of palliative radiotherapy to bladder mass and soft tissue mass on left shoulder. Discuss in tumor board next week-consider targeted treatment-send for Next Gen Sequencing/BRAF Radiographic eveidence of recent progression on immunotherapy with Nivolumab, Dr. Starkey considering chemotherapy on outpatient basis Dr. Starkey wishes to consult pulmonology for any recommendations regarding relief of symptoms related to lung metastases progression, recommendation on role for bronch, hemoptysis Hgb remains stable despite continued hematuria. Denies hemoptysis today but this has been intermittent and ongoing. Qualifiers: Laterality: left Qualified Code(s): C34.92 - Malignant neoplasm of unspecified part of left bronchus or lung Oncology: Subj Interval history: Ms. Siddiqui is resting in bed. Pain controlled. Reports pain mainly to area on posterior left upper shoulder secondary to soft tissue mass. Continues to experience hematuria. - Constitutional Vitals: Vital Signs Temp Pulse Resp BP Pulse Ox 12/18/17 15:38 98.2 F 84 16 109/70 96 12/18/17 07:53 18 97 12/18/17 07:48 96 12/18/17 07:43 18 97 12/18/17 06:51 97.6 F 72 18 118/74 96 12/18/17 01:08 98.5 F 92 18 137/79 94 12/17/17 19:42 16 95 Intake and Output 12/18/17 12/18/17 12/18/17 07:59 15:59 23:59 Intake Total 1450 / 1450 340 / 340 240 / 240 Output Total 1999 / 1999 620 / 620 500 / 500 Balance -550 / -550 -280 / -280 -260 / -260 Intake: IV Fluids 1000 / 1000 100 / 100 0.9 % Sodium Chloride 1,000 ML 1000 / 1000 @ 75 mls/hr IVC .[id number] [facility] Rx #:[id number] Protonix 40 MG In 0.9 % Sodium 100 / 100 Chloride (Mini-Bag +) 100 ML @ 20 mls/hr IVC .Q5H [facility] Rx#: [id number] Oral 450 / 450 240 / 240 240 / 240 Output: Urine 1900 / 1900 620 / 620 500 / 500 Emesis 100 / 100 Other: Meal Lunch Dinner Percent of Meal Consumed 40% 35% # Voids 3 Weight 63 kg Patient Weight 12/18/17 23:59 Weight 63 kg General appearance: cooperative, no acute distress, no febrile - Head Head exam: Present: atraumatic - ENT ENT exam: Present: mucous membranes moist - Respiratory Respiratory exam: Present: decreased breath sounds, rhonchi. Absent: respiratory distress - Cardiovascular Cardiovascular exam: Present: RRR, +S1, +S2 - GI/Abdominal GI/Abdominal exam: Present: normal bowel sounds, soft. Absent: tenderness - Extremities Exam Extremities exam: Absent: calf tenderness - Neurological Exam Neurological exam: Present: alert, oriented X3, no focal deficits, strengths equal and symetr throughout - Psychiatric Psychiatric exam: Present: normal affect, normal mood - Skin Skin exam: Present: dry, intact, normal color, warm Oncology: Obj Data - Labs CBC & Chem 7: 12/20/17 04:13 12/20/17 04:13 - Impressions Impressions Soft Tissue Neck X-Ray 12/17/17 14:20 IMPRESSION: Soft tissue prominence along the posterior aspect of the lower neck. No gas or radiopaque foreign body is identified in that region. If there is concern for a mass, fluid collections, or abscesses, consider further evaluation with CT with contrast. D/ / Shady Luz MD / Shady Luz MD Interpreting Provider: Shady Luz MD - ABG Interpretation ABG results: PT/INR, D-dimer PT 12.2 Seconds (9.4-12.1) H 12/15/17 05:17 D-Dimer 5663 ng/mLFEU (0-500) H 12/15/17 05:17 Consult Discharge Plan - Plan Referrals: Christiana Starkey MD [Primary Care Provider] - Martina Lopez [Family Provider] - <Christiana Starkey - Last Filed: 12/21/17 10:29> Date of Encounter: 12/21/17 - Constitutional Vitals: Vital Signs Temp Pulse Resp BP Pulse Ox 12/18/17 19:10 99.1 F 90 16 91/65 96 12/18/17 15:38 98.2 F 84 16 109/70 96 12/18/17 07:53 18 97 12/18/17 07:48 96 12/18/17 07:43 18 97 12/18/17 06:51 97.6 F 72 18 118/74 96 12/18/17 01:08 98.5 F 92 18 137/79 94 Intake and Output 12/18/17 12/18/17 12/18/17 07:59 15:59 23:59 Intake Total 1450 / 1450 340 / 340 240 / 240 Output Total 1999 / 1999 620 / 620 500 / 500 Balance -550 / -550 -280 / -280 -260 / -260 Intake: IV Fluids 1000 / 1000 100 / 100 0.9 % Sodium Chloride 1,000 ML 1000 / 1000 @ 75 mls/hr IVC .[id number] [facility] Rx #:[id number] Protonix 40 MG In 0.9 % Sodium 100 / 100 Chloride (Mini-Bag +) 100 ML @ 20 mls/hr IVC .Q5H [facility] Rx#: [id number] Oral 450 / 450 240 / 240 240 / 240 Output: Urine 1900 / 1900 620 / 620 500 / 500 Emesis 100 / 100 Other: Meal Lunch Dinner Percent of Meal Consumed 40% 35% # Voids 3 Weight 63 kg Patient Weight 12/18/17 23:59 Weight 63 kg Oncology: Obj Data - Labs CBC & Chem 7: 12/21/17 04:53 12/20/17 04:13 Labs: Laboratory Results - last 24 hr 12/18/17 03:09 WBC 8.8 RBC 3.58 L Hgb 10.2 L Hct 31.3 L MCV 87.4 MCH 28.5 MCHC 32.6 RDW 15.7 H Plt Count 108 L MPV 8.6 L Immature Gran % 1.5 Seg Neutrophils % 81.8 Lymphocytes % 7.8 Monocytes % 8.4 Eosinophils % 0.2 Basophils % 0.3 Neutrophils # 7.2 Lymphocytes # 0.7 Monocytes # 0.7 Eosinophils # 0.0 Basophils # 0.0 - Impressions Impressions Soft Tissue Neck X-Ray 12/17/17 14:20 IMPRESSION: Soft tissue prominence along the posterior aspect of the lower neck. No gas or radiopaque foreign body is identified in that region. If there is concern for a mass, fluid collections, or abscesses, consider further evaluation with CT with contrast. D/ / Shady Luz MD / Shady Luz MD Interpreting Provider: Shady Luz MD - ABG Interpretation ABG results: PT/INR, D-dimer PT 12.2 Seconds (9.4-12.1) H 12/15/17 05:17 D-Dimer 5663 ng/mLFEU (0-500) H 12/15/17 05:17 - Attending Attestation I examined this patient and my medical decision-making was reviewed with the Advanced Practice Nurse. I agree with the documented findings, disposition and treatment plan as described except to the extent set forth below. 1. Muscle invasive bladder cancer and metastatic non-small cell lung carcinoma . She had multiple lines of treatment and she is been on nivolumab since August 2015 On 10/08/17 Brain MRI showed Multiple new hemorrhagic intraparenchymal metastases probably involving the left cerebral hemisphere with surrounding vasogenic edema mildly narrowing the left lateral ventricle without midline shift or basal cistern effacement. On 10/16 through 10/27/17 received whole brain radiotherapy, Currently she has disease progression in the lungs and he had also new possible bladder mass. Her main symptoms include pain of the left shoulder where there is a palpable subcutaneous mass about 2.5-3 cm Hematuria May consider palliative radiation to the back of left shoulder for pain control and to the bladder area to control hematuria She also has progression of lung metastasis by recent CAT scan. May consult pulmonary to see bronchoscopy could help Her hemoptysis is off and on. Currently not a major problem and hemoglobin is stable We will also look into other options including next generation sequencing and BRAF mutation testing. We will discuss at thoracic tumor Board on 12/24/2017
[2017-12-19] MEDS: *HR* Morphine Sulfate SR (12 HR) 100 MG TABLET.ER PO SCH ×4 (01:23→23:20)
[2017-12-19] MEDS: *HR* OxyCODONE Immed Rel 15 MG TABLET PO SCH ×6 (02:21→20:16)
[2017-12-19] MEDS: GuaiFENesin Liq 200 MG/10 ML UDC PO PRN ×2 (04:07→20:15)
[2017-12-19] MEDS: Pantoprazole 40 MG VIAL IVP SCH ×2 (06:06→17:02)
--- NOTE | 2017-12-19 06:55 | Pulmonology Consult Note ---
Date of Encounter: 12/19/17 Time of Encounter: 06:54 Assessment and Plan (1) Hemoptysis Current Visit: Yes Status: Resolved This is minor hemoptysis secondary to lung malignancy. Last bronchoscopy that was done approximately 3 months ago was notable for significant endobronchial lesion in the left lower lobe. I reviewed her CT scan from this admission which was notable for enlarging mediastinal metastatic adenopathy with confluence of the left perihilar mass which partially obstruction and date the bronchus intermedius and lower lobe bronchi. At last procedure argon plasma coagulation was performed which seemed to improve symptoms at least temporarily She could be evaluated early part of this next week by my colleague who specializes interventional pulmonary procedures including APC to see if she would benefit I suspect that to some degree her hemoptysis is likely related to acute bronchitis with increased airway inflammation Steroids would likely prove beneficial in this setting and I would recommend starting IV steroids today with likely transition to by mouth formulation over the next 24 hours for prolonged taper (2) COPD exacerbation Current Visit: No Status: Resolved Patient is experiencing COPD exacerbation at present Start IV Solu-Medrol 60 mg twice a day schedule bronchodilators (duo nebs) every 4 hours with every one hour albuterol treatments as necessary Agree with continuation of home long-standing bronchodilators She is currently on Levaquin dose for acute bronchitis which is reasonable and she should not complete at least a 5 day but likely benefit from a longer such a 7 day course (3) Non-small cell cancer of left lung Current Visit: No Status: Chronic The patient has advanced incurable lung cancer and has been general progression of disease despite treatment. Oncology is managing this. She is being evaluated for possible hospice although she has declined to enroll in this program at this time it would be reasonable History of Present Illness Consult date: 12/19/17 Requesting physician: Richard Gallegos Reason for consult: abnormal CXR/CT Chief complaint: Hemoptysis History of present illness: This is a 67-year-old woman with COPD who unfortunately has metastatic lung cancer. She has had persistent hemoptysis and active disease in the left hilum/ left lower lobe of the lung. Despite the use of immunotherapy with Nivollumab she has had progressive disease. She presented to the hospital with increased difficulty in breathing hemoptysis hematuria and also some evidence of hematemesis secondary to vomiting. She has been evaluated by the oncological service who had niyah discussion with the patient that due to the nature of her progressive disease palliative care consultation/hospice referral would be indicated. Pulmonary was consulted to evaluate the patient for palliative bronchoscopy to control hemoptysis. Today the patient states that the thing this bothering her the most that she is having some difficulty breathing and has some pleuritic chest pain has been getting worse over last couple of days and she also feels that she is having a difficult time coughing and expectorating anything. She denies any hemoptysis today or really over the last 24 hours. She has had excellent oxygen saturation on 2 L nasal cannula. Past Med Surg Social Fam HX - Past Medical History Medical history: arthritis, cancer (Metastatic Bladder Cancer), CHF, COPD, peripheral artery disease Additional medical history: Lung cancer Psychiatric history: anxiety, depression, panic disorder - Past Surgical History Surgical History: cancer surgery Additional surgical history: lymphectomy, bladder procedure-scraping, port implated - Social History Smoking Status: Current every day smoker Smokeless Tobacco Status: No Alcohol use: none Drug use: none - Family History Father Family Member Ethnicity: Non- Living Status: Hx Family Respiratory Disorders: Yes (COPD/Emphysema) Mother Family Member Ethnicity: Non- Living Status: Hx Family Cardiac Disorders: Yes (DC, CAD) Hx Family Cancer: Yes (Lung) Brother Family Member Ethnicity: Non- Living Status: Still Living Hx Family Respiratory Disorders: Yes (COPD) Sister Name: Merna Madsen Age: 45 Family Member Ethnicity: Non- Living Status: Still Living Hx Family Cancer: Yes (Melanoma w/metastases) Medications and Allergies Omeprazole [PriLOSEC] 20 mg PO DAILY #30 capsule. 03/23/17 [Rx] Oxycodone HCl [Roxicodone 30] 30 mg PO Q4H PRN 04/14/17 [History] Oxygen 1 l NS HS 04/14/17 [History] Morphine Sulfate SR (12 HR) [MS Contin] 100 mg PO Q8HR 08/18/17 [History] LORazepam [Lorazepam] 1 mg PO BID PRN 7 Days #14 tablet 10/15/17 [Rx] Nicotine Patch [Nicoderm] 21 mg TD DAILY patch.td24 10/15/17 [Rx] Albuterol Sulfate [Ventolin Hfa] 2 puff IH Q4H PRN #1 hfa.aer.ad 11/09/17 [Rx] BuPROPion SR (12 HR) [Wellbutrin SR] 150 mg PO BID #60 tablet.er 11/09/17 [Rx] Budesonide/Formoterol 160/4.5 [Symbicort 160/4.5] 2 puff IH BIDR #1 inhaler 01/20 [Rx] Ipratropium/Albuterol Neb [Duoneb] 3 ml IH Q4HR PRN #30 vial.neb 11/09/17 [Rx] Prochlorperazine Maleate [Compazine] 10 mg PO Q6HR PRN #60 tablet 11/09/17 [Rx] Tiotropium [place] [Spiriva Respimat] 2 puff IH DAILY #1 mist.inhal 11/09/17 [Rx ] Gabapentin [Neurontin] 300 mg PO BID #60 capsule 11/16/17 [Rx] 3 Allergy/AdvReac Type Severity Reaction Status Date / Time Iodinated Contrast- Oral and Allergy Intermediate Hives Verified 11/09/17 11:40 IV Dye Nickel Allergy Mild Hives Verified 11/09/17 11:40 METALS Allergy Hives Uncoded 11/09/17 11:40 All Systems: The remainder of the systems were reviewed and are negative Physical Examination Vital Signs: Vital Signs, Last 4 Hours Temp Pulse Resp Pulse Ox 12/19/17 04:00 97.8 F 98 18 96 General appearance: no acute distress, other (Frail appearing) Eyes: nonicteric ENT: oropharynx moist, other (No thrush) Neck: supple, no lymphadenopathy Effort: normal Auscultation: bilateral: diminished breath sounds (Right greater than left), wheezes (Diffuse expiratory wheezing with prolonged expiratory phase), rhonchi ( Primarily the right lower lung field ) Cardiovascular: regular rate and rhythm Gastrointestinal: normoactive bowel sounds, soft, non-tender Integumentary: other (No rash) Extremities: no cyanosis, no edema, no clubbing Musculoskeletal: no deformities normal mental status, non-focal exam mood appropriate Results - Laboratory Findings CBC and BMP: 12/19/17 06:34 12/16/17 07:39 PT/INR, D-dimer PT 12.2 Seconds (9.4-12.1) H 12/15/17 05:17 D-Dimer 5663 ng/mLFEU (0-500) H 12/15/17 05:17 Abnormal lab findings: Abnormal lab results RBC 3.58 M/mcL (3.82-4.97) L 12/18/17 03:09 Hgb 10.2 g/dL (11.5-15.4) L 12/18/17 03:09 Hct 31.3 % (35.3-44.9) L 12/18/17 03:09 RDW 15.7 % (11.5-14.5) H 12/18/17 03:09 Plt Count 108 K/mcL (140-400) L 12/18/17 03:09 MPV 8.6 fL (9.4-12.4) L 12/18/17 03:09 PT 12.2 Seconds (9.4-12.1) H 12/15/17 05:17 D-Dimer 5663 ng/mLFEU (0-500) H 12/15/17 05:17 Sodium 135 mEq/L (136-145) L 12/16/17 07:39 BUN 6 mg/dL (8-23) L 12/16/17 07:39 Creatinine 0.35 mg/dL (0.60-1.20) L 12/16/17 07:39 Calculated Osmolality 277 (280-300) L 12/16/17 07:39 Calcium 8.1 mg/dL (8.6-10.3) L 12/16/17 07:39 ALT 4 Units/L (7-52) L 12/15/17 05:17 Alkaline Phosphatase 171 Units/L (34-104) H 12/15/17 05:17 Serum Total Protein 5.3 g/dL (6.4-8.9) L 12/15/17 05:17 Albumin 2.6 g/dL (3.5-5.7) L 12/15/17 05:17 Albumin/Globulin Ratio 1.0 (1.1-2.2) L 12/15/17 05:17 Lipase < 3 Units/L (11-82) L 12/15/17 05:17 Ur Specimen Adequacy See below A 12/17/17 11:00 Urine Color Red (Yellow) A 12/17/17 11:00 Urine Clarity Cloudy (Clear) A 12/17/17 11:00 Urine Protein 100 mg/dL (Neg-Trace) H 12/17/17 11:00 Urine Blood Large (Negative) H 12/17/17 11:00 Ur Leukocyte Esterase Trace (Negative) H 12/17/17 11:00 Ur Culture Indicated? YES (NO) A 12/17/17 11:00 Vancomycin Trough < 2 mcg/mL (5-10) L 12/16/17 07:39 - Microbiology Findings Microbiology Findings: Microbiology, Last 48 Hours 12/17/17 Unknown Urine Culture - Preliminary Urine,Clean Catch No growth. - Diagnostic Findings Chest x-ray: report reviewed, image reviewed CT scan - chest: report reviewed, image reviewed - Clinical Findings Intake & Output: Intake & Output 12/18/17 12/18/17 12/19/17 15:59 23:59 07:59 Intake Total 340 / 340 240 / 240 Output Total 620 / 620 700 / 700 200 / 200 Balance -280 / -280 -460 / -460 -200 / -200 Weight 61.689 kg Consult Discharge Plan - Plan Referrals: Christiana Starkey MD [Primary Care Provider] - Martina Lopez [Family Provider] -
[2017-12-19 07:21] LABS: Basophils % 0.3 %; Eosinophils % 0.5 %; Hematocrit 30.7 % (35.3-44.9); Immature Granulocytes % 1.6 % (0-4); Lymphocytes # 0.6 K/mcL (0.6-4.6); Lymphocytes % 8.1 %; Mean Corpuscular HGB Conc 32.6 g/dL (31.6-35.5); Mean Corpuscular Hemoglobin 28.7 pg (28.0-33.3); Mean Platelet Volume 9.1 fL (9.4-12.4); Monocytes # 0.7 K/mcL (0.0-1.3); Monocytes % 8.9 %; Neutrophils # 6.2 K/mcL (1.6-8.9); Platelet Count 122 K/mcL (140-400); Red Blood Count 3.49 M/mcL (3.82-4.97); Red Cell Distribution Width 15.8 % (11.5-14.5); Segmented Neutrophils % 80.6 %
[2017-12-19] MEDS: Nicotine 21 MG PATCH.TD24 TD SCH (07:51)
[2017-12-19] MEDS: levoFLOXacin 500 MG TABLET PO SCH (07:51)
[2017-12-19] MEDS: BuPROPion SR (12 HR) 150 MG TABLET PO SCH ×2 (07:51→20:16)
[2017-12-19] MEDS: Gabapentin 300 MG CAPSULE PO SCH ×2 (07:51→20:15)
[2017-12-19] MEDS: Tiotropium 18 MCG inhalation IH SCH (08:05)
[2017-12-19] MEDS: Budesonide/Formoterol 160/4.5 MDI IH SCH ×2 (08:05→20:49)
[2017-12-19] MEDS: methylPREDNISolone 125 MG/2 ML VIAL IVP SCH ×2 (11:04→17:02)
[2017-12-19] MEDS ORDERED: MethylPREDNISolone 40 MG/ML VIAL IVP SCH (16:00)
--- NOTE | 2017-12-19 16:53 | Internal Med Progress Note ---
Date of Encounter: 12/19/17 Time of Encounter: 11:10 - Assessment and plan (1) Localized swelling, mass and lump, neck Current Visit: Yes Status: Acute Assessment and plan: ?Inflamed sebaceous cyst versus lipoma. XRay shows Soft tissue prominence along the posterior aspect of the lower neck. Recommend CT neck with IV contrast but she is allergic to IV contrast; Supportive care and pain control. (2) Bladder cancer metastasized to intrapelvic lymph nodes Current Visit: Yes Status: Chronic Assessment and plan: Patient has known history of metastatic bladder cancer, follows with oncology as outpatient. Case discussed with oncology, and patien was evaluated by - recommend Pulmonology opinion regarding bronchoscopic APC to control airway bleeding; to discuss at tumor board meeting; Current hematuria and hemoptysis are related to cancer. Continue to monitor hemoglobin- currently stable; Palliative care on board, patient is not willing to consider hospice care at this time. CODE STATUS is DNR comfort care arrest/DNI. Physical and occupational therapy evaluation recommended ECF placement. environmental services supervisor on board, however patient declined placement. Plan to discharge home with home health services.. (3) COPD (chronic obstructive pulmonary disease) Current Visit: Yes Status: Acute Assessment and plan: Ancient is noted to have acute exacerbation of COPD. Started on high-dose IV steroids per pulmonology. Continue breathing treatments and supplemental oxygen. Continue IV Levaquin. Qualifiers: COPD type: chronic bronchitis Chronic bronchitis type: simple Qualified Code(s): J41.0 - Simple chronic bronchitis (4) DVT prophylaxis Current Visit: Yes Status: Acute (5) GERD (gastroesophageal reflux disease) Current Visit: Yes Status: Chronic Qualifiers: Esophagitis presence: esophagitis presence not specified Qualified Code(s) : K21.9 - Gastro-esophageal reflux disease without esophagitis (6) Hemoptysis Current Visit: Yes Status: Resolved Assessment and plan: Pulmonology consult appreciated-possible bronchoscopy after the weekend to attempt EPC for bleeding age vegetations. Patient did have this procedure in the past. (7) Hematuria Current Visit: Yes Status: Acute Qualifiers: Hematuria type: gross Qualified Code(s): R31.0 - Gross hematuria (8) Postobstructive pneumonia Current Visit: Yes Status: Acute Assessment and plan: Patient is not septic at this point, she has been started on oral Levaquin, continue for now. Blood cultures negative. Supportive care and supplemental oxygen. (9) Elevated d-dimer Current Visit: Yes Status: Acute (10) Hypokalemia Current Visit: Yes Status: Resolved (11) Anemia Current Visit: Yes Status: Chronic Assessment and plan: Monitor serial H/H as per above. Currently stable; Transfuse for hemoglobin < 7.0 or symptomatic. Qualifiers: Anemia type: unspecified type Qualified Code(s): D64.9 - Anemia, unspecified - Time Spent With Patient Total time spent is greater than 50% in coordination of care (as documented) at patient's floor/unit and/or counseling patient: - Subjective Interval history: Noted to have significant wheezing and rhonchurous breath sounds today. Continues to have dry cough. No fever, chills, chest pain. Continues to have painful swelling at the back of her neck. Seen by pulmonology, possible bronchoscopy after the weekend. - Constitutional Vitals: Temp Pulse Resp BP Pulse Ox 98.1 F 79 17 121/81 96 12/19/17 15:55 12/19/17 15:55 12/19/17 15:55 12/19/17 15:55 12/19/17 15:55 General appearance: Present: mild distress, A&O X 3, answers questions appropriately - Respiratory Respiratory exam: Present: CTAB (coarse breath sounds B/L with significant wheezing), rhonchi, wheezes. Absent: accessory muscle use, rales - Cardiovascular Cardiovascular exam: Present: RRR, +S1, +S2. Absent: diastolic murmur, gallop, rubs, systolic murmur - GI/Abdominal GI/Abdominal exam: Present: normal bowel sounds, soft, no peritoneal signs. Absent: distended, tenderness - Extremities Exam Extremities exam: Present: full ROM, warm, radial pulses palpable and symmetrical. Absent: calf tenderness, cyanotic, pedal edema - Neurological Exam Neurological exam: Present: CN II-XII intact, oriented X3, no focal deficits. Absent: pronater drift, facial droop, speech deficit Internal Medicine: Result - Labs CBC & Chem 7: 12/20/17 04:13 12/20/17 04:13 Labs: Short CBC 12/19/17 Range/Units 06:34 WBC 7.7 (4.3-11.1) K/mcL Hgb 10.0 L (11.5-15.4) g/dL Hct 30.7 L (35.3-44.9) % Plt Count 122 L (140-400) K/mcL Neutrophils # 6.2 (1.6-8.9) K/mcL - ABG Interpretation ABG results: PT/INR, D-dimer PT 12.2 Seconds (9.4-12.1) H 12/15/17 05:17 D-Dimer 5663 ng/mLFEU (0-500) H 12/15/17 05:17 - VTE Reasons for not Prescribing Prophylaxis: Medical contraindication (Anemia, Hemoptysis, Hematuria) Documentation of Mechanical Device: Intermittent pneumatic compression device Consult Discharge Plan - Plan Referrals: Christiana Starkey MD [Primary Care Provider] - Martina Lopez [Family Provider] -
[2017-12-19] MEDS: Ondansetron 4 MG/2 ML VIAL IVP PRN (17:08)
[2017-12-19] MEDS: Albuterol 2.5 MG/3 ML NEBULIZER IH PRN (20:49)
[2017-12-20] MEDS: *HR* OxyCODONE Immed Rel 15 MG TABLET PO SCH ×6 (02:28→20:54)
[2017-12-20 04:29] LABS: Basophils % 0.3 %; Hematocrit 30.8 % (35.3-44.9); Hemoglobin 9.9 g/dL (11.5-15.4); Immature Granulocytes % 1.9 % (0-4); Lymphocytes # 0.8 K/mcL (0.6-4.6); Lymphocytes % 8.9 %; Mean Corpuscular HGB Conc 32.1 g/dL (31.6-35.5); Mean Corpuscular Hemoglobin 28.6 pg (28.0-33.3); Mean Platelet Volume 8.8 fL (9.4-12.4); Monocytes # 0.9 K/mcL (0.0-1.3); Monocytes % 9.3 %; Neutrophils # 7.4 K/mcL (1.6-8.9); Nucleated Red Blood Cells 0.2 /100 WBC (0); Platelet Count 122 K/mcL (140-400); Red Blood Count 3.46 M/mcL (3.82-4.97); Red Cell Distribution Width 15.7 % (11.5-14.5); Segmented Neutrophils % 79.6 %
[2017-12-20 04:48] LABS: BUN/Creatinine Ratio 9 (6-26); Blood Urea Nitrogen 5 mg/dL (8-23); Calcium 8.8 mg/dL (8.6-10.3); Carbon Dioxide 31 mEq/L (23-29); Chloride 101 mEq/L (98-107); Glucose 110 mg/dL (70-105); Osmolality,Calculated 284 (280-300); Potassium 3.9 mEq/L (3.5-5.1); Sodium 138 mEq/L (136-145); eGFR For African Americans > 60 (> 60); eGFR For Non-African Americans > 60 (> 60)
[2017-12-20] MEDS: methylPREDNISolone 125 MG/2 ML VIAL IVP SCH ×2 (06:34→17:22)
[2017-12-20] MEDS: Pantoprazole 40 MG VIAL IVP SCH ×2 (06:34→17:22)
[2017-12-20] MEDS: GuaiFENesin Liq 200 MG/10 ML UDC PO PRN (06:40)
[2017-12-20] MEDS: levoFLOXacin 500 MG TABLET PO SCH (08:47)
[2017-12-20] MEDS: BuPROPion SR (12 HR) 150 MG TABLET PO SCH ×2 (08:47→20:54)
[2017-12-20] MEDS: *HR* Morphine Sulfate SR (12 HR) 100 MG TABLET.ER PO SCH ×3 (08:47→23:47)
[2017-12-20] MEDS: Gabapentin 300 MG CAPSULE PO SCH ×2 (08:47→20:55)
[2017-12-20] MEDS: Ondansetron 4 MG/2 ML VIAL IVP PRN ×2 (08:48→20:49)
[2017-12-20] MEDS: Nicotine 21 MG PATCH.TD24 TD SCH (08:48)
--- NOTE | 2017-12-20 09:25 | Oncology Inp Progress Note ---
Date of Encounter: 12/20/17 Time of Encounter: 09:00 (1) Non-small cell cancer of left lung Current Visit: No Status: Chronic Assessment and plan: And bladder cancer, status post multiple treatments, cough with hemoptysis, hemoglobin hematocrit is stable (9.9-10g). Pain reported by patient, medications being adjusted per palliative care recommendations. Guaifenesin for cough, not much expectoration reported by patient. Neb Rx Plan discussed with pt and family bedside Oncology: Subj Interval history: She has a cough, congestion occasional hemoptysis denies any shortness of breath the pain is being managed with morphine and oxycodone. - Constitutional Vitals: Vital Signs Temp Pulse Resp BP Pulse Ox 12/20/17 07:25 98.1 F 85 18 116/67 94 12/20/17 04:31 97.6 F 85 18 107/62 94 12/20/17 00:18 97.5 F L 92 18 118/74 95 12/19/17 20:51 14 99 12/19/17 19:00 98.3 F 98 18 131/81 95 12/19/17 15:55 98.1 F 79 17 121/81 96 12/19/17 11:23 98.4 F 90 17 111/65 94 Intake and Output 12/19/17 12/20/17 12/20/17 23:59 07:59 15:59 Intake Total 0 / 0 0 / 0 360 / 360 Output Total 1000 / 1000 1300 / 1300 0 / 0 Balance -1000 / -1000 -1300 / -1300 360 / 360 Intake: Oral 0 / 0 0 / 0 360 / 360 Output: Urine 1000 / 1000 1300 / 1300 0 / 0 Other: Meal Dinner Breakfast Percent of Meal Consumed 0% 70% Weight 60.781 kg Patient Weight 12/20/17 23:59 Weight 60.781 kg General appearance: no acute distress - Head Head exam: Present: atraumatic, normal inspection - Eye Eye exam: Present: sclera anicteric - ENT ENT exam: Present: mucous membranes moist - Neck Neck exam: Present: full ROM - Respiratory Respiratory exam: Present: CTAB, wheezes - Cardiovascular Cardiovascular exam: Present: +S1, +S2 - GI/Abdominal GI/Abdominal exam: Present: normal bowel sounds, soft - Extremities Exam Extremities exam: Present: normal inspection Oncology: Obj Data - Labs CBC & Chem 7: 12/20/17 04:13 12/20/17 04:13 Labs: Laboratory Results - last 24 hr 12/20/17 12/20/17 04:13 04:13 WBC 9.3 RBC 3.46 L Hgb 9.9 L Hct 30.8 L MCV 89.0 MCH 28.6 MCHC 32.1 RDW 15.7 H Plt Count 122 L MPV 8.8 L Immature Gran % 1.9 Seg Neutrophils % 79.6 Lymphocytes % 8.9 Monocytes % 9.3 Eosinophils % 0.0 Basophils % 0.3 Neutrophils # 7.4 Lymphocytes # 0.8 Monocytes # 0.9 Eosinophils # 0.0 Basophils # 0.0 Nucleated RBCs/100 WBC 0.2 H Sodium 138 Potassium 3.9 Chloride 101 Carbon Dioxide 31 H BUN 5 L Creatinine 0.54 L Est GFR ( Amer) > 60 Est GFR (Non-Af Amer) > 60 BUN/Creatinine Ratio 9 Glucose 110 H Calculated Osmolality 284 Calcium 8.8 - ABG Interpretation ABG results: PT/INR, D-dimer PT 12.2 Seconds (9.4-12.1) H 12/15/17 05:17 D-Dimer 5663 ng/mLFEU (0-500) H 12/15/17 05:17 Consult Discharge Plan - Plan Referrals: Christiana Starkey MD [Primary Care Provider] - Martina Loepz [Family Provider] -
[2017-12-20] MEDS: Budesonide/Formoterol 160/4.5 MDI IH SCH ×2 (10:06→19:44)
[2017-12-20] MEDS: Tiotropium 18 MCG inhalation IH SCH (10:06)
[2017-12-20] MEDS: Sennosides 8.6 MG TABLET PO PRN (10:56)
[2017-12-20] MEDS: MORPHINE SUL Oral CONC 10 MG/0.5 ML ORAL.SYG PO PRN ×2 (10:57→16:06)
--- NOTE | 2017-12-20 14:19 | Internal Med Progress Note ---
Date of Encounter: 12/20/17 Time of Encounter: 13:10 - Assessment and plan (1) Localized swelling, mass and lump, neck Current Visit: Yes Status: Acute Assessment and plan: ?Inflamed sebaceous cyst versus lipoma. XRay shows Soft tissue prominence along the posterior aspect of the lower neck. Recommend CT neck with IV contrast but she is allergic to IV contrast; Supportive care and pain control. (2) Bladder cancer metastasized to intrapelvic lymph nodes Current Visit: Yes Status: Chronic Assessment and plan: Patient has known history of metastatic bladder cancer, follows with oncology as outpatient. Case discussed with oncology, and patient was evaluated by - recommend Pulmonology opinion regarding bronchoscopic APC to control airway bleeding; to discuss at tumor board meeting; Continue to monitor hemoglobin- currently stable; continue pain control with long acting Morphine and Oxycodone; will add oral Morphine solution for better control; Palliative care on board, patient is not willing to consider hospice care at this time. CODE STATUS is DNR comfort care arrest/DNI. Patient seems to be in denial at this time; Physical and occupational therapy evaluation recommended ECF placement. environmental services aide on board, however patient declined placement. Plan to discharge home with home health services. (3) COPD (chronic obstructive pulmonary disease) Current Visit: Yes Status: Acute Assessment and plan: Improving; Continue high-dose IV steroids. Continue breathing treatments and supplemental oxygen. Continue IV Levaquin. Qualifiers: COPD type: chronic bronchitis Chronic bronchitis type: simple Qualified Code(s): J41.0 - Simple chronic bronchitis (4) DVT prophylaxis Current Visit: Yes Status: Acute (5) GERD (gastroesophageal reflux disease) Current Visit: Yes Status: Chronic Qualifiers: Esophagitis presence: esophagitis presence not specified Qualified Code(s) : K21.9 - Gastro-esophageal reflux disease without esophagitis (6) Hemoptysis Current Visit: Yes Status: Resolved Assessment and plan: Pulmonology consult appreciated-possible bronchoscopy tomorrow to attempt APC for bleeding airway lesions. Patient did have this procedure in the past. (7) Hematuria Current Visit: Yes Status: Acute Qualifiers: Hematuria type: gross Qualified Code(s): R31.0 - Gross hematuria (8) Postobstructive pneumonia Current Visit: Yes Status: Acute Assessment and plan: Patient is not septic at this point, she has been started on oral Levaquin, continue for now. Blood cultures negative. Supportive care and supplemental oxygen. (9) Elevated d-dimer Current Visit: Yes Status: Acute (10) Hypokalemia Current Visit: Yes Status: Resolved (11) Anemia Current Visit: Yes Status: Chronic Qualifiers: Anemia type: unspecified type Qualified Code(s): D64.9 - Anemia, unspecified - Time Spent With Patient Total time spent is greater than 50% in coordination of care (as documented) at patient's floor/unit and/or counseling patient: - Subjective Interval history: Improving wheezing and shortness of breath today. Reports significant right lower rib pain, not controlled on current medications. Also reports constipation. No nausea, vomiting, abdominal pain, fever, chills. - Constitutional Vitals: Temp Pulse Resp BP Pulse Ox 97.5 F L 95 18 129/75 93 12/20/17 11:39 12/20/17 11:39 12/20/17 11:39 12/20/17 11:39 12/20/17 11:39 General appearance: Present: A&O X 3, answers questions appropriately - Respiratory Respiratory exam: Present: CTAB (coarse rhonchurous breath sounds B/L, improved wheezing). Absent: accessory muscle use, rales, rhonchi, wheezes Additional comments: tenderness over right lower libs - Cardiovascular Cardiovascular exam: Present: RRR, +S1, +S2. Absent: diastolic murmur, gallop, rubs, systolic murmur - GI/Abdominal GI/Abdominal exam: Present: normal bowel sounds, soft, no peritoneal signs. Absent: distended, tenderness Internal Medicine: Result - Labs CBC & Chem 7: 12/20/17 04:13 12/20/17 04:13 Labs: Short CBC 12/20/17 Range/Units 04:13 WBC 9.3 (4.3-11.1) K/mcL Hgb 9.9 L (11.5-15.4) g/dL Hct 30.8 L (35.3-44.9) % Plt Count 122 L (140-400) K/mcL Neutrophils # 7.4 (1.6-8.9) K/mcL BMP 12/20/17 04:13 Sodium 138 Potassium 3.9 Chloride 101 Carbon Dioxide 31 H BUN 5 L Creatinine 0.54 L Glucose 110 H Calcium 8.8 - ABG Interpretation ABG results: PT/INR, D-dimer PT 12.2 Seconds (9.4-12.1) H 12/15/17 05:17 D-Dimer 5663 ng/mLFEU (0-500) H 12/15/17 05:17 - VTE Reasons for not Prescribing Prophylaxis: Medical contraindication (Anemia, Hemoptysis, Hematuria) Documentation of Mechanical Device: Intermittent pneumatic compression device Consult Discharge Plan - Plan Referrals: Christiana Starkey MD [Primary Care Provider] - Martina Lopez [Family Provider] -
[2017-12-21] MEDS: *HR* OxyCODONE Immed Rel 15 MG TABLET PO SCH ×6 (00:40→22:15)
[2017-12-21] MEDS: Ondansetron 4 MG/2 ML VIAL IVP PRN ×2 (02:45→11:15)
[2017-12-21] MEDS: MORPHINE SUL Oral CONC 10 MG/0.5 ML ORAL.SYG PO PRN ×2 (02:45→11:12)
[2017-12-21 05:06] LABS: Basophils % 0.2 %; Hematocrit 31.3 % (35.3-44.9); Hemoglobin 10.2 g/dL (11.5-15.4); Immature Granulocytes % 2.3 % (0-4); Lymphocytes # 0.6 K/mcL (0.6-4.6); Lymphocytes % 5.7 %; Mean Corpuscular HGB Conc 32.6 g/dL (31.6-35.5); Mean Corpuscular Volume 88.9 fL (83.0-100.0); Mean Platelet Volume 8.6 fL (9.4-12.4); Monocytes # 0.8 K/mcL (0.0-1.3); Monocytes % 7.5 %; Neutrophils # 8.9 K/mcL (1.6-8.9); Platelet Count 139 K/mcL (140-400); Red Blood Count 3.52 M/mcL (3.82-4.97); Red Cell Distribution Width 15.6 % (11.5-14.5); Segmented Neutrophils % 84.3 %
[2017-12-21] MEDS: methylPREDNISolone 125 MG/2 ML VIAL IVP SCH ×2 (05:16→17:40)
[2017-12-21] MEDS: Pantoprazole 40 MG VIAL IVP SCH (05:16)
[2017-12-21] MEDS: *HR* Promethazine 25 MG/ML VIAL IVP PRN ×2 (08:26→15:49)
[2017-12-21] MEDS: BuPROPion SR (12 HR) 150 MG TABLET PO SCH ×2 (08:26→22:15)
[2017-12-21] MEDS: Gabapentin 300 MG CAPSULE PO SCH ×2 (08:26→22:16)
[2017-12-21] MEDS: levoFLOXacin 500 MG TABLET PO SCH (08:29)
[2017-12-21] MEDS: Nicotine 21 MG PATCH.TD24 TD SCH (08:31)
[2017-12-21] MEDS: *HR* Morphine Sulfate SR (12 HR) 100 MG TABLET.ER PO SCH ×3 (08:36→23:53)
[2017-12-21] MEDS: Sennosides 8.6 MG TABLET PO PRN (08:56)
--- NOTE | 2017-12-21 09:15 | Palliative Progress Note ---
Date of Encounter: 12/21/17 Time of Encounter: 09:00 - Assessment and plan (1) Nausea & vomiting Current Visit: Yes Status: Acute Assessment and plan: Continue Promethazine/Ondansetron PRN. If new cerebral edema, will most likely need IV Decadron started. (2) Constipation due to opioid therapy Current Visit: Yes Status: Acute Assessment and plan: Increase Senna to 2 tabs bid. Miralax PRN. (3) Cancer related pain Current Visit: No Status: Chronic Assessment and plan: Continue MS Contin and Oxycodone as scheduled. Still states she has had increased pain, may need rotation of opioids, possible conversion to Fentanyl patch, however, she does appear to have some neurological changes this am and will hold off on changed at this time. (4) Anxiety Current Visit: No Status: Chronic Assessment and plan: Continue Lorazepam PRN - has not utilized last 24 hours. (5) Goals of care, counseling/discussion Current Visit: No Status: Acute Assessment and plan: Spoke with Lupe Fisher ELECT[employer] F[employer] OPERATOR and Dr. Mota regarding vomiting and pt with some neurological changes. She has had little changes in her medications, concern with her brain lesions. She is having some constipation - will increase bowel regimen. Continue to follow clinical course. Possible bronch today. (6) Hemoptysis Current Visit: Yes Status: Resolved (7) Non-small cell cancer of left lung Current Visit: No Status: Chronic (8) Bladder cancer metastasized to intrapelvic lymph nodes Current Visit: Yes Status: Chronic - Time Spent With Patient Total time spent is greater than 50% in coordination of care (as documented) at patient's floor/unit and/or counseling patient: - Subjective Interval history: Patient awake - sitting up on side of bed. Her speech is slightly slurred - appears restless and becoming agitated with boyfriend in room. Nurse at bedside reports large amount emesis. She has been NPO for possible bronch today. She states she feels "mixed up". She has taken her socks on and off repeatedly while I was in room. Still c/o pain - states it is "all over" , cannot rate at this time. She does c/o some constipation as well. - Constitutional Vitals: Abnormal lab results RBC 3.52 M/mcL (3.82-4.97) L 12/21/17 04:53 Hgb 10.2 g/dL (11.5-15.4) L 12/21/17 04:53 Hct 31.3 % (35.3-44.9) L 12/21/17 04:53 RDW 15.6 % (11.5-14.5) H 12/21/17 04:53 Plt Count 139 K/mcL (140-400) L 12/21/17 04:53 MPV 8.6 fL (9.4-12.4) L 12/21/17 04:53 Nucleated RBCs/100 WBC 0.2 /100 WBC (0) H 12/20/17 04:13 PT 12.2 Seconds (9.4-12.1) H 12/15/17 05:17 D-Dimer 5663 ng/mLFEU (0-500) H 12/15/17 05:17 Carbon Dioxide 31 mEq/L (23-29) H 12/20/17 04:13 BUN 5 mg/dL (8-23) L 12/20/17 04:13 Creatinine 0.54 mg/dL (0.60-1.20) L 12/20/17 04:13 Glucose 110 mg/dL (70-105) H 12/20/17 04:13 ALT 4 Units/L (7-52) L 12/15/17 05:17 Alkaline Phosphatase 171 Units/L (34-104) H 12/15/17 05:17 Serum Total Protein 5.3 g/dL (6.4-8.9) L 12/15/17 05:17 Albumin 2.6 g/dL (3.5-5.7) L 12/15/17 05:17 Albumin/Globulin Ratio 1.0 (1.1-2.2) L 12/15/17 05:17 Lipase < 3 Units/L (11-82) L 12/15/17 05:17 Ur Specimen Adequacy See below A 12/17/17 11:00 Urine Color Red (Yellow) A 12/17/17 11:00 Urine Clarity Cloudy (Clear) A 12/17/17 11:00 Urine Protein 100 mg/dL (Neg-Trace) H 12/17/17 11:00 Urine Blood Large (Negative) H 12/17/17 11:00 Ur Leukocyte Esterase Trace (Negative) H 12/17/17 11:00 Ur Culture Indicated? YES (NO) A 12/17/17 11:00 Vancomycin Trough < 2 mcg/mL (5-10) L 12/16/17 07:39 General appearance: Present: no acute distress - Respiratory Additional comments: Breath sounds course throughout with occasional wheezing. - Cardiovascular Cardiovascular exam: Present: +S1, +S2 - GI/Abdominal GI/Abdominal exam: Present: normal bowel sounds, soft - Extremities Exam Extremities exam: Present: normal capillary refill, normal inspection - Neurological Exam Additional comments: Oriented to name and place, speech slightly slurred. Restless. Does follow simple commands, but becomes agitated - Psychiatric Psychiatric exam: Present: agitated - Skin Skin exam: Present: dry, pallor, warm Palliative Quality Palliative Quality: Screen for Code Status: Yes, Screen for Goals of Care: Yes, Screen for Pain: Yes, If Pain Regimen Started, Initiate Bowel Regimen: Yes (Pt c /o loose stools), Screen for Nausea/Vomitting: Yes - Labs CBC & Chem 7: 12/21/17 04:53 12/20/17 04:13 Labs: Laboratory Results - last 24 hr 12/21/17 04:53 WBC 10.5 RBC 3.52 L Hgb 10.2 L Hct 31.3 L MCV 88.9 MCH 29.0 MCHC 32.6 RDW 15.6 H Plt Count 139 L MPV 8.6 L Immature Gran % 2.3 Seg Neutrophils % 84.3 Lymphocytes % 5.7 Monocytes % 7.5 Eosinophils % 0.0 Basophils % 0.2 Neutrophils # 8.9 Lymphocytes # 0.6 Monocytes # 0.8 Eosinophils # 0.0 Basophils # 0.0 - ABG Interpretation ABG results: PT/INR, D-dimer PT 12.2 Seconds (9.4-12.1) H 12/15/17 05:17 D-Dimer 5663 ng/mLFEU (0-500) H 12/15/17 05:17 Consult Discharge Plan - Plan Referrals: Christiana Starkey MD [Primary Care Provider] - Martina Lopez [Family Provider] -
--- NOTE | 2017-12-21 09:19 | Anesthesia Evaluation PreOp ---
Date of Encounter: 12/21/17 - Past History Planned Operation: Bronchoscopy Cardiac History: Angina (stable), HTN, Hyperlipidemia Pulmonary History: Smoker (45 years), COPD (home O2 at 2L/min qhs), Other (lung CA) KEY HOLDER History: Other (spine CA, chronic pain) Other Medical History: Diabetes Type II, GERD, Other (bladder CA) Anesthesia History: No Prior Anesthetic Complications, Past Anesthesia Alcohol Use: none Drug use: none Medications and Allergies Omeprazole [PriLOSEC] 20 mg PO DAILY #30 capsule.dr 03/23/17 [Rx] Oxycodone HCl [Roxicodone 30] 30 mg PO Q4H PRN 04/14/17 [History] Oxygen 1 l NS HS 04/14/17 [History] Morphine Sulfate SR (12 HR) [MS Contin] 100 mg PO Q8HR 08/18/17 [History] LORazepam [Lorazepam] 1 mg PO BID PRN 7 Days #14 tablet 10/15/17 [Rx] Nicotine Patch [Nicoderm] 21 mg TD DAILY patch.td24 10/15/17 [Rx] Albuterol Sulfate [Ventolin Hfa] 2 puff IH Q4H PRN #1 hfa.aer.ad 11/09/17 [Rx] BuPROPion SR (12 HR) [Wellbutrin SR] 150 mg PO BID #60 tablet.er 11/09/17 [Rx] Budesonide/Formoterol 160/4.5 [Symbicort 160/4.5] 2 puff IH BIDR #1 inhaler 01/20 [Rx] Ipratropium/Albuterol Neb [Duoneb] 3 ml IH Q4HR PRN #30 vial.neb 11/09/17 [Rx] Prochlorperazine Maleate [Compazine] 10 mg PO Q6HR PRN #60 tablet 11/09/17 [Rx] Tiotropium Cowan [Spiriva Respimat] 2 puff IH DAILY #1 mist.inhal 11/09/17 [Rx ] Gabapentin [Neurontin] 300 mg PO BID #60 capsule 11/16/17 [Rx] 3 Allergy/AdvReac Type Severity Reaction Status Date / Time Iodinated Contrast- Oral and Allergy Intermediate Hives Verified 11/09/17 11:40 IV Dye Nickel Allergy Mild Hives Verified 11/09/17 11:40 METALS Allergy Hives Uncoded 11/09/17 11:40 - Meds/Allergy Pre-op Review Medications Reviewed: Yes Allergies Reviewed: Yes Beta Blockers on Current Med List: No Anesthesia Results - Labs 12/21/17 04:53 12/20/17 04:13 - Imaging EKG: report reviewed (12/15/2017 SINUS TACHYCARDIA) Anesthesia Exam Height: 5'3''/1.6m Weight: 133 lbs/60.7 kg - HEENT Pupil (Motor): EOMI Mallampati: II Teeth: Edentulous Oral Opening: Greater than 3 - KEY HOLDER LOC: Oriented KEY HOLDER Motor: Normal RUE, Normal LUE, Normal RLE, Normal LLE, Normal Face KEY HOLDER Sensory: Normal: RUE, LUE, RLE, LLE, Face - Cardiac Rhythm: Regular Murmur: None - Pulmonary Breath Sounds: bilateral Clear Respiratory Effort: Symmetrical Anesthesia Assess/Plan ASA Score: 3 Modified Eldridge Scale for Level of Consciousness: Cooperative, oriented, and tranquil Anesthetic Plan: MAC Monitoring Plan: Standard Monitors
--- NOTE | 2017-12-21 09:41 | Pulmonology Progress Note ---
Date of Encounter: 12/21/17 Time of Encounter: 08:00 Assessment and Plan (1) Hemoptysis Current Visit: Yes Status: Chronic Patient continued to have hemoptysis and they have discussed with her bronchoscopy for airway inspection and possible intervention. She feels her hemoptysis some improved, and initially she stated she wants to wait but then she wanted bronchoscopy and I have arranged procedure for her, however there is concern about hemorrhagic changes with brain metastases and she will need images first and then decide about the procedure. Patient has poor prognosis and discussed with the family and palliative care is following as well. (2) COPD exacerbation Current Visit: No Status: Suspected Subjective Principal diagnosis: Hempotysis Interval history: Patient continued to have hemoptysis and she has been having vomiting and she is still have blood in her urine. Objective PUL Vital signs: Last Vital Signs Temp 97.9 F 12/21/17 07:29 Pulse 85 12/21/17 07:29 Resp 17 12/21/17 07:29 BP 112/68 12/21/17 07:29 Pulse Ox 90 12/21/17 07:29 General appearance: appears uncomfortable Eyes: nonicteric Neck: supple Effort: mildly labored Auscultation: bilateral: rhonchi Percussion: bilateral: not dull Cardiovascular: regular rate and rhythm Gastrointestinal: normoactive bowel sounds, non-distended Extremities: no cyanosis normal mental status depressed Results - Laboratory Findings CBC and BMP: 12/21/17 04:53 12/20/17 04:13 PT/INR, D-dimer PT 12.2 Seconds (9.4-12.1) H 12/15/17 05:17 D-Dimer 5663 ng/mLFEU (0-500) H 12/15/17 05:17 Abnormal lab findings: Abnormal lab results RBC 3.52 M/mcL (3.82-4.97) L 12/21/17 04:53 Hgb 10.2 g/dL (11.5-15.4) L 12/21/17 04:53 Hct 31.3 % (35.3-44.9) L 12/21/17 04:53 RDW 15.6 % (11.5-14.5) H 12/21/17 04:53 Plt Count 139 K/mcL (140-400) L 12/21/17 04:53 MPV 8.6 fL (9.4-12.4) L 12/21/17 04:53 Nucleated RBCs/100 WBC 0.2 /100 WBC (0) H 12/20/17 04:13 PT 12.2 Seconds (9.4-12.1) H 12/15/17 05:17 D-Dimer 5663 ng/mLFEU (0-500) H 12/15/17 05:17 Carbon Dioxide 31 mEq/L (23-29) H 12/20/17 04:13 BUN 5 mg/dL (8-23) L 12/20/17 04:13 Creatinine 0.54 mg/dL (0.60-1.20) L 12/20/17 04:13 Glucose 110 mg/dL (70-105) H 12/20/17 04:13 ALT 4 Units/L (7-52) L 12/15/17 05:17 Alkaline Phosphatase 171 Units/L (34-104) H 12/15/17 05:17 Serum Total Protein 5.3 g/dL (6.4-8.9) L 12/15/17 05:17 Albumin 2.6 g/dL (3.5-5.7) L 12/15/17 05:17 Albumin/Globulin Ratio 1.0 (1.1-2.2) L 12/15/17 05:17 Lipase < 3 Units/L (11-82) L 12/15/17 05:17 Ur Specimen Adequacy See below A 12/17/17 11:00 Urine Color Red (Yellow) A 12/17/17 11:00 Urine Clarity Cloudy (Clear) A 12/17/17 11:00 Urine Protein 100 mg/dL (Neg-Trace) H 12/17/17 11:00 Urine Blood Large (Negative) H 12/17/17 11:00 Ur Leukocyte Esterase Trace (Negative) H 12/17/17 11:00 Ur Culture Indicated? YES (NO) A 12/17/17 11:00 Vancomycin Trough < 2 mcg/mL (5-10) L 12/16/17 07:39 - Microbiology Findings Microbiology Findings: Microbiology, Last 48 Hours 12/17/17 Unknown Urine Culture - Final Urine,Clean Catch No growth. - Diagnostic Findings CT scan - chest: report reviewed, image reviewed - Clinical Findings Intake & Output: Intake & Output 12/20/17 12/21/17 12/21/17 23:59 07:59 15:59 Intake Total 420 / 420 0 / 0 Output Total 400 / 400 Balance 0 / 0 Weight 60.685 kg - VTE Reasons for not Prescribing Prophylaxis: Medical contraindication (Anemia, Hemoptysis, Hematuria) Documentation of Mechanical Device: Intermittent pneumatic compression device Consult Discharge Plan - Plan Referrals: Christiana Starkey MD [Primary Care Provider] - Martina Lopez [Family Provider] -
[2017-12-21] MEDS ORDERED: Gadolinium Contrast Agent (WT Based) IV PRN (09:42)
--- NOTE | 2017-12-21 09:51 | Oncology Inp Progress Note ---
<Lupe Fisher - Last Filed: 12/21/17 12:59> Date of Encounter: 12/21/17 Time of Encounter: 09:30 (1) Primary lung adenocarcinoma Current Visit: No Status: Chronic Assessment and plan: Neurological changes with vomiting-ordered stat brain MRI wo/w contrast Patient has history of treated hemorrhagic brain mets She is on solumedrol 60 mg [id number] if needed dependant upon MRI findings Hold on bronchoscopy planned for this morning until brain MRI resulted Continue supportive treatment. Following discussion with Dr. Starkey, patient wishes to return home with home healthcare. Will arrange appointment with rad onc for consideration of palliative radiotherapy to bladder mass and soft tissue mass on left shoulder. Consider imaging to soft tissue mass on posterior neck for consideration of palliative radiotherapy-patient cannot have CT contrast-will order ultrasound to rule out fluid collection/abscess per recommendation from Dr. Starkey, although clinical suspicion is low for abscess Discuss in tumor board this week-consider targeted treatment-send for Next Gen Sequencing/BRAF Radiographic evidence of recent progression on immunotherapy with Nivolumab, Dr. Starkey considering chemotherapy on outpatient basis Hgb remains stable despite continued hematuria. Denies hemoptysis today but this has been intermittent and ongoing. Please refer to Dr. Starkey's attestation below for additional details. Qualifiers: Laterality: left Qualified Code(s): C34.92 - Malignant neoplasm of unspecified part of left bronchus or lung Oncology: Subj Interval history: I was notified by Jackie regarding concern for patients neurological changes. Ms. Siddiqui is confused, hallucinating and with slurred speech. She reports she "feels awful" and that "something feels off". She reports pain to the soft tissue mass on her posterior left shoulder. She denies headache or visual changes. She has vomited twice this morning, she reports nausea. She has little attention span and is searching for items in her bed and on her bedside table. She is able to tell me her name, , the year, she could tell me she was in the hospital but could not tell me the name of the hospital. - Constitutional Vitals: Vital Signs Temp Pulse Resp BP Pulse Ox 12/21/17 07:29 97.9 F 85 17 112/68 90 12/21/17 04:08 98.0 F 92 16 118/79 89 12/20/17 23:31 97.8 F 92 16 123/72 94 12/20/17 20:05 97.7 F 89 15 129/77 96 12/20/17 19:46 15 94 12/20/17 16:14 98.1 F 92 15 121/76 94 12/20/17 11:39 97.5 F L 95 18 129/75 93 Intake and Output 12/20/17 12/21/17 12/21/17 23:59 07:59 15:59 Intake Total 420 / 420 0 / 0 Output Total 400 / 400 Balance 0 / 0 Intake: Oral 420 / 420 0 / 0 Output: Urine 400 / 400 Other: Meal NPO Percent of Meal Consumed 0% # Voids 2 Weight 60.685 kg Patient Weight 12/21/17 23:59 Weight 60.685 kg General appearance: disheveled, no acute distress, no febrile - Head Head exam: Present: atraumatic - Eye Eye exam: Present: PERRL - ENT ENT exam: Present: mucous membranes moist - Respiratory Respiratory exam: Present: decreased breath sounds. Absent: respiratory distress - Cardiovascular Cardiovascular exam: Present: RRR, +S1, +S2 - GI/Abdominal GI/Abdominal exam: Present: normal bowel sounds, soft. Absent: guarding, rebound, tenderness - Extremities Exam Extremities exam: Present: normal inspection. Absent: calf tenderness - Neurological Exam Neurological exam: Present: alert, no focal deficits, strengths equal and symetr throughout, speech deficit. Absent: facial droop Additional comments: Inattentive/unable to focus, alert and responds to voice, hallucinating- trying to find items in her sheets, etc. - Psychiatric Psychiatric exam: Present: agitated, anxious - Skin Skin exam: Present: dry, intact, normal color, warm Oncology: Obj Data - Labs CBC & Chem 7: 12/21/17 04:53 12/20/17 04:13 Labs: Laboratory Results - last 24 hr 12/21/17 04:53 WBC 10.5 RBC 3.52 L Hgb 10.2 L Hct 31.3 L MCV 88.9 MCH 29.0 MCHC 32.6 RDW 15.6 H Plt Count 139 L MPV 8.6 L Immature Gran % 2.3 Seg Neutrophils % 84.3 Lymphocytes % 5.7 Monocytes % 7.5 Eosinophils % 0.0 Basophils % 0.2 Neutrophils # 8.9 Lymphocytes # 0.6 Monocytes # 0.8 Eosinophils # 0.0 Basophils # 0.0 - ABG Interpretation ABG results: PT/INR, D-dimer PT 12.2 Seconds (9.4-12.1) H 12/15/17 05:17 D-Dimer 5663 ng/mLFEU (0-500) H 12/15/17 05:17 Consult Discharge Plan - Plan Referrals: Christiana Starkey MD [Primary Care Provider] - Martina Lopez [Family Provider] - <Christiana Starkey - Last Filed: 12/21/17 18:22> Date of Encounter: 12/21/17 - Constitutional Vitals: Vital Signs Temp Pulse Resp BP Pulse Ox 12/21/17 16:15 98.2 F 93 17 117/76 90 12/21/17 11:00 98.7 F 86 16 110/71 90 12/21/17 07:29 97.9 F 85 17 112/68 90 12/21/17 04:08 98.0 F 92 16 118/79 89 12/20/17 23:31 97.8 F 92 16 123/72 94 12/20/17 20:05 97.7 F 89 15 129/77 96 12/20/17 19:46 15 94 Intake and Output 12/21/17 12/21/17 12/21/17 07:59 15:59 23:59 Intake Total 0 / 0 120 / 120 Balance 0 / 0 120 / 120 Intake: Oral 0 / 0 120 / 120 Other: Meal NPO Dinner Percent of Meal Consumed 0% 5% Weight 60.685 kg Patient Weight 12/21/17 23:59 Weight 60.685 kg Oncology: Obj Data - Labs CBC & Chem 7: 12/21/17 04:53 12/20/17 04:13 Labs: Laboratory Results - last 24 hr 12/21/17 04:53 WBC 10.5 RBC 3.52 L Hgb 10.2 L Hct 31.3 L MCV 88.9 MCH 29.0 MCHC 32.6 RDW 15.6 H Plt Count 139 L MPV 8.6 L Immature Gran % 2.3 Seg Neutrophils % 84.3 Lymphocytes % 5.7 Monocytes % 7.5 Eosinophils % 0.0 Basophils % 0.2 Neutrophils # 8.9 Lymphocytes # 0.6 Monocytes # 0.8 Eosinophils # 0.0 Basophils # 0.0 - Impressions Impressions Brain MRI 12/21/17 09:42 IMPRESSION: 1. There are approximately 5 hemorrhagic metastatic lesions which have decreased in size since the previous study suggesting a response to therapy. The edema surrounding these metastatic lesions has also improved. 2. No new metastatic lesions are identified. 3. Mild chronic microvascular white matter ischemic disease is noted both supra and infratentorially. D/ /21/2017 13:52:04 Chris Laguna MD / [facility] Interpreting Provider: Chris Laguna MD - ABG Interpretation ABG results: PT/INR, D-dimer PT 12.2 Seconds (9.4-12.1) H 12/15/17 05:17 D-Dimer 5663 ng/mLFEU (0-500) H 12/15/17 05:17 - Attending Attestation I examined this patient and my medical decision-making was reviewed with the Advanced Practice Nurse. I agree with the documented findings, disposition and treatment plan as described except to the extent set forth below. 1. She is slightly more confused today. MRI brain 12/21/2017 showed treated hemorrhagic metastasis 5 are actually smaller. She is already on on Solu- Medrol 60 mg twice a day through pulmonology 2. We will nodule upper medial back cough order. Ultrasound to characterize that better. Likely metastasis is rather than abscess. May consider palliative radiation to that area 3. Hematuria. May consider palliative radiation to bladder she has a new bladder mass 4. Proceed with next generation sequencing and BRAF mutation testing
[2017-12-21] MEDS: Tiotropium 18 MCG inhalation IH SCH (10:38)
[2017-12-21] MEDS: Budesonide/Formoterol 160/4.5 MDI IH SCH ×2 (10:38→20:10)
[2017-12-21] MEDS ORDERED: Fluconazole 40 MG/ML UDC PO ONE (13:00)
--- NOTE | 2017-12-21 16:03 | Internal Med Progress Note ---
Date of Encounter: 12/21/17 Time of Encounter: 11:45 - Assessment and plan (1) Localized swelling, mass and lump, neck Current Visit: Yes Status: Acute Assessment and plan: ?Inflamed sebaceous cyst versus lipoma. XRay shows Soft tissue prominence along the posterior aspect of the lower neck. Recommend CT neck with IV contrast but she is allergic to IV contrast; Supportive care and pain control. (2) Bladder cancer metastasized to intrapelvic lymph nodes Current Visit: Yes Status: Chronic Assessment and plan: Patient has known history of metastatic bladder cancer, follows with oncology as outpatient. Case discussed with oncology, and patient was evaluated by - recommend Pulmonology opinion regarding bronchoscopic APC to control airway bleeding; to discuss at tumor board meeting; reconsulted oncology today due to worsening clinical condition with weakness, altered mental status, significant nausea and vomiting. Recommend MRI brain with and without contrast. Pulmonology on board for bronchoscopy as mentioned above, which is currently held until after MRI brain. Continue to monitor hemoglobin- currently stable; continue pain control with long acting Morphine and Oxycodone, oral Morphine solution; Palliative care on board, patient is not willing to consider hospice care at this time. CODE STATUS is DNR comfort care arrest/DNI. Patient seems to be in denial at this time; Physical and occupational therapy evaluation recommended ECF placement. real estate services administrator on board, however patient declined placement. Plan to discharge home with home health services. (3) COPD (chronic obstructive pulmonary disease) Current Visit: Yes Status: Acute Assessment and plan: Improving; Taper IV steroids as tolerated. Continue breathing treatments and supplemental oxygen. Continue IV Levaquin. Qualifiers: COPD type: chronic bronchitis Chronic bronchitis type: simple Qualified Code(s): J41.0 - Simple chronic bronchitis (4) DVT prophylaxis Current Visit: Yes Status: Acute (5) GERD (gastroesophageal reflux disease) Current Visit: Yes Status: Chronic Qualifiers: Esophagitis presence: esophagitis presence not specified Qualified Code(s) : K21.9 - Gastro-esophageal reflux disease without esophagitis (6) Hemoptysis Current Visit: Yes Status: Chronic (7) Hematuria Current Visit: Yes Status: Acute Qualifiers: Hematuria type: gross Qualified Code(s): R31.0 - Gross hematuria (8) Postobstructive pneumonia Current Visit: Yes Status: Acute Assessment and plan: Patient is not septic at this point, she has been started on oral Levaquin, continue for now. Blood cultures negative. Supportive care and supplemental oxygen. (9) Elevated d-dimer Current Visit: Yes Status: Acute (10) Hypokalemia Current Visit: Yes Status: Resolved (11) Anemia Current Visit: Yes Status: Chronic Qualifiers: Anemia type: unspecified type Qualified Code(s): D64.9 - Anemia, unspecified - Time Spent With Patient Total time spent is greater than 50% in coordination of care (as documented) at patient's floor/unit and/or counseling patient: - Subjective Interval history: Noted to be weak today, not talkative. Reports multiple episodes of bilious vomiting, occasionally bloody. Also noted to have some confusion and slurred speech earlier, although she is oriented now. No fever, chills, shortness of breath. Continues to have right-sided rib pain and neck pain. - Constitutional Vitals: Temp Pulse Resp BP Pulse Ox 98.7 F 86 16 110/71 90 12/21/17 11:12/21/17 11:12/21/17 11:00 12/21/17 11:12/21/17 11:00 General appearance: Present: A&O X 3, answers questions appropriately - Respiratory Respiratory exam: Present: CTAB (coarse breath sounds, much improved wheezing). Absent: accessory muscle use, rales, rhonchi, wheezes - Cardiovascular Cardiovascular exam: Present: RRR, +S1, +S2. Absent: diastolic murmur, gallop, rubs, systolic murmur - GI/Abdominal GI/Abdominal exam: Present: normal bowel sounds, soft, no peritoneal signs. Absent: distended, tenderness - Extremities Exam Extremities exam: Present: full ROM, warm, radial pulses palpable and symmetrical. Absent: calf tenderness, cyanotic, pedal edema - Neurological Exam Neurological exam: Present: CN II-XII intact, oriented X3, no focal deficits. Absent: pronater drift, facial droop, speech deficit Internal Medicine: Result - Labs CBC & Chem 7: 12/21/17 04:53 12/20/17 04:13 Labs: Short CBC 12/21/17 Range/Units 04:53 WBC 10.5 (4.3-11.1) K/mcL Hgb 10.2 L (11.5-15.4) g/dL Hct 31.3 L (35.3-44.9) % Plt Count 139 L (140-400) K/mcL Neutrophils # 8.9 (1.6-8.9) K/mcL - ABG Interpretation ABG results: PT/INR, D-dimer PT 12.2 Seconds (9.4-12.1) H 12/15/17 05:17 D-Dimer 5663 ng/mLFEU (0-500) H 12/15/17 05:17 - Impressions Impressions Brain MRI 12/21/17 09:42 IMPRESSION: 1. There are approximately 5 hemorrhagic metastatic lesions which have decreased in size since the previous study suggesting a response to therapy. The edema surrounding these metastatic lesions has also improved. 2. No new metastatic lesions are identified. 3. Mild chronic microvascular white matter ischemic disease is noted both supra and infratentorially. D/ /21/2017 13:52:04 Chris Laguna MD / [facility] Interpreting Provider: Chris Laguna MD - VTE Reasons for not Prescribing Prophylaxis: Medical contraindication (Anemia, Hemoptysis, Hematuria) Documentation of Mechanical Device: Intermittent pneumatic compression device Consult Discharge Plan - Plan Referrals: Christiana Starkey MD [Primary Care Provider] - Martina Lopez [Family Provider] -
[2017-12-21] MEDS: Sennosides/Docusate Sodium TABLET PO SCH (22:16)
[2017-12-22] MEDS: *HR* OxyCODONE Immed Rel 15 MG TABLET PO SCH ×6 (01:47→21:38)
[2017-12-22] MEDS: methylPREDNISolone 125 MG/2 ML VIAL IVP SCH ×2 (05:36→17:20)
[2017-12-22] MEDS: Gabapentin 300 MG CAPSULE PO SCH ×2 (07:46→21:39)
[2017-12-22] MEDS: BuPROPion SR (12 HR) 150 MG TABLET PO SCH ×2 (07:46→21:38)
[2017-12-22] MEDS: Sennosides/Docusate Sodium TABLET PO SCH ×2 (07:46→21:39)
[2017-12-22] MEDS: *HR* Morphine Sulfate SR (12 HR) 100 MG TABLET.ER PO SCH ×2 (07:47→16:00)
[2017-12-22] MEDS: Fluconazole 40 MG/ML UDC PO SCH (07:48)
[2017-12-22] MEDS: Tiotropium 18 MCG inhalation IH SCH (07:48)
[2017-12-22] MEDS: Budesonide/Formoterol 160/4.5 MDI IH SCH ×2 (07:49→20:31)
--- NOTE | 2017-12-22 08:16 | Internal Med Progress Note ---
Date of Encounter: 12/22/17 Time of Encounter: 08:15 - Assessment and plan (1) Primary lung adenocarcinoma Current Visit: No Status: Chronic Assessment and plan: Oncology following. Plan NextGen sequencing/BRAF. Outpatient chemotherapy. Palliative radiotherapy outpatient to blaader mas and soft tissue mass on left shoulder. Bronchoscopy in am Qualifiers: Laterality: left Qualified Code(s): C34.92 - Malignant neoplasm of unspecified part of left bronchus or lung (2) Hemoptysis Current Visit: Yes Status: Chronic Assessment and plan: Pulmonology consult appreciated-possible bronchoscopy tomorrow to attempt APC for bleeding airway lesions. Procedure was unable to be done yesterday 2/2 to AMS. Patient will be NPO from midnight. (3) Acute encephalopathy Current Visit: Yes Status: Acute Assessment and plan: MRI showed 5 hemorrhagic metstatic lesions which have decreased in size with no new metastatic lesion. patient is alert and oriented this am x 3 (4) Bladder cancer metastasized to intrapelvic lymph nodes Current Visit: Yes Status: Chronic Assessment and plan: Patient has known history of metastatic bladder cancer, follows with oncology as outpatient. Continue to monitor hemoglobin- currently stable; continue pain control with long acting Morphine and Oxycodone, oral Morphine solution; Palliative care on board, patient is not willing to consider hospice care at this time. CODE STATUS is DNR comfort care arrest/DNI. Patient seems to be in denial at this time; Physical and occupational therapy evaluation recommended ECF placement. social services manager on board, however patient declined placement. Plan to discharge home with home health services once clear from pulmonary and oncology standpoint (5) COPD (chronic obstructive pulmonary disease) Current Visit: Yes Status: Acute Assessment and plan: Improving; Taper IV steroids as tolerated. Continue breathing treatments and supplemental oxygen. Qualifiers: COPD type: chronic bronchitis Chronic bronchitis type: simple Qualified Code(s): J41.0 - Simple chronic bronchitis (6) DVT prophylaxis Current Visit: Yes Status: Acute Assessment and plan: Start SCDs. Will defer anticoagulation at this time due to anemia and active bleeding. (7) GERD (gastroesophageal reflux disease) Current Visit: Yes Status: Chronic Assessment and plan: Omeprazole PO as per above. Qualifiers: Esophagitis presence: esophagitis presence not specified Qualified Code(s) : K21.9 - Gastro-esophageal reflux disease without esophagitis (8) Hematuria Current Visit: Yes Status: Acute Assessment and plan: Chronic. Likely related to bladder cancer. Heme/onc consulted as per above. Monitor serial H/H. Repeat CBC in AM. Will obtain UA. Qualifiers: Hematuria type: gross Qualified Code(s): R31.0 - Gross hematuria (9) Postobstructive pneumonia Current Visit: Yes Status: Acute Assessment and plan: Patient is not septic at this point, she has been started on oral Levaquin, continue for now. Blood cultures negative. Supportive care and supplemental oxygen. (10) Elevated d-dimer Current Visit: Yes Status: Acute Assessment and plan: Elevated d-dimer noted along with abnormal ventilation perfusion lung scan. These abnormalities are most likely related to her underlying metastatic lung cancer rather than new pulmonary embolism. Continue supportive care. (11) Hypokalemia Current Visit: Yes Status: Resolved Assessment and plan: Give KCl 40 mEq PO once. Recheck BMP and magnesium in AM. (12) Anemia Current Visit: Yes Status: Chronic Assessment and plan: Monitor serial H/H as per above. Currently stable; Transfuse for hemoglobin < 7.0 or symptomatic. Qualifiers: Anemia type: unspecified type Qualified Code(s): D64.9 - Anemia, unspecified (13) Localized swelling, mass and lump, neck Current Visit: Yes Status: Acute Assessment and plan: ?Inflamed sebaceous cyst versus lipoma. XRay shows Soft tissue prominence along the posterior aspect of the lower neck. Recommend CT neck with IV contrast but she is allergic to IV contrast; Supportive care and pain control. - Time Spent With Patient Total time spent is greater than 50% in coordination of care (as documented) at patient's floor/unit and/or counseling patient: - Subjective Interval history: No acute events overnight - Constitutional Vitals: Temp Pulse Resp BP Pulse Ox 97.7 F 94 18 126/79 92 12/22/17 08:00 12/22/17 08:00 12/22/17 08:00 12/22/17 08:00 12/22/17 08:00 General appearance: Present: A&O X 3, answers questions appropriately Exam: cachectic elderly female - Head Head exam: Present: atraumatic, normocephalic - Eye Eye exam: Present: PERRL, conjuntiva pink, sclera anicteric Pupils: Present: PERRL - Neck Neck exam general surgery: Present: supple, trachea midline. Absent: lymphadenopathy - Respiratory Respiratory exam: Absent: accessory muscle use, rales, rhonchi, wheezes Additional comments: coarse breath sounds, mild wheezes - Cardiovascular Cardiovascular exam: Present: RRR, +S1, +S2. Absent: diastolic murmur, gallop, rubs, systolic murmur - GI/Abdominal GI/Abdominal exam: Present: normal bowel sounds, soft, no peritoneal signs. Absent: distended, tenderness - Extremities Exam Extremities exam: Present: warm, radial pulses palpable and symmetrical. Absent : calf tenderness, cyanotic, pedal edema - Neurological Exam Neurological exam: Present: CN II-XII intact, oriented X3, no focal deficits. Absent: pronater drift, facial droop, speech deficit - Skin Skin exam: Present: dry, intact Internal Medicine: Result - Labs CBC & Chem 7: 12/21/17 04:53 12/20/17 04:13 - ABG Interpretation ABG results: PT/INR, D-dimer PT 12.2 Seconds (9.4-12.1) H 12/15/17 05:17 D-Dimer 5663 ng/mLFEU (0-500) H 12/15/17 05:17 - Impressions Impressions Brain MRI 12/21/17 09:42 IMPRESSION: 1. There are approximately 5 hemorrhagic metastatic lesions which have decreased in size since the previous study suggesting a response to therapy. The edema surrounding these metastatic lesions has also improved. 2. No new metastatic lesions are identified. 3. Mild chronic microvascular white matter ischemic disease is noted both supra and infratentorially. D/ /21/2017 13:52:04 Chris Laguna MD / [facility] Interpreting Provider: Chris Laguna MD - VTE Reasons for not Prescribing Prophylaxis: Medical contraindication (Anemia, Hemoptysis, Hematuria) Documentation of Mechanical Device: Intermittent pneumatic compression device Consult Discharge Plan - Plan Referrals: Christiana Starkey MD [Primary Care Provider] - Martina Lopez [Family Provider] -
[2017-12-22] MEDS ORDERED: ALTEPLASE IVPB ONE (08:48)
[2017-12-22] MEDS ORDERED: *HR* Alteplase (Cathflo) 2 MG VIAL IVP ONE (08:56)
[2017-12-22] MEDS: Nicotine 21 MG PATCH.TD24 TD SCH (09:40)
--- NOTE | 2017-12-22 11:00 | Palliative Progress Note ---
Date of Encounter: 12/22/17 Time of Encounter: 10:45 - Assessment and plan (1) Nausea & vomiting Current Visit: Yes Status: Acute Assessment and plan: Continue Ondansetron/Promethezine as ordered. Received both x2 yesterday. (2) Constipation due to opioid therapy Current Visit: Yes Status: Acute Assessment and plan: Continue Senokot 2 tabs BID, Miralax PRN (3) Cancer related pain Current Visit: No Status: Chronic Assessment and plan: Continue MS Contin/Oxycodone as scheduled. (4) Anxiety Current Visit: No Status: Chronic (5) Goals of care, counseling/discussion Current Visit: No Status: Acute Assessment and plan: Patient is still somewhat confused and becomes easily agitated. She has a difficult time staying focused during conversation.. Boyfriend at bedside seems confused regarding home health vs hospice - attempted to clarify that until she desires no further aggressive cancer treatment, hospice not an options. At this point, genetic testing and further palliative radiation to back and bladder are being discussed. He is ask about passport care, to assist with meals/cleaning etc - will have social service worker discuss. (6) Hemoptysis Current Visit: Yes Status: Chronic (7) Non-small cell cancer of left lung Current Visit: No Status: Chronic (8) Bladder cancer metastasized to intrapelvic lymph nodes Current Visit: Yes Status: Chronic - Time Spent With Patient Total time spent is greater than 50% in coordination of care (as documented) at patient's floor/unit and/or counseling patient: 25 - 35 minutes - Subjective Interval history: Patient awake, remains easily agitated and hallucinating some., states not as much as yesterday. MRI results and oncology notes reviewed. Bronchoscopy planned for tomorrow. - Constitutional Vitals: Abnormal lab results RBC 3.52 M/mcL (3.82-4.97) L 12/21/17 04:53 Hgb 10.2 g/dL (11.5-15.4) L 12/21/17 04:53 Hct 31.3 % (35.3-44.9) L 12/21/17 04:53 RDW 15.6 % (11.5-14.5) H 12/21/17 04:53 Plt Count 139 K/mcL (140-400) L 12/21/17 04:53 MPV 8.6 fL (9.4-12.4) L 12/21/17 04:53 Nucleated RBCs/100 WBC 0.2 /100 WBC (0) H 12/20/17 04:13 PT 12.2 Seconds (9.4-12.1) H 12/15/17 05:17 D-Dimer 5663 ng/mLFEU (0-500) H 12/15/17 05:17 Carbon Dioxide 31 mEq/L (23-29) H 12/20/17 04:13 BUN 5 mg/dL (8-23) L 12/20/17 04:13 Creatinine 0.54 mg/dL (0.60-1.20) L 12/20/17 04:13 Glucose 110 mg/dL (70-105) H 12/20/17 04:13 ALT 4 Units/L (7-52) L 12/15/17 05:17 Alkaline Phosphatase 171 Units/L (34-104) H 12/15/17 05:17 Serum Total Protein 5.3 g/dL (6.4-8.9) L 12/15/17 05:17 Albumin 2.6 g/dL (3.5-5.7) L 12/15/17 05:17 Albumin/Globulin Ratio 1.0 (1.1-2.2) L 12/15/17 05:17 Lipase < 3 Units/L (11-82) L 12/15/17 05:17 Ur Specimen Adequacy See below A 12/17/17 11:00 Urine Color Red (Yellow) A 12/17/17 11:00 Urine Clarity Cloudy (Clear) A 12/17/17 11:00 Urine Protein 100 mg/dL (Neg-Trace) H 12/17/17 11:00 Urine Blood Large (Negative) H 12/17/17 11:00 Ur Leukocyte Esterase Trace (Negative) H 12/17/17 11:00 Ur Culture Indicated? YES (NO) A 12/17/17 11:00 Vancomycin Trough < 2 mcg/mL (5-10) L 12/16/17 07:39 General appearance: Present: no acute distress - Respiratory Respiratory exam: Present: decreased breath sounds, CTAB Additional comments: Breath sounds course throughout - Cardiovascular Cardiovascular exam: Present: +S1, +S2 - GI/Abdominal GI/Abdominal exam: Present: normal bowel sounds, soft - Extremities Exam Extremities exam: Present: normal capillary refill, normal inspection - Neurological Exam Neurological exam: Present: alert, oriented X3, strengths equal and symetr throughout - Psychiatric Psychiatric exam: Present: agitated, anxious - Skin Skin exam: Present: dry, pallor, warm Palliative Quality Palliative Quality: Screen for Code Status: Yes, Screen for Goals of Care: Yes, Screen for Pain: Yes, If Pain Regimen Started, Initiate Bowel Regimen: Yes (Pt c /o loose stools), Screen for Nausea/Vomitting: Yes - Labs CBC & Chem 7: 12/21/17 04:53 12/20/17 04:13 Labs: Laboratory Results - last 24 hr 12/21/17 22:28 Ammonia 38 - Impressions Impressions Brain MRI 12/21/17 09:42 IMPRESSION: 1. There are approximately 5 hemorrhagic metastatic lesions which have decreased in size since the previous study suggesting a response to therapy. The edema surrounding these metastatic lesions has also improved. 2. No new metastatic lesions are identified. 3. Mild chronic microvascular white matter ischemic disease is noted both supra and infratentorially. D/ : / 12/21/2017 13:52:04 Chris Laguna MD / [facility] Interpreting Provider: Chris Laguna MD - ABG Interpretation ABG results: PT/INR, D-dimer PT 12.2 Seconds (9.4-12.1) H 12/15/17 05:17 D-Dimer 5663 ng/mLFEU (0-500) H 12/15/17 05:17 Consult Discharge Plan - Plan Referrals: Christiana Starkey MD [Primary Care Provider] - Martina Lopez [Family Provider] -
--- NOTE | 2017-12-22 14:58 | Oncology Inp Progress Note ---
<Lupe Fisher - Last Filed: 12/23/17 09:25> Date of Encounter: 12/22/17 Time of Encounter: 13:30 (1) Primary lung adenocarcinoma Current Visit: No Status: Chronic Assessment and plan: Stage IV Radiographic evidence of recent progression on immunotherapy with Nivolumab, Dr. Starkey considering chemotherapy on outpatient basis Discuss in tumor board this week-consider targeted treatment-send for Next Gen Sequencing/BRAF. Discussing role for palliative radiotherapy to bladder and soft tissue mass on posterior neck She is planned for bronchoscopy tomorrow to assess hemoptysis, she has needed APC treatment in past Neurological changes with hallucinations-ordered stat brain MRI wo/w contrast- no acute findings, shows response to prior treatment Etiology unclear at this time. Patient has history of treated hemorrhagic brain mets She is on solumedrol 60 mg [id number] likely change to decadron following her bronch tomorrow as decadron has more effect on intracranial edema (although MRI does show that edema has improved). No med changes. No indication of infection-recheck UA Patient has a history of hospital induced delirium type syndrome with prior admissions. Continue supportive treatment. Following discussion with Dr. Starkey, patient wishes to return home with home healthcare and additional support from [facility]. SHe lives at home with her boyfriend. PT recommended skilled nursing placement, patient refusing. Appreciate assistance from palliative and hospitalist team. Hgb remains stable despite continued hematuria. Please refer to Dr. Starkey's attestation below for additional details. Qualifiers: Laterality: left Qualified Code(s): C34.92 - Malignant neoplasm of unspecified part of left bronchus or lung (2) Localized swelling, mass and lump, neck Current Visit: Yes Status: Acute Assessment and plan: Painful soft tissue mass vs. lipoma, vs. abscess/fluid collection. Likely related to malignancy Ordered US soft tissue neck for further assessment, patient cannot have CT contrast. Will arrange appointment with rad onc for consideration of palliative radiotherapy to bladder mass and soft tissue mass on left shoulder-Dr. Starkey speaking with Dr. Mackay regarding role for palliative radiotherapy, will discuss in tumor board this week. Oncology: Subj Interval history: Ms. Siddiqui is resting in bed, her significant other is at her bedside. She reports pain to her soft tissue mass on her posterior neck, controlled with pain medication per palliative team. She denies nausea, vomiting, abdominal pain or diarrhea. She denies headache or visual changes. She continues to be confused, hallucinating, her boyfriend at bedside is concerned over her mental status. PT consulted, recommended NH placement however, patient/patients boyfriend refusing, long term care social worker working with patient for options for assistance at home with home health and passport. - Constitutional Vitals: Vital Signs Temp Pulse Resp BP Pulse Ox 12/22/17 10:55 98.4 F 101 17 135/50 96 12/22/17 08:00 97.7 F 94 18 126/79 92 12/22/17 07:52 15 94 12/22/17 07:51 94 12/22/17 04:05 98.3 F 93 15 129/78 94 12/21/17 23:29 98.4 F 101 15 115/66 96 12/21/17 20:11 12 98 12/21/17 19:23 98.7 F 90 15 113/72 92 12/21/17 16:15 98.2 F 93 17 117/76 90 Intake and Output 12/21/17 12/22/17 12/22/17 23:59 07:59 15:59 Intake Total 480 / 480 480 / 480 Output Total 800 / 800 300 / 300 900 / 900 Balance -320 / -320 -300 / -300 -420 / -420 Intake: Oral 480 / 480 480 / 480 Output: Urine 800 / 800 300 / 300 900 / 900 Other: Meal Dinner Breakfast Percent of Meal Consumed 5% 25% Weight 59.511 kg General appearance: cooperative, disheveled, no acute distress, no febrile Exam: chronically ill appearing - ENT ENT exam: Present: mucous membranes moist - Respiratory Respiratory exam: Present: CTAB. Absent: respiratory distress - Cardiovascular Cardiovascular exam: Present: RRR, +S1, +S2 - GI/Abdominal GI/Abdominal exam: Present: normal bowel sounds, soft. Absent: guarding, rebound, tenderness - Extremities Exam Extremities exam: Present: normal inspection. Absent: calf tenderness - Neurological Exam Neurological exam: Present: alert, oriented X3, no focal deficits, strengths equal and symetr throughout, speech deficit Additional comments: inattentive, fidgeting with items in room, looking through covers on bed, hallucinating - Psychiatric Psychiatric exam: Present: agitated, anxious - Skin Skin exam: Present: dry, intact, normal color, warm Oncology: Obj Data - Labs CBC & Chem 7: 12/23/17 04:51 12/23/17 04:51 Labs: Laboratory Results - last 24 hr 12/21/17 22:28 Ammonia 38 - Impressions Impressions Brain MRI 12/21/17 09:42 IMPRESSION: 1. There are approximately 5 hemorrhagic metastatic lesions which have decreased in size since the previous study suggesting a response to therapy. The edema surrounding these metastatic lesions has also improved. 2. No new metastatic lesions are identified. 3. Mild chronic microvascular white matter ischemic disease is noted both supra and infratentorially. D/ : / 12/21/2017 13:52:04 Chris Laguna MD / [facility] Interpreting Provider: Crhis Laguna MD - ABG Interpretation ABG results: PT/INR, D-dimer PT 12.2 Seconds (9.4-12.1) H 12/15/17 05:17 D-Dimer 5663 ng/mLFEU (0-500) H 12/15/17 05:17 Consult Discharge Plan - Plan Referrals: Christiana Starkey MD [Primary Care Provider] - Martina Lopez [Family Provider] - <Christiana Starkey - Last Filed: 12/23/17 17:00> Date of Encounter: 12/23/17 - Constitutional Vitals: Vital Signs Temp Pulse Resp BP Pulse Ox 12/23/17 15:32 98.9 F 99 19 145/79 96 12/23/17 11:00 98.9 F 96 16 148/84 94 12/23/17 07:00 98.7 F 101 18 157/91 96 12/23/17 03:17 97.8 F 108 18 139/88 93 12/23/17 00:37 97.8 F 97 15 128/79 93 12/22/17 20:31 18 91 12/22/17 19:07 97.9 F 104 17 138/76 93 Intake and Output 12/23/17 12/23/17 12/23/17 07:59 15:59 23:59 Intake Total 0 / 0 Output Total 50 / 50 Balance -50 / -50 Intake: Oral 0 / 0 Output: Urine 50 / 50 Other: Meal Breakfast Percent of Meal Consumed 0% Oncology: Obj Data - Labs CBC & Chem 7: 12/23/17 04:51 12/23/17 04:51 Labs: Laboratory Results - last 24 hr 12/23/17 12/23/17 04:51 04:51 WBC 11.2 H RBC 3.00 L Hgb 8.6 L D Hct 27.1 L MCV 90.3 MCH 28.7 MCHC 31.7 RDW 15.9 H Plt Count 169 MPV 8.8 L Immature Gran % 5.5 H Seg Neutrophils % 80.6 Lymphocytes % 4.9 Monocytes % 8.6 Eosinophils % 0.0 Basophils % 0.4 Neutrophils # 9.0 H Lymphocytes # 0.6 Monocytes # 1.0 Eosinophils # 0.0 Basophils # 0.0 Nucleated RBCs/100 WBC 0.2 H Platelet Estimate Normal Immature Plt Fraction 1.9 Anisocytosis 1+ A Sodium 137 Potassium 3.4 L Chloride 102 Carbon Dioxide 28 BUN 9 Creatinine 0.49 L Est GFR ( Amer) > 60 Est GFR (Non-Af Amer) > 60 BUN/Creatinine Ratio 18 Glucose 131 H Calculated Osmolality 284 Calcium 8.3 L - Impressions Impressions Head/Neck Ultrasound 12/22/17 16:00 IMPRESSION: Bilobed area of heterogeneous relatively hypoechoic echogenicity within the subcutaneous tissues the left upper back. Findings could represent phlegmonous change. Enlarged lymph nodes or soft tissue mass could also have this appearance. Scratch Dedicated CT with contrast would be helpful to further evaluate. D/ / Sophie Meléndez Cha, MD / Sophie Meléndez Cha, MD Interpreting Provider: Sophie Meléndez Cha, MD Cervical Spine CT 12/23/17 03:20 IMPRESSION: No acute abnormality of the cervical spine. No change from 10/15/2017. D/ / Ezio Watkins MD / Ezio Watkins MD Interpreting Provider: Ezio Watkins MD Head CT 12/23/17 03:20 IMPRESSION: No acute intracranial abnormality. Metastatic brain lesions have all decreased in size to a mild degree with decreased edema. D/ / Ezio Watkins MD / Ezio Watkins MD Interpreting Provider: Ezio Watkins MD - ABG Interpretation ABG results: PT/INR, D-dimer PT 12.2 Seconds (9.4-12.1) H 12/15/17 05:17 D-Dimer 5663 ng/mLFEU (0-500) H 12/15/17 05:17 - Attending Attestation I examined this patient and my medical decision-making was reviewed with the Advanced Practice Nurse. I agree with the documented findings, disposition and treatment plan as described except to the extent set forth below. In. 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 Discussed with Dr. Mackay about irradiation to subcutaneous metastasis back of left shoulder and bladder area. We will make an appointment Dr. Ann 2. Anemia hemoglobin currently 8.6 dropped from baseline of 12 may be secondary to hematuria and hemoptysis 3. Bronchoscopy 12/23/2017 showed blood clots in the trachea bleeding and left main bronchus 4 confusion multifactorial. No new lesions in the brain MRI area urine analysis negative. Ammonia normal.
--- NOTE | 2017-12-22 16:49 | Pulmonology Progress Note ---
Date of Encounter: 12/22/17 Time of Encounter: 09:00 Assessment and Plan (1) Hemoptysis Current Visit: Yes Status: Chronic Patient continued to have hemoptysis and they have discussed with her bronchoscopy for airway inspection and possible intervention. She feels her hemoptysis some improved, and initially she stated she wants to wait but then she wanted bronchoscopy and I have arranged procedure for her, however there is concern about hemorrhagic changes with brain metastases and she will need images first and then decide about the procedure. Patient has poor prognosis and discussed with the family and palliative care is following as well. 12/22 discussed with the patient and she still wants to move forward bronchoscopy and plan for tomorrow if no changes in her condition. (2) COPD exacerbation Current Visit: No Status: Suspected Subjective Principal diagnosis: Hempotysis Interval history: Patient still have slight hemoptysis Objective PUL Vital signs: Last Vital Signs Temp 98.4 F 12/22/17 10:55 Pulse 101 12/22/17 10:55 Resp 17 12/22/17 10:55 BP 135/50 12/22/17 10:55 Pulse Ox 96 12/22/17 10:55 General appearance: no acute distress ENT: oropharynx moist Effort: mildly labored Auscultation: bilateral: rhonchi Percussion: bilateral: not dull Cardiovascular: regular rate and rhythm Gastrointestinal: normoactive bowel sounds Extremities: no cyanosis normal mental status depressed Results - Laboratory Findings CBC and BMP: 12/21/17 04:53 12/20/17 04:13 PT/INR, D-dimer PT 12.2 Seconds (9.4-12.1) H 12/15/17 05:17 D-Dimer 5663 ng/mLFEU (0-500) H 12/15/17 05:17 Abnormal lab findings: Abnormal lab results RBC 3.52 M/mcL (3.82-4.97) L 12/21/17 04:53 Hgb 10.2 g/dL (11.5-15.4) L 12/21/17 04:53 Hct 31.3 % (35.3-44.9) L 12/21/17 04:53 RDW 15.6 % (11.5-14.5) H 12/21/17 04:53 Plt Count 139 K/mcL (140-400) L 12/21/17 04:53 MPV 8.6 fL (9.4-12.4) L 12/21/17 04:53 Nucleated RBCs/100 WBC 0.2 /100 WBC (0) H 12/20/17 04:13 PT 12.2 Seconds (9.4-12.1) H 12/15/17 05:17 D-Dimer 5663 ng/mLFEU (0-500) H 12/15/17 05:17 Carbon Dioxide 31 mEq/L (23-29) H 12/20/17 04:13 BUN 5 mg/dL (8-23) L 12/20/17 04:13 Creatinine 0.54 mg/dL (0.60-1.20) L 12/20/17 04:13 Glucose 110 mg/dL (70-105) H 12/20/17 04:13 ALT 4 Units/L (7-52) L 12/15/17 05:17 Alkaline Phosphatase 171 Units/L (34-104) H 12/15/17 05:17 Serum Total Protein 5.3 g/dL (6.4-8.9) L 12/15/17 05:17 Albumin 2.6 g/dL (3.5-5.7) L 12/15/17 05:17 Albumin/Globulin Ratio 1.0 (1.1-2.2) L 12/15/17 05:17 Lipase < 3 Units/L (11-82) L 12/15/17 05:17 Ur Specimen Adequacy See below A 12/17/17 11:00 Urine Color Red (Yellow) A 12/17/17 11:00 Urine Clarity Cloudy (Clear) A 12/17/17 11:00 Urine Protein 100 mg/dL (Neg-Trace) H 12/17/17 11:00 Urine Blood Large (Negative) H 12/17/17 11:00 Ur Leukocyte Esterase Trace (Negative) H 12/17/17 11:00 Ur Culture Indicated? YES (NO) A 12/17/17 11:00 Vancomycin Trough < 2 mcg/mL (5-10) L 12/16/17 07:39 - Microbiology Findings Microbiology Findings: Microbiology, Last 48 Hours 12/16/17 17:17 Blood Culture - Final Peripheral Venipuncture No growth. Final report. 12/16/17 17:17 Blood Culture - Final Peripheral Venipuncture No growth. Final report. - Clinical Findings Intake & Output: Intake & Output 12/22/17 12/22/17 12/22/17 07:59 15:59 23:59 Intake Total 480 / 480 Output Total 300 / 300 900 / 900 300 / 300 Balance -300 / -300 -420 / -420 -300 / -300 - VTE Reasons for not Prescribing Prophylaxis: Medical contraindication (Anemia, Hemoptysis, Hematuria) Documentation of Mechanical Device: Intermittent pneumatic compression device Consult Discharge Plan - Plan Referrals: Christiana Starkey MD [Primary Care Provider] - Martina Lopez [Family Provider] -
[2017-12-23] MEDS: *HR* Morphine Sulfate SR (12 HR) 100 MG TABLET.ER PO SCH ×3 (00:20→18:04)
[2017-12-23] MEDS: *HR* OxyCODONE Immed Rel 15 MG TABLET PO SCH ×6 (01:36→22:40)
[2017-12-23 05:09] LABS: Basophils % 0.4 %; Hematocrit 27.1 % (35.3-44.9); Hemoglobin 8.6 g/dL (11.5-15.4); Immature Granulocytes % 5.5 % (0-4); Immature Platelets 1.9 % (1.1-6.1); Lymphocytes # 0.6 K/mcL (0.6-4.6); Lymphocytes % 4.9 %; Mean Corpuscular HGB Conc 31.7 g/dL (31.6-35.5); Mean Corpuscular Hemoglobin 28.7 pg (28.0-33.3); Mean Corpuscular Volume 90.3 fL (83.0-100.0); Mean Platelet Volume 8.8 fL (9.4-12.4); Monocytes % 8.6 %; Nucleated Red Blood Cells 0.2 /100 WBC (0); Platelet Count 169 K/mcL (140-400); Red Cell Distribution Width 15.9 % (11.5-14.5); Segmented Neutrophils % 80.6 %
[2017-12-23 05:29] LABS: BUN/Creatinine Ratio 18 (6-26); Blood Urea Nitrogen 9 mg/dL (8-23); Calcium 8.3 mg/dL (8.6-10.3); Carbon Dioxide 28 mEq/L (23-29); Chloride 102 mEq/L (98-107); Glucose 131 mg/dL (70-105); Osmolality,Calculated 284 (280-300); Potassium 3.4 mEq/L (3.5-5.1); Sodium 137 mEq/L (136-145); eGFR For African Americans > 60 (> 60); eGFR For Non-African Americans > 60 (> 60)
[2017-12-23] MEDS: methylPREDNISolone 125 MG/2 ML VIAL IVP SCH (05:52)
[2017-12-23 06:17] LABS: Platelet Estimate Normal (Normal)
[2017-12-23 06:18] LABS: Anisocytosis 1+ (Not Present)
--- NOTE | 2017-12-23 07:59 | Internal Med Progress Note ---
Date of Encounter: 12/23/17 Time of Encounter: 08:00 - Assessment and plan (1) Primary lung adenocarcinoma Current Visit: No Status: Chronic Assessment and plan: Oncology following. Plan NextGen sequencing/BRAF. Outpatient chemotherapy. Palliative radiotherapy outpatient to bladder mas and soft tissue mass on left shoulder. Bronchoscopy today Qualifiers: Laterality: left Qualified Code(s): C34.92 - Malignant neoplasm of unspecified part of left bronchus or lung (2) Hemoptysis Current Visit: Yes Status: Chronic Assessment and plan: Pulmonology consult appreciated-possible bronchoscopy today to attempt APC for bleeding airway lesions. Patient was NPO from midnight. (3) Acute encephalopathy Current Visit: Yes Status: Acute Assessment and plan: MRI showed 5 hemorrhagic metstatic lesions which have decreased in size with no new metastatic lesion. patient is alert and oriented this am x 3 (4) Bladder cancer metastasized to intrapelvic lymph nodes Current Visit: Yes Status: Chronic Assessment and plan: Patient has known history of metastatic bladder cancer, follows with oncology as outpatient. Continue to monitor hemoglobin- currently stable; continue pain control with long acting Morphine and Oxycodone, oral Morphine solution; Palliative care on board, patient is not willing to consider hospice care at this time. CODE STATUS is DNR comfort care arrest/DNI. Patient seems to be in denial at this time; Physical and occupational therapy evaluation recommended ECF placement. application services manager on board, however patient declined placement. Plan to discharge home with home health services once clear from pulmonary and oncology standpoint (5) COPD (chronic obstructive pulmonary disease) Current Visit: Yes Status: Acute Assessment and plan: Improving; Taper IV steroids as tolerated. Continue breathing treatments and supplemental oxygen. Qualifiers: COPD type: chronic bronchitis Chronic bronchitis type: simple Qualified Code(s): J41.0 - Simple chronic bronchitis (6) DVT prophylaxis Current Visit: Yes Status: Acute Assessment and plan: Start SCDs. Will defer anticoagulation at this time due to anemia and active bleeding. (7) GERD (gastroesophageal reflux disease) Current Visit: Yes Status: Chronic Assessment and plan: Omeprazole PO as per above. Qualifiers: Esophagitis presence: esophagitis presence not specified Qualified Code(s) : K21.9 - Gastro-esophageal reflux disease without esophagitis (8) Hematuria Current Visit: Yes Status: Acute Assessment and plan: Chronic. Likely related to bladder cancer. Heme/onc consulted as per above. Monitor serial H/H. Repeat CBC in AM. Will obtain UA. Qualifiers: Hematuria type: gross Qualified Code(s): R31.0 - Gross hematuria (9) Postobstructive pneumonia Current Visit: Yes Status: Acute Assessment and plan: Patient is not septic at this point, she has been started on oral Levaquin, continue for now. Blood cultures negative. Supportive care and supplemental oxygen. (10) Elevated d-dimer Current Visit: Yes Status: Acute Assessment and plan: Elevated d-dimer noted along with abnormal ventilation perfusion lung scan. These abnormalities are most likely related to her underlying metastatic lung cancer rather than new pulmonary embolism. Continue supportive care. (11) Hypokalemia Current Visit: Yes Status: Resolved Assessment and plan: Give KCl 40 mEq PO once. Recheck BMP and magnesium in AM. (12) Anemia Current Visit: Yes Status: Chronic Assessment and plan: Monitor serial H/H as per above. Currently stable; Transfuse for hemoglobin < 7.0 or symptomatic. Qualifiers: Anemia type: unspecified type Qualified Code(s): D64.9 - Anemia, unspecified (13) Localized swelling, mass and lump, neck Current Visit: Yes Status: Acute Assessment and plan: ?Inflamed sebaceous cyst versus lipoma. XRay shows Soft tissue prominence along the posterior aspect of the lower neck. Recommend CT neck with IV contrast but she is allergic to IV contrast; Supportive care and pain control. - Time Spent With Patient Total time spent is greater than 50% in coordination of care (as documented) at patient's floor/unit and/or counseling patient: - Subjective Interval history: No acute events overnight - Constitutional Vitals: Temp Pulse Resp BP Pulse Ox 98.7 F 101 18 157/91 96 12/23/17 07:00 12/23/17 07:00 12/23/17 07:00 12/23/17 07:00 12/23/17 07:00 General appearance: Present: cachectic, A&O X 3, answers questions appropriately - Head Head exam: Present: atraumatic, normocephalic - Respiratory Additional comments: coarse breath sounds, - Cardiovascular Cardiovascular exam: Present: RRR, +S1, +S2. Absent: diastolic murmur, gallop, rubs, systolic murmur - GI/Abdominal GI/Abdominal exam: Present: normal bowel sounds, soft, no peritoneal signs. Absent: distended, tenderness - Extremities Exam Extremities exam: Present: warm, radial pulses palpable and symmetrical. Absent : calf tenderness, cyanotic, pedal edema - Neurological Exam Neurological exam: Present: CN II-XII intact, oriented X3, no focal deficits. Absent: pronater drift, facial droop, speech deficit Internal Medicine: Result - Labs CBC & Chem 7: 12/23/17 04:51 12/23/17 04:51 Labs: Short CBC 12/23/17 Range/Units 04:51 WBC 11.2 H (4.3-11.1) K/mcL Hgb 8.6 L D (11.5-15.4) g/dL Hct 27.1 L (35.3-44.9) % Plt Count 169 (140-400) K/mcL Neutrophils # 9.0 H (1.6-8.9) K/mcL BMP 12/23/17 04:51 Sodium 137 Potassium 3.4 L Chloride 102 Carbon Dioxide 28 BUN 9 Creatinine 0.49 L Glucose 131 H Calcium 8.3 L - ABG Interpretation ABG results: PT/INR, D-dimer PT 12.2 Seconds (9.4-12.1) H 12/15/17 05:17 D-Dimer 5663 ng/mLFEU (0-500) H 12/15/17 05:17 - Impressions Impressions Brain MRI 12/21/17 09:42 IMPRESSION: 1. There are approximately 5 hemorrhagic metastatic lesions which have decreased in size since the previous study suggesting a response to therapy. The edema surrounding these metastatic lesions has also improved. 2. No new metastatic lesions are identified. 3. Mild chronic microvascular white matter ischemic disease is noted both supra and infratentorially. D/ : / 12/21/2017 13:52:04 Chris Laguna MD / [facility] Interpreting Provider: Chris Laguna MD Head/Neck Ultrasound 12/22/17 16:00 IMPRESSION: Bilobed area of heterogeneous relatively hypoechoic echogenicity within the subcutaneous tissues the left upper back. Findings could represent phlegmonous change. Enlarged lymph nodes or soft tissue mass could also have this appearance. Scratch Dedicated CT with contrast would be helpful to further evaluate. D/ / Sophie Meléndez Cha, MD / Sophie Meléndez Cha, MD Interpreting Provider: Sophie Meléndez Cha, MD Cervical Spine CT 12/23/17 03:20 IMPRESSION: No acute abnormality of the cervical spine. No change from 10/15/2017. D/ / Ezio Watkins MD / Ezio Watkins MD Interpreting Provider: Ezio Watkins MD Head CT 12/23/17 03:20 IMPRESSION: No acute intracranial abnormality. Metastatic brain lesions have all decreased in size to a mild degree with decreased edema. D/ / Ezio Watkins MD / Ezio Watkins MD Interpreting Provider: Ezio Watkins MD - VTE Reasons for not Prescribing Prophylaxis: Medical contraindication (Anemia, Hemoptysis, Hematuria) Documentation of Mechanical Device: Intermittent pneumatic compression device Consult Discharge Plan - Plan Referrals: Christiana Starkey MD [Primary Care Provider] - Martina Lopez [Family Provider] -
--- NOTE | 2017-12-23 09:49 | Palliative Progress Note ---
Date of Encounter: 12/23/17 Time of Encounter: 09:40 - Assessment and plan (1) Agitation Current Visit: Yes Status: Acute Assessment and plan: This began Thursday and continues. ? acute delirium. I went over med list - she is receiving opioids as at home. She has nicotine patch in place. She only takes Lorazepam occasionally as needed at home according to her and boyfriend. She has had not other medications added here. She did experience this type of behaviour/delirium when I saw her in October, that eventually resolved after discharge. Continue to monitor. (2) Nausea & vomiting Current Visit: Yes Status: Acute Assessment and plan: Continue antiemetics PRN - nausea has improved and no vomiting since Thursday. (3) Constipation due to opioid therapy Current Visit: Yes Status: Acute Assessment and plan: Patient states did have small BM yesterday. Continue Senna 2 tabs BID/Miralax PRN and monitor (4) Cancer related pain Current Visit: No Status: Chronic Assessment and plan: Continue MS Contin with Oxycodone every 4 hours as she takes at home. (5) Anxiety Current Visit: No Status: Chronic Assessment and plan: Continue Lorazepam BID as needed - utilized x1 yesterday (6) Goals of care, counseling/discussion Current Visit: No Status: Acute (7) Hemoptysis Current Visit: Yes Status: Chronic (8) Non-small cell cancer of left lung Current Visit: No Status: Chronic (9) Bladder cancer metastasized to intrapelvic lymph nodes Current Visit: Yes Status: Chronic - Time Spent With Patient Total time spent is greater than 50% in coordination of care (as documented) at patient's floor/unit and/or counseling patient: - Subjective Interval history: Patient awake, remains easily agitated and hallucinating some, with some confusion. States she is leaving today after bronchoscopy. Still c/o back/rib pain but states her Oxycodone is helping. - Constitutional Vitals: Abnormal lab results WBC 11.2 K/mcL (4.3-11.1) H 12/23/17 04:51 RBC 3.00 M/mcL (3.82-4.97) L 12/23/17 04:51 Hgb 8.6 g/dL (11.5-15.4) L D 12/23/17 04:51 Hct 27.1 % (35.3-44.9) L 12/23/17 04:51 RDW 15.9 % (11.5-14.5) H 12/23/17 04:51 MPV 8.8 fL (9.4-12.4) L 12/23/17 04:51 Immature Gran % 5.5 % (0-4) H 12/23/17 04:51 Neutrophils # 9.0 K/mcL (1.6-8.9) H 12/23/17 04:51 Nucleated RBCs/100 WBC 0.2 /100 WBC (0) H 12/23/17 04:51 Anisocytosis 1+ (Not Present) A 12/23/17 04:51 PT 12.2 Seconds (9.4-12.1) H 12/15/17 05:17 D-Dimer 5663 ng/mLFEU (0-500) H 12/15/17 05:17 Potassium 3.4 mEq/L (3.5-5.1) L 12/23/17 04:51 Creatinine 0.49 mg/dL (0.60-1.20) L 12/23/17 04:51 Glucose 131 mg/dL (70-105) H 12/23/17 04:51 Calcium 8.3 mg/dL (8.6-10.3) L 12/23/17 04:51 ALT 4 Units/L (7-52) L 12/15/17 05:17 Alkaline Phosphatase 171 Units/L (34-104) H 12/15/17 05:17 Serum Total Protein 5.3 g/dL (6.4-8.9) L 12/15/17 05:17 Albumin 2.6 g/dL (3.5-5.7) L 12/15/17 05:17 Albumin/Globulin Ratio 1.0 (1.1-2.2) L 12/15/17 05:17 Lipase < 3 Units/L (11-82) L 12/15/17 05:17 Ur Specimen Adequacy See below A 12/17/17 11:00 Urine Color Red (Yellow) A 12/17/17 11:00 Urine Clarity Cloudy (Clear) A 12/17/17 11:00 Urine Protein 100 mg/dL (Neg-Trace) H 12/17/17 11:00 Urine Blood Large (Negative) H 12/17/17 11:00 Ur Leukocyte Esterase Trace (Negative) H 12/17/17 11:00 Ur Culture Indicated? YES (NO) A 12/17/17 11:00 Vancomycin Trough < 2 mcg/mL (5-10) L 12/16/17 07:39 General appearance: Present: no acute distress - Respiratory Additional comments: Breath sounds course with rhonchi - Cardiovascular Cardiovascular exam: Present: +S1, +S2 - GI/Abdominal GI/Abdominal exam: Present: normal bowel sounds, soft - Extremities Exam Extremities exam: Present: normal capillary refill, normal inspection - Neurological Exam Neurological exam: Present: alert, strengths equal and symetr throughout Additional comments: Oriented to name and place. Becomes easily agitated and restless. - Skin Skin exam: Present: dry, pallor, warm Palliative Quality Palliative Quality: Screen for Code Status: Yes, Screen for Goals of Care: Yes, Screen for Pain: Yes, If Pain Regimen Started, Initiate Bowel Regimen: Yes (Pt c /o loose stools), Screen for Nausea/Vomitting: Yes - Labs CBC & Chem 7: 12/23/17 04:51 12/23/17 04:51 Labs: Laboratory Results - last 24 hr 12/23/17 12/23/17 04:51 04:51 WBC 11.2 H RBC 3.00 L Hgb 8.6 L D Hct 27.1 L MCV 90.3 MCH 28.7 MCHC 31.7 RDW 15.9 H Plt Count 169 MPV 8.8 L Immature Gran % 5.5 H Seg Neutrophils % 80.6 Lymphocytes % 4.9 Monocytes % 8.6 Eosinophils % 0.0 Basophils % 0.4 Neutrophils # 9.0 H Lymphocytes # 0.6 Monocytes # 1.0 Eosinophils # 0.0 Basophils # 0.0 Nucleated RBCs/100 WBC 0.2 H Platelet Estimate Normal Immature Plt Fraction 1.9 Anisocytosis 1+ A Sodium 137 Potassium 3.4 L Chloride 102 Carbon Dioxide 28 BUN 9 Creatinine 0.49 L Est GFR ( Amer) > 60 Est GFR (Non-Af Amer) > 60 BUN/Creatinine Ratio 18 Glucose 131 H Calculated Osmolality 284 Calcium 8.3 L - Impressions Impressions Brain MRI 12/21/17 09:42 IMPRESSION: 1. There are approximately 5 hemorrhagic metastatic lesions which have decreased in size since the previous study suggesting a response to therapy. The edema surrounding these metastatic lesions has also improved. 2. No new metastatic lesions are identified. 3. Mild chronic microvascular white matter ischemic disease is noted both supra and infratentorially. D/ / 12/21/2017 13:52:04 Chris Laguna MD / myla Interpreting Provider: Chris Laguna MD Head/Neck Ultrasound 12/22/17 16:00 IMPRESSION: Bilobed area of heterogeneous relatively hypoechoic echogenicity within the subcutaneous tissues the left upper back. Findings could represent phlegmonous change. Enlarged lymph nodes or soft tissue mass could also have this appearance. Scratch Dedicated CT with contrast would be helpful to further evaluate. D/ / Sophie Meléndez Cha, MD / Sophie Meléndez Cha, MD Interpreting Provider: Sophie Meléndez Cha, MD Cervical Spine CT 12/23/17 03:20 IMPRESSION: No acute abnormality of the cervical spine. No change from 10/15/2017. D/ / Ezio Watkins MD / Ezio Watkins MD Interpreting Provider: Ezio Watkins MD Head CT 12/23/17 03:20 IMPRESSION: No acute intracranial abnormality. Metastatic brain lesions have all decreased in size to a mild degree with decreased edema. D/ / Ezio Watkisn MD / Ezio Watkins MD Interpreting Provider: Ezio Watkins MD - ABG Interpretation ABG results: PT/INR, D-dimer PT 12.2 Seconds (9.4-12.1) H 12/15/17 05:17 D-Dimer 5663 ng/mLFEU (0-500) H 12/15/17 05:17 Consult Discharge Plan - Plan Referrals: Christiana Starkey MD [Primary Care Provider] - Martina Lopez [Family Provider] -
[2017-12-23] MEDS: Nicotine 21 MG PATCH.TD24 TD SCH (10:08)
[2017-12-23] MEDS: Gabapentin 300 MG CAPSULE PO SCH ×2 (10:16→22:40)
[2017-12-23] MEDS: Budesonide/Formoterol 160/4.5 MDI IH SCH ×2 (10:58→19:50)
[2017-12-23] MEDS: Tiotropium 18 MCG inhalation IH SCH (10:58)
[2017-12-23] MEDS: Sennosides/Docusate Sodium TABLET PO SCH ×2 (14:28→22:40)
[2017-12-23] MEDS: Potassium Chloride Elixir 20 MEQ/15 ML UDC PO SCH ×2 (14:28→18:04)
[2017-12-23] MEDS: BuPROPion SR (12 HR) 150 MG TABLET PO SCH ×2 (14:28→22:40)
--- NOTE | 2017-12-23 15:08 | Anesthesia Evaluation PreOp ---
Date of Encounter: 12/23/17 Time of Encounter: 16:00 - Past History Planned Operation: Bronchoscopy Cardiac History: CHF, Other (PAD, ?? 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: Other (Hemorrhagic metastatic lesions, acute delerium, anxiety, depression, panic attacks) Other Medical History: Bleeding (Hemoptysis, anemia), Other (Metastatic bladder CA, Cancer pain, Hospice care) Anesthesia History: No Prior Anesthetic Complications, Past Anesthesia Alcohol Use: none Drug use: none Medications and Allergies Omeprazole [PriLOSEC] 20 mg PO DAILY #30 capsule.dr 03/23/17 [Rx] Oxycodone HCl [Roxicodone 30] 30 mg PO Q4H PRN 04/14/17 [History] Oxygen 1 l NS HS 04/14/17 [History] Morphine Sulfate SR (12 HR) [MS Contin] 100 mg PO Q8HR 08/18/17 [History] LORazepam [Lorazepam] 1 mg PO BID PRN 7 Days #14 tablet 10/15/17 [Rx] Nicotine Patch [Nicoderm] 21 mg TD DAILY patch.td24 10/15/17 [Rx] Albuterol Sulfate [Ventolin Hfa] 2 puff IH Q4H PRN #1 hfa.aer.ad 11/09/17 [Rx] BuPROPion SR (12 HR) [Wellbutrin SR] 150 mg PO BID #60 tablet.er 11/09/17 [Rx] Budesonide/Formoterol 160/4.5 [Symbicort 160/4.5] 2 puff IH BIDR #1 inhaler 01/20 [Rx] Ipratropium/Albuterol Neb [Duoneb] 3 ml IH Q4HR PRN #30 vial.neb 11/09/17 [Rx] Prochlorperazine Maleate [Compazine] 10 mg PO Q6HR PRN #60 tablet 11/09/17 [Rx] Tiotropium [place] [Spiriva Respimat] 2 puff IH DAILY #1 mist.inhal 11/09/17 [Rx ] Gabapentin [Neurontin] 300 mg PO BID #60 capsule 11/16/17 [Rx] 3 Allergy/AdvReac Type Severity Reaction Status Date / Time Iodinated Contrast- Oral and Allergy Intermediate Hives Verified 11/09/17 11:40 IV Dye Nickel Allergy Mild Hives Verified 11/09/17 11:40 METALS Allergy Hives Uncoded 11/09/17 11:40 - Meds/Allergy Pre-op Review Medications Reviewed: Yes Allergies Reviewed: Yes Anesthesia Results - Labs 12/23/17 04:51 12/23/17 04:51 Anesthesia Exam 2 Height 1.6 m Weight 60 kg BMI 23 Vital Signs Temp Pulse Resp BP Pulse Ox 98.5 F 108 16 143/89 96 12/15/17 04:22 12/15/17 04:22 12/15/17 04:22 12/15/17 04:22 12/15/17 04:22 NPO (# of Hours): 8 - HEENT Mallampati: II Teeth: Edentulous Denture Type: Upper: Complete Oral Opening: Greater than 3 - Cardiac Rhythm: Regular - Pulmonary Breath Sounds: bilateral Rales, bilateral Rhonchi Respiratory Effort: Symmetrical Anesthesia Assess/Plan ASA Score: 5 Anesthetic Plan: General, MAC Monitoring Plan: Standard Monitors Recovery Plan: Other
[2017-12-23] MEDS ORDERED: *HR* Propofol 200 MG/20 ML VIAL IVP ONE (15:31)
[2017-12-23] MEDS ORDERED: Lidocaine Viscous Oral Soln 15 ML SOLUTION ONE (15:35)
[2017-12-23] MEDS ORDERED: Lidocaine Viscous Oral Soln 15 ML SOLUTION MM ONE (16:56)
[2017-12-23] MEDS ORDERED: Tetracaine/Benzocaine/Butamben 200MG/SPRAY (100SPY/BOT) MM ONE (16:56)
[2017-12-23] MEDS ORDERED: *HR* EPINEPHrine 1 MG/10 ML SYRINGE INTRATRACH PRN (16:56)
[2017-12-23] MEDS ORDERED: *HR* EPINEPHrine 1 MG/10 ML SYRINGE ONE (16:58)
[2017-12-23] MEDS: Fluconazole 40 MG/ML UDC PO SCH (18:04)
[2017-12-24] MEDS: *HR* Morphine Sulfate SR (12 HR) 100 MG TABLET.ER PO SCH ×2 (00:49→09:08)
[2017-12-24] MEDS: *HR* OxyCODONE Immed Rel 15 MG TABLET PO SCH ×3 (01:31→09:08)
[2017-12-24 06:16] LABS: Bilirubin,Urine Negative (Negative); Blood,Urine Large (Negative); Clarity,Urine Cloudy (Clear); Color,Urine Red (Yellow); Glucose,Urine (UA) Normal (Normal); Ketones,Urine Negative (Negative); Leukocyte Esterase,Urine Small (Negative); Nitrite,Urine Negative (Negative); PH,Urine 7.5 pH Units (5.0-8.0); Protein,Urine >=300 mg/dL (Neg-Trace); Specific Gravity,Urine 1.016 (1.010-1.025); Urobilinogen,Urine Normal (Normal)
[2017-12-24 06:18] LABS: RBC,Urine TNTC per hpf (0-3)
--- NOTE | 2017-12-24 07:41 | Internal Med Progress Note ---
Date of Encounter: 12/25/17 Time of Encounter: 07:40 - Assessment and plan (1) Primary lung adenocarcinoma Status: Chronic Assessment and plan: Oncology following. Plan NextGen sequencing/BRAF. Outpatient chemotherapy. Palliative radiotherapy outpatient to bladder mas and soft tissue mass on left shoulder. s/p bronchoscopy with BAL Qualifiers: Laterality: left Qualified Code(s): C34.92 - Malignant neoplasm of unspecified part of left bronchus or lung (2) Hemoptysis Status: Chronic Assessment and plan: Pulmonology consult appreciated-s/p bronchoscopy (3) Acute encephalopathy Status: Acute Assessment and plan: MRI showed 5 hemorrhagic metstatic lesions which have decreased in size with no new metastatic lesion. patient is alert and oriented this am x 3 (4) Bladder cancer metastasized to intrapelvic lymph nodes Status: Chronic Assessment and plan: Patient has known history of metastatic bladder cancer, follows with oncology as outpatient. Continue to monitor hemoglobin- currently stable; continue pain control with long acting Morphine and Oxycodone, oral Morphine solution; Palliative care on board, patient is not willing to consider hospice care at this time. CODE STATUS is DNR comfort care arrest/DNI. Patient seems to be in denial at this time; Physical and occupational therapy evaluation recommended ECF placement. director of home health services on board, however patient declined placement. Plan to discharge home with home health services once clear from pulmonary and oncology standpoint (5) COPD (chronic obstructive pulmonary disease) Status: Acute Assessment and plan: Improving; Taper IV steroids as tolerated. Continue breathing treatments and supplemental oxygen. Qualifiers: COPD type: chronic bronchitis Chronic bronchitis type: simple Qualified Code(s): J41.0 - Simple chronic bronchitis (6) DVT prophylaxis Status: Acute Assessment and plan: Start SCDs. Will defer anticoagulation at this time due to anemia and active bleeding. (7) GERD (gastroesophageal reflux disease) Status: Chronic Assessment and plan: Omeprazole PO as per above. Qualifiers: Esophagitis presence: esophagitis presence not specified Qualified Code(s) : K21.9 - Gastro-esophageal reflux disease without esophagitis (8) Hematuria Status: Acute Assessment and plan: Chronic. Likely related to bladder cancer. Heme/onc consulted as per above. Monitor serial H/H. Qualifiers: Hematuria type: gross Qualified Code(s): R31.0 - Gross hematuria (9) Postobstructive pneumonia Status: Acute Assessment and plan: Patient is not septic at this point, she has been started on oral Levaquin, continue for now. Blood cultures negative. Supportive care and supplemental oxygen. (10) Elevated d-dimer Status: Acute Assessment and plan: Elevated d-dimer noted along with abnormal ventilation perfusion lung scan. These abnormalities are most likely related to her underlying metastatic lung cancer rather than new pulmonary embolism. Continue supportive care. (11) Hypokalemia Status: Resolved Assessment and plan: Give KCl 40 mEq PO once. Recheck BMP and magnesium in AM. (12) Anemia Status: Chronic Assessment and plan: Monitor serial H/H as per above. Currently stable; Transfuse for hemoglobin < 7.0 or symptomatic. Qualifiers: Anemia type: unspecified type Qualified Code(s): D64.9 - Anemia, unspecified (13) Localized swelling, mass and lump, neck Status: Acute Assessment and plan: ?Inflamed sebaceous cyst versus lipoma. XRay shows Soft tissue prominence along the posterior aspect of the lower neck. Recommend CT neck with IV contrast but she is allergic to IV contrast; Supportive care and pain control. - Time Spent With Patient Total time spent is greater than 50% in coordination of care (as documented) at patient's floor/unit and/or counseling patient: - Subjective Interval history: No acute events overnight - Constitutional Vitals: Temp Pulse Resp BP Pulse Ox 98.3 F 92 17 100/70 95 12/24/17 03:43 12/24/17 03:43 12/24/17 03:43 12/24/17 03:43 12/24/17 03:43 General appearance: Present: cachectic, A&O X 3, answers questions appropriately - Head Head exam: Present: atraumatic, normocephalic - Eye Eye exam: Present: PERRL, conjuntiva pink, sclera anicteric Pupils: Present: PERRL - Neck Neck exam general surgery: Present: supple, trachea midline. Absent: lymphadenopathy - Respiratory Respiratory exam: Present: CTAB. Absent: accessory muscle use, rales, rhonchi, wheezes - Cardiovascular Cardiovascular exam: Present: RRR, +S1, +S2. Absent: diastolic murmur, gallop, rubs, systolic murmur - GI/Abdominal GI/Abdominal exam: Present: normal bowel sounds, soft, no peritoneal signs. Absent: distended, tenderness - Extremities Exam Extremities exam: Present: warm, radial pulses palpable and symmetrical. Absent : calf tenderness, cyanotic, pedal edema - Neurological Exam Neurological exam: Present: CN II-XII intact, oriented X3, no focal deficits. Absent: pronater drift, facial droop, speech deficit - Skin Skin exam: Present: dry, intact Internal Medicine: Result - Labs CBC & Chem 7: 12/23/17 04:51 12/23/17 04:51 Labs: Urine 12/24/17 Range/Units 05:36 Urine Color Red A (Yellow) Urine Clarity Cloudy A (Clear) Urine pH 7.5 (5.0-8.0) pH Units Ur Specific [place] 1.016 (1.010-1.025) Urine Protein >=300 H (Neg-Trace) mg/dL Urine Glucose (UA) Normal (Normal) mg/dL - ABG Interpretation ABG results: PT/INR, D-dimer PT 12.2 Seconds (9.4-12.1) H 12/15/17 05:17 D-Dimer 5663 ng/mLFEU (0-500) H 12/15/17 05:17 - VTE Reasons for not Prescribing Prophylaxis: Medical contraindication (Anemia, Hemoptysis, Hematuria) Documentation of Mechanical Device: Intermittent pneumatic compression device Consult Discharge Plan - Plan Instructions: Prednisone (By mouth), Guaifenesin (By mouth), Fluconazole (By mouth) Referrals: Christiana Starkey MD [Primary Care Provider] - 01/13/18 9:00 am Prescriptions: GuaiFENesin Liq [Robitussin Liq] 200 mg PO Q6HR PRN #30 udc PRN Reason: Cough Fluconazole [Diflucan] 100 mg PO DAILY #5 udc predniSONE [PredniSONE] 40 mg PO DAILY #5 tablet
[2017-12-24] MEDS: Tiotropium 18 MCG inhalation IH SCH (08:04)
[2017-12-24] MEDS: Budesonide/Formoterol 160/4.5 MDI IH SCH (08:05)
--- NOTE | 2017-12-24 08:33 | Discharge Summary ---
- NOTES TO OUTPATIENT PROVIDER Notes to Outpatient Provider: Follow up with pulmonary and hematology/oncology Orders not resulted at time of discharge: Pending orders 12/23/17 Culture,Respiratory [RM] Routine Gram Stain [RM] Routine 12/23/17 17:06 Cytology [PTH] Routine 12/24/17 04:00 Basic Metabolic Panel AM 0400 CBC [Complete Blood Count] [HEME] AM 04012/24/17 05:36 Culture,Urine [RM] Routine 12/25/17 04:00 Basic Metabolic Panel AM 0400 CBC [Complete Blood Count] [HEME] AM 0400 12/26/17 04:00 Basic Metabolic Panel AM 0400 CBC [Complete Blood Count] [HEME] AM 04012/27/17 04:00 Basic Metabolic Panel AM 0400 CBC [Complete Blood Count] [HEME] AM 0400 12/28/17 04:00 Basic Metabolic Panel AM 0400 CBC [Complete Blood Count] [HEME] AM 0400 Date of Encounter: 12/24/17 Time of Encounter: 08:30 - Discharge Diagnosis (1) Primary lung adenocarcinoma Priority: Primary Status: Chronic Assessment and Plan: 67 year old female with pmh of bladder cancer with mets, primary lung adenocarcinoma who presented to ED this morning for "coughing up blood." Patient states that she started noticing larger than usual streaks of blood in her sputum. She states that she has intermittent hemoptysis. She also noticed some worsening hematuria, although she has chronic hematuria due to metastatic bladder cancer. She has known metastases to brain, lung, and bones. She states that she also had some abdominal pain earlier. She had chemotherapy the week prior. She was assessed with hemoptysis likely secondary to post obstructive pneumonia and started on broad spectrum antibiotics with vanc, zosyn and levaquin. She was also assessed with COPD exacerbation and got nebs, steroids and antibiotics. She was seen by pulmonary and oncology. Per both specialties, hematuria and hemoptysis likely related to both maligancies Palliative care was consulted but patient refused hospice. For hematuria, hemoglobin remained stable and she robert continue outpatient follow up with oncology for immunotherapy and chemotherapy. For her hemoptysis she underwent a bronschoscopy showing blood in the trachea, left mainstem bronchus and left upper and lower lobe. Blood clot was found throughout tracheobronchial tree partially obstructing the airway. Clot successfully removed with no significant bleeding. BAL was performed and sent for culture. She will follow up outpatient with oncology and pulmonary. She will also complete a course of levaquin. 35minutes was spent discharging this patient Qualifiers: Laterality: left Qualified Code(s): C34.92 - Malignant neoplasm of unspecified part of left bronchus or lung (2) Hemoptysis Priority: Secondary Status: Chronic (3) Acute encephalopathy Priority: Secondary Status: Acute (4) Bladder cancer metastasized to intrapelvic lymph nodes Priority: Secondary Status: Chronic (5) COPD (chronic obstructive pulmonary disease) Priority: Secondary Status: Acute Qualifiers: COPD type: chronic bronchitis Chronic bronchitis type: simple Qualified Code(s): J41.0 - Simple chronic bronchitis (6) DVT prophylaxis Priority: Secondary Status: Acute (7) GERD (gastroesophageal reflux disease) Priority: Secondary Status: Chronic Qualifiers: Esophagitis presence: esophagitis presence not specified Qualified Code(s) : K21.9 - Gastro-esophageal reflux disease without esophagitis (8) Hematuria Priority: Primary Status: Acute Qualifiers: Hematuria type: gross Qualified Code(s): R31.0 - Gross hematuria (9) Postobstructive pneumonia Priority: Secondary Status: Acute (10) Elevated d-dimer Priority: Secondary Status: Acute (11) Anemia Priority: Secondary Status: Chronic Qualifiers: Anemia type: unspecified type Qualified Code(s): D64.9 - Anemia, unspecified (12) Localized swelling, mass and lump, neck Priority: Secondary Status: Acute Hospital course: Ms. Siddiqui is a 67 year old female - Time Spent with Patient Total time spent providing and/or coordinating discharge services: - Discharge Medications Prescriptions: GuaiFENesin Liq [Robitussin Liq] 200 mg PO Q6HR PRN #30 udc PRN Reason: Cough Fluconazole [Diflucan] 100 mg PO DAILY #5 udc predniSONE [PredniSONE] 40 mg PO DAILY #5 tablet Home Medications: Omeprazole [PriLOSEC] 20 mg PO DAILY #30 capsule. 03/23/17 [Rx] Oxycodone HCl [Roxicodone 30] 30 mg PO Q4H PRN 04/14/17 [History] Oxygen 1 l NS HS 04/14/17 [History] Morphine Sulfate SR (12 HR) [MS Contin] 100 mg PO Q8HR 08/18/17 [History] LORazepam [Lorazepam] 1 mg PO BID PRN 7 Days #14 tablet 10/15/17 [Rx] Nicotine Patch [Nicoderm] 21 mg TD DAILY patch.td24 10/15/17 [Rx] Albuterol Sulfate [Ventolin Hfa] 2 puff IH Q4H PRN #1 hfa.aer.ad 11/09/17 [Rx] BuPROPion SR (12 HR) [Wellbutrin SR] 150 mg PO BID #60 tablet.er 11/09/17 [Rx] Budesonide/Formoterol 160/4.5 [Symbicort 160/4.5] 2 puff IH BIDR #1 inhaler 01/20 [Rx] Ipratropium/Albuterol Neb [Duoneb] 3 ml IH Q4HR PRN #30 vial.neb 11/09/17 [Rx] Prochlorperazine Maleate [Compazine] 10 mg PO Q6HR PRN #60 tablet 11/09/17 [Rx] Tiotropium [place] [Spiriva Respimat] 2 puff IH DAILY #1 mist.inhal 11/09/17 [Rx ] Gabapentin [Neurontin] 300 mg PO BID #60 capsule 11/16/17 [Rx] Fluconazole [Diflucan] 100 mg PO DAILY #5 udc 12/24/17 [Rx] GuaiFENesin Liq [Robitussin Liq] 200 mg PO Q6HR PRN #30 udc 12/24/17 [Rx] predniSONE [PredniSONE] 40 mg PO DAILY #5 tablet 12/24/17 [Rx] Allergies/Adverse Reactions: 3 Allergy/AdvReac Type Severity Reaction Status Date / Time Iodinated Contrast- Oral and Allergy Intermediate Hives Verified 11/09/17 11:40 IV Dye Nickel Allergy Mild Hives Verified 11/09/17 11:40 METALS Allergy Hives Uncoded 11/09/17 11:40 Date of admission: 12/15/17 19:24 Primary care physician: Christiana Starkey Consults: 12/18/17 18:27 Consult to Pulmonology [CONS] Routine Consulting Provider: [facility] Reason for Consult: COPD, post obstructive pneumonia Call Completed: No - Constitutional Vitals: Temp Pulse Resp BP Pulse Ox 98.3 F 92 20 100/70 95 12/24/17 03:43 12/24/17 03:43 12/24/17 08:05 12/24/17 03:43 12/24/17 08:05 General appearance: Present: cachectic, A&O X 3, answers questions appropriately - Head Head exam: Present: atraumatic, normocephalic - Eye Eye exam: Present: PERRL, conjuntiva pink, sclera anicteric Pupils: Present: PERRL - Neck Neck exam general surgery: Present: supple, trachea midline. Absent: lymphadenopathy - Respiratory Respiratory exam: Present: CTAB. Absent: accessory muscle use, rales, rhonchi, wheezes - Cardiovascular Cardiovascular exam: Present: RRR, +S1, +S2. Absent: diastolic murmur, gallop, rubs, systolic murmur - GI/Abdominal GI/Abdominal exam: Present: normal bowel sounds, soft, no peritoneal signs. Absent: distended, tenderness - Extremities Exam Extremities exam: Present: warm, radial pulses palpable and symmetrical. Absent : calf tenderness, cyanotic, pedal edema - Neurological Exam Neurological exam: Present: CN II-XII intact, oriented X3, no focal deficits. Absent: pronater drift, facial droop, speech deficit - Skin Skin exam: Present: dry, intact - Patient Status Disposition: Home Health Service Condition: Undetermined - Discharge Instructions Instructions: Prednisone (By mouth), Guaifenesin (By mouth), Fluconazole (By mouth) Follow Up With: Christiana Starkey MD [Primary Care Provider] - 01/13/18 9:00 am - VTE Reasons for not Prescribing Prophylaxis: Medical contraindication (Anemia, Hemoptysis, Hematuria) Documentation of Mechanical Device: Intermittent pneumatic compression device
[2017-12-24 08:44] VITALS: BP 101/68
[2017-12-24] MEDS ORDERED: predniSONE 20 MG TABLET PO SCH (09:00)
[2017-12-24] MEDS: BuPROPion SR (12 HR) 150 MG TABLET PO SCH (09:08)
[2017-12-24] MEDS: Potassium Chloride Elixir 20 MEQ/15 ML UDC PO SCH (09:08)
[2017-12-24] MEDS: Gabapentin 300 MG CAPSULE PO SCH (09:08)
[2017-12-24] MEDS: Sennosides/Docusate Sodium TABLET PO SCH (09:08)
[2017-12-24] MEDS: Nicotine 21 MG PATCH.TD24 TD SCH (09:09)
[2017-12-24] MEDS: Fluconazole 40 MG/ML UDC PO SCH (09:16)
--- NOTE | 2017-12-24 10:33 | Physician Discharge Referral ---
Home Health/Hosp Referral Info Transfer to: Home Health - Diagnosis (1) Primary lung adenocarcinoma Priority: Primary Status: Chronic (2) Hemoptysis Priority: Primary Status: Chronic (3) Acute encephalopathy Status: Acute (4) Bladder cancer metastasized to intrapelvic lymph nodes Status: Chronic (5) COPD (chronic obstructive pulmonary disease) Status: Acute (6) DVT prophylaxis Status: Acute (7) GERD (gastroesophageal reflux disease) Status: Chronic (8) Hematuria Status: Acute (9) Postobstructive pneumonia Status: Acute (10) Elevated d-dimer Status: Acute (11) Hypokalemia Status: Resolved (12) Anemia Status: Chronic (13) Localized swelling, mass and lump, neck Status: Acute - Respiratory Orders Smoking Cessation: Smoking cessation has been advised. For more information, call the [employer] Quit Line at 1-045-PODQ-NOW. - Diet/Nutrition Diet/Nutrition Orders: Cardiac - Activity Activity Orders: Ambulate - Services Needed Following services are medically necessary services: Nursing, Home Health Aide, Physical Therapy - Transfer Medications Prescriptions: GuaiFENesin Liq [Robitussin Liq] 200 mg PO Q6HR PRN #30 udc PRN Reason: Cough Fluconazole [Diflucan] 100 mg PO DAILY #5 udc predniSONE [PredniSONE] 40 mg PO DAILY #5 tablet Home Medications: Omeprazole [PriLOSEC] 20 mg PO DAILY #30 capsule. 03/23/17 [Rx] Oxycodone HCl [Roxicodone 30] 30 mg PO Q4H PRN 04/14/17 [History] Oxygen 1 l NS HS 04/14/17 [History] Morphine Sulfate SR (12 HR) [MS Contin] 100 mg PO Q8HR 08/18/17 [History] LORazepam [Lorazepam] 1 mg PO BID PRN 7 Days #14 tablet 10/15/17 [Rx] Nicotine Patch [Nicoderm] 21 mg TD DAILY patch.td24 10/15/17 [Rx] Albuterol Sulfate [Ventolin Hfa] 2 puff IH Q4H PRN #1 hfa.aer.ad 11/09/17 [Rx] BuPROPion SR (12 HR) [Wellbutrin SR] 150 mg PO BID #60 tablet.er 11/09/17 [Rx] Budesonide/Formoterol 160/4.5 [Symbicort 160/4.5] 2 puff IH BIDR #1 inhaler 01/20 [Rx] Ipratropium/Albuterol Neb [Duoneb] 3 ml IH Q4HR PRN #30 vial.neb 11/09/17 [Rx] Prochlorperazine Maleate [Compazine] 10 mg PO Q6HR PRN #60 tablet 11/09/17 [Rx] Tiotropium [place] [Spiriva Respimat] 2 puff IH DAILY #1 mist.inhal 11/09/17 [Rx ] Gabapentin [Neurontin] 300 mg PO BID #60 capsule 11/16/17 [Rx] Fluconazole [Diflucan] 100 mg PO DAILY #5 udc 12/24/17 [Rx] GuaiFENesin Liq [Robitussin Liq] 200 mg PO Q6HR PRN #30 udc 12/24/17 [Rx] predniSONE [PredniSONE] 40 mg PO DAILY #5 tablet 12/24/17 [Rx] Allergies/Adverse Reactions: 3 Allergy/AdvReac Type Severity Reaction Status Date / Time Iodinated Contrast- Oral and Allergy Intermediate Hives Verified 11/09/17 11:40 IV Dye Nickel Allergy Mild Hives Verified 11/09/17 11:40 METALS Allergy Hives Uncoded 11/09/17 11:40 Certification: Further, I certify that my clinical findings support that this patient is homebound (i.e. absences from home require considerable and taxing effort and are for medical reasons or latter-day services or infrequently or short duration when for other reasons) because: Homebound Reason: Patient requires assistance of a person or device to safely leave home Attestation: My signature below is to certify that this patient is under my care and that I, or nurse practitioner, or a physician's assistant wrestling coach working with me, has a face-to -face encounter with this patient.
== END 2017-12-24 12:08 | disposition home health service (06) | DRG 166 ==
LOC: 2SOUTHHOLD 04:16 → EMEROO 04:16 → 2SOUTHHOLD 08:32 → SUATTDRO 19:24 → 2ANU 12-16 00:32
PROVIDERS: ADMIT Family Medicine; ATTEND Internal Medicine

== ENCOUNTER 2017-12-27 08:35 | Inpatient (IN) ==
[2017-12-27] MEDS ORDERED: *HR* FentaNYL (PF) 100 MCG/2 ML VIAL IVP ONE (09:08)
[2017-12-27] MEDS ORDERED: Ondansetron 4 MG/2 ML VIAL IVP ONE (09:08)
[2017-12-27] MEDS ORDERED: 0.9 % Sodium Chloride 1,000 ML IVC ONE (09:24)
[2017-12-27 09:31] LABS: Basophils % 0.2 %; Eosinophils % 0.1 %; Hemoglobin 9.1 g/dL (11.5-15.4); Immature Granulocytes % 2.5 % (0-4); Lymphocytes # 0.5 K/mcL (0.6-4.6); Lymphocytes % 3.2 %; Mean Corpuscular HGB Conc 33.7 g/dL (31.6-35.5); Mean Corpuscular Hemoglobin 29.8 pg (28.0-33.3); Mean Corpuscular Volume 88.5 fL (83.0-100.0); Mean Platelet Volume 9.2 fL (9.4-12.4); Monocytes # 1.3 K/mcL (0.0-1.3); Monocytes % 8.6 %; Neutrophils # 13.1 K/mcL (1.6-8.9); Platelet Count 134 K/mcL (140-400); Red Blood Count 3.05 M/mcL (3.82-4.97); Red Cell Distribution Width 15.9 % (11.5-14.5); Segmented Neutrophils % 85.4 %
--- NOTE | 2017-12-27 09:49 | Emergency Department Note ---
Disposition Clinical Impression: Intractable pain Decubitus ulcer of sacral area Qualifiers: Pressure ulcer stage: stage 1 Qualified Code(s): L89.151 - Pressure ulcer of sacral region, stage 1 Leukocytosis Qualifiers: Leukocytosis type: unspecified Qualified Code(s): D72.829 - Elevated white blood cell count, unspecified Disposition: Admitted As Inpatient Condition: Serious Referrals: NONE,PCP [Primary Care Provider] - Martina Lopez [Family Provider] - Forms: ED Satisfaction Letter, Work/School Release General Adult HPI - General Chief complaint: ED General Medical Stated complaint: pain all over Time Seen by Provider: 12/27/17 08:41 Source: patient, EMS Mode of arrival: private vehicle Limitations: altered mental status (Patient states, "I have a memory problem from my cancer.") Nursing Notes Reviewed: Yes Vital Signs Reviewed: Yes - History of Present Illness Pt Subjective Complaint: "Really, really bad pain in my bottom." Onset (ago): day(s) Location: buttocks Radiation: non-radiation Pain Severity: severe Pain Scale: 10 Quality: stabbing, aching, sharp, constant Consistency: constant Improves with: nothing Worsens with: other (Sitting, lying down, palpation) Associated symptoms: Reports: cough (No worse than usual), malaise. Denies: chest pain, diaphoresis, fever/chills, headaches, loss of appetite, nausea/ vomiting, rash, seizure, shortness of breath, syncope, weakness Treatments Prior to Arrival: none - Related Data Home Medications Medication Instructions Recorded Confirmed Oxygen 1 l NS HS 04/14/17 12/15/17 Morphine Sulfate SR (12 HR) [MS 100 mg PO Q8HR 08/18/17 12/15/17 Contin] OxyCODONE Immed Rel [Roxicodone 30 30 mg PO Q4H PRN 12/27/17 12/27/17 MG] Previous Rx's Medication Instructions Recorded LORazepam [Lorazepam] 1 mg PO BID PRN 7 Days #14 tablet 10/15/17 Nicotine Patch [Nicoderm] 21 mg TD DAILY patch.td24 10/15/17 Albuterol Sulfate [Ventolin Hfa] 2 puff IH Q4H PRN #1 hfa.aer.ad 11/09/17 BuPROPion SR (12 HR) [Wellbutrin 150 mg PO BID #60 tablet.er 11/09/17 SR] Budesonide/Formoterol 160/4.5 2 puff IH BIDR #1 inhaler 11/09/17 [Symbicort 160/4.5] Ipratropium/Albuterol Neb [Duoneb] 3 ml IH Q4HR PRN #30 vial.neb 11/09/17 Prochlorperazine Maleate 10 mg PO Q6HR PRN #60 tablet 11/09/17 [Compazine] Tiotropium [place] [Spiriva 2 puff IH DAILY #1 mist.inhal 11/09/17 Respimat] Gabapentin [Neurontin] 300 mg PO BID #60 capsule 11/16/17 Fluconazole [Diflucan] 100 mg PO DAILY #5 udc 12/24/17 predniSONE [PredniSONE] 40 mg PO DAILY #5 tablet 12/24/17 Allergies Allergy/AdvReac Type Severity Reaction Status Date / Time Iodinated Contrast- Oral and Allergy Intermediate Hives Verified 12/27/17 11:27 IV Dye Nickel Allergy Mild Hives Verified 12/27/17 11:27 METALS Allergy Hives Uncoded 12/27/17 11:27 All systems ED: reviewed and negative except as stated. Review of Systems: As Per HPI Constitutional: Denies: fever, chills, weakness, weight change, night sweats Eyes: Denies: eye pain, eye discharge, vision change Cardiovascular: Denies: chest pain, palpitations Respiratory: Reports: as per HPI, cough, dyspnea, hemoptysis (No worse than usual). Denies: stridor Gastrointestinal: Denies: abdominal pain, nausea, vomiting, diarrhea, constipation, hematemesis, melena, hematochezia Genitourinary: Reports: hematuria (No worse than usual) Musculoskeletal: Reports: back pain (Same as usual), arthralgia Neurological: Reports: weakness ("All over"), confusion (Same as usual). Denies : headache Hematological/Lymphatic: Denies: easy bleeding, easy bruising, lymphadenopathy Past Medical History - Past Medical History Attestation: Yes The following information was validated with the patient. Source: patient Medical history: Reports: arthritis, cancer, CHF, COPD, peripheral artery disease Surgical history: Reports: cancer surgery Psychiatric history: Reports: anxiety, depression, panic disorder - Social History Smoking Status: Current every day smoker Smokeless Tobacco Status: No Alcohol use: Reports: none Drug use: Reports: none Physical Exam - General Limitations: no limitations General appearance: alert, in no apparent distress, anxious - Head Head exam: atraumatic, normocephalic, normal inspection - Eye Eye exam: Present: normal appearance, PERRL. Absent: scleral icterus, conjunctival injection, periorbital swelling - ENT ENT exam: mucous membranes dry - Neck Neck exam: Present: normal inspection, full ROM, trachea midline. Absent: tenderness, meningismus - Chest Chest inspection: Present: normal inspection, symmetric chest wall rise - Respiratory Respiratory exam: Present: normal lung sounds bilaterally. Absent: respiratory distress, wheezes, stridor - Cardiovascular Cardiovascular exam: Present: normal rhythm, tachycardia - Abdominal Exam Abdominal exam: Present: soft, Non-Tender, normal bowel sounds. Absent: distention, guarding, rebound, rigidity, organomegaly, ascites, mass, pulsatile mass - Extremities Exam Extremities exam: Present: full ROM, normal capillary refill. Absent: pedal edema, joint swelling - Back Exam Back exam: Present: other (Stage I sacral decubitus ulcer with exquisite tenderness) - Neurological Exam Neurological exam: Present: alert, oriented X3, CN II-XII intact, normal gait - Psychiatric Psychiatric exam: Present: normal affect, normal mood - Skin Skin exam: Present: warm, dry, intact, other - Expanded Skin Exam Type of lesion: Present: other (Sacral erythema and tenderness with mild edema) Course Course Narrative: Patient presents from home by squad for evaluation of severe pain in the sacral area. She has a new sacral decubitus ulcer. Pain meds, labs and x-rays have been ordered. Case was discussed with Dr. Gonzalez. He has had [id number] M with the patient and agrees with the assessment, plan. Labs show leukocytosis without a left shift. Some of this could be from the severe pain. She is very tearful and tachycardic from the pain. The ulcerated area is erythematous only. There is does not appear to be involvement of the deeper layers. This does appear to be acute, as I do not see documentation of it from her previous visit. She denies having pain in this area in the past. Patient is having intractable pain in the sacral area. X-ray does not show metastases in the sacrum, but she does have metastases at L5. I think her pain is primarily from the ulcer, but could also be from the bony metastasis. Consult to palliative care has been placed. Patient will require admission for further pain control. Case was discussed with the hospitalist. Patient has been accepted for admission. - Reevaluation(s) Reevaluation #1: Patient is still complaining of 10 out of 10 pain. Blood pressure is still elevated. This was discussed with Dr. Gonzalez. He recommends giving ketamine 10 mg one dose 1 for pain control. This has been ordered. Time: 11:00 Vital Signs Temperature 97.8 F 12/27/17 08:40 Pulse Rate 106 12/27/17 08:40 Respiratory Rate 18 12/27/17 08:40 Blood Pressure 0/0 12/27/17 08:40 O2 Sat by Pulse Oximetry 96 12/27/17 08:40 Temperature 97.8 F 12/27/17 08:40 Pulse Rate 106 12/27/17 08:40 Respiratory Rate 102 12/27/17 09:24 Blood Pressure 136/84 12/27/17 09:24 O2 Sat by Pulse Oximetry 95 12/27/17 09:24 Oxygen Delivery Oxygen Delivery Nasal Cannula Medical Decision Making - Medical Records Medical records reviewed: Yes I reviewed the patient's medical records. - Lab Data Lab results reviewed: Yes I reviewed the patient's lab results. Lab results narrative: Laboratory Last Values WBC 15.3 K/mcL (4.3-11.1) H 12/27/17 09:20 RBC 3.05 M/mcL (3.82-4.97) L 12/27/17 09:20 Hgb 9.1 g/dL (11.5-15.4) L 12/27/17 09:20 Hct 27.0 % (35.3-44.9) L 12/27/17 09:20 MCV 88.5 fL (83.0-100.0) 12/27/17 09:20 MCH 29.8 pg (28.0-33.3) 12/27/17 09:20 MCHC 33.7 g/dL (31.6-35.5) 12/27/17 09:20 RDW 15.9 % (11.5-14.5) H 12/27/17 09:20 Plt Count 134 K/mcL (140-400) L 12/27/17 09:20 MPV 9.2 fL (9.4-12.4) L 12/27/17 09:20 Immature Gran % 2.5 % (0-4) 12/27/17 09:20 Seg Neutrophils % 85.4 % 12/27/17 09:20 Lymphocytes % 3.2 % 12/27/17 09:20 Monocytes % 8.6 % 12/27/17 09:20 Eosinophils % 0.1 % 12/27/17 09:20 Basophils % 0.2 % 12/27/17 09:20 Neutrophils # 13.1 K/mcL (1.6-8.9) H 12/27/17 09:20 Lymphocytes # 0.5 K/mcL (0.6-4.6) L 12/27/17 09:20 Monocytes # 1.3 K/mcL (0.0-1.3) 12/27/17 09:20 Eosinophils # 0.0 K/mcL (0.0-0.6) 12/27/17 09:20 Basophils # 0.0 K/mcL (0.0-0.2) 12/27/17 09:20 Sodium 133 mEq/L (136-145) L 12/27/17 09:20 Potassium 3.0 mEq/L (3.5-5.1) L 12/27/17 09:20 Chloride 97 mEq/L (98-107) L 12/27/17 09:20 Carbon Dioxide 25 mEq/L (23-29) 12/27/17 09:20 BUN 10 mg/dL (8-23) 12/27/17 09:20 Creatinine 0.53 mg/dL (0.60-1.20) L 12/27/17 09:20 Est GFR ( Amer) > 60 (> 60) 12/27/17 09:20 Est GFR (Non-Af Amer) > 60 (> 60) 12/27/17 09:20 BUN/Creatinine Ratio 19 (6-26) 12/27/17 09:20 Glucose 117 mg/dL (70-105) H 12/27/17 09:20 Calculated Osmolality 276 (280-300) L 12/27/17 09:20 Calcium 8.8 mg/dL (8.6-10.3) 12/27/17 09:20 Result diagrams: 12/27/17 09:20 12/27/17 09:20 Lab Results 12/27/17 12/27/17 Range/Units 09:20 09:20 WBC 15.3 H (4.3-11.1) K/mcL RBC 3.05 L (3.82-4.97) M/mcL Hgb 9.1 L (11.5-15.4) g/dL Hct 27.0 L (35.3-44.9) % MCV 88.5 (83.0-100.0) fL MCH 29.8 (28.0-33.3) pg MCHC 33.7 (31.6-35.5) g/dL RDW 15.9 H (11.5-14.5) % Plt Count 134 L (140-400) K/mcL MPV 9.2 L (9.4-12.4) fL Immature Gran % 2.5 (0-4) % Seg Neutrophils % 85.4 % Lymphocytes % 3.2 % Monocytes % 8.6 % Eosinophils % 0.1 % Basophils % 0.2 % Neutrophils # 13.1 H (1.6-8.9) K/mcL Lymphocytes # 0.5 L (0.6-4.6) K/mcL Monocytes # 1.3 (0.0-1.3) K/mcL Eosinophils # 0.0 (0.0-0.6) K/mcL Basophils # 0.0 (0.0-0.2) K/mcL Sodium 133 L (136-145) mEq/L Potassium 3.0 L (3.5-5.1) mEq/L Chloride 97 L (98-107) mEq/L Carbon Dioxide 25 (23-29) mEq/L BUN 10 (8-23) mg/dL Creatinine 0.53 L (0.60-1.20) mg/dL Est GFR ( Amer) > 60 (> 60) Est GFR (Non-Af Amer) > 60 (> 60) BUN/Creatinine Ratio 19 (6-26) Glucose 117 H (70-105) mg/dL Calculated Osmolality 276 L (280-300) Calcium 8.8 (8.6-10.3) mg/dL - Radiology Data Radiology results reviewed: Yes I reviewed the patient's radiology results. Sacrum and Coccyx X-Ray 12/27/17 09:08 IMPRESSION: Known sclerotic mets seen to better advantage on CT from 12 days earlier. No pathologic fracture is seen. D/ / 12/27/2017 09:57:41 Matthew Lebron MD / sweta Interpreting Provider: Matthew Lebron MD
[2017-12-27 09:55] LABS: BUN/Creatinine Ratio 19 (6-26); Blood Urea Nitrogen 10 mg/dL (8-23); Calcium 8.8 mg/dL (8.6-10.3); Carbon Dioxide 25 mEq/L (23-29); Chloride 97 mEq/L (98-107); Glucose 117 mg/dL (70-105); Osmolality,Calculated 276 (280-300); Sodium 133 mEq/L (136-145); eGFR For African Americans > 60 (> 60); eGFR For Non-African Americans > 60 (> 60)
[2017-12-27] MEDS ORDERED: Ketamine *HR* 13 MG in 0.9 % Sodium Chloride 100 ML IVPB ONE (10:57)
[2017-12-27] MEDS ORDERED: *HR* Ketamine 500 MG/5 ML MDV IVP ONE (10:59)
[2017-12-27] MEDS ORDERED: Naloxone 0.4 MG/ML INJ IVP PRN (12:22)
[2017-12-27] MEDS ORDERED: Fluconazole 40 MG/ML UDC PO SCH (12:26)
[2017-12-27] MEDS ORDERED: *HR* LORazepam 1 MG TABLET PO PRN (12:26)
[2017-12-27] MEDS ORDERED: Ipratropium/Albuterol Neb 3 ML IH PRN (12:26)
[2017-12-27] MEDS ORDERED: OXYGEN NS SCH (12:30)
--- NOTE | 2017-12-27 12:33 | Internal Med History&Physical ---
Date of Encounter: 12/27/17 Time of Encounter: 11:20 Internal Medicine - H&P: HPI Chief complaint: Uncontrolled pain Admitted From: Home Plans for Post Hospital Care: Home History of present illness: Ms. Siddiqui is a 67 year old female with hx of metastatic lung and bladder cancer. She was just discharged from this hospital on 12/24 after lengthy admission. She stated that when she went home she developed severe uncontrolled pain diffusely though worse in lower abdomen and low back. Denies fever or chills. No bowel changes. Says she has constant hematuria that is unchanged. She has chronic cough but feels chest pain with coughing feels worse as well. Currently she is complaining of sacral pain. She is unable to find a comfortable spot. Past Med Surg Social Fam HX - Past Medical History Source: patient, old records reviewed Medical history: arthritis, cancer, CHF, COPD, peripheral artery disease Additional medical history: Lung cancer,bladder cancer,brain cancer Psychiatric history: anxiety, depression, panic disorder - Past Surgical History Surgical History: cancer surgery Additional surgical history: lymphectomy, bladder procedure-scraping, port implated - Social History Smoking Status: Current every day smoker Smokeless Tobacco Status: No Alcohol use: none Drug use: none Current living situation: Home - Family History Father Family Member Ethnicity: Non- Living Status: Hx Family Respiratory Disorders: Yes (COPD/Emphysema) Mother Family Member Ethnicity: Non- Living Status: Hx Family Cardiac Disorders: Yes (NE, CAD) Hx Family Cancer: Yes (Lung) Brother Family Member Ethnicity: Non- Living Status: Still Living Hx Family Respiratory Disorders: Yes (COPD) Sister Family Member Ethnicity: Non- Living Status: Still Living Hx Family Cancer: Yes (Melanoma w/metastases) Internal Medicine - H&P: Meds Oxygen 1 l NS HS 04/14/17 [History] Morphine Sulfate SR (12 HR) [MS Contin] 100 mg PO Q8HR 08/18/17 [History] LORazepam [Lorazepam] 1 mg PO BID PRN 7 Days #14 tablet 10/15/17 [Rx] Nicotine Patch [Nicoderm] 21 mg TD DAILY patch.td24 10/15/17 [Rx] Albuterol Sulfate [Ventolin Hfa] 2 puff IH Q4H PRN #1 hfa.aer.ad 11/09/17 [Rx] BuPROPion SR (12 HR) [Wellbutrin SR] 150 mg PO BID #60 tablet.er 11/09/17 [Rx] Budesonide/Formoterol 160/4.5 [Symbicort 160/4.5] 2 puff IH BIDR #1 inhaler 01/20 [Rx] Ipratropium/Albuterol Neb [Duoneb] 3 ml IH Q4HR PRN #30 vial.neb 11/09/17 [Rx] Prochlorperazine Maleate [Compazine] 10 mg PO Q6HR PRN #60 tablet 11/09/17 [Rx] Tiotropium [place] [Spiriva Respimat] 2 puff IH DAILY #1 mist.inhal 11/09/17 [Rx ] Gabapentin [Neurontin] 300 mg PO BID #60 capsule 11/16/17 [Rx] Fluconazole [Diflucan] 100 mg PO DAILY #5 udc 12/24/17 [Rx] predniSONE [PredniSONE] 40 mg PO DAILY #5 tablet 12/24/17 [Rx] OxyCODONE Immed Rel [Roxicodone 30 MG] 30 mg PO Q4H PRN 12/27/17 [History] 3 Allergy/AdvReac Type Severity Reaction Status Date / Time Iodinated Contrast- Oral and Allergy Intermediate Hives Verified 12/27/17 11:27 IV Dye Nickel Allergy Mild Hives Verified 12/27/17 11:27 METALS Allergy Hives Uncoded 12/27/17 11:27 All Systems PM: A 10-system review of systems was performed and is negative for pertinent findings except as documented above in the HPI. - Constitutional Constitutional: fatigue, malaise - EENT Eyes: no discharge, no loss of vision Ears: no decreased hearing Nose, mouth and throat: dry mouth, no mouth pain, no odynophagia - Cardiovascular Cardiovascular ROS IM: chest pain, dyspnea, dyspnea on exertion, no lightheadedness, no paroxysmal nocturnal dyspnea - Respiratory Respiratory: cough, dyspnea, dyspnea on exertion, wheezing, pain on inspiration , chest congestion - Gastrointestinal Gastrointestinal: abdominal pain, nausea, no dysphagia, no hematemesis - Genitourinary Genitourinary: hematuria, no change in urinary stream, no urinary urgency - Musculoskeletal Musculoskeletal ROS IM: arthralgias, back pain - Integumentary Integumentary IM: erythema, no rash Additional comments: Ecchymoses present - Neurological Neurological ROS: confusion, memory loss, no abnormal speech - Psychiatric Psychiatric: depression, memory loss - Endocrine Endocrine IM: no fatigue, no polydipsia - Hematologic/Lymphatic Hematologic/Lymphatic: easy bruising - Allergic/Immunologic Allergic/Immunologic: no itchy eyes, no wheezing - Constitutional Vitals: Temp Pulse Resp BP Pulse Ox 98.2 F 100 18 117/77 100 12/27/17 12:29 12/27/17 12:29 12/27/17 12:29 12/27/17 12:29 12/27/17 12:29 General appearance: Present: cachectic, mild distress, answers questions appropriately Exam: Restless in bed. Tearful at times. - Head Head exam: Present: atraumatic - Eye Eye exam: Present: EOMI, PERRL, conjuntiva pink. Absent: scleral icterus - ENT ENT exam: Present: mucous membranes dry - Respiratory Respiratory exam: Present: decreased breath sounds, rales, rhonchi, wheezes - Cardiovascular Cardiovascular exam: Present: RRR. Absent: tachycardia - GI/Abdominal GI/Abdominal exam: Present: normal bowel sounds, soft, tenderness - Extremities Exam Extremities exam: Present: warm. Absent: pedal edema, tenderness - Back Exam Back exam: Present: normal inspection. Absent: tenderness - Neurological Exam Neurological exam: Present: alert, strengths equal and symetr throughout - Psychiatric Psychiatric exam: Present: anxious, depressed - Skin Skin exam: Present: erythema Additional comments: Appears to be stage 1 sacral decub present. Internal Med - H&P Results - Labs CBC & Chem 7: 12/27/17 09:20 12/27/17 09:20 - Assessment and plan (1) Cancer related pain Current Visit: Yes Status: Acute Assessment and plan: Pt presents to ED with worsening pain. She has sacral xray with sclerotic mets. Given IV Fentanyl and Ketamine in ED without significant relief. Palliative care consulted by ED At this time I will continue her home meds until seen by palliative team Low air loss mattress - protect sacral area. (2) Decubitus ulcer of sacral area Current Visit: Yes Status: Acute Assessment and plan: Stage 1 decub noted. Protect area Present on admission. Qualifiers: Pressure ulcer stage: stage 1 Qualified Code(s): L89.151 - Pressure ulcer of sacral region, stage 1 (3) Leukocytosis Current Visit: Yes Status: Acute Assessment and plan: Unsure of etiology but most likely related to cancer, pain, stress reaction. Qualifiers: Leukocytosis type: unspecified Qualified Code(s): D72.829 - Elevated white blood cell count, unspecified (4) Bladder cancer metastasized to intrapelvic lymph nodes Current Visit: No Status: Chronic Assessment and plan: Chronic issue. (5) Bladder cancer metastasized to bone Current Visit: Yes Status: Acute (6) Non-small cell lung cancer Current Visit: No Status: Chronic Assessment and plan: Chronic issue Qualifiers: Laterality: left Qualified Code(s): C34.92 - Malignant neoplasm of unspecified part of left bronchus or lung (7) Hypokalemia Current Visit: No Status: Acute Assessment and plan: Given PO Potassium in ED. Will recheck and replete as needed as well as follow Magnesium (8) Anemia Current Visit: No Status: Chronic Assessment and plan: Chronic issue. Monitoring. Qualifiers: Anemia type: other cause Other causes of anemia: chronic disease, neoplastic Qualified Code(s): D63.0 - Anemia in neoplastic disease (9) COPD (chronic obstructive pulmonary disease) Current Visit: No Status: Chronic Assessment and plan: Continue home aerosols and supportive care Complete home course of Prednisone. Qualifiers: COPD type: chronic bronchitis Chronic bronchitis type: simple Qualified Code(s): J41.0 - Simple chronic bronchitis (10) Tobacco abuse Current Visit: No Status: Chronic Assessment and plan: Cessation counselling. - Time Spent With Patient Total time spent is greater than 50% in coordination of care (as documented) at patient's floor/unit and/or counseling patient:
[2017-12-27] MEDS: Gabapentin 300 MG CAPSULE PO SCH ×2 (14:05→22:09)
[2017-12-27] MEDS: *HR* OxyCODONE Immed Rel 15 MG TABLET PO PRN ×2 (14:05→18:16)
[2017-12-27] MEDS: Bisacodyl 10 MG RECTAL SUPPOSITORY RC PRN (14:05)
[2017-12-27] MEDS: predniSONE 20 MG TABLET PO SCH (14:05)
[2017-12-27] MEDS: 0.9 % Sodium Chloride 1,000 ML IVC SCH (14:06)
[2017-12-27] MEDS: Nicotine 21 MG PATCH.TD24 TD SCH ×2 (14:07→14:11)
[2017-12-27] MEDS: *HR* Morphine Sulfate SR (12 HR) 100 MG TABLET.ER PO SCH ×2 (14:10→23:52)
--- NOTE | 2017-12-27 14:34 | Palliative - Consult Note ---
Date of Encounter: 12/27/17 Time of Encounter: 14:00 - Assessment and Plan (1) Cancer related pain Current Visit: Yes Status: Acute Assessment and plan: Pain rated 10/10, described as sharp, shooting in sacrum. Patient has home pain medications ordered. Nurse just administered first dose. Patient reports hasn't really being taking anything for pain at home. (2) Non-small cell cancer of left lung Current Visit: No Status: Chronic Assessment and plan: Patient acknowledges she has had to stop cancer treatment. (3) Goals of care, counseling/discussion Current Visit: No Status: Acute Assessment and plan: Discussed goals of care with patient. Patient desires to have pain under control then go home. Desires to consider going home with [facility] at discharge. Patient designated Clarence (Significant other) to make decisions on her behalf should she become unable to; Rika CLAY witnessed conversation. (4) Constipation due to opioid therapy Current Visit: No Status: Acute Assessment and plan: Patient reports difficulty having bowel movement and last bowel movement was yesterday am. Ordered Colace and Dulcolax. (5) COPD (chronic obstructive pulmonary disease) Current Visit: No Status: Chronic Assessment and plan: Patient's lung sounds wheezing. Continue duonebs and oxygen therapy. 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 Patient reports will consider hospice at discharge this time; however, reports do not want someone in the home all of the time, educated that hospice does not provide 24/7 care in the home, but always someone available healthcare economics manager. Patient and significant other verbalized understanding. Patient educated that she has Ativan available as needed for anxiety; verbalized understanding. Palliative-CN HPI - Data of Consult Patient: known to practice within the last 3 years Consult date: 12/27/17 Requesting Physician: Zhang Rees Primary Care Provider: PCP NONE Family Provider: Angelita Provider - Consult Narrative Palliative Care/Comfort Measures: Palliative care Reason for consult: Intractable pain to sacrum and hx of bony mets History of present illness: Ms. Siddiqui is a 67 year old female Arrived to [facility] on 12/27/17 for complaints of intractable pain related to Stage 1 pressure ulcer to sacrum. Admitted for Leukocytosis and Intractable pain, rated a 10/10; describes pain as stabbing, sharp, and constant. Initial Sacral/Lumbar Xray showing; Known sclerotic mets seen to better advantage on CT from 12 days earlier, with no pathologic fracture is seen. Palliative care consult regarding intractable pain to sacrum and hx of bony mets to L5. Patient is a known patient of Palliative care and was recently discharged from [facility] on 12/24/17. Patient denies nausea and vomiting at this time; reports comes and goes. Reports last bowel movement was yesterday early and only a small amount. Patient reports pain at previously described and anxiety regarding discharge planning. Patient is aware of poor prognosis after last admission and is ready to consider hospice upon discharge this admission, requests pain be under control prior to. Patient sitting in bed with Clarence (Significant other) present at bedside. Patient is alert and oriented times 3. Patient having difficulty finding comfortable position as sacral type pain. CC: Zhang Rees Past Med Surg Social Fam HX - Past Medical History Medical history: arthritis, cancer, CHF, COPD, peripheral artery disease Additional medical history: Lung cancer,bladder cancer,brain cancer Psychiatric history: anxiety, depression, panic disorder - Past Surgical History Surgical History: cancer surgery Additional surgical history: lymphectomy, bladder procedure-scraping, port implated - Social History Smoking Status: Current every day smoker Smokeless Tobacco Status: No Alcohol use: none Drug use: none - Family History Father Family Member Ethnicity: Non- Living Status: Hx Family Respiratory Disorders: Yes (COPD/Emphysema) Mother Family Member Ethnicity: Non- Living Status: Hx Family Cardiac Disorders: Yes (NH, CAD) Hx Family Cancer: Yes (Lung) Brother Family Member Ethnicity: Non- Living Status: Still Living Hx Family Respiratory Disorders: Yes (COPD) Sister Family Member Ethnicity: Non- Living Status: Still Living Hx Family Cancer: Yes (Melanoma w/metastases) Medications and Allergies Oxygen 1 l NS HS 04/14/17 [History] Morphine Sulfate SR (12 HR) [MS Contin] 100 mg PO Q8HR 08/18/17 [History] LORazepam [Lorazepam] 1 mg PO BID PRN 7 Days #14 tablet 10/15/17 [Rx] Nicotine Patch [Nicoderm] 21 mg TD DAILY patch.td24 10/15/17 [Rx] Albuterol Sulfate [Ventolin Hfa] 2 puff IH Q4H PRN #1 hfa.aer.ad 11/09/17 [Rx] BuPROPion SR (12 HR) [Wellbutrin SR] 150 mg PO BID #60 tablet.er 11/09/17 [Rx] Budesonide/Formoterol 160/4.5 [Symbicort 160/4.5] 2 puff IH BIDR #1 inhaler 01/20 [Rx] Ipratropium/Albuterol Neb [Duoneb] 3 ml IH Q4HR PRN #30 vial.neb 11/09/17 [Rx] Prochlorperazine Maleate [Compazine] 10 mg PO Q6HR PRN #60 tablet 11/09/17 [Rx] Tiotropium [place] [Spiriva Respimat] 2 puff IH DAILY #1 mist.inhal 11/09/17 [Rx ] Gabapentin [Neurontin] 300 mg PO BID #60 capsule 11/16/17 [Rx] Fluconazole [Diflucan] 100 mg PO DAILY #5 udc 12/24/17 [Rx] predniSONE [PredniSONE] 40 mg PO DAILY #5 tablet 12/24/17 [Rx] OxyCODONE Immed Rel [Roxicodone 30 MG] 30 mg PO Q4H PRN 12/27/17 [History] 3 Allergy/AdvReac Type Severity Reaction Status Date / Time Iodinated Contrast- Oral and Allergy Intermediate Hives Verified 12/27/17 11:27 IV Dye Nickel Allergy Mild Hives Verified 12/27/17 11:27 METALS Allergy Hives Uncoded 12/27/17 11:27 - Constitutional Constitutional ROS PAL: decreased appetite, fatigue - Respiratory Respiratory: no dyspnea - Gastrointestinal Gastrointestinal: change in bowel habits, constipation, cramping, no abdominal pain, no nausea, no vomiting - Genitourinary Palliative ROS female: abnormal vaginal bleeding - Musculoskeletal Musculoskeletal ROS IM: back pain (sacral pain and L5 mets) - Integumentary ROS Integumentary: dry skin, wounds (sacrum stage 1) - Neurological Neurological ROS: memory loss - Psychiatric Psychiatric general PM: anxiety, change in appetite Palliative Care-Exam - Constitutional Vitals: Temp Pulse Resp BP Pulse Ox 98.2 F 100 18 117/77 100 12/27/17 12:29 12/27/17 12:29 12/27/17 12:29 12/27/17 12:29 12/27/17 12:29 General appearance: Present: cooperative, mild distress - Head Head Exam: Present: atraumatic, normal inspection - Eye Eye exam: Present: EOMI, normal appearance, PERRL, conjuntiva pink. Absent: nystagmus, periorbital swelling, periorbital tenderness Pupils: Present: normal accommodation, PERRL - ENT ENT exam: Present: mucous membranes dry, normal oropharynx - Expanded ENT Exam Mouth Exam: Absent: drooling - Neck Neck exam: Present: full ROM - Respiratory Respiratory exam: Present: wheezes. Absent: accessory muscle use, respiratory distress - Cardiovascular Cardiovascular exam: Present: RRR, +S1, +S2 - Expanded Cardiovascular Exam Peripheral pulses: 2+: Radial (L), Radial (R), Posterior Tibialis (L), Posterior Tibialis (R), Dorsalis Pedis (L) PM, Dorsalis Pedis (R) PM - GI/Abdominal Exam GI/Abdominal exam: Present: diminished bowel sounds. Absent: guarding, tenderness - Rectal Rectal exam: Present: fecal impaction (Suppository given to assist with evacuation.). Absent: black stool, normal inspection (Sacral stage 1 pressure sore.) - External exam: Present: normal external exam (Blood discharge; chronic from bladder CA.) - Extremities Exam Extremities exam: Present: normal inspection. Absent: pedal edema - Neurological Exam Neurological exam: Present: alert, oriented X3, strengths equal and symetr throughout. Absent: altered - Expanded Neurological Exam Coma Scale Eye Opening: Spontaneous Coma Scale Motor Response: Obeys Commands Coma Scale Verbal Response: Oriented Coma Scale Total: 15 - Psychiatric Psychiatric exam: Present: anxious - Skin Skin exam: Present: dry. Absent: intact Internal Medicine - CN: Reslt - Labs CBC & Chem 7: 12/27/17 09:20 12/27/17 09:20 Consult Discharge Plan - Plan Referrals: NONE,PCP [Primary Care Provider] - Martina Lopez [Family Provider] - Palliative Quality Palliative Quality: Screen for Code Status: Yes, Screen for Goals of Care: Yes, Screen for Pain: Yes, If Pain Regimen Started, Initiate Bowel Regimen: Yes, Screen for Nausea/Vomitting: Yes Code Status: 12/27/17 12:22 Resuscitation Status: Active [RES] Routine Comment: Resuscitation Status: [id number]
[2017-12-27] MEDS: Budesonide/Formoterol 160/4.5 MDI IH SCH (20:13)
[2017-12-27] MEDS: BuPROPion SR (12 HR) 150 MG TABLET PO SCH (22:09)
[2017-12-28 05:16] LABS: Basophils % 0.2 %; Hematocrit 25.7 % (35.3-44.9); Hemoglobin 8.3 g/dL (11.5-15.4); Immature Granulocytes % 2.5 % (0-4); Lymphocytes # 0.9 K/mcL (0.6-4.6); Lymphocytes % 7.3 %; Mean Corpuscular HGB Conc 32.3 g/dL (31.6-35.5); Mean Corpuscular Hemoglobin 28.7 pg (28.0-33.3); Mean Corpuscular Volume 88.9 fL (83.0-100.0); Mean Platelet Volume 9.1 fL (9.4-12.4); Monocytes # 0.9 K/mcL (0.0-1.3); Monocytes % 6.9 %; Neutrophils # 10.5 K/mcL (1.6-8.9); Platelet Count 147 K/mcL (140-400); Red Blood Count 2.89 M/mcL (3.82-4.97); Red Cell Distribution Width 16.2 % (11.5-14.5); Segmented Neutrophils % 83.1 %
[2017-12-28] MEDS: 0.9 % Sodium Chloride 1,000 ML IVC SCH (05:22)
[2017-12-28] MEDS: *HR* OxyCODONE Immed Rel 15 MG TABLET PO PRN (05:25)
[2017-12-28 05:34] LABS: BUN/Creatinine Ratio 19 (6-26); Blood Urea Nitrogen 9 mg/dL (8-23); Calcium 8.7 mg/dL (8.6-10.3); Carbon Dioxide 24 mEq/L (23-29); Chloride 99 mEq/L (98-107); Glucose 119 mg/dL (70-105); Osmolality,Calculated 278 (280-300); Potassium 3.4 mEq/L (3.5-5.1); Sodium 134 mEq/L (136-145); eGFR For African Americans > 60 (> 60); eGFR For Non-African Americans > 60 (> 60)
[2017-12-28] MEDS ORDERED: *HR* Enoxaparin 30 MG/0.3 ML SYRINGE SQ SCH (06:00)
[2017-12-28] MEDS: Budesonide/Formoterol 160/4.5 MDI IH SCH (07:37)
[2017-12-28] MEDS: predniSONE 20 MG TABLET PO SCH (08:48)
[2017-12-28] MEDS: Gabapentin 300 MG CAPSULE PO SCH (08:48)
[2017-12-28] MEDS: *HR* Morphine Sulfate SR (12 HR) 100 MG TABLET.ER PO SCH (08:48)
[2017-12-28] MEDS: BuPROPion SR (12 HR) 150 MG TABLET PO SCH (08:49)
[2017-12-28] MEDS: Bisacodyl 10 MG RECTAL SUPPOSITORY RC PRN (08:59)
[2017-12-28] MEDS ORDERED: *HR* FentaNYL PATCH 75 MCG PATCH TD SCH (09:45)
[2017-12-28] MEDS ORDERED: *HR* OxyCODONE Immed Rel 15 MG TABLET PO PRN (09:48)
[2017-12-28] MEDS ORDERED: Ondansetron ODT 4 MG TAB.RAPDIS SL PRN (09:48)
--- NOTE | 2017-12-28 09:52 | Palliative Progress Note ---
Date of Encounter: 12/28/17 Time of Encounter: 09:45 - Assessment and plan (1) Nausea Current Visit: No Status: Acute Assessment and plan: Continue Prochloroperzine, will add Ondanestron ODT if needed. (2) Constipation by delayed colonic transit Current Visit: No Status: Acute Assessment and plan: Was disimpacted yesterday, had BM with suppository this am. Has Colace ordered - will transition to Senokot 2 tabs BID. Continue suppositories. (3) Cancer related pain Current Visit: Yes Status: Acute Assessment and plan: Her pain is not well managed. She has been on MS Contin for long time. Will try opioid rotation , and transition to Fentanyl patch. Between Morphine and Oxycodone, her Oral Morphine Equivalence is 540mg/24 hours. Allowing for cross tolerance, will begin Fentanyl patch at 125mcg/hr and monitor. Continue Oxycodone for breakthrough pain. (4) Anxiety Current Visit: No Status: Chronic Assessment and plan: Will continue Lorazepam and monitor. (5) Non-small cell cancer of left lung Current Visit: No Status: Chronic (6) Goals of care, counseling/discussion Current Visit: No Status: Acute Assessment and plan: Discussed with patient at length today - she is ready to transition to hospice care, and focus on comfort care only. Her symptoms are not well controlled. Discussed transition to inpatient hospice care for symptom management and then home when better, she wants me to come back and discuss with Clarence when he arrives. (7) COPD (chronic obstructive pulmonary disease) Current Visit: No Status: Chronic Qualifiers: COPD type: chronic bronchitis Chronic bronchitis type: simple Qualified Code(s): J41.0 - Simple chronic bronchitis - Time Spent With Patient Total time spent is greater than 50% in coordination of care (as documented) at patient's floor/unit and/or counseling patient: - Subjective Interval history: Patient resting quietly on her side in bed. Awake and alert. C/o pain "all over", does have relief as was disimpacted yesterday, and had large BM this am after suppository. No visitors present. - Constitutional Vitals: Abnormal lab results WBC 12.6 K/mcL (4.3-11.1) H 12/28/17 04:48 RBC 2.89 M/mcL (3.82-4.97) L 12/28/17 04:48 Hgb 8.3 g/dL (11.5-15.4) L 12/28/17 04:48 Hct 25.7 % (35.3-44.9) L 12/28/17 04:48 RDW 16.2 % (11.5-14.5) H 12/28/17 04:48 MPV 9.1 fL (9.4-12.4) L 12/28/17 04:48 Neutrophils # 10.5 K/mcL (1.6-8.9) H 12/28/17 04:48 Sodium 134 mEq/L (136-145) L 12/28/17 04:48 Potassium 3.4 mEq/L (3.5-5.1) L 12/28/17 04:48 Creatinine 0.48 mg/dL (0.60-1.20) L 12/28/17 04:48 Glucose 119 mg/dL (70-105) H 12/28/17 04:48 Calculated Osmolality 278 (280-300) L 12/28/17 04:48 General appearance: Present: no acute distress - Respiratory Additional comments: Rhonchi - wheezes throughout - Cardiovascular Cardiovascular exam: Present: +S1, +S2, tachycardia - GI/Abdominal GI/Abdominal exam: Present: normal bowel sounds, soft - Extremities Exam Extremities exam: Present: normal capillary refill, normal inspection - Neurological Exam Neurological exam: Present: alert, oriented X3, strengths equal and symetr throughout - Skin Skin exam: Present: dry, warm Palliative Quality Palliative Quality: Screen for Code Status: Yes, Screen for Goals of Care: Yes, Screen for Pain: Yes, If Pain Regimen Started, Initiate Bowel Regimen: Yes, Screen for Nausea/Vomitting: Yes Code Status: 12/27/17 12:22 Resuscitation Status: Active [RES] Routine Comment: Resuscitation Status: [id number] 12/28/17 09:44 DNR [Resuscitation Status: Active] [RES] Routine Comment: Resuscitation Status: DNR-Comfort Care - Labs CBC & Chem 7: 12/28/17 04:48 12/28/17 04:48 Labs: Laboratory Results - last 24 hr 12/27/17 12/27/17 12/28/17 17:05 17:05 04:48 WBC 12.6 H RBC 2.89 L Hgb 8.3 L Hct 25.7 L MCV 88.9 MCH 28.7 MCHC 32.3 RDW 16.2 H Plt Count 147 MPV 9.1 L Immature Gran % 2.5 Seg Neutrophils % 83.1 Lymphocytes % 7.3 Monocytes % 6.9 Eosinophils % 0.0 Basophils % 0.2 Neutrophils # 10.5 H Lymphocytes # 0.9 Monocytes # 0.9 Eosinophils # 0.0 Basophils # 0.0 Sodium Potassium 3.6 Chloride Carbon Dioxide BUN Creatinine Est GFR ( Amer) Est GFR (Non-Af Amer) BUN/Creatinine Ratio Glucose Calculated Osmolality Calcium Magnesium 1.8 12/28/17 04:48 WBC RBC Hgb Hct MCV MCH MCHC RDW Plt Count MPV Immature Gran % Seg Neutrophils % Lymphocytes % Monocytes % Eosinophils % Basophils % Neutrophils # Lymphocytes # Monocytes # Eosinophils # Basophils # Sodium 134 L Potassium 3.4 L Chloride 99 Carbon Dioxide 24 BUN 9 Creatinine 0.48 L Est GFR ( Amer) > 60 Est GFR (Non-Af Amer) > 60 BUN/Creatinine Ratio 19 Glucose 119 H Calculated Osmolality 278 L Calcium 8.7 Magnesium Consult Discharge Plan - Plan Referrals: NONE,PCP [Primary Care Provider] - Martina Lopez [Family Provider] -
[2017-12-28] MEDS ORDERED: (Tiotropium Bromide [Spiriva Respimat] 2 PUFF) IH SCH (10:00)
[2017-12-28] MEDS ORDERED: FENTANYL TD SCH (10:45)
--- NOTE | 2017-12-28 13:32 | Discharge Summary ---
- NOTES TO OUTPATIENT PROVIDER Notes to Outpatient Provider: Pt admitted for intractable pain. Transitioned to inpatient hospice care. 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 Priority: Secondary Status: Chronic (5) Bladder cancer metastasized to bone Priority: Secondary Status: Chronic (6) Non-small cell lung cancer Priority: Secondary Status: Chronic Qualifiers: Laterality: left Qualified Code(s): C34.92 - Malignant neoplasm of unspecified part of left bronchus or lung (7) Hypokalemia Priority: Secondary Status: Resolved (8) Anemia Priority: Secondary Status: Chronic Qualifiers: Anemia type: other cause Other causes of anemia: chronic disease, neoplastic Qualified Code(s): D63.0 - Anemia in neoplastic disease (9) COPD (chronic obstructive pulmonary disease) Priority: Secondary Status: Chronic Qualifiers: COPD type: chronic bronchitis Chronic bronchitis type: simple Qualified Code(s): J41.0 - Simple chronic bronchitis (10) Tobacco abuse Priority: Secondary Status: Chronic Hospital course: Ms. Siddiqui is a 67 year old female with hx of metastatic cancer presented to ED for intractable pain. She was subsequently admitted. Ms Siddiqui was admitted to [facility] [place]. She was placed on pain meds and seen by palliative care. In the AM 12/28 she was again seen and hospice discussed. She and her significant other agreed and she was transition to Hospice GIP for symptom control. - Time Spent with Patient Total time spent providing and/or coordinating discharge services: 27min - Discharge Medications Home Medications: Oxygen 1 l NS HS 04/14/17 [History] Morphine Sulfate SR (12 HR) [MS Contin] 100 mg PO Q8HR 08/18/17 [History] LORazepam [Lorazepam] 1 mg PO BID PRN 7 Days #14 tablet 10/15/17 [Rx] Nicotine Patch [Nicoderm] 21 mg TD DAILY patch.td24 10/15/17 [Rx] Albuterol Sulfate [Ventolin Hfa] 2 puff IH Q4H PRN #1 hfa.aer.ad 11/09/17 [Rx] BuPROPion SR (12 HR) [Wellbutrin SR] 150 mg PO BID #60 tablet.er 11/09/17 [Rx] Budesonide/Formoterol 160/4.5 [Symbicort 160/4.5] 2 puff IH BIDR #1 inhaler 01/20 [Rx] Ipratropium/Albuterol Neb [Duoneb] 3 ml IH Q4HR PRN #30 vial.neb 11/09/17 [Rx] Prochlorperazine Maleate [Compazine] 10 mg PO Q6HR PRN #60 tablet 11/09/17 [Rx] Tiotropium [place] [Spiriva Respimat] 2 puff IH DAILY #1 mist.inhal 11/09/17 [Rx ] Gabapentin [Neurontin] 300 mg PO BID #60 capsule 11/16/17 [Rx] Fluconazole [Diflucan] 100 mg PO DAILY #5 udc 12/24/17 [Rx] predniSONE [PredniSONE] 40 mg PO DAILY #5 tablet 12/24/17 [Rx] OxyCODONE Immed Rel [Roxicodone 30 MG] 30 mg PO Q4H PRN 12/27/17 [History] Allergies/Adverse Reactions: 3 Allergy/AdvReac Type Severity Reaction Status Date / Time Iodinated Contrast- Oral and Allergy Intermediate Hives Verified 12/27/17 11:27 IV Dye Nickel Allergy Mild Hives Verified 12/27/17 11:27 METALS Allergy Hives Uncoded 12/27/17 11:27 Date of admission: 12/27/17 11:55 Primary care physician: PCP NONE Consults: 12/27/17 12:25 Consult to Physician [CONS] Routine Consulting Provider: Marquez Burks Reason for Consult: Uncontrolled pain. Called by ED. Call Completed: Yes 12/27/17 13:16 Consult to Nutrition [CONS] Routine Comment: Consulting Provider: NUTRITION Reason for Dietary Consult: PO Supplementation Discharging clinician: Terry Callahan Anticipated date of discharge: 12/28/17 - Constitutional Vitals: Temp Pulse Resp BP Pulse Ox 97.8 F 96 16 104/64 94 12/28/17 11:17 12/28/17 11:17 12/28/17 11:35 12/28/17 11:17 12/28/17 11:35 General appearance: Present: cachectic, mild distress, answers questions appropriately - Head Head exam: Present: normocephalic - Eye Eye exam: Present: conjuntiva pink - ENT ENT exam: Present: mucous membranes dry - Respiratory Respiratory exam: Present: decreased breath sounds. Absent: wheezes - Cardiovascular Cardiovascular exam: Present: RRR. Absent: tachycardia - GI/Abdominal GI/Abdominal exam: Present: soft, tenderness - Extremities Exam Extremities exam: Present: warm. Absent: tenderness - Neurological Exam Neurological exam: Present: alert, oriented X3 - Skin Skin exam: Present: dry, warm - Patient Status Disposition: Hospice - Medical Facility Condition: Fair Functional capacity at discharge: uses cane/walker Overall status at discharge: patient is not back to baseline - Discharge Instructions Follow Up With: NONE,PCP [Primary Care Provider] - Martina Lopez [Family Provider] - - Diet and Activity Activity: increase activity as tolerated Diet: advance to your usual diet
--- NOTE | 2017-12-28 13:46 | Event Note ---
Date of Encounter: 12/28/17 Time of Encounter: 13:45 Hospice medical technician assistant certification of terminal illness: Hospice benefit. Start: 12/28 Hospice benefit. In: +90 days Palliative performance scale: 25-30% History: Patient with a history of non-small cell lung cancer as well as his bladder cancer which is widely metastatic. It is felt that the patient does have 2 cancers. In any case the patient has completed full therapy out of the 2 cancers have broken out from the therapy and managed to spread despite it. Patient no longer wishes to avail herself of any further therapy and determined by the tumor board to that any further therapy of little to no use. She also has bad COPD. Given this combination of factors and the fact that there is no further aggressive Therapy I believe that These findings support a life expectancy of 6 months or less. I attest that I have compose the above narrative based on my review of the patient's medical records, and or on my examination of the patient. Marquez Burks M.D. Associate certified medical coder. [facility]
[2017-12-28 16:17] VITALS: BP 126/74
[2017-12-29] MEDS ORDERED: *HR* Enoxaparin 40 MG/0.4 ML SYRINGE SQ SCH ×2 (06:00)
[2017-12-29] MEDS ORDERED: Tiotropium 18 MCG inhalation IH SCH (10:00)
== END 2017-12-28 14:30 | disposition hospice, inpatient (51) | DRG 948 ==
LOC: 2ANU 08:35 → EMEROO 08:35 → SUATTDRO 11:55 → 2ANU 12:09
PROVIDERS: ADMIT Hospitalist; ATTEND Internal Medicine

== ENCOUNTER 2017-12-28 13:16 | Inpatient (IN) ==
[2017-12-28] MEDS ORDERED: Ondansetron ODT 4 MG TAB.RAPDIS SL PRN (13:26)
[2017-12-28] MEDS ORDERED: *HR* FentaNYL PATCH 12 MCG PATCH TD SCH (13:30)
--- NOTE | 2017-12-28 13:46 | Palliative - Consult Note ---
Date of Encounter: 12/28/17 Time of Encounter: 13:40 - Assessment and Plan (1) Cancer related pain Status: Acute Assessment and plan: Oral Morphine Equivalent was 500mg/24 hours this am - equivalent to 138mcg Fentanyl - patch was started at 125mcg this am. Increase Oxycodone 30mg to every 3 hours PRN and monitor. Will titrate as needed. If tolerates pain patch ok - will discharge home over next 1-2 days for home hospice care. (2) Decubitus ulcer of sacral area Status: Acute Qualifiers: Pressure ulcer stage: stage 1 Qualified Code(s): L89.151 - Pressure ulcer of sacral region, stage 1 (3) Constipation due to opioid therapy Status: Acute Assessment and plan: Continue Senokot 2 tabs BID and continue Dulcolax suppositories daily for now. Has had 2-3 BM's this am. (4) Goals of care, counseling/discussion Status: Acute Assessment and plan: Discussed with pt and boyfriend Clarence. If pt pain is well controlled, she could be transitioned home next 1-2 days. (5) Anxiety Status: Chronic Assessment and plan: Continue Lorazepam PRN and monitor. (6) Bladder cancer metastasized to bone Status: Acute (7) Primary lung adenocarcinoma Status: Chronic Qualifiers: Laterality: left Qualified Code(s): C34.92 - Malignant neoplasm of unspecified part of left bronchus or lung Palliative-CN HPI - Data of Consult Requesting Physician: Marquez Burks MD - Consult Narrative History of present illness: Ms. 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 She has been treated approximately 5 years at the [facility]. She developed hemorrhagic metastatic brain lesions in October, and has done poorly since. She has been hospitalized frequently for complications related to her cancer and symptoms. She was discharged last , after a prolonged hospital stay, and was readmitted this weekend with increasing pain and constipation. She was offered hospice care multiple times, but refused on the thought that their may be more treatment options for her. When readmitted only a few days at home, pt is now desiring to enroll in hospice care. Her constipation is improved, and she was disimpacted yesterday and had 3 bowel movements today, however, she is still in significant pain. Patient was discharged from the hospital and readmitted as general inpatient hospice for symptom management and will transition home once pain in controlled. Upon my visit, she is up on side of bed, and states she feels a little better after BM. Still in pain she describes as "all over". Was transitioned this am off on MS Contin and began on Fentanyl patch with Oxycodone for breakthrough pain. CC: Marquez Burks MD Past Med Surg Social Fam HX - Past Medical History Medical history: arthritis, cancer, CHF, COPD, peripheral artery disease Additional medical history: Lung cancer,bladder cancer,brain cancer Psychiatric history: anxiety, depression, panic disorder - Past Surgical History Surgical History: cancer surgery Additional surgical history: lymphectomy, bladder procedure-scraping, port implated - Social History Smoking Status: Current every day smoker Smokeless Tobacco Status: No Alcohol use: none Drug use: none - Family History Father Family Member Ethnicity: Non- Living Status: Hx Family Respiratory Disorders: Yes (COPD/Emphysema) Mother Family Member Ethnicity: Non- Living Status: Hx Family Cardiac Disorders: Yes ([place], CAD) Hx Family Cancer: Yes (Lung) Brother Family Member Ethnicity: Non- Living Status: Still Living Hx Family Respiratory Disorders: Yes (COPD) Sister Family Member Ethnicity: Non- Living Status: Still Living Hx Family Cancer: Yes (Melanoma w/metastases) Medications and Allergies Oxygen 1 l NS HS 04/14/17 [History] Morphine Sulfate SR (12 HR) [MS Contin] 100 mg PO Q8HR 08/18/17 [History] LORazepam [Lorazepam] 1 mg PO BID PRN 7 Days #14 tablet 10/15/17 [Rx] Nicotine Patch [Nicoderm] 21 mg TD DAILY patch.td24 10/15/17 [Rx] Albuterol Sulfate [Ventolin Hfa] 2 puff IH Q4H PRN #1 hfa.aer.ad 11/09/17 [Rx] BuPROPion SR (12 HR) [Wellbutrin SR] 150 mg PO BID #60 tablet.er 11/09/17 [Rx] Budesonide/Formoterol 160/4.5 [Symbicort 160/4.5] 2 puff IH BIDR #1 inhaler 01/20 [Rx] Ipratropium/Albuterol Neb [Duoneb] 3 ml IH Q4HR PRN #30 vial.neb 11/09/17 [Rx] Prochlorperazine Maleate [Compazine] 10 mg PO Q6HR PRN #60 tablet 11/09/17 [Rx] Tiotropium [place] [Spiriva Respimat] 2 puff IH DAILY #1 mist.inhal 11/09/17 [Rx ] Gabapentin [Neurontin] 300 mg PO BID #60 capsule 11/16/17 [Rx] Fluconazole [Diflucan] 100 mg PO DAILY #5 udc 12/24/17 [Rx] predniSONE [PredniSONE] 40 mg PO DAILY #5 tablet 12/24/17 [Rx] OxyCODONE Immed Rel [Roxicodone 30 MG] 30 mg PO Q4H PRN 12/27/17 [History] 3 Allergy/AdvReac Type Severity Reaction Status Date / Time Iodinated Contrast- Oral and Allergy Intermediate Hives Verified 12/27/17 11:27 IV Dye Nickel Allergy Mild Hives Verified 12/27/17 11:27 METALS Allergy Hives Uncoded 12/27/17 11:27 All systems: reviewed and no additional remarkable complaints except as stated ( constipation, pain "all over", shortness of breath with exertion, anxiety, weakness) Palliative Care-Exam - Constitutional General appearance: Present: no acute distress - Head Head Exam: Present: normal inspection, normocephalic - Eye Eye exam: Present: normal appearance - Respiratory Additional comments: Rhonchi/wheezes throughout all lung valdes - Cardiovascular Cardiovascular exam: Present: +S1, +S2 - GI/Abdominal Exam GI/Abdominal exam: Present: diminished bowel sounds, soft - Extremities Exam Extremities exam: Present: normal capillary refill, normal inspection - Neurological Exam Neurological exam: Present: alert Additional comments: Oriented to name/place. - Skin Skin exam: Present: dry, warm Palliative Quality Palliative Quality: Screen for Code Status: Yes, Screen for Goals of Care: Yes, Screen for Pain: Yes, If Pain Regimen Started, Initiate Bowel Regimen: Yes, Screen for Nausea/Vomitting: Yes Code Status: 12/28/17 13:26 Resuscitation Status: Active [RES] Routine Comment: Resuscitation Status: DNR-Comfort Care
[2017-12-28] MEDS ORDERED: FentaNYL PATCH 100 MCG, FentaNYL PATCH 25 MCG TD SCH (16:30)
[2017-12-28] MEDS: Budesonide/Formoterol 80/4.5 MDI IH SCH (19:37)
[2017-12-28] MEDS: Ipratropium/Albuterol Neb 3 ML IH PRN (19:39)
[2017-12-28] MEDS: Bisacodyl 10 MG RECTAL SUPPOSITORY RC SCH (21:03)
[2017-12-28] MEDS: BuPROPion SR (12 HR) 150 MG TABLET PO SCH (21:03)
[2017-12-28] MEDS: Sennosides/Docusate Sodium TABLET PO SCH (21:03)
[2017-12-28] MEDS: Gabapentin 300 MG CAPSULE PO SCH (21:03)
[2017-12-29] MEDS: *HR* OxyCODONE Immed Rel 15 MG TABLET PO PRN ×3 (00:14→17:13)
[2017-12-29] MEDS: *HR* LORazepam 1 MG TABLET PO PRN ×3 (00:14→13:51)
[2017-12-29] MEDS: BuPROPion SR (12 HR) 150 MG TABLET PO SCH ×3 (07:48→21:53)
[2017-12-29] MEDS: Nicotine 21 MG PATCH.TD24 TD SCH (07:48)
[2017-12-29] MEDS: Sennosides/Docusate Sodium TABLET PO SCH ×3 (07:48→21:53)
[2017-12-29] MEDS: Gabapentin 300 MG CAPSULE PO SCH ×3 (07:49→21:53)
--- NOTE | 2017-12-29 09:35 | Palliative Progress Note ---
Date of Encounter: 12/29/17 Time of Encounter: 09:00 - Assessment and plan (1) Cancer related pain Current Visit: No Status: Acute Assessment and plan: Patient reports pain has improved to 8/10 for generalized pain; described as sharp ache. Limits ability for movement and ADLs. Movement makes pain worse, as well as laying in one position too long. Patient reports Fentanyl patch at current dose is helping make pain more tolerable. Patient has received Roxicodone times 2 doses in last 24 hours. Continue current pain regimen. (2) Goals of care, counseling/discussion Current Visit: No Status: Acute Assessment and plan: Patient admitted [facility] yesterday. Ensure pain is under control then discharge home with [facility]. Clarence (Patient's boyfriend) not at bedside as of this time. Will recheck on patient later today to evaluate appropriate discharge time. (3) Constipation due to opioid therapy Current Visit: No Status: Acute Assessment and plan: Patient had 3 bowel movements yesterday and 1 bowel movement today. Required disimpaction the day before yesterday. Continue Dulcolax for constipation management. (4) Decubitus ulcer of sacral area Current Visit: No Status: Acute Qualifiers: Pressure ulcer stage: stage 1 Qualified Code(s): L89.151 - Pressure ulcer of sacral region, stage 1 (5) Bladder cancer metastasized to bone Current Visit: No Status: Chronic (6) Anxiety Current Visit: No Status: Chronic Assessment and plan: Patient denies anxiety during assessment, appears to be resting well. Patient has received Ativan x2 doses in the last 24 hours. Continue Ativan PRN. (7) Primary lung adenocarcinoma Current Visit: No Status: Chronic Qualifiers: Laterality: left Qualified Code(s): C34.92 - Malignant neoplasm of unspecified part of left bronchus or lung - Time Spent With Patient Total time spent is greater than 50% in coordination of care (as documented) at patient's floor/unit and/or counseling patient: - Subjective Interval history: Patient resting with eyes closed upon arrival for assessment; no company present at bedside. Patient reports pain to continue to be generalized, described as a sharp ache, rated a 8/10; Fentanyl patch at current dose is helping and movement makes worse. Pain limits patient's ability to be in comfortable positions and occurs all the time. Patient reports pain to be much more tolerable. Current Fentanyl patch at 125 mcg. Patient also has taken 2 doses of PRN Roxicodone in the last 24 hours. Patient denies anxiety during assessment and appears to be resting comfortably, patient has received 2 doses of Ativan in the last 24 hours. Patient reports her stomach feels better and no longer feels like she needs to have bowel movement; Patient has received 1 dose of Dulcolax in the last 24 hours. Denies nausea and vomiting; no Zofran or Compazine in the last 24 hours. Patient does reports some increased dyspnea and has audible lung sounds without stethoscope, received 1 Duo neb in the last 24 hours. - Constitutional General appearance: Present: cooperative, no acute distress - Head Head exam: Present: atraumatic, normal inspection - Eye Eye exam: Present: normal appearance. Absent: periorbital swelling, periorbital tenderness Pupils: Present: normal accommodation, PERRL - ENT ENT exam: Present: mucous membranes moist, normal external ear exam - Neck Neck exam: Present: full ROM, normal inspection - Respiratory Respiratory exam: Present: rhonchi. Absent: accessory muscle use, respiratory distress - Cardiovascular Cardiovascular exam: Present: RRR, +S1, +S2 - GI/Abdominal GI/Abdominal exam: Present: normal bowel sounds, soft. Absent: tenderness - Rectal Rectal exam: Present: deferred - Extremities Exam Extremities exam: Present: full ROM, normal inspection. Absent: pedal edema - Back Exam Back exam: Present: full ROM - Neurological Exam Neurological exam: Present: alert, strengths equal and symetr throughout - Psychiatric Psychiatric exam: Present: normal affect, normal mood. Absent: anxious - Skin Skin exam: Present: dry, intact, pallor Palliative Quality Palliative Quality: Screen for Code Status: Yes, Screen for Goals of Care: Yes, Screen for Pain: Yes, If Pain Regimen Started, Initiate Bowel Regimen: Yes, Screen for Nausea/Vomitting: Yes Code Status: 12/28/17 13:26 Resuscitation Status: Active [RES] Routine Comment: Resuscitation Status: DNR-Comfort Care Consult Discharge Plan - Plan Referrals: NONE,PCP [Primary Care Provider] -
--- NOTE | 2017-12-29 09:47 | Pallative History & Physical ---
Date of Encounter: 12/29/17 Time of Encounter: 08:55 Assessment and Plan (1) Cancer related pain Current visit: No Status: Acute Patient seems much more stable now with a fentanyl patch, continue to watch closely for pain patient states pain is at an acceptable level at this time and rates it at an 8. (2) COPD exacerbation Current visit: No Status: Suspected Continue oxygen and inhalation therapy (3) Tobacco dependence Current visit: No Status: Acute Nicotine patch until discharged and patient returned to smoking if she so desires we have counseled her about not using cigarettes around her oxygen (4) Non-small cell cancer of left lung Current visit: No Status: Chronic This is part of for terminal diagnosis no further aggressive care will be done (5) Goals of care, counseling/discussion Current visit: No Status: Acute DNR CC, patient is admitted for pain control and then probable discharge homes. her control and the patient came in she opted for hospice therefore the patient remain on the general inpatient service until pain stays at an acceptable level for at least 24 hours before discharge. Of note the patient was just Fentanyl patch yesterday this should stabilize in her system by today and we will know by tomorrow if we need to make any other adjustments to it. (6) Constipation by delayed colonic transit Current visit: No Status: Acute On bowel regimen having bowel movements continue to watch (7) Bladder cancer metastasized to bone Current visit: No Status: Chronic This is part of her terminal diagnosis no further aggressive care will be done. Internal Medicine - H&P: HPI Admitted From: Intrahospital Transfer Plans for Post Hospital Care: Hospice - Home History of present illness: Ms. Siddiqui is a 67 year old female Patient with widely metastatic bladder cancer, having fully failed aggressive treatment also with non-small cell lung cancer. She has finally opted for comfort medications only. Patient also had a great deal of pain on reentry to the hospital. Pain is being aggressively treated and therefore the patient is general inpatient hospice. The patient describes pain is all over and is having a hard time describing the pain other than it hurts real bad ". She rates it as a 20/10, time she is now reading it down to an 8 and states that this is all to her and she is sleeping well. Past Med Surg Social Fam HX - Past Medical History Medical history: arthritis, cancer, CHF, COPD, peripheral artery disease Additional medical history: Lung cancer,bladder cancer,brain cancer Psychiatric history: anxiety, depression, panic disorder - Past Surgical History Surgical History: cancer surgery Additional surgical history: lymphectomy, bladder procedure-scraping, port implated - Social History Smoking Status: Current every day smoker Smokeless Tobacco Status: No Alcohol use: none Drug use: none - Family History Father Family Member Ethnicity: Non- Living Status: Hx Family Respiratory Disorders: Yes (COPD/Emphysema) Mother Family Member Ethnicity: Non- Living Status: Hx Family Cardiac Disorders: Yes ([place], CAD) Hx Family Cancer: Yes (Lung) Brother Family Member Ethnicity: Non- Living Status: Still Living Hx Family Respiratory Disorders: Yes (COPD) Sister Family Member Ethnicity: Non- Living Status: Still Living Hx Family Cancer: Yes (Melanoma w/metastases) Internal Medicine - H&P: Meds Oxygen 1 l NS HS 04/14/17 [History] Morphine Sulfate SR (12 HR) [MS Contin] 100 mg PO Q8HR 08/18/17 [History] LORazepam [Lorazepam] 1 mg PO BID PRN 7 Days #14 tablet 10/15/17 [Rx] Nicotine Patch [Nicoderm] 21 mg TD DAILY patch.td24 10/15/17 [Rx] Albuterol Sulfate [Ventolin Hfa] 2 puff IH Q4H PRN #1 hfa.aer.ad 11/09/17 [Rx] BuPROPion SR (12 HR) [Wellbutrin SR] 150 mg PO BID #60 tablet.er 11/09/17 [Rx] Budesonide/Formoterol 160/4.5 [Symbicort 160/4.5] 2 puff IH BIDR #1 inhaler 01/20 [Rx] Ipratropium/Albuterol Neb [Duoneb] 3 ml IH Q4HR PRN #30 vial.neb 11/09/17 [Rx] Prochlorperazine Maleate [Compazine] 10 mg PO Q6HR PRN #60 tablet 11/09/17 [Rx] Tiotropium [place] [Spiriva Respimat] 2 puff IH DAILY #1 mist.inhal 11/09/17 [Rx ] Gabapentin [Neurontin] 300 mg PO BID #60 capsule 11/16/17 [Rx] Fluconazole [Diflucan] 100 mg PO DAILY #5 udc 12/24/17 [Rx] predniSONE [PredniSONE] 40 mg PO DAILY #5 tablet 12/24/17 [Rx] OxyCODONE Immed Rel [Roxicodone 30 MG] 30 mg PO Q4H PRN 12/27/17 [History] 3 Allergy/AdvReac Type Severity Reaction Status Date / Time Iodinated Contrast- Oral and Allergy Intermediate Hives Verified 12/27/17 11:27 IV Dye Nickel Allergy Mild Hives Verified 12/27/17 11:27 METALS Allergy Hives Uncoded 12/27/17 11:27 Palliative Care-Exam - Constitutional Vitals: Temp Pulse Resp BP Pulse Ox 98.6 F 89 16 119/70 97 12/29/17 07:17 12/29/17 07:17 12/29/17 07:17 12/29/17 07:17 12/29/17 07:17 General appearance: Present: cooperative, no acute distress - Eye Eye exam: Present: normal appearance - Respiratory Respiratory exam: Present: decreased breath sounds, rhonchi - Cardiovascular Cardiovascular exam: Present: RRR - GI/Abdominal Exam GI/Abdominal exam: Present: normal bowel sounds, soft. Absent: tenderness - Neurological Exam Neurological exam: Present: alert (Awakens easily) - Psychiatric Psychiatric exam: Absent: agitated, anxious - Skin Skin exam: Present: dry, warm Palliative Quality Palliative Quality: Screen for Code Status: Yes, Screen for Goals of Care: Yes, Screen for Pain: Yes, If Pain Regimen Started, Initiate Bowel Regimen: Yes, Screen for Nausea/Vomitting: Yes Code Status: 12/28/17 13:26 Resuscitation Status: Active [RES] Routine Comment: Resuscitation Status: DNR-Comfort Care
[2017-12-29] MEDS: Tiotropium 18 MCG inhalation IH SCH (10:13)
[2017-12-29] MEDS: Budesonide/Formoterol 80/4.5 MDI IH SCH ×2 (10:13→19:56)
[2017-12-29] MEDS: Bisacodyl 10 MG RECTAL SUPPOSITORY RC SCH (21:53)
[2017-12-30] MEDS: Sennosides/Docusate Sodium TABLET PO SCH ×2 (08:11→20:33)
[2017-12-30] MEDS: BuPROPion SR (12 HR) 150 MG TABLET PO SCH ×2 (08:11→20:33)
[2017-12-30] MEDS: Gabapentin 300 MG CAPSULE PO SCH ×2 (08:11→20:33)
[2017-12-30] MEDS: Nicotine 21 MG PATCH.TD24 TD SCH (08:11)
--- NOTE | 2017-12-30 09:16 | Palliative Progress Note ---
Date of Encounter: 12/30/17 Time of Encounter: 09:10 - Assessment and plan (1) Cancer related pain Current Visit: No Status: Acute Assessment and plan: Continue Fentanyl patch at 125mcg. Has only utilized Oxycodone x3 last 24 hours , and has not required since about 1700 yesterday. (2) Decubitus ulcer of sacral area Current Visit: No Status: Acute Assessment and plan: Continue gentle cleansing and Allevyn Qualifiers: Pressure ulcer stage: stage 1 Qualified Code(s): L89.151 - Pressure ulcer of sacral region, stage 1 (3) Constipation due to opioid therapy Current Visit: No Status: Acute Assessment and plan: Continue Senokot and Dulcolax suppositories. (4) Goals of care, counseling/discussion Current Visit: No Status: Acute Assessment and plan: Appears pain well controlled with transition to Fentanyl patch. Patient states she would like to go home tomorrow. Notified [facility] who will be working on arrangements. Also notified [employer] - who had referral info on pt last week that she was back in hospital, but tentative d/c next 24-48 hours, and they would still like services. (5) Anxiety Current Visit: No Status: Chronic Assessment and plan: Continue Lorazeapam PRN. Utilized x3 last 24 hours (6) Bladder cancer metastasized to bone Current Visit: No Status: Chronic (7) Primary lung adenocarcinoma Current Visit: No Status: Chronic Qualifiers: Laterality: left Qualified Code(s): C34.92 - Malignant neoplasm of unspecified part of left bronchus or lung - Time Spent With Patient Total time spent is greater than 50% in coordination of care (as documented) at patient's floor/unit and/or counseling patient: - Subjective Interval history: Patient sleeping on my arrival, awakens easily. Slightly confused and making some inappropriate statements. States "comfortable right now". Denies nausea. Still having BM's. No visitors present during my visit. - Constitutional General appearance: Present: no acute distress - Respiratory Additional comments: Breath sounds course with rhonchi throughout. - Cardiovascular Cardiovascular exam: Present: +S1, +S2 - GI/Abdominal GI/Abdominal exam: Present: normal bowel sounds, soft - Extremities Exam Extremities exam: Present: normal capillary refill, normal inspection - Neurological Exam Neurological exam: Present: alert, altered Additional comments: Patient oriented to name and place - disoriented to time and situation. Able to follow simple commands. Inappropriate statements at times. - Skin Skin exam: Present: dry, pallor, warm Palliative Quality Palliative Quality: Screen for Code Status: Yes, Screen for Goals of Care: Yes, Screen for Pain: Yes, If Pain Regimen Started, Initiate Bowel Regimen: Yes, Screen for Nausea/Vomitting: Yes Code Status: 12/28/17 13:26 Resuscitation Status: Active [RES] Routine Comment: Resuscitation Status: DNR-Comfort Care Consult Discharge Plan - Plan Referrals: NONE,PCP [Primary Care Provider] -
[2017-12-30] MEDS: *HR* OxyCODONE Immed Rel 15 MG TABLET PO PRN ×2 (10:33→16:15)
[2017-12-30] MEDS: Budesonide/Formoterol 80/4.5 MDI IH SCH ×2 (10:41→19:39)
[2017-12-30] MEDS: Tiotropium 18 MCG inhalation IH SCH (10:42)
[2017-12-30] MEDS: *HR* FentaNYL PATCH 100 MCG PATCH TD SCH (11:24)
[2017-12-30] MEDS: Bisacodyl 10 MG RECTAL SUPPOSITORY RC SCH (20:33)
[2017-12-31] MEDS: Budesonide/Formoterol 80/4.5 MDI IH SCH ×2 (07:50→20:48)
[2017-12-31] MEDS: Tiotropium 18 MCG inhalation IH SCH (07:51)
[2017-12-31] MEDS: Nicotine 21 MG PATCH.TD24 TD SCH (09:59)
[2017-12-31] MEDS: BuPROPion SR (12 HR) 150 MG TABLET PO SCH ×2 (10:00→21:01)
[2017-12-31] MEDS: Gabapentin 300 MG CAPSULE PO SCH ×2 (10:00→21:02)
[2017-12-31] MEDS: Sennosides/Docusate Sodium TABLET PO SCH ×2 (10:00→21:02)
[2017-12-31] MEDS: *HR* OxyCODONE Immed Rel 15 MG TABLET PO PRN ×2 (10:07→21:01)
--- NOTE | 2017-12-31 10:08 | Palliative Progress Note ---
Date of Encounter: 12/31/17 Time of Encounter: 10:05 - Assessment and plan (1) Cancer related pain Current Visit: No Status: Acute Assessment and plan: Continue Fentanyl patch at 100 mcg and Oxycodone for breakthrough pain. Utilized Oxy x2 last 24 hours. (2) Decubitus ulcer of sacral area Current Visit: No Status: Acute Assessment and plan: Continue Allevyn - turn/reposition frequently. Qualifiers: Pressure ulcer stage: stage 1 Qualified Code(s): L89.151 - Pressure ulcer of sacral region, stage 1 (3) Constipation due to opioid therapy Current Visit: No Status: Acute Assessment and plan: Continue Senokot/Dulcolax as scheduled. WIll change Dulcolax suppositories to PRN. Very large soft BM this am. MOnitor (4) Goals of care, counseling/discussion Current Visit: No Status: Acute Assessment and plan: Spoke with pt as well as boyfriend Clarence this am. Patient is getting weaker and takes 2 to get up to bedside commode. Clarence has no other help, and aware that even with [employer] services, he would still have to provide most care evenings/nights. Discussed with [facility] that ECF placement may be necessary to provide her care and maintain safe environment. She was tearful, but did state that she doubted Clarence could provide care for her much longer. He requested [facility] - not sure if [facility] has contract with them. Will call [facility] to discuss and see if SW can come meet with him. (5) Anxiety Current Visit: No Status: Chronic (6) Bladder cancer metastasized to bone Current Visit: No Status: Chronic (7) Primary lung adenocarcinoma Current Visit: No Status: Chronic Qualifiers: Laterality: left Qualified Code(s): C34.92 - Malignant neoplasm of unspecified part of left bronchus or lung - Time Spent With Patient Total time spent is greater than 50% in coordination of care (as documented) at patient's floor/unit and/or counseling patient: 25 - 35 minutes - Subjective Interval history: Patient c/o abd cramping on my arrival - [place] [facility] [place] and had very large soft BM. Refused breakfast, but taking oral fluids. States pain "OK" at this time. - Constitutional General appearance: Present: no acute distress - Respiratory Additional comments: Rhonchi/wheezes throughout all lung valdes - Cardiovascular Cardiovascular exam: Present: +S1, +S2 - GI/Abdominal GI/Abdominal exam: Present: normal bowel sounds, soft - Extremities Exam Extremities exam: Present: normal capillary refill, normal inspection - Neurological Exam Additional comments: Alert and oriented x2 but confused, and makes inappropriate statements at times. - Skin Skin exam: Present: dry, pallor, warm Palliative Quality Palliative Quality: Screen for Code Status: Yes, Screen for Goals of Care: Yes, Screen for Pain: Yes, If Pain Regimen Started, Initiate Bowel Regimen: Yes, Screen for Nausea/Vomitting: Yes Code Status: 12/28/17 13:26 Resuscitation Status: Active [RES] Routine Comment: Resuscitation Status: DNR-Comfort Care Consult Discharge Plan - Plan Referrals: NONE,PCP [Primary Care Provider] -
[2017-12-31] MEDS: Bisacodyl 10 MG RECTAL SUPPOSITORY RC SCH (21:02)
[2018-01-01] MEDS: *HR* OxyCODONE Immed Rel 15 MG TABLET PO PRN ×3 (04:10→22:13)
[2018-01-01] MEDS ORDERED: Bisacodyl 10 MG RECTAL SUPPOSITORY RC PRN (08:07)
--- NOTE | 2018-01-01 08:50 | Palliative Progress Note ---
Date of Encounter: 01/01/18 Time of Encounter: 08:40 - Assessment and plan (1) Cancer related pain Current Visit: No Status: Acute Assessment and plan: Continue Fentanyl patch at 100mcg with Oxycodone for breakthrough. Utilized Oxycodone x3 last 24 hours. monitor (2) Decubitus ulcer of sacral area Current Visit: No Status: Acute Qualifiers: Pressure ulcer stage: stage 1 Qualified Code(s): L89.151 - Pressure ulcer of sacral region, stage 1 (3) Constipation due to opioid therapy Current Visit: No Status: Acute Assessment and plan: Continue Senokot 2 tabs bid with Dulcolax suppositories PRN. Having daily BM's now (4) Goals of care, counseling/discussion Current Visit: No Status: Acute Assessment and plan: [facility] (5) Anxiety Current Visit: No Status: Chronic (6) Bladder cancer metastasized to bone Current Visit: No Status: Chronic (7) Primary lung adenocarcinoma Current Visit: No Status: Chronic Qualifiers: Laterality: left Qualified Code(s): C34.92 - Malignant neoplasm of unspecified part of left bronchus or lung - Time Spent With Patient Total time spent is greater than 50% in coordination of care (as documented) at patient's floor/unit and/or counseling patient: 25 - 35 minutes - Subjective Interval history: Patient confused this am, mumbling and talking to self - attempted to reorient. Restless when awake. Blood pressure starting to trend down. Denies pain at present. Denies shortness of breath. - Constitutional General appearance: Present: no acute distress - Respiratory Additional comments: Course breath sounds, rhonchi throughout - Cardiovascular Cardiovascular exam: Present: +S1, +S2 - GI/Abdominal GI/Abdominal exam: Present: normal bowel sounds, soft - Extremities Exam Extremities exam: Present: normal capillary refill, normal inspection - Neurological Exam Additional comments: Confused, oriented to name only this am. - Psychiatric Psychiatric exam: Present: anxious - Skin Skin exam: Present: dry, pallor, warm Palliative Quality Palliative Quality: Screen for Code Status: Yes, Screen for Goals of Care: Yes, Screen for Pain: Yes, If Pain Regimen Started, Initiate Bowel Regimen: Yes, Screen for Nausea/Vomitting: Yes Code Status: 12/28/17 13:26 Resuscitation Status: Active [RES] Routine Comment: Resuscitation Status: DNR-Comfort Care Consult Discharge Plan - Plan Referrals: NONE,PCP [Primary Care Provider] -
--- NOTE | 2018-01-01 09:48 | Physician Discharge Referral ---
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 Status: Chronic (2) Primary lung adenocarcinoma Status: Chronic (3) COPD (chronic obstructive pulmonary disease) Status: Chronic (4) Cancer related pain Status: Acute (5) Decubitus ulcer of sacral area Status: Acute (6) Constipation due to opioid therapy Status: Chronic (7) Anxiety Status: Chronic Prognosis: Poor Aware of Diagnosis: Patient, Family Aware of Prognosis: Patient, Family - Transfer Medications Home Medications: Oxygen 1 l NS HS 04/14/17 [History] Morphine Sulfate SR (12 HR) [MS Contin] 100 mg PO Q8HR 08/18/17 [History] LORazepam [Lorazepam] 1 mg PO BID PRN 7 Days #14 tablet 10/15/17 [Rx] Nicotine Patch [Nicoderm] 21 mg TD DAILY patch.td24 10/15/17 [Rx] Albuterol Sulfate [Ventolin Hfa] 2 puff IH Q4H PRN #1 hfa.aer.ad 11/09/17 [Rx] BuPROPion SR (12 HR) [Wellbutrin SR] 150 mg PO BID #60 tablet.er 11/09/17 [Rx] Budesonide/Formoterol 160/4.5 [Symbicort 160/4.5] 2 puff IH BIDR #1 inhaler 01/20 [Rx] Ipratropium/Albuterol Neb [Duoneb] 3 ml IH Q4HR PRN #30 vial.neb 11/09/17 [Rx] Prochlorperazine Maleate [Compazine] 10 mg PO Q6HR PRN #60 tablet 11/09/17 [Rx] Tiotropium [place] [Spiriva Respimat] 2 puff IH DAILY #1 mist.inhal 11/09/17 [Rx ] Gabapentin [Neurontin] 300 mg PO BID #60 capsule 11/16/17 [Rx] Fluconazole [Diflucan] 100 mg PO DAILY #5 udc 12/24/17 [Rx] predniSONE [PredniSONE] 40 mg PO DAILY #5 tablet 12/24/17 [Rx] OxyCODONE Immed Rel [Roxicodone 30 MG] 30 mg PO Q4H PRN 12/27/17 [History] Allergies/Adverse Reactions: 3 Allergy/AdvReac Type Severity Reaction Status Date / Time Iodinated Contrast- Oral and Allergy Intermediate Hives Verified 12/27/17 11:27 IV Dye Nickel Allergy Mild Hives Verified 12/27/17 11:27 METALS Allergy Hives Uncoded 12/27/17 11:27 - Respiratory Orders Oxygen / L per min (2-6 LPM for comfort) Smoking Cessation: Smoking cessation has been advised. For more information, call the [place] Tobacco Quit Line at 3-787-YZWQ-NOW. - Advance Directives Living Will: No Power of Community Education Coordinator: No Code Status: DNR-Comfort Care - Mobility Orders Other (Up with assistance as tolerated) - Rehabiliation Orders Rehab Potential: Poor - Treatments Fleet enema rectally every other day PRN cleansing purposes List/Other: Cleanse Coccyx daily and apply Allevyn or facility protective dressing - Diet Orders Mechanical Soft CERTIFICATION: I certify that the transfer of the above named patient to an Extended Care Facility is necessary for the continuing treatment of the diagnosis listed. The above information is true and accurate reflection of patient's current condition. Confidential - Redisclosure prohibited without a patient's written consent.
[2018-01-01] MEDS: *HR* LORazepam 1 MG TABLET PO PRN (09:49)
[2018-01-01] MEDS: BuPROPion SR (12 HR) 150 MG TABLET PO SCH ×2 (09:49→20:53)
[2018-01-01] MEDS: Gabapentin 300 MG CAPSULE PO SCH ×2 (09:49→20:53)
[2018-01-01] MEDS: Nicotine 21 MG PATCH.TD24 TD SCH (09:49)
[2018-01-01] MEDS: Sennosides/Docusate Sodium TABLET PO SCH ×2 (09:50→20:53)
[2018-01-01] MEDS: Tiotropium 18 MCG inhalation IH SCH (11:14)
[2018-01-01] MEDS: Budesonide/Formoterol 80/4.5 MDI IH SCH ×2 (11:14→20:19)
--- NOTE | 2018-01-01 13:03 | Discharge Summary ---
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 Priority: Secondary Status: Chronic (2) Primary lung adenocarcinoma Priority: Primary Status: Chronic Qualifiers: Qualified Code(s): C34.92 - Malignant neoplasm of unspecified part of left bronchus or lung (3) COPD (chronic obstructive pulmonary disease) Priority: Secondary Status: Chronic Qualifiers: COPD type: chronic bronchitis Chronic bronchitis type: simple Qualified Code(s): J41.0 - Simple chronic bronchitis (4) Cancer related pain Priority: Secondary Status: Resolved (5) Decubitus ulcer of sacral area Priority: Secondary Status: Acute Qualifiers: Pressure ulcer stage: stage 1 Qualified Code(s): L89.151 - Pressure ulcer of sacral region, stage 1 (6) Constipation due to opioid therapy Priority: Secondary Status: Resolved (7) Anxiety Priority: Secondary Status: Chronic - Hospital Course Hospital course: Ms. Siddiqui is a 67 year old female with a history of metastatic bladder cancer as well as metastatic lung cancer, with involvement of liver, brain, and bone, who was admitted to general inpatient hospice for intractable pain and symptom management. She was transitioned from oral MS Contin to Fentanyl patch , and has tolerated quite well. Her use of breakthrough Oxycodone has decreased to 3-4 times a day. She was also quite constipated which was resolved with manual disimpaction, daily suppositories and Senakot. She has had multiple larger BM's over the past 3 days. She is ready for discharge to nursing facility for continued comfort and hospice care. - Time Spent with Patient Total time spent providing and/or coordinating discharge services: - Discharge Medications Prescriptions: LORazepam [Ativan] 1 mg PO Q4HR PRN 14 Days #48 tablet PRN Reason: Anxiety FentaNYL PATCH [Duragesic] 100 mcg TD Q72H 14 Days #5 patch.td72 OxyCODONE Immed Rel [Roxicodone 30 MG] 30 mg PO Q4H PRN 14 Days #48 tab PRN Reason: Breakthrough Pain Home Medications: Oxygen 1 l NS HS 04/14/17 [History] Morphine Sulfate SR (12 HR) [MS Contin] 100 mg PO Q8HR 08/18/17 [History] LORazepam [Lorazepam] 1 mg PO BID PRN 7 Days #14 tablet 10/15/17 [Rx] Nicotine Patch [Nicoderm] 21 mg TD DAILY patch.td24 10/15/17 [Rx] Albuterol Sulfate [Ventolin Hfa] 2 puff IH Q4H PRN #1 hfa.aer.ad 11/09/17 [Rx] BuPROPion SR (12 HR) [Wellbutrin SR] 150 mg PO BID #60 tablet.er 11/09/17 [Rx] Budesonide/Formoterol 160/4.5 [Symbicort 160/4.5] 2 puff IH BIDR #1 inhaler 01/20 [Rx] Ipratropium/Albuterol Neb [Duoneb] 3 ml IH Q4HR PRN #30 vial.neb 11/09/17 [Rx] Prochlorperazine Maleate [Compazine] 10 mg PO Q6HR PRN #60 tablet 11/09/17 [Rx] Tiotropium [place] [Spiriva Respimat] 2 puff IH DAILY #1 mist.inhal 11/09/17 [Rx ] Gabapentin [Neurontin] 300 mg PO BID #60 capsule 11/16/17 [Rx] Fluconazole [Diflucan] 100 mg PO DAILY #5 udc 12/24/17 [Rx] predniSONE [PredniSONE] 40 mg PO DAILY #5 tablet 12/24/17 [Rx] OxyCODONE Immed Rel [Roxicodone 30 MG] 30 mg PO Q4H PRN 12/27/17 [History] FentaNYL PATCH [Duragesic] 100 mcg TD Q72H 14 Days #5 patch.td72 01/01/18 [Rx] LORazepam [Ativan] 1 mg PO Q4HR PRN 14 Days #48 tablet 01/01/18 [Rx] OxyCODONE Immed Rel [Roxicodone 30 MG] 30 mg PO Q4H PRN 14 Days #48 tab [Rx] Allergies/Adverse Reactions: 3 Allergy/AdvReac Type Severity Reaction Status Date / Time Iodinated Contrast- Oral and Allergy Intermediate Hives Verified 12/27/17 11:27 IV Dye Nickel Allergy Mild Hives Verified 12/27/17 11:27 METALS Allergy Hives Uncoded 12/27/17 11:27 Internal Medicine - DS: Prov Date of admission: 12/28/17 14:34 Primary care physician: PCP NONE Consults: 12/28/17 13:26 Consult to Palliative Care [CONS] Routine Comment: Consulting Provider: Palliative Care [facility] Reason for Consult: General inpt hospice Call Completed: No Discharging clinician: Jackie Anaya Anticipated date of discharge: 01/01/18 Internal Medicine - DS: Exam - Constitutional Vitals: Vital Signs Temp Pulse Resp BP Pulse Ox 01/01/18 11:14 16 99 01/01/18 07:14 98.1 F 88 17 106/70 99 12/31/17 20:18 20 94 12/31/17 19:05 98.8 F 90 18 98/60 97 Intake and Output 12/31/17 01/01/18 01/01/18 23:59 07:59 15:59 Intake Total 0 / 0 Balance 0 / 0 Intake: Oral 0 / 0 Other: Meal Breakfast Percent of Meal Consumed 0% 0% Stool Size Moderate Small Stool Consistency soft formed formed Stool Color Brown Brown # Urine Diapers 1 # Bowel Movement Diapers 1 General appearance: no acute distress - Respiratory Respiratory exam: Present: decreased breath sounds, rhonchi - Cardiovascular Cardiovascular exam: Present: +S1, +S2 - GI/Abdominal GI/Abdominal exam: Present: normal bowel sounds, soft - Extremities Exam Extremities exam: Present: normal capillary refill, normal inspection - Neurological Exam Neurological exam: Present: altered Additional comments: Oriented to name only at present. Unable to follow directions at times. - Psychiatric Psychiatric exam: Present: anxious - Skin Skin exam: Present: dry, pallor, warm - Patient Status Disposition: Hospice - Medical Facility Condition: Serious Overall status at discharge: patient is not back to baseline - Discharge Instructions Follow Up With: NONE,PCP [Primary Care Provider] - - Diet and Activity Diet: other (Soft diet)
--- NOTE | 2018-01-01 16:17 | Event Note ---
Date of Encounter: 01/01/18 Time of Encounter: 16:05 [facility] having difficulty placing patient at ECF. They are continuing to work on this throughout the evening. Consult placed to hospitalist and d/w Dr. Anderson, as palliative not available to round this weekend if patient not discharged. If she remains here, palliative will resume rounding on Thursday. Thank you to hospitalists group for participating in her care.
--- NOTE | 2018-01-01 17:08 | Event Note ---
Date of Encounter: 01/01/18 Time of Encounter: 17:07 Discussed patient's plan of care with palliative care. We will follow the patient if she remains in the hospital over the weekend. Please call hospitalist team with any questions.
[2018-01-02] MEDS: *HR* OxyCODONE Immed Rel 15 MG TABLET PO PRN ×3 (04:45→14:37)
[2018-01-02] MEDS: Ipratropium/Albuterol Neb 3 ML IH PRN ×2 (05:01→20:00)
[2018-01-02] MEDS: Sennosides/Docusate Sodium TABLET PO SCH ×2 (08:24→20:06)
[2018-01-02] MEDS: BuPROPion SR (12 HR) 150 MG TABLET PO SCH ×2 (08:24→20:06)
[2018-01-02] MEDS: Nicotine 21 MG PATCH.TD24 TD SCH (08:25)
[2018-01-02] MEDS: Gabapentin 300 MG CAPSULE PO SCH ×2 (08:25→20:06)
[2018-01-02] MEDS: Budesonide/Formoterol 80/4.5 MDI IH SCH ×2 (08:34→19:58)
[2018-01-02] MEDS: Tiotropium 18 MCG inhalation IH SCH (08:34)
--- NOTE | 2018-01-02 09:21 | Internal Med Progress Note ---
Date of Encounter: 01/02/18 Time of Encounter: 09:21 - Assessment and plan (1) Anxiety Current Visit: No Status: Chronic Assessment and plan: continue home meds (2) Bladder cancer metastasized to bone Current Visit: Yes Status: Chronic Assessment and plan: continue pain control an comfort measures only (3) Cancer related pain Current Visit: Yes Status: Chronic Assessment and plan: continue current pain regimen (4) Constipation due to opioid therapy Current Visit: Yes Status: Resolved Assessment and plan: now having BM, continue same meds (5) COPD exacerbation Current Visit: Yes Status: Resolved Assessment and plan: chest is clear Duonebs prn continue O2 (6) Decubitus ulcer of sacral area Current Visit: Yes Status: Acute Assessment and plan: regular turning and wound care, allevyn Qualifiers: Pressure ulcer stage: stage 1 Qualified Code(s): L89.151 - Pressure ulcer of sacral region, stage 1 (7) Goals of care, counseling/discussion Current Visit: Yes Status: Acute Assessment and plan: comfort care for ECF when ready (8) Primary lung adenocarcinoma Current Visit: Yes Status: Chronic Qualifiers: Qualified Code(s): C34.92 - Malignant neoplasm of unspecified part of left bronchus or lung - Time Spent With Patient Total time spent is greater than 50% in coordination of care (as documented) at patient's floor/unit and/or counseling patient: - Subjective Interval history: Seen and evaluated at the bedside 67 YO F with metastatic bladder cancer , cancer related pain, lung CA, stage I decubitus ulcer who was admitted to the palliative service as general inpatient hospice However, hospitalist team managing over the weekend The patient denies new complains Her pain is controlled, she is having BM - Constitutional Vitals: Temp Pulse Resp BP Pulse Ox 98.3 F 97 18 102/66 99 01/02/18 00:27 01/02/18 00:27 01/02/18 08:36 01/02/18 00:27 01/02/18 08:36 General appearance: Present: A&O X 3, pleasant, no acute distress Exam: chronically ill-looking - Head Head exam: Present: atraumatic, normocephalic Additional comments: alopecia - Eye Eye exam: Present: PERRL, conjuntiva pink, sclera anicteric Pupils: Present: PERRL - Neck Neck exam general surgery: Present: supple, trachea midline. Absent: lymphadenopathy - Respiratory Respiratory exam: Present: CTAB (anterior auscultation only). Absent: accessory muscle use, rales, rhonchi, wheezes - Cardiovascular Cardiovascular exam: Present: RRR, +S1, +S2. Absent: diastolic murmur, gallop, rubs, systolic murmur - GI/Abdominal GI/Abdominal exam: Present: normal bowel sounds, soft, no peritoneal signs. Absent: distended, tenderness - Extremities Exam Extremities exam: Present: warm, radial pulses palpable and symmetrical. Absent : calf tenderness, cyanotic, pedal edema - Neurological Exam Neurological exam: Present: alert, CN II-XII intact, oriented X3, no focal deficits. Absent: pronater drift, facial droop, speech deficit - Skin Skin exam: Present: dry Consult Discharge Plan - Plan Referrals: NONE,PCP [Primary Care Provider] - Prescriptions: LORazepam [Ativan] 1 mg PO Q4HR PRN 14 Days #48 tablet PRN Reason: Anxiety FentaNYL PATCH [Duragesic] 100 mcg TD Q72H 14 Days #5 patch.td72 OxyCODONE Immed Rel [Roxicodone 30 MG] 30 mg PO Q4H PRN 14 Days #48 tab PRN Reason: Breakthrough Pain
[2018-01-02] MEDS: *HR* LORazepam 1 MG TABLET PO PRN (11:22)
[2018-01-02] MEDS: *HR* FentaNYL PATCH 100 MCG PATCH TD SCH (11:22)
[2018-01-03] MEDS: *HR* OxyCODONE Immed Rel 15 MG TABLET PO PRN ×2 (05:55→21:41)
[2018-01-03] MEDS: Gabapentin 300 MG CAPSULE PO SCH ×2 (08:13→19:52)
[2018-01-03] MEDS: Sennosides/Docusate Sodium TABLET PO SCH ×2 (08:14→19:52)
[2018-01-03] MEDS: Nicotine 21 MG PATCH.TD24 TD SCH (08:14)
[2018-01-03] MEDS: BuPROPion SR (12 HR) 150 MG TABLET PO SCH ×2 (08:14→19:52)
[2018-01-03] MEDS: Budesonide/Formoterol 80/4.5 MDI IH SCH ×2 (09:59→21:28)
[2018-01-03] MEDS: Tiotropium 18 MCG inhalation IH SCH (10:00)
--- NOTE | 2018-01-03 11:00 | Internal Med Progress Note ---
Date of Encounter: 01/03/18 Time of Encounter: 11:00 - Assessment and plan (1) Anxiety Current Visit: Yes Status: Chronic Assessment and plan: continue home meds (2) Bladder cancer metastasized to bone Current Visit: Yes Status: Chronic Assessment and plan: continue pain control an comfort measures only (3) Cancer related pain Current Visit: Yes Status: Chronic Assessment and plan: continue current pain regimen (4) Constipation due to opioid therapy Current Visit: Yes Status: Resolved Assessment and plan: now having BM, continue same meds (5) COPD exacerbation Current Visit: Yes Status: Resolved Assessment and plan: chest is clear Duonebs prn continue O2 (6) Decubitus ulcer of sacral area Current Visit: Yes Status: Acute Assessment and plan: regular turning and wound care, allevyn Qualifiers: Pressure ulcer stage: stage 1 Qualified Code(s): L89.151 - Pressure ulcer of sacral region, stage 1 (7) Goals of care, counseling/discussion Current Visit: Yes Status: Acute Assessment and plan: comfort care for ECF when ready (8) Primary lung adenocarcinoma Current Visit: Yes Status: Chronic Qualifiers: Laterality: unspecified laterality Qualified Code(s): C34.90 - Malignant neoplasm of unspecified part of unspecified bronchus or lung - Time Spent With Patient Total time spent is greater than 50% in coordination of care (as documented) at patient's floor/unit and/or counseling patient: - Subjective Interval history: Seen and evaluated at the bedside 67 YO F with metastatic bladder cancer , cancer related pain, lung CA, stage I decubitus ulcer who was admitted to the palliative service as general inpatient hospice However, hospitalist team managing over the weekend The patient denies new complains Her pain is controlled, she is having BM - Constitutional Vitals: Temp Pulse Resp BP Pulse Ox 98.6 F 92 16 133/81 98 01/03/18 06:39 01/03/18 06:39 01/03/18 10:00 01/03/18 06:39 01/03/18 10:00 General appearance: Present: A&O X 3, pleasant, no acute distress - Head Head exam: Present: atraumatic, normocephalic - Eye Eye exam: Present: PERRL, conjuntiva pink, sclera anicteric Pupils: Present: PERRL - Neck Neck exam general surgery: Present: supple, trachea midline. Absent: lymphadenopathy - Respiratory Respiratory exam: Present: CTAB. Absent: accessory muscle use, rales, rhonchi, wheezes - Cardiovascular Cardiovascular exam: Present: RRR, +S1, +S2. Absent: diastolic murmur, gallop, rubs, systolic murmur - GI/Abdominal GI/Abdominal exam: Present: normal bowel sounds, soft, no peritoneal signs. Absent: distended, tenderness - Extremities Exam Extremities exam: Present: warm, radial pulses palpable and symmetrical. Absent : calf tenderness, cyanotic, pedal edema - Neurological Exam Neurological exam: Present: alert, CN II-XII intact, oriented X3, no focal deficits. Absent: pronater drift, facial droop, speech deficit - Skin Skin exam: Present: dry, intact Consult Discharge Plan - Plan Referrals: NONE,PCP [Primary Care Provider] - Prescriptions: LORazepam [Ativan] 1 mg PO Q4HR PRN 14 Days #48 tablet PRN Reason: Anxiety FentaNYL PATCH [Duragesic] 100 mcg TD Q72H 14 Days #5 patch.td72 OxyCODONE Immed Rel [Roxicodone 30 MG] 30 mg PO Q4H PRN 14 Days #48 tab PRN Reason: Breakthrough Pain
[2018-01-03] MEDS: Ipratropium/Albuterol Neb 3 ML IH PRN (21:28)
[2018-01-04] MEDS: *HR* OxyCODONE Immed Rel 15 MG TABLET PO PRN ×4 (03:18→17:03)
[2018-01-04 07:21] VITALS: BP 120/82
[2018-01-04] MEDS: Nicotine 21 MG PATCH.TD24 TD SCH (07:34)
[2018-01-04] MEDS: BuPROPion SR (12 HR) 150 MG TABLET PO SCH (07:34)
[2018-01-04] MEDS: Gabapentin 300 MG CAPSULE PO SCH (07:35)
[2018-01-04] MEDS: Sennosides/Docusate Sodium TABLET PO SCH (07:35)
[2018-01-04] MEDS: Ipratropium/Albuterol Neb 3 ML IH PRN (08:01)
[2018-01-04] MEDS: Budesonide/Formoterol 80/4.5 MDI IH SCH (08:02)
[2018-01-04] MEDS: Tiotropium 18 MCG inhalation IH SCH (08:04)
--- NOTE | 2018-01-04 09:22 | Palliative Progress Note ---
Date of Encounter: 01/04/18 Time of Encounter: 09:20 - Assessment and plan (1) Anxiety Current Visit: Yes Status: Chronic Assessment and plan: Continue Lorazepam PRN. Has not required over the weekend. (2) Constipation due to opioid therapy Current Visit: Yes Status: Resolved Assessment and plan: Continue Senokot. She has had smear BM's yesterday and today. She is having trouble evacuating on the bedpan. Will restart daily suppositories. (3) Cancer related pain Current Visit: Yes Status: Chronic Assessment and plan: Fentanyl patch continues at 100mcg with Oxycodone for breakthrough pain. Received x3 last 24 hours. 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 Current Visit: No Status: Chronic (5) Primary lung adenocarcinoma Current Visit: Yes Status: Chronic Qualifiers: Laterality: unspecified laterality Qualified Code(s): C34.90 - Malignant neoplasm of unspecified part of unspecified bronchus or lung (6) COPD (chronic obstructive pulmonary disease) Current Visit: No Status: Chronic Qualifiers: COPD type: chronic bronchitis Chronic bronchitis type: simple Qualified Code(s): J41.0 - Simple chronic bronchitis (7) Decubitus ulcer of sacral area Current Visit: Yes Status: Acute Qualifiers: Pressure ulcer stage: stage 2 Qualified Code(s): L89.152 - Pressure ulcer of sacral region, stage 2 (8) Goals of care, counseling/discussion Current Visit: Yes Status: Acute Assessment and plan: Patients symptoms well managed at this point - no longer meets GIP criteria. Now awaiting placement for longer term hospice care. signal worker will be reassessing today with pt/significant other. Greatly appreciate hospitalist assistance in checking on her over the weekend. - Time Spent With Patient Total time spent is greater than 50% in coordination of care (as documented) at patient's floor/unit and/or counseling patient: - Subjective Interval history: Patient sleeping on my arrival - awakens easily. Assisted on bedpan - Allevyn changed. Smear BM. Refused breakfast for me. Still able to assist herself with turning. Positioned on right side with pillow - Constitutional General appearance: Present: no acute distress - Respiratory Additional comments: Course rhonchi throughout anterior chest - Cardiovascular Cardiovascular exam: Present: +S1, +S2 - GI/Abdominal GI/Abdominal exam: Present: normal bowel sounds, soft - Extremities Exam Extremities exam: Present: normal capillary refill, normal inspection - Neurological Exam Additional comments: Awakens easily. Follows simple one step commands. Confused and requires reorienting. - Skin Skin exam: Present: dry, pallor, warm Additional comments: Stage II decub to sacrum dried with scab. Allevyn in place. Palliative Quality Palliative Quality: Screen for Code Status: Yes, Screen for Goals of Care: Yes, Screen for Pain: Yes, If Pain Regimen Started, Initiate Bowel Regimen: Yes, Screen for Nausea/Vomitting: Yes Code Status: 12/28/17 13:26 Resuscitation Status: Active [RES] Routine Comment: Resuscitation Status: DNR-Comfort Care Consult Discharge Plan - Plan Referrals: NONE,PCP [Primary Care Provider] - Prescriptions: LORazepam [Ativan] 1 mg PO Q4HR PRN 14 Days #48 tablet PRN Reason: Anxiety FentaNYL PATCH [Duragesic] 100 mcg TD Q72H 14 Days #5 patch.td72 OxyCODONE Immed Rel [Roxicodone 30 MG] 30 mg PO Q4H PRN 14 Days #48 tab PRN Reason: Breakthrough Pain
[2018-01-04] MEDS: *HR* LORazepam 1 MG TABLET PO PRN ×2 (10:59→17:03)
--- NOTE | 2018-01-04 11:13 | Internal Med Progress Note ---
Date of Encounter: 01/04/18 Time of Encounter: 11:12 - Assessment and plan (1) Anxiety Current Visit: Yes Status: Chronic Assessment and plan: continue home meds (2) Bladder cancer metastasized to bone Current Visit: Yes Status: Chronic Assessment and plan: continue pain control an comfort measures only (3) Cancer related pain Current Visit: Yes Status: Chronic Assessment and plan: continue current pain regimen (4) Constipation due to opioid therapy Current Visit: Yes Status: Resolved Assessment and plan: now having BM, continue same meds (5) COPD exacerbation Current Visit: Yes Status: Resolved Assessment and plan: chest is clear Duonebs prn continue O2 (6) Decubitus ulcer of sacral area Current Visit: Yes Status: Acute Assessment and plan: regular turning and wound care, allevyn Qualifiers: Pressure ulcer stage: stage 2 Qualified Code(s): L89.152 - Pressure ulcer of sacral region, stage 2 (7) Goals of care, counseling/discussion Current Visit: Yes Status: Acute Assessment and plan: comfort care for ECF when ready (8) Primary lung adenocarcinoma Current Visit: Yes Status: Chronic Qualifiers: Laterality: unspecified laterality Qualified Code(s): C34.90 - Malignant neoplasm of unspecified part of unspecified bronchus or lung - Time Spent With Patient Total time spent is greater than 50% in coordination of care (as documented) at patient's floor/unit and/or counseling patient: - Subjective Interval history: Seen and evaluated at the bedside 67 YO F with metastatic bladder cancer , cancer related pain, lung CA, stage I decubitus ulcer who was admitted to the palliative service as general inpatient hospice However, hospitalist team managing over the weekend The patient denies new complains Her pain is controlled, she is having BM Palliative care will resume care for the patient, hospitalist group will sign off - Constitutional Vitals: Temp Pulse Resp BP Pulse Ox 97.7 F 99 18 120/82 97 01/04/18 07:14 01/04/18 07:14 01/04/18 08:04 01/04/18 07:14 01/04/18 08:04 General appearance: Present: A&O X 3, pleasant, no acute distress - Head Head exam: Present: atraumatic, normocephalic - Eye Eye exam: Present: PERRL, conjuntiva pink, sclera anicteric Pupils: Present: PERRL - Neck Neck exam general surgery: Present: supple, trachea midline. Absent: lymphadenopathy - Respiratory Respiratory exam: Present: CTAB. Absent: accessory muscle use, rales, rhonchi, wheezes - Cardiovascular Cardiovascular exam: Present: RRR, +S1, +S2. Absent: diastolic murmur, gallop, rubs, systolic murmur - GI/Abdominal GI/Abdominal exam: Present: normal bowel sounds, soft, no peritoneal signs. Absent: distended, tenderness - Extremities Exam Extremities exam: Present: warm, radial pulses palpable and symmetrical. Absent : calf tenderness, cyanotic, pedal edema - Neurological Exam Neurological exam: Present: alert, CN II-XII intact, oriented X3, no focal deficits. Absent: pronater drift, facial droop, speech deficit - Skin Skin exam: Present: dry, intact Consult Discharge Plan - Plan Referrals: NONE,PCP [Primary Care Provider] - Prescriptions: LORazepam [Ativan] 1 mg PO Q4HR PRN 14 Days #48 tablet PRN Reason: Anxiety FentaNYL PATCH [Duragesic] 100 mcg TD Q72H 14 Days #5 patch.td72 OxyCODONE Immed Rel [Roxicodone 30 MG] 30 mg PO Q4H PRN 14 Days #48 tab PRN Reason: Breakthrough Pain
== END 2018-01-04 18:07 | disposition hospice, inpatient (51) | DRG 948 ==
LOC: SUATTDRO 14:34 → 2ANU 14:34
PROVIDERS: ADMIT Family Medicine Hospice and Palliative Medicine; ATTEND Internal Medicine